=== PATIENT | female | born 2000 | race Caucasian/White ===

== ENCOUNTER 2022-07-12 15:57 | Inpatient (IN) | payer MEDICARE, MEDICAID, SELFPAY ==
--- NOTE | 2022-07-12 | ECG_ITS ---
Test Reason : medical clear Blood Pressure : / mmHG Vent. Rate : 076 BPM Atrial Rate : 076 BPM P-R Int : 158 ms QRS Dur : 100 ms QT Int : 380 ms P-R-T Axes : 020 022 021 degrees QTc Int : 427 ms Normal sinus rhythm Minimal voltage criteria for LVH, may be normal variant ( R in aVL ) RSR' or QR pattern in V1 suggests right ventricular conduction delay Abnormal ECG No previous ECGs available Referred By: Nilam Vences Electronically Signed By:SUKUMAR REGAN MD
[2022-07-12 16:06] VITALS: BP 133/79; BP 156/94; PULSE 113; PULSE 98; RESP 18; TEMP 36.9; O2SAT 97; O2SAT 98; BMI 35.5
--- NOTE | 2022-07-12 16:26 | ED.PSYCH ---
HPI - Psych General Chief Complaint: Psychiatric Symptoms Stated Complaint: crisis Time Seen by Provider: 07/12/22 16:12 Source: patient Mode of arrival: ambulatory Limitations: no limitations History of Present Illness HPI Narrative: 22 yold female with history of psych presents to the ED for suicidal and homicidal ideation. Patient states she does not get along with her brake mechanic at a custodial so she made those statements. Patient was evaluated by [facility] and and they recommend she come in for inpatient bed search. Patient states her plan will be to cut herself. Related Data Allergies Allergy/AdvReac Type Severity Reaction Status Date / Time No Known Allergies Allergy Verified 07/12/22 16:23 Review of Systems Review of Systems: suicide and homicidal. plan to cut herself Yes all other systems are reviewed and are negative [facility] Social History Social History Advance Directives: No Advance Directives Information Provided: No Physical Exam Vital Signs: Vital Signs: Last Vital Signs Temp 98.5 F 07/12/22 16:06 Pulse 98 07/12/22 16:06 Resp 18 07/12/22 16:06 BP 133/79 07/12/22 16:06 Pulse Ox 98 07/12/22 16:06 O2 Del Method 07/12/22 16:06 BMI result Body Mass Index 35.5 Const: General: cooperative, healthy appearing, comfortable, no acute distress, well developed, alert, awake and Physically active Orientation/consciousness: oriented to time and patient oriented x3 HEENT: Head: Yes normal to inspection, Yes No palpable skull fracture present, Yes normocephalic, Yes atraumatic and No abrasion Eyes: General: appearance normal, both eyes and all related structures Neck: Neck: Yes normal visual inspection, Yes full ROM, Yes no lymphadenopathy, Yes no meningeal signs, Yes trachea midline, Yes supple, No anterior neck swelling and No tender Chest: Chest palpation & inspection: normal inspection of the chest and normal palpation of entire chest wall Resp: Effort & Inspection: normal respiratory effort and able to speak in complete sentences Auscultation: clear to auscultation bilaterally Cardio: Jugular venous distension: no JVD Heart sounds: S1 normal heart sound present and S2 normal heart sound present GI: Inspection: Yes normal to inspection and No abdominal wall ecchymosis Palpation (GI): Soft to palpation, not firm, nontender, no guarding and not rigid : General: No CVA tenderness Back/Spine/Pelvis: Back: No CVA tenderness and No back tenderness Skin: General skin exam: no rashes or lesions noted and elasticity normal Neuro: General: oriented to time, patient oriented x3, gait normal, tone normal and no meningeal signs Cranial nerves: Yes CN's II-XII intact bilaterally Extrem: General: Yes normal to inspection and Yes full ROM Psych: Appearance: grossly normal, well kempt and not disheveled Course Course Course Narrative: Labs ordered. Patient will be direct admit. Reevaluation(s) Reevaluation #1: Patient labs baseline and normal. Patient has a bed search Time: 19:53 MDM - Psych MDM Narrative Medical decision making narrative: Depression Lab Data Result diagrams: 07/12/22 17:14 07/12/22 17:14 Labs: Lab Results 07/12/22 07/12/22 07/12/22 Range/Units 16:35 16:35 16:35 WBC (4.8-10.8) X10*3/uL RBC (4.20-5.50) X10*6/uL Hgb (12.0-16.0) g/dl Hct (37.0-47.0) % MCV (80.0-98.0) fL MCH (27.0-33.0) pg MCHC (31.0-35.0) g/dl RDW (11.0-16.0) % Plt Count (160-400) X10*3/uL MPV (9.4-12.3) fL Immature Gran % (Auto) (0.0-0.4) % Neut % (Auto) (45-73) % Lymph % (Auto) (20-40) % [place] % (Auto) (2-11) % Eos % (Auto) (0-4) % Baso % (Auto) (0-2) % Lymph # (Auto) (1.2-4.9) X10*3/uL [place] # (Auto) (0.1-1.2) X10*3/uL Eos # (Auto) (0.0-0.4) X10*3/uL Baso # (Auto) (0.0-0.2) X10*3/uL Abs Immat Gran (auto) (0.00-0.03) X10*3/uL Absolute Neuts (auto) (2.0-8.3) x10*3/uL Absolute Nucleated RBC (0.0-0.012) X10*3/uL Nucleated RBC % (auto) (0.0-0.2) /100WBC Sodium (135-145) mmol/L Potassium (3.3-5.1) mmol/L Chloride (96-108) mmol/L Carbon Dioxide (22-29) mmol/L Anion Gap (12-20) BUN (9-16) mg/dL Creatinine (0.5-1.4) mg/dL Estim Creat Clear Calc Estimated GFR Random Glucose (60-115) mg/dL Calcium (8.4-10.2) mg/dL Total Bilirubin (0.0-1.0) mg/dL Direct Bilirubin (0.0-0.5) mg/dL AST (5-31) U/L ALT (0-31) U/L Alkaline Phosphatase (39-117) U/L Total Protein (6.5-8.0) g/dL Albumin (3.5-5.0) g/dL Urine Color Yellow Urine Appearance Clear Urine pH 5.5 (5.0-9.0) Ur Specific [place] 1.015 (1.005-1.025) Urine Protein Negative (Neg-Trace) mg/dL Urine Glucose (UA) Negative (Negative) mg/dL Urine Ketones Negative (Negative) mg/dL Urine Blood Trace H (Negative) Urine Nitrite Negative (Negative) Ur Leukocyte Esterase Small (1+) H (Negative) Urine Test NEGATIVE (NEGATIVE) Urine Opiates Screen Not Detected (Not Detect) Urine Fentanyl Screen Not Detected (Not Detect) Ur Barbiturates Screen Not Detected (Not Detect) Ur Phencyclidine Scrn Not Detected (Not Detect) Ur Amphetamines Screen Not Detected (Not Detect) U Benzodiazepines Scrn Not Detected (Not Detect) Urine Cocaine Screen Not Detected (Not Detect) U Marijuana (THC) Screen Not Detected (Not Detect) Ethyl Alcohol mg/dL COVID-19 (CHE) (Negative) COVID-19 Clin Com 07/12/22 07/12/22 07/12/22 Range/Units 16:35 17:14 17:14 WBC 11.8 H (4.8-10.8) X10*3/uL RBC 4.50 (4.20-5.50) X10*6/uL Hgb 12.8 (12.0-16.0) g/dl Hct 37.3 (37.0-47.0) % MCV 82.9 (80.0-98.0) fL MCH 28.4 (27.0-33.0) pg MCHC 34.3 (31.0-35.0) g/dl RDW 13.3 (11.0-16.0) % Plt Count 324 (160-400) X10*3/uL MPV 9.2 L (9.4-12.3) fL Immature Gran % (Auto) 0.2 (0.0-0.4) % Neut % (Auto) 67.5 (45-73) % Lymph % (Auto) 27.4 (20-40) % [place] % (Auto) 4.5 (2-11) % Eos % (Auto) 0.1 (0-4) % Baso % (Auto) 0.3 (0-2) % Lymph # (Auto) 3.2 (1.2-4.9) X10*3/uL [place] # (Auto) 0.5 (0.1-1.2) X10*3/uL Eos # (Auto) 0.0 (0.0-0.4) X10*3/uL Baso # (Auto) 0.0 (0.0-0.2) X10*3/uL Abs Immat Gran (auto) 0.02 (0.00-0.03) X10*3/uL Absolute Neuts (auto) 8.0 (2.0-8.3) x10*3/uL Absolute Nucleated RBC 0.000 (0.0-0.012) X10*3/uL Nucleated RBC % (auto) 0.0 (0.0-0.2) /100WBC Sodium 139 (135-145) mmol/L Potassium 4.2 (3.3-5.1) mmol/L Chloride 106 (96-108) mmol/L Carbon Dioxide 19 L (22-29) mmol/L Anion Gap 18 (12-20) BUN 11 (9-16) mg/dL Creatinine 0.76 (0.5-1.4) mg/dL Estim Creat Clear Calc 127.8 Estimated GFR > 60 Random Glucose 102 (60-115) mg/dL Calcium 9.2 (8.4-10.2) mg/dL Total Bilirubin 0.2 (0.0-1.0) mg/dL Direct Bilirubin < 0.2 (0.0-0.5) mg/dL AST 10 (5-31) U/L ALT 11 (0-31) U/L Alkaline Phosphatase 85 (39-117) U/L Total Protein 7.8 (6.5-8.0) g/dL Albumin 4.6 (3.5-5.0) g/dL Urine Color Urine Appearance Urine pH (5.0-9.0) Ur Specific [place] (1.005-1.025) Urine Protein (Neg-Trace) mg/dL Urine Glucose (UA) (Negative) mg/dL Urine Ketones (Negative) mg/dL Urine Blood (Negative) Urine Nitrite (Negative) Ur Leukocyte Esterase (Negative) Urine Test (NEGATIVE) Urine Opiates Screen (Not Detect) Urine Fentanyl Screen (Not Detect) Ur Barbiturates Screen (Not Detect) Ur Phencyclidine Scrn (Not Detect) Ur Amphetamines Screen (Not Detect) U Benzodiazepines Scrn (Not Detect) Urine Cocaine Screen (Not Detect) U Marijuana (THC) Screen (Not Detect) Ethyl Alcohol < 10 mg/dL COVID-19 (CHE) Negative (Negative) COVID-19 Clin Com See Note Discharge Plan Discharge Clinical Impression: Depression Patient Disposition: Still a Patient
--- NOTE | 2022-07-12 16:41 | PC.NURSE ---
PT calm and cooperative sectioned 12 from day program. Seen in the community by N. Reports SI/HI when with acute care nursing assistant. Reports feeling safe here. Denies SI/HI at this current time. PT changed into hospital attire and belongings searched and secured in locker #6.
[2022-07-12 16:58] LABS: COVID-19 Test Negative (Negative); IDNOW Serial# 16C4AD1C
[2022-07-12 17:00] LABS: Amphetamine Screen Urine Not Detected (Not Detect); Barbiturates, Urine Not Detected (Not Detect); Benzodiazepines Screen Urine Not Detected (Not Detect); Cannabinoid Screen Urine Not Detected (Not Detect); Cocaine Screen Urine Not Detected (Not Detect); Fentanyl, urine Not Detected (Not Detect); Opiate Screen Urine Not Detected (Not Detect); Phencyclidine Screen Urine Not Detected (Not Detect)
[2022-07-12 17:16] LABS: Appearance Urine Clear; Color Urine Yellow; Glucose Urine UA Negative (Negative); Leukocyte Esterase Urine Small (1+) (Negative); Nitrite Urine Negative (Negative); PH 5.5 (5.0-9.0); Specific Gravity - Urine 1.015 (1.005-1.025); UMIC TRIGGER UACC YES; Urine Blood Trace (Negative); Urine Ketones Negative (Negative); Urine Protein Negative (Neg-Trace)
[2022-07-12 17:19] LABS: UPreg QC Valid YES; Urine Pregnancy NEGATIVE (NEGATIVE)
[2022-07-12 17:22] LABS: MANUAL DIFF FLAG NO
[2022-07-12 17:26] LABS: Basophils Percent Auto 0.3 % (0-2); Eosinophils Percent Auto 0.1 % (0-4); Hematocrit 37.3 % (37.0-47.0); Hemoglobin 12.8 g/dl (12.0-16.0); Imm Gran Abs Auto 0.02 X10*3/uL (0.00-0.03); Imm Gran Pct Auto 0.2 % (0.0-0.4); Lymphocytes Absolute Auto 3.2 X10*3/uL (1.2-4.9); Lymphocytes Percent Auto 27.4 % (20-40); Mean Corpuscular HGB Conc 34.3 g/dl (31.0-35.0); Mean Corpuscular Hemoglobin 28.4 pg (27.0-33.0); Mean Corpuscular Volume 82.9 fL (80.0-98.0); Mean Platelet Volume 9.2 fL (9.4-12.3); Monocytes Absolute Auto 0.5 X10*3/uL (0.1-1.2); Monocytes Percent Auto 4.5 % (2-11); Neutrophils Percent Auto 67.5 % (45-73); Platelet Count 324 X10*3/uL (160-400); Red Cell Distribution Width 13.3 % (11.0-16.0); White Blood Count 11.8 X10*3/uL (4.8-10.8)
[2022-07-12 18:06] LABS: Alanine Aminotransferase 11 U/L (0-31); Albumin Level 4.6 g/dL (3.5-5.0); Alkaline Phosphatase 85 U/L (39-117); Anion Gap 18 (12-20); Aspartate Amino Transferase 10 U/L (5-31); Bilirubin Direct < 0.2 mg/dL (0.0-0.5); Bilirubin Total 0.2 mg/dL (0.0-1.0); Blood Urea Nitrogen 11 mg/dL (9-16); Calcium 9.2 mg/dL (8.4-10.2); Carbon Dioxide 19 mmol/L (22-29); Chloride 106 mmol/L (96-108); Creatinine Clr Calc Pharmacy 127.8; Estimated Glomerular Filt Rate > 60; Ethanol < 10 mg/dL; Glucose Random 102 mg/dL (60-115); Potassium 4.2 mmol/L (3.3-5.1); Sodium 139 mmol/L (135-145); Total Protein 7.8 g/dL (6.5-8.0)
--- OUTSIDE RECORDS SUMMARY | 2022-07-12 18:51 | XMS_ITS | Continuity of Care Document ---
:2000 Author Organization [facility] Address [address] [place] [address]- Care Team Providers Name Role Phone Not on Staff, PCP Primary Care Physician Unavailable Encounter [facility] Date(s): 05/07/22 - 05/08/22 [facility] [address] [place] [id number] Encounter Diagnosis Suicidal ideation (Final) - 05/07/22 Chronic bipolar disorder (Final) - 05/08/22 Acute depression (Final) - 05/08/22 Discharge Disposition: A-D/C Home Attending Physician: Robert Brown MD Admitting Physician: Robert Brown MD Referring Physician: Not on Staff, Referring MD Allergies, Adverse Reactions, Alerts No Known Medication Allergies Vital Signs Most recent to oldest 1 2 3 [Reference Range]: Height 159 cm 159 cm (05/08/22 11:08 AM) (05/07/22 5:50 PM) Weight 95 kg (05/07/22 5:50 PM) Oxygen Saturation [94-100 97 % 98 % 100 % %] (05/08/22 11:08 AM) (05/08/22 4:11 AM) (05/07/22 5: 50 PM) Pulse Rate [55-90 bpm] 91 bpm 90 bpm 94 bpm *H* (05/08/22 4:11 AM) *H* (05/08/22 11:08 AM) (05/07/22 5:50 PM) Blood Pressure 120/62 mm Hg 138/78 mm Hg 141/80 mm Hg [90-138/55-84 mm Hg] (05/08/22 11:08 AM) (05/08/22 4:11 AM) *H* (05/07/22 5:50 PM ) Respiratory Rate [16-30 20 br/min 17 br/min 16 br/mi n br/min] (05/08/22 11:08 AM) (05/08/22 4:11 AM) (05/07/22 5: 50 PM) Temperature [96.8-100.4 98.8 DegF 98.3 DegF 98.9 Deg F DegF] (05/08/22 11:08 AM) (05/08/22 4:11 AM) (05/07/22 5: 50 PM) Liters per Minute 0 L/min (05/08/22 11:08 AM) Mode of Delivery (Oxygen) Room air Room air Room a ir (05/08/22 11:08 AM) (05/08/22 4:11 AM) (05/07/22 5: 50 PM) Blood pressure sites Arm, left (05/08/22 11:08 AM) Temperature Route Oral Oral Oral (05/08/22 11:08 AM) (05/08/22 4:11 AM) (05/07/22 5: 50 PM) Weight Obtained Via Patient/family stated (05/07/22 5:50 PM)
[2022-07-12 20:45] VITALS: BP 123/74; PULSE 95; RESP 16; TEMP 36.6; O2SAT 100; BMI 36.2
[2022-07-12 21:12] LABS: UACC Culture Trigger YES; WBC Urine 21-50 /HPF (0-5)
[2022-07-12 21:13] LABS: Bacteria Urine None Seen (None Seen); Hyaline Casts Urine 0-2 /LPF (0-2)
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
[2022-07-12] MEDS: Docusate Sodium 100 MG CAPSULE PO (22:00)
[2022-07-12] MEDS: cloZAPine 100 MG TABLET 250 MG PO (22:00)
[2022-07-12] MEDS: Desmopressin Acetate 0.2 MG TABLET 0.3 MG PO (22:02)
[2022-07-12] MEDS: diphenhydrAMINE HCL 25 MG CAPSULE PO (22:03)
--- NOTE | 2022-07-12 22:32 | PC.NURSE ---
Pt requested to take flu shot the next morning. Flu shot not given tonight.
[2022-07-13 08:30] VITALS: BP 135/80; PULSE 114; TEMP 36.6
[2022-07-13] MEDS: polyethylene glycoL 3350 17 GM POWD.PACK PO (09:18)
[2022-07-13] MEDS: Docusate Sodium 100 MG CAPSULE PO ×2 (09:18→20:29)
[2022-07-13] MEDS: Sertraline HCL 100 MG TABLET PO (09:18)
[2022-07-13] MEDS: Prazosin HCL 1 MG CAPSULE PO (09:19)
[2022-07-13] MEDS: cloZAPine 100 MG TABLET PO (09:19)
[2022-07-13] MEDS: OLANZapine 10 MG TABLET PO (09:19)
[2022-07-13 09:26] LABS: Estimated Average Glucose 94 mg/dL; Hemoglobin A1c % 4.9 %
[2022-07-13 09:50] LABS: Cholesterol 206 mg/dL; HDL Cholesterol 54 mg/dL; LDL Cholesterol Calculated 131 mg/dl; Magnesium 2.1 mg/dL (1.6-2.6); Triglycerides 109 mg/dL
[2022-07-13 10:12] LABS: Free T4 (Free Thyroxine) 0.97 ng/dL (0.71-1.85); Thyroid Stimulating Hormone 1.57 uIU/mL (0.32-4.0)
[2022-07-13 11:05] LABS: Folate 12.1 ng/mL (> or = 4.0); Vitamin B12 380 pg/mL (200-900)
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
[2022-07-13 18:00] VITALS: BP 124/74; PULSE 113; TEMP 36.2
[2022-07-13] MEDS: cloZAPine 100 MG TABLET 250 MG PO (20:28)
[2022-07-13] MEDS: Milk of Magnesia 30 ML ORAL.SUSP PO (20:28)
[2022-07-13] MEDS: Desmopressin Acetate 0.2 MG TABLET 0.3 MG PO (20:30)
[2022-07-13] MEDS: diphenhydrAMINE HCL 25 MG CAPSULE PO (20:31)
[2022-07-14 06:00] VITALS: BP 117/69; PULSE 114; RESP 18
[2022-07-14] MEDS: cloZAPine 100 MG TABLET PO (08:35)
[2022-07-14] MEDS: Docusate Sodium 100 MG CAPSULE PO ×2 (08:35→20:09)
[2022-07-14] MEDS: Sertraline HCL 100 MG TABLET PO (08:35)
[2022-07-14] MEDS: OLANZapine 10 MG TABLET PO (08:35)
[2022-07-14] MEDS: Prazosin HCL 1 MG CAPSULE PO (08:35)
[2022-07-14] MEDS: polyethylene glycoL 3350 17 GM POWD.PACK PO (08:36)
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
[2022-07-14] MEDS: bisacodyL 10 MG SUPP.RECT PR (11:01)
[2022-07-14 18:00] VITALS: BP 115/60; PULSE 90; RESP 18
[2022-07-14] MEDS: cloZAPine 100 MG TABLET 250 MG PO (20:07)
[2022-07-14] MEDS: Desmopressin Acetate 0.2 MG TABLET 0.3 MG PO (20:07)
[2022-07-14] MEDS: diphenhydrAMINE HCL 25 MG CAPSULE PO (20:10)
[2022-07-15 08:01] VITALS: BP 138/61; PULSE 101; RESP 16; TEMP 36.6; O2SAT 95
[2022-07-15] MEDS: OLANZapine 10 MG TABLET PO (08:46)
[2022-07-15] MEDS: Docusate Sodium 100 MG CAPSULE PO ×2 (08:46→22:01)
[2022-07-15] MEDS: cloZAPine 100 MG TABLET PO (08:46)
[2022-07-15] MEDS: Sertraline HCL 100 MG TABLET PO (08:46)
[2022-07-15] MEDS: Prazosin HCL 1 MG CAPSULE PO (08:47)
[2022-07-15] MEDS: polyethylene glycoL 3350 17 GM POWD.PACK PO (09:35)
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
[2022-07-15 17:15] VITALS: BP 113/57; PULSE 99; TEMP 36.7
[2022-07-15] MEDS: cloZAPine 100 MG TABLET 250 MG PO (21:57)
[2022-07-15] MEDS: diphenhydrAMINE HCL 25 MG CAPSULE PO (22:01)
[2022-07-15] MEDS: Desmopressin Acetate 0.2 MG TABLET 0.3 MG PO (22:01)
[2022-07-16] MEDS: Prazosin HCL 1 MG CAPSULE PO (08:31)
[2022-07-16] MEDS: OLANZapine 10 MG TABLET PO (08:31)
[2022-07-16] MEDS: Docusate Sodium 100 MG CAPSULE PO ×2 (08:33→22:08)
[2022-07-16] MEDS: Sertraline HCL 100 MG TABLET PO (08:33)
[2022-07-16] MEDS: cloZAPine 100 MG TABLET PO (08:33)
[2022-07-16] MEDS: polyethylene glycoL 3350 17 GM POWD.PACK PO (08:34)
[2022-07-16 09:20] VITALS: BP 132/64; PULSE 88; RESP 18; TEMP 36.2; O2SAT 99
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
[2022-07-16 17:35] VITALS: BP 117/70; PULSE 89; TEMP 36.4
[2022-07-16] MEDS: cloZAPine 100 MG TABLET 250 MG PO (22:06)
[2022-07-16] MEDS: Desmopressin Acetate 0.2 MG TABLET 0.3 MG PO (22:07)
[2022-07-16] MEDS: diphenhydrAMINE HCL 25 MG CAPSULE PO (22:08)
[2022-07-17] MEDS: Prazosin HCL 1 MG CAPSULE PO (10:41)
[2022-07-17] MEDS: Sertraline HCL 100 MG TABLET PO (10:41)
[2022-07-17] MEDS: cloZAPine 100 MG TABLET PO (10:42)
[2022-07-17] MEDS: Docusate Sodium 100 MG CAPSULE PO ×2 (10:42→21:27)
[2022-07-17] MEDS: polyethylene glycoL 3350 17 GM POWD.PACK PO (10:43)
[2022-07-17] MEDS: OLANZapine 10 MG TABLET PO (10:43)
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
[2022-07-17 18:00] VITALS: BP 125/70; PULSE 89; TEMP 36.6; O2SAT 99
[2022-07-17] MEDS: Desmopressin Acetate 0.2 MG TABLET 0.3 MG PO (21:27)
[2022-07-17] MEDS: diphenhydrAMINE HCL 25 MG CAPSULE PO (21:27)
[2022-07-17] MEDS: cloZAPine 100 MG TABLET 250 MG PO (21:31)
[2022-07-18 08:30] VITALS: BP 123/60; PULSE 97; TEMP 36.3
[2022-07-18] MEDS: cloZAPine 100 MG TABLET PO (08:39)
[2022-07-18] MEDS: Prazosin HCL 1 MG CAPSULE PO (08:39)
[2022-07-18] MEDS: OLANZapine 10 MG TABLET PO (08:40)
[2022-07-18] MEDS: Docusate Sodium 100 MG CAPSULE PO (08:40)
[2022-07-18] MEDS: polyethylene glycoL 3350 17 GM POWD.PACK PO (08:40)
[2022-07-18] MEDS: Sertraline HCL 100 MG TABLET PO (08:40)
--- NOTE | 2022-07-18 11:18 | P.PNPSI_ITS ---
Subjective Subjective Reason For Visit: SI,HI Diagnostics Vital Signs (24Hr): Vital Signs - 24 hr 07/17/22 18:00 Temperature 98 F Pulse Rate 89 Blood Pressure 125/70 Pulse Oximetry 99 Oxygen Delivery Method Room Air BMI result Body Mass Index 36.2 Labs Results: 07/12/22 17:14 07/12/22 17:14 Medications Medications Current Medications Acetaminophen (Acetaminophen 325 Mg Tablet) 650 mg PO Q6H PRN PRN Reason: Headache/Pain Mild Scale (1-3) Al Hydroxide/Mg Hydroxide (Magnesium Hydrox/Alum Hydrox 30 Ml Oral.Susp) 30 ml PO Q6H PRN PRN Reason: Heartburn/Nausea Clozapine (Clozapine 100 Mg Tablet) 250 mg PO BEDTIME [facility] Last Admin: 07/17/22 21:31 Dose: 250 mg Clozapine (Clozapine 100 Mg Tablet) 100 mg PO DAILY [facility] Last Admin: 07/18/22 08:39 Dose: 100 mg Desmopressin Acetate (Desmopressin Acetate 0.2 Mg Tablet) 0.3 mg PO BEDTIME [facility] Last Admin: 07/17/22 21:27 Dose: 0.3 mg Diphenhydramine HCl (Diphenhydramine Hcl 25 Mg Capsule) 25 mg PO BEDTIME [facility] Last Admin: 07/17/22 21:27 Dose: 25 mg Docusate Sodium (Docusate Sodium 100 Mg Capsule) 100 mg PO BID [facility] Last Admin: 07/18/22 08:40 Dose: 100 mg Hydroxyzine HCl (Hydroxyzine Hcl 25 Mg Tablet) 25 mg PO Q6H PRN PRN Reason: Anxiety Magnesium Hydroxide (Milk Of Magnesia 30 Ml Oral.Susp) 30 ml PO DAILY PRN PRN Reason: Constipation Last Admin: 07/13/22 20:28 Dose: 30 ml Olanzapine (Olanzapine 10 Mg Tablet) 10 mg PO DAILY [facility] Last Admin: 07/18/22 08:40 Dose: 10 mg Pharmacy Consult (Consult Rx Perform Med Rec) 1 each MISCELLANE ONCE PRN PRN Reason: Consult order Polyethylene Glycol (Polyethylene Glycol 3350 17 Gm Powd.Pack) 17 gm PO DAILY [facility] Last Admin: 07/18/22 08:40 Dose: 17 gm Prazosin HCl (Prazosin Hcl 1 Mg Capsule) 1 mg PO DAILY [facility]; Protocol Last Admin: 07/18/22 08:39 Dose: 1 mg Sertraline HCl (Sertraline Hcl 100 Mg Tablet) 100 mg PO DAILY [facility] Last Admin: 07/17/22 10:41 Dose: 100 mg Trazodone HCl (Trazodone Hcl 50 Mg Tablet) 50 mg PO BEDTIME PRN PRN Reason: Insomnia Allergies Allergies Allergy/AdvReac Type Severity Reaction Status Date / Time No Known Allergies Allergy Verified 07/12/22 16:23 Assessment & Plan Assessment & Plan (1) Autism spectrum disorder: Status: Acute Code(s): F84.0 - Autistic disorder (2) Bipolar disorder: Status: Acute Code(s): F31.9 - Bipolar disorder, unspecified (3) Excoriation (skin-picking) disorder: Status: Acute Code(s): F42.4 - Excoriation (skin-picking) disorder (4) PTSD (post-traumatic stress disorder): Status: Acute Code(s): F43.10 - Post-traumatic stress disorder, unspecified Plan 22 yo female, hx of PTSD, ASD, Bipolar Disorder, Skin Picking Disorder, who has had a recent move to a new residential program and has experienced a conflict with her new child care with resulting SIBS, SI, HI and probably triggering of traumatic memory. Team is attempting to find her a new living situation. Pt reports feeling comfortable and safe on the unit. She has engaged in milieu and with peers today and reports she wants to continue to work toward her goals of j ob, college and independent living. Guardian was notified of her admission. Plan: Continue current regime Observe for behavioral symptoms which require intervention Collateral contact with providers/team as indicated 07/14: Try suppository for constipation. 07/15: Continue current treatment plan 07/16/22: Continue current plan. Discharge planning for 07/18/22. 07/17/22: Discharge 07/18/22. I spent minutes with the patient and/or on the patient floor today, greater than?50% of which was spent counseling/coordinating care.
--- NOTE | 2022-07-19 06:47 | P.DS_ITS ---
DS: Providers Provider Date of Service: 07/18/22 Date of admission: 07/12/22 20:14 Date of discharge: 07/18/22 Primary care physician: Anai Physician Admitting clinician: Jaylin Collado Attending physician on admission: Kane Osuna Attending physician on discharge: Kane Osuna Discharging clinician: Jaylin Collado DS: Diagnosis Discharge Diagnosis (1) Autism spectrum disorder: Status: Acute (2) Bipolar disorder: Status: Acute (3) Excoriation (skin-picking) disorder: Status: Acute (4) PTSD (post-traumatic stress disorder): Status: Acute DS: Medications Discharge Medications Home Medications: Home Medications Medication Instructions Recorded Confirmed clozapine 100 mg tablet 100 mg PO QAM 07/12/22 07/12/22 desmopressin 0.2 mg tablet 0.3 mg PO BEDTIME 07/12/22 07/12/22 diphenhydramine HCl 25 mg capsule 25 mg PO BEDTIME 07/12/22 07/12/22 (Benadryl) docusate sodium 100 mg capsule 100 mg PO BID 07/12/22 07/12/22 (Colace) olanzapine 10 mg tablet 10 mg PO QAM 07/12/22 07/12/22 polyethylene glycol 3350 17 gram 17 g PO QAM 07/12/22 07/12/22 oral powder packet (Miralax) prazosin 1 mg capsule 1 mg PO QPM 07/12/22 07/12/22 sertraline 100 mg tablet 100 mg PO DAILY 07/12/22 07/12/22 Previous Rx's Medication Instructions Recorded clozapine 100 mg tablet 250 mg PO BEDTIME #0 tabs 07/17/22 Mental Status Exam Mental Status Exam Patient Appearance: Appropriate Patient Orientation: Person, Place, Time and Situation Level of Consciousness: Alert Patient Behavior: Talkative and Good Eye Contact Mood Description: Apprehensive Affect Description: Apprehensive Patient Cognition Impaired: Yes Ability to Follow Directions: Good Speech Pattern: Spontaneous Speech Memory Description: Intact Hallucinations: None Delusions: Not Present Thought Process: Goal Oriented Thought Content: positive for Goal Oriented Depressive Symptoms: Increased Anxiety Judgement: Good Data Data Completed and Pending Completed studies during hospitalization [Text1]: 07/12/22 07/12/22 07/12/22 16:35 16:35 16:35 WBC RBC Hgb Hct MCV MCH MCHC RDW Plt Count MPV Immature Gran % (Auto) Neut % (Auto) Lymph % (Auto) [place] % (Auto) Eos % (Auto) Baso % (Auto) Lymph # (Auto) [place] # (Auto) Eos # (Auto) Baso # (Auto) Abs Immat Gran (auto) Absolute Neuts (auto) Absolute Nucleated RBC Nucleated RBC % (auto) Sodium Potassium Chloride Carbon Dioxide Anion Gap BUN Creatinine Estim Creat Clear Calc Estimated GFR Random Glucose Estimat Average Glucose Hemoglobin A1c % Calcium Magnesium Total Bilirubin Direct Bilirubin AST ALT Alkaline Phosphatase Total Protein Albumin Triglycerides Cholesterol LDL Cholesterol, Calc HDL Cholesterol Vitamin B12 Folate TSH Free T4 Urine Color Yellow Urine Appearance Clear Urine pH 5.5 Ur Specific [place] 1.015 Urine Protein Negative Urine Glucose (UA) Negative Urine Ketones Negative Urine Blood Trace H Urine Nitrite Negative Ur Leukocyte Esterase Small (1+) H Urine RBC 6-10 H Urine WBC 21-50 H Ur Squamous Epith Cells 3-5 Urine Bacteria None Seen Hyaline Casts 0-2 Urine Test NEGATIVE Urine Opiates Screen Not Detected Urine Fentanyl Screen Not Detected Ur Barbiturates Screen Not Detected Ur Phencyclidine Scrn Not Detected Ur Amphetamines Screen Not Detected U Benzodiazepines Scrn Not Detected Urine Cocaine Screen Not Detected U Marijuana (THC) Screen Not Detected Ethyl Alcohol COVID-19 (CHE) COVID-19 Clin Com 07/12/22 07/12/22 07/12/22 16:35 17:14 17:14 WBC 11.8 H RBC 4.50 Hgb 12.8 Hct 37.3 MCV 82.9 MCH 28.4 MCHC 34.3 RDW 13.3 Plt Count 324 MPV 9.2 L Immature Gran % (Auto) 0.2 Neut % (Auto) 67.5 Lymph % (Auto) 27.4 [place] % (Auto) 4.5 Eos % (Auto) 0.1 Baso % (Auto) 0.3 Lymph # (Auto) 3.2 [place] # (Auto) 0.5 Eos # (Auto) 0.0 Baso # (Auto) 0.0 Abs Immat Gran (auto) 0.02 Absolute Neuts (auto) 8.0 Absolute Nucleated RBC 0.000 Nucleated RBC % (auto) 0.0 Sodium 139 Potassium 4.2 Chloride 106 Carbon Dioxide 19 L Anion Gap 18 BUN 11 Creatinine 0.76 Estim Creat Clear Calc 127.8 Estimated GFR > 60 Random Glucose 102 Estimat Average Glucose Hemoglobin A1c % Calcium 9.2 Magnesium Total Bilirubin 0.2 Direct Bilirubin < 0.2 AST 10 ALT 11 Alkaline Phosphatase 85 Total Protein 7.8 Albumin 4.6 Triglycerides Cholesterol LDL Cholesterol, Calc HDL Cholesterol Vitamin B12 Folate TSH Free T4 Urine Color Urine Appearance Urine pH Ur Specific [place] Urine Protein Urine Glucose (UA) Urine Ketones Urine Blood Urine Nitrite Ur Leukocyte Esterase Urine RBC Urine WBC Ur Squamous Epith Cells Urine Bacteria Hyaline Casts Urine Test Urine Opiates Screen Urine Fentanyl Screen Ur Barbiturates Screen Ur Phencyclidine Scrn Ur Amphetamines Screen U Benzodiazepines Scrn Urine Cocaine Screen U Marijuana (THC) Screen Ethyl Alcohol < 10 COVID-19 (CHE) Negative COVID-19 Clin Com See Note 07/13/22 07/13/22 07/13/22 08:14 08:14 08:14 WBC RBC Hgb Hct MCV MCH MCHC RDW Plt Count MPV Immature Gran % (Auto) Neut % (Auto) Lymph % (Auto) [place] % (Auto) Eos % (Auto) Baso % (Auto) Lymph # (Auto) [place] # (Auto) Eos # (Auto) Baso # (Auto) Abs Immat Gran (auto) Absolute Neuts (auto) Absolute Nucleated RBC Nucleated RBC % (auto) Sodium Potassium Chloride Carbon Dioxide Anion Gap BUN Creatinine Estim Creat Clear Calc Estimated GFR Random Glucose Estimat Average Glucose 94 Hemoglobin A1c % 4.9 Calcium Magnesium 2.1 Total Bilirubin Direct Bilirubin AST ALT Alkaline Phosphatase Total Protein Albumin Triglycerides 109 Cholesterol 206 LDL Cholesterol, Calc 131 HDL Cholesterol 54 Vitamin B12 380 Folate 12.1 TSH 1.57 Free T4 0.97 Urine Color Urine Appearance Urine pH Ur Specific [place] Urine Protein Urine Glucose (UA) Urine Ketones Urine Blood Urine Nitrite Ur Leukocyte Esterase Urine RBC Urine WBC Ur Squamous Epith Cells Urine Bacteria Hyaline Casts Urine Test Urine Opiates Screen Urine Fentanyl Screen Ur Barbiturates Screen Ur Phencyclidine Scrn Ur Amphetamines Screen U Benzodiazepines Scrn Urine Cocaine Screen U Marijuana (THC) Screen Ethyl Alcohol COVID-19 (CHE) COVID-19 Clin Com 07/12/22 16:35 Urine clean catch - Urine bruce top Urine Culture - Final Proteus mirabilis DS: Summary Hospital Course Hospital Course: Admission to adult psychiatry for exacerbation of bipolar disorder, PTSD, ASD and Excoriation Disorder. Clozaril was adjusted to 350 mg daily. Olanzapine, Prazosin and Sertraline were continued. Time spent discussing smoking cessation with patient: 3 to 10 minutes Status at Discharge Functional status at discharge: independent ambulation Overall status at discharge: patient is progressing back to baseline Time Spent with Patient Time attestation: Total time spent providing and/or coordinating discharge services: 35 Time spent: Greater than 30 minutes Discharge Plan Discharge Anticipated Discharge Date/Time: 07/18/22 16:22 Patient Disposition: Xfer to Respite Facility Discharge Diagnosis: PTSD Autism Spectrum Disorder Bipolar Disorder Skin Picking (Excoriation) Disorder Referrals: [facility] [Other] - 1 Week (Please contact to set up PCP appointment; may also walk in for urgent care.) Psych Prescriber:Jonas Frederick ([employer]) [Other] - 08/07/22 9:00 am (Appointment is in person at the office ) Physician,None [Primary Care Provider] - 1 Week Discharge Medications: New clozapine 100 mg Tablet 250 mg PO BEDTIME Qty: 0 0RF Continued olanzapine 10 mg Tablet 10 mg PO QAM prazosin 1 mg Capsule 1 mg PO QPM sertraline 100 mg Tablet 100 mg PO DAILY diphenhydramine HCl [Benadryl] 25 mg Capsule 25 mg PO BEDTIME clozapine 100 mg Tablet 100 mg PO QAM docusate sodium [Colace] 100 mg Capsule 100 mg PO BID polyethylene glycol 3350 [Miralax] 17 gram Powder In Packet 17 g PO QAM desmopressin 0.2 mg Tablet 0.3 mg PO BEDTIME Discontinued clozapine 200 mg Tablet 200 mg PO BEDTIME clozapine 50 mg Tablet 50 mg PO BEDTIME Discharge Orders: Discharge Order (Routine); Ordered 07/17/22 Ordered By: Jaylin Collado Diet: Advance to usual diet Activity on Discharge: As tolerated Stand Alone Forms: Patient Portal Discharge page, Community Support Care Plan Goals: Maintain mood and safe behaviors Take medications as directed Practice coping skills Continue with out patient providers Health Concerns: Stable mood and behaviors Plan of Treatment: Follow up with PCP, psychiatric providers and out patient providers Take medications as directed Assessment: Pt is fully oriented and without SI/HI. She has insight and demonstrates reasonable judgment in terms of wanting to continue treatment. She is not in imminent risk of harm to self or others and has a safety plan that includes talking with her residential care staff and/or presenting to the closest ER or calling 911 if feeling unsafe. She has been observed closely by the nursing team throughout her admission and has not engaged in any behaviors that suggest dangerousness to self or others and has demonstrated appropriate behaviors and impulse control. Discharge Date/Time: 07/18/22 15:45
== END 2022-07-18 15:45 | DRG 885 ==
LOC: HO.ED 19:54 → HO.PM5 20:19
PROVIDERS: Physician Assistant; Admitting Provider Registered Nurse; Emergency Provider Emergency Medicine; Visit Provider Clinical Nurse Specialist Psychiatric/Mental Health, Adult
DX: F31.9 Bipolar disorder, unspecified (principal); R45.851 Suicidal ideations; F84.0 Autistic disorder; R45.850 Homicidal ideations; Z91.52 Personal history of nonsuicidal self-harm; F42.4 Excoriation (skin-picking) disorder; Z23 Encounter for immunization; Z20.822 Contact with and (suspected) exposure to COVID-19; Z87.891 Personal history of nicotine dependence; Z79.899 Other long term (current) drug therapy
CPT/HCPCS: 36415; 80053; 80061; 80307; 81001; 81003; 81025; 82077; 82248; 82607; 82746; 83036; 83735; 84439; 84443; 85025; 87086; 87088; 87186; 87635; 90686; 90792; 93005; 99285

== ENCOUNTER 2022-08-15 14:32 | Inpatient (IN) | payer MEDICARE, MEDICAID, SELFPAY ==
[2022-08-15 14:43] VITALS: BP 117/79; BP 170/110; PULSE 100; PULSE 108; RESP 18; TEMP 36.4; O2SAT 96; O2SAT 97; BMI 34.9
--- NOTE | 2022-08-15 15:26 | ED.PSYCH ---
HPI - Psych General Chief Complaint: Psychiatric Symptoms Stated Complaint: SI W/PLAN PER EMS Source: patient and EMS Mode of arrival: EMS History of Present Illness HPI Narrative: 22-year-old female with a past medical history of autism, bipolar, skin picking, PTSD, presenting to the ED via EMS from [facility] day program for suicidal ideations with plan to jump into traffic or cut herself. Patient reports feeling mildly lightheaded since yesterday. Denies EtOH or illicit drug use, HI, CP/SOB, headache, abdominal pain, nausea/vomiting. MD complaint: suicidal ideation and feels depressed Onset (ago): day(s) Related Data Home Medications Medication Instructions Recorded Confirmed clozapine 100 mg tablet 100 mg PO QAM 07/12/22 07/12/22 desmopressin 0.2 mg tablet 0.3 mg PO BEDTIME 07/12/22 07/12/22 diphenhydramine HCl 25 mg capsule 25 mg PO BEDTIME 07/12/22 07/12/22 (Benadryl) docusate sodium 100 mg capsule 100 mg PO BID 07/12/22 07/12/22 (Colace) olanzapine 10 mg tablet 10 mg PO QAM 07/12/22 07/12/22 polyethylene glycol 3350 17 gram 17 g PO QAM 07/12/22 07/12/22 oral powder packet (Miralax) prazosin 1 mg capsule 1 mg PO QPM 07/12/22 07/12/22 sertraline 100 mg tablet 100 mg PO DAILY 07/12/22 07/12/22 Previous Rx's Medication Instructions Recorded clozapine 100 mg tablet 250 mg PO BEDTIME #0 tabs 07/17/22 Allergies Allergy/AdvReac Type Severity Reaction Status Date / Time No Known Allergies Allergy Verified 07/12/22 16:23 Review of Systems Review of Systems: Constitutional: No Fever, No Chills, No Fatigue, No Malaise ENT/Mouth: No Ear Pain, No Nasal Congestion, No sore throat, No Rhinorrhea, No Swallowing Difficulty Eyes: No Eye Pain, No Swelling, No Redness Cardiovascular: No Chest Pain, No SOB Respiratory: No Cough, No Sputum, No Dyspnea Gastrointestinal: No Nausea, No Vomiting, No Diarrhea, No Constipation, No Abdominal pain Genitourinary: No Dysuria, No Urinary Frequency, No Hematuria, No Flank Pain Musculoskeletal: No joint pain, No Myalgias, No Joint Swelling Skin: No Skin Lesions, No rash Neuro: No Weakness, No Loss of Consciousness, + lightheaded, No Headache Psych: No Anxiety/Panic, + Depression, + SI, No HI/AH/VH, No Social Issues Yes all other systems are reviewed and are negative Constitutional: Constitutional: Reports as per [facility] Past Medical History Attestation statement: The following information was validated with the patient. Medical History Autism spectrum disorder Bipolar disorder Excoriation (skin-picking) disorder PTSD (post-traumatic stress disorder) Social History Social History Household Members: None Housing: Assisted Living Facility Do you presently have visiting nurse or other home services: No Patient Tobacco Use Status: Former Tobacco user Smoked in Last 30 Days: No Use of substances other than those prescribed or required for medical reasons: No Advance Directives: No Advance Directives Information Provided: No service: No Sexual orientation: Don't Know Physical Exam Vital Signs: Vital Signs: Last Vital Signs Temp 97.5 F 08/15/22 14:43 Pulse 117 H 08/15/22 16:30 Resp 18 08/15/22 14:43 BP 129/69 08/15/22 16:30 Pulse Ox 96 08/15/22 14:43 O2 Del Method 08/15/22 14:43 BMI result Body Mass Index 34.9 Const: General: cooperative, healthy appearing, comfortable, no acute distress, well developed, alert and awake Orientation/consciousness: patient oriented x3 Limitations: no limitations HEENT: Head: Yes normal to inspection and Yes atraumatic Ears: hearing grossly normal bilaterally General nose exam: Normal external nose present Face and sinus: Yes normal facial exam Eyes: General: appearance normal, both eyes and all related structures EOM: EOMs intact bilaterally Neck: Neck: Yes normal visual inspection and Yes no meningeal signs Resp: Effort & Inspection: normal respiratory effort and no respiratory distress Auscultation: clear to auscultation bilaterally, no crackles, no rales, no rhonchi and no wheezes Cardio: Rate: regular rate Heart sounds: S1 normal heart sound present and S2 normal heart sound present GI: Inspection: Yes normal to inspection Palpation (GI): Soft to palpation, nontender, no guarding and not rigid Skin: Rashes: no rashes Neuro: General: patient oriented x3, gait normal, tone normal, moves all extremities, no meningeal signs and CN's II-XI intact bilaterally Gait exam (Neuro): Normal gait present Extrem: General: Yes normal to inspection Course Course Course Narrative: -labs unremarkable. Troponin negative. UA not infected. -orthostatic vital signs negative -patient is medically cleared for crisis evaluation. Physician observation initiated at 17:19 -1800--ED care transferred to CARRI Kimble pending crisis eval MDM - Psych MDM Narrative Medical decision making narrative: 22-year-old female with a past medical history of autism, bipolar, skin picking, PTSD, presenting to the ED via EMS from [facility] program for suicidal ideations with plan to jump into traffic or cut herself. On exam vital signs stable, ambulating around behavioral health POD, nontoxic-appearing, suicidal with plan. Exam otherwise nonfocal. Concern for depression/suicidal ideations. Rule out orthostasis and metabolic/infectious etiologies Plan: EKG, Labs, drug screen, orthostatics, crisis consult Differential Diagnosis Differential diagnosis: Likely suicidal ideation, depression and autism Medical Records Attestation: I reviewed the patient's medical records. Lab Data Attestation: I reviewed the patient's lab results. Result diagrams: 08/15/22 16:13 08/15/22 16:13 Labs: Lab Results 08/15/22 08/15/22 08/15/22 Range/Units 15:24 15:24 15:24 WBC (4.8-10.8) X10*3/uL RBC (4.20-5.50) X10*6/uL Hgb (12.0-16.0) g/dl Hct (37.0-47.0) % MCV (80.0-98.0) fL MCH (27.0-33.0) pg MCHC (31.0-35.0) g/dl RDW (11.0-16.0) % Plt Count (160-400) X10*3/uL MPV (9.4-12.3) fL Immature Gran % (Auto) (0.0-0.4) % Neut % (Auto) (45-73) % Lymph % (Auto) (20-40) % [place] % (Auto) (2-11) % Eos % (Auto) (0-4) % Baso % (Auto) (0-2) % Lymph # (Auto) (1.2-4.9) X10*3/uL [place] # (Auto) (0.1-1.2) X10*3/uL Eos # (Auto) (0.0-0.4) X10*3/uL Baso # (Auto) (0.0-0.2) X10*3/uL Abs Immat Gran (auto) (0.00-0.03) X10*3/uL Absolute Neuts (auto) (2.0-8.3) x10*3/uL Absolute Nucleated RBC (0.0-0.012) X10*3/uL Nucleated RBC % (auto) (0.0-0.2) /100WBC Sodium (135-145) mmol/L Potassium (3.3-5.1) mmol/L Chloride (96-108) mmol/L Carbon Dioxide (22-29) mmol/L Anion Gap (12-20) BUN (9-16) mg/dL Creatinine (0.5-1.4) mg/dL Estim Creat Clear Calc Estimated GFR Random Glucose (60-115) mg/dL Calcium (8.4-10.2) mg/dL Magnesium (1.6-2.6) mg/dL Total Bilirubin (0.0-1.0) mg/dL Direct Bilirubin (0.0-0.5) mg/dL AST (5-31) U/L ALT (0-31) U/L Alkaline Phosphatase (39-117) U/L Troponin I High Sens (<3.5-17.0) ng/L Total Protein (6.5-8.0) g/dL Albumin (3.5-5.0) g/dL Urine Color Yellow Urine Appearance Clear Urine pH 6.5 (5.0-9.0) Ur Specific [place] 1.010 (1.005-1.025) Urine Protein Negative (Neg-Trace) mg/dL Urine Glucose (UA) Negative (Negative) mg/dL Urine Ketones Negative (Negative) mg/dL Urine Blood Negative (Negative) Urine Nitrite Negative (Negative) Ur Leukocyte Esterase Trace H (Negative) Urine RBC 0-2 (0-2) /HPF Urine WBC 0-5 (0-5) /HPF Ur Squamous Epith Cells 3-5 (0-2) /HPF Urine Bacteria Trace (None Seen) Hyaline Casts 0-2 (0-2) /LPF Urine Opiates Screen Not Detected (Not Detect) Urine Fentanyl Screen Not Detected (Not Detect) Ur Barbiturates Screen Not Detected (Not Detect) Ur Phencyclidine Scrn Not Detected (Not Detect) Ur Amphetamines Screen Not Detected (Not Detect) U Benzodiazepines Scrn Not Detected (Not Detect) Urine Cocaine Screen Not Detected (Not Detect) U Marijuana (THC) Screen Not Detected (Not Detect) COVID-19 (CHE) Negative (Negative) COVID-19 Clin Com See Note 08/15/22 08/15/22 08/15/22 Range/Units 16:13 16:13 16:13 WBC 11.1 H (4.8-10.8) X10*3/uL RBC 4.59 (4.20-5.50) X10*6/uL Hgb 12.8 (12.0-16.0) g/dl Hct 38.9 (37.0-47.0) % MCV 84.7 (80.0-98.0) fL MCH 27.9 (27.0-33.0) pg MCHC 32.9 (31.0-35.0) g/dl RDW 13.5 (11.0-16.0) % Plt Count 421 H D (160-400) X10*3/uL MPV 9.1 L (9.4-12.3) fL Immature Gran % (Auto) 0.5 H (0.0-0.4) % Neut % (Auto) 64.1 (45-73) % Lymph % (Auto) 30.1 (20-40) % [place] % (Auto) 5.0 (2-11) % Eos % (Auto) 0.0 (0-4) % Baso % (Auto) 0.3 (0-2) % Lymph # (Auto) 3.3 (1.2-4.9) X10*3/uL [place] # (Auto) 0.6 (0.1-1.2) X10*3/uL Eos # (Auto) 0.0 (0.0-0.4) X10*3/uL Baso # (Auto) 0.0 (0.0-0.2) X10*3/uL Abs Immat Gran (auto) 0.05 H (0.00-0.03) X10*3/uL Absolute Neuts (auto) 7.1 (2.0-8.3) x10*3/uL Absolute Nucleated RBC 0.000 (0.0-0.012) X10*3/uL Nucleated RBC % (auto) 0.0 (0.0-0.2) /100WBC Sodium 137 (135-145) mmol/L Potassium 3.9 (3.3-5.1) mmol/L Chloride 101 (96-108) mmol/L Carbon Dioxide 24 (22-29) mmol/L Anion Gap 16 (12-20) BUN 12 (9-16) mg/dL Creatinine 0.74 (0.5-1.4) mg/dL Estim Creat Clear Calc 134.9 Estimated GFR > 60 Random Glucose 99 (60-115) mg/dL Calcium 9.6 (8.4-10.2) mg/dL Magnesium 2.1 (1.6-2.6) mg/dL Total Bilirubin 0.3 (0.0-1.0) mg/dL Direct Bilirubin < 0.2 (0.0-0.5) mg/dL AST 12 (5-31) U/L ALT 14 (0-31) U/L Alkaline Phosphatase 88 (39-117) U/L Troponin I High Sens < 3.5 (<3.5-17.0) ng/L Total Protein 7.7 (6.5-8.0) g/dL Albumin 4.4 (3.5-5.0) g/dL Urine Color Urine Appearance Urine pH (5.0-9.0) Ur Specific [place] (1.005-1.025) Urine Protein (Neg-Trace) mg/dL Urine Glucose (UA) (Negative) mg/dL Urine Ketones (Negative) mg/dL Urine Blood (Negative) Urine Nitrite (Negative) Ur Leukocyte Esterase (Negative) Urine RBC (0-2) /HPF Urine WBC (0-5) /HPF Ur Squamous Epith Cells (0-2) /HPF Urine Bacteria (None Seen) Hyaline Casts (0-2) /LPF Urine Opiates Screen (Not Detect) Urine Fentanyl Screen (Not Detect) Ur Barbiturates Screen (Not Detect) Ur Phencyclidine Scrn (Not Detect) Ur Amphetamines Screen (Not Detect) U Benzodiazepines Scrn (Not Detect) Urine Cocaine Screen (Not Detect) U Marijuana (THC) Screen (Not Detect) COVID-19 (CHE) (Negative) COVID-19 Clin Com Discharge Plan Discharge Clinical Impression: Suicidal ideation Patient Disposition: Still a Patient Prescriptions: No Action olanzapine 10 mg Tablet 10 mg PO QAM prazosin 1 mg Capsule 1 mg PO QPM sertraline 100 mg Tablet 100 mg PO DAILY diphenhydramine HCl [Benadryl] 25 mg Capsule 25 mg PO BEDTIME clozapine 100 mg Tablet 100 mg PO QAM docusate sodium [Colace] 100 mg Capsule 100 mg PO BID polyethylene glycol 3350 [Miralax] 17 gram Powder In Packet 17 g PO QAM desmopressin 0.2 mg Tablet 0.3 mg PO BEDTIME clozapine 100 mg Tablet 250 mg PO BEDTIME Qty: 0 0RF Interventions: [place]-Suicide Risk Severity Scale Last Done: 08/15/22 16:10
--- NOTE | 2022-08-15 15:37 | ECG_ITS ---
Test Reason : MED CLEARANCE Blood Pressure : / mmHG Vent. Rate : 090 BPM Atrial Rate : 090 BPM P-R Int : 154 ms QRS Dur : 102 ms QT Int : 380 ms P-R-T Axes : 027 018 017 degrees QTc Int : 464 ms Normal sinus rhythm Incomplete right bundle branch block Borderline ECG When compared with ECG of 12-JUL-2022 20:09, No significant changes seen Referred By: Shyanne Tolentino Electronically Signed By:Aleksandr Michael
[2022-08-15 15:38] LABS: Appearance Urine Clear; Color Urine Yellow; Glucose Urine UA Negative (Negative); Leukocyte Esterase Urine Trace (Negative); Nitrite Urine Negative (Negative); PH 6.5 (5.0-9.0); UMIC TRIGGER UACC YES; Urine Blood Negative (Negative); Urine Ketones Negative (Negative); Urine Protein Negative (Neg-Trace)
[2022-08-15 15:42] LABS: Amphetamine Screen Urine Not Detected (Not Detect); Barbiturates, Urine Not Detected (Not Detect); Benzodiazepines Screen Urine Not Detected (Not Detect); Cannabinoid Screen Urine Not Detected (Not Detect); Cocaine Screen Urine Not Detected (Not Detect); Fentanyl, urine Not Detected (Not Detect); Opiate Screen Urine Not Detected (Not Detect); Phencyclidine Screen Urine Not Detected (Not Detect)
[2022-08-15 15:45] LABS: COVID-19 Test Negative (Negative); IDNOW Serial# BCCEAD1C
[2022-08-15 15:53] LABS: Bacteria Urine Trace (None Seen); Hyaline Casts Urine 0-2 /LPF (0-2); RBC Urine 0-2 /HPF (0-2); WBC Urine 0-5 /HPF (0-5)
[2022-08-15 16:26] VITALS: BP 120/71; PULSE 101
[2022-08-15 16:28] VITALS: BP 123/65; PULSE 113
[2022-08-15 16:28] LABS: MANUAL DIFF FLAG NO
[2022-08-15 16:30] VITALS: BP 129/69; PULSE 117
[2022-08-15 16:36] LABS: Basophils Percent Auto 0.3 % (0-2); Hematocrit 38.9 % (37.0-47.0); Hemoglobin 12.8 g/dl (12.0-16.0); Imm Gran Abs Auto 0.05 X10*3/uL (0.00-0.03); Imm Gran Pct Auto 0.5 % (0.0-0.4); Lymphocytes Absolute Auto 3.3 X10*3/uL (1.2-4.9); Lymphocytes Percent Auto 30.1 % (20-40); Mean Corpuscular HGB Conc 32.9 g/dl (31.0-35.0); Mean Corpuscular Hemoglobin 27.9 pg (27.0-33.0); Mean Corpuscular Volume 84.7 fL (80.0-98.0); Mean Platelet Volume 9.1 fL (9.4-12.3); Monocytes Absolute Auto 0.6 X10*3/uL (0.1-1.2); Neutrophils Absolute Auto 7.1 x10*3/uL (2.0-8.3); Neutrophils Percent Auto 64.1 % (45-73); Platelet Count 421 X10*3/uL (160-400); Red Blood Count 4.59 X10*6/uL (4.20-5.50); Red Cell Distribution Width 13.5 % (11.0-16.0); White Blood Count 11.1 X10*3/uL (4.8-10.8)
[2022-08-15 16:50] LABS: Alanine Aminotransferase 14 U/L (0-31); Albumin Level 4.4 g/dL (3.5-5.0); Alkaline Phosphatase 88 U/L (39-117); Anion Gap 16 (12-20); Aspartate Amino Transferase 12 U/L (5-31); Bilirubin Direct < 0.2 mg/dL (0.0-0.5); Bilirubin Total 0.3 mg/dL (0.0-1.0); Blood Urea Nitrogen 12 mg/dL (9-16); Calcium 9.6 mg/dL (8.4-10.2); Carbon Dioxide 24 mmol/L (22-29); Chloride 101 mmol/L (96-108); Creatinine Clr Calc Pharmacy 134.9; Estimated Glomerular Filt Rate > 60; Glucose Random 99 mg/dL (60-115); Magnesium 2.1 mg/dL (1.6-2.6); Potassium 3.9 mmol/L (3.3-5.1); Sodium 137 mmol/L (135-145); Total Protein 7.7 g/dL (6.5-8.0)
[2022-08-15 16:53] LABS: Troponin-I High Sensitivity < 3.5 ng/L (<3.5-17.0)
--- NOTE | 2022-08-15 20:11 | PC.NURSE ---
Med rec completed by calling [facility] pharmacy at [place], spoke with Anuradha, medication verified.
[2022-08-15 23:26] VITALS: BP 124/68; PULSE 95; RESP 17; TEMP 36.4; O2SAT 97
[2022-08-15 23:50] VITALS: BP 130/72; PULSE 95; RESP 18; TEMP 35.7; O2SAT 98
[2022-08-16] MEDS: Docusate Sodium 100 MG CAPSULE PO ×3 (01:29→20:26)
[2022-08-16] MEDS: diphenhydrAMINE HCL 25 MG CAPSULE PO ×2 (01:29→20:26)
[2022-08-16] MEDS: cloZAPine 25 MG TABLET 50 MG PO (01:29)
[2022-08-16] MEDS: Prazosin HCL 1 MG CAPSULE PO ×2 (01:29→20:26)
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
[2022-08-16 07:00] VITALS: BMI 39.4
[2022-08-16 08:30] VITALS: BP 153/72; PULSE 103; RESP 18; TEMP 36.4; O2SAT 100
[2022-08-16 08:46] LABS: Estimated Average Glucose 88 mg/dL; Hemoglobin A1c % 4.7 %
[2022-08-16 09:18] LABS: Alanine Aminotransferase 14 U/L (0-31); Albumin Level 4.3 g/dL (3.5-5.0); Alkaline Phosphatase 81 U/L (39-117); Anion Gap 11 (12-20); Aspartate Amino Transferase 12 U/L (5-31); Bilirubin Total 0.3 mg/dL (0.0-1.0); Blood Urea Nitrogen 13 mg/dL (9-16); Calcium 9.8 mg/dL (8.4-10.2); Carbon Dioxide 28 mmol/L (22-29); Chloride 101 mmol/L (96-108); Cholesterol 226 mg/dL; Creatinine Clr Calc Pharmacy 138.6; Estimated Glomerular Filt Rate > 60; Glucose Fasting 107 mg/dL (60-99); HDL Cholesterol 66 mg/dL; LDL Cholesterol Calculated 132 mg/dl; Potassium 4.1 mmol/L (3.3-5.1); Sodium 136 mmol/L (135-145); Total Protein 7.4 g/dL (6.5-8.0); Triglycerides 141 mg/dL
--- NOTE | 2022-08-16 12:17 | PC.NURSE ---
Received call from Isabella Ahn [phone] director for [facility]. Reports she has been taking Clozaril 100mg in AM and 250mg at HS consistently, no interruptions in compliance. Reports she is on [address] Jonas Sanders from [facility] prescribing.
--- NOTE | 2022-08-16 12:30 | PC.NURSE ---
Information obtained re: clozaril dosage and providers sent to .
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
[2022-08-16 20:17] VITALS: BP 121/78; RESP 6; TEMP 35.8; O2SAT 96
[2022-08-16] MEDS: cloZAPine 25 MG TABLET 250 MG PO (20:25)
[2022-08-16] MEDS: Desmopressin Acetate 0.2 MG TABLET 0.3 MG PO (20:25)
[2022-08-16] MEDS: Acetaminophen 325 MG TABLET 650 MG PO (20:32)
[2022-08-17] MEDS: polyethylene glycoL 3350 17 GM POWD.PACK PO (08:24)
[2022-08-17] MEDS: cloZAPine 100 MG TABLET PO (08:25)
[2022-08-17] MEDS: Docusate Sodium 100 MG CAPSULE PO ×2 (08:25→20:58)
[2022-08-17 08:43] VITALS: BP 127/88; PULSE 92; RESP 17; TEMP 36.6; O2SAT 98
[2022-08-17] MEDS: Divalproex Sodium 500 MG TABLET.DR PO ×2 (12:18→20:58)
--- NOTE | 2022-08-17 13:59 | P.PNPSI_ITS ---
Subjective Subjective Date of Service: 08/17/22 Reason For Visit: SI Interim History: calm, cooperative. easily frustrated, however. wants her caregiver's number so she can ask her for more clothing. agrees to trial of VPA for mood stabilization, agreeing that her irritability and reactivity are her most salient mental health symptoms currently. will start VPA 500 BID now. per staf f, anxious and depressed. denies SI. visible, social. attending groups. eating and sleeping. denies HI/AVH. med-compliant. Mental Status Exam Mental Status Exam Narrative: calm, cooperative, dressed in street clothes. no PMA/PMR. speech nml in amount, incr rate. nml loudness and prosody. decr latency. thoughts linear and logical, concrete. affect variable, mod-labile. mood depressed. no SI/HI/AVH expressed. Diagnostics Vital Signs (24Hr): Vital Signs - 24 hr 08/16/22 20:17 08/17/22 08:43 Temperature 96.4 F L 97.9 F Pulse Rate 92 Respiratory Rate 6 L 17 Blood Pressure 121/78 127/88 Pulse Oximetry 96 98 Oxygen Delivery Method Room Air Room Air BMI result Body Mass Index 39.4 Labs Results: 08/15/22 16:13 08/16/22 08:13 Labs: Laboratory Results - last 48 hr 08/15/22 08/15/22 08/15/22 15:24 15:24 15:24 WBC RBC Hgb Hct MCV MCH MCHC RDW Plt Count MPV Immature Gran % (Auto) Neut % (Auto) Lymph % (Auto) [place] % (Auto) Eos % (Auto) Baso % (Auto) Lymph # (Auto) [place] # (Auto) Eos # (Auto) Baso # (Auto) Abs Immat Gran (auto) Absolute Neuts (auto) Absolute Nucleated RBC Nucleated RBC % (auto) Sodium Potassium Chloride Carbon Dioxide Anion Gap BUN Creatinine Estim Creat Clear Calc Estimated GFR Random Glucose Fasting Glucose Estimat Average Glucose Hemoglobin A1c % Calcium Magnesium Total Bilirubin Direct Bilirubin AST ALT Alkaline Phosphatase Troponin I High Sens Total Protein Albumin Triglycerides Cholesterol LDL Cholesterol, Calc HDL Cholesterol Urine Color Yellow Urine Appearance Clear Urine pH 6.5 Ur Specific [place] 1.010 Urine Protein Negative Urine Glucose (UA) Negative Urine Ketones Negative Urine Blood Negative Urine Nitrite Negative Ur Leukocyte Esterase Trace H Urine RBC 0-2 Urine WBC 0-5 Ur Squamous Epith Cells 3-5 Urine Bacteria Trace Hyaline Casts 0-2 Urine Opiates Screen Not Detected Urine Fentanyl Screen Not Detected Ur Barbiturates Screen Not Detected Ur Phencyclidine Scrn Not Detected Ur Amphetamines Screen Not Detected U Benzodiazepines Scrn Not Detected Urine Cocaine Screen Not Detected U Marijuana (THC) Screen Not Detected COVID-19 (CHE) Negative COVID-19 Clin Com See Note 08/15/22 08/15/22 08/15/22 16:13 16:13 16:13 WBC 11.1 H RBC 4.59 Hgb 12.8 Hct 38.9 MCV 84.7 MCH 27.9 MCHC 32.9 RDW 13.5 Plt Count 421 H D MPV 9.1 L Immature Gran % (Auto) 0.5 H Neut % (Auto) 64.1 Lymph % (Auto) 30.1 Kane % (Auto) 5.0 Eos % (Auto) 0.0 Baso % (Auto) 0.3 Lymph # (Auto) 3.3 [place] # (Auto) 0.6 Eos # (Auto) 0.0 Baso # (Auto) 0.0 Abs Immat Gran (auto) 0.05 H Absolute Neuts (auto) 7.1 Absolute Nucleated RBC 0.000 Nucleated RBC % (auto) 0.0 Sodium 137 Potassium 3.9 Chloride 101 Carbon Dioxide 24 Anion Gap 16 BUN 12 Creatinine 0.74 Estim Creat Clear Calc 134.9 Estimated GFR > 60 Random Glucose 99 Fasting Glucose Estimat Average Glucose Hemoglobin A1c % Calcium 9.6 Magnesium 2.1 Total Bilirubin 0.3 Direct Bilirubin < 0.2 AST 12 ALT 14 Alkaline Phosphatase 88 Troponin I High Sens < 3.5 Total Protein 7.7 Albumin 4.4 Triglycerides Cholesterol LDL Cholesterol, Calc HDL Cholesterol Urine Color Urine Appearance Urine pH Ur Specific [place] Urine Protein Urine Glucose (UA) Urine Ketones Urine Blood Urine Nitrite Ur Leukocyte Esterase Urine RBC Urine WBC Ur Squamous Epith Cells Urine Bacteria Hyaline Casts Urine Opiates Screen Urine Fentanyl Screen Ur Barbiturates Screen Ur Phencyclidine Scrn Ur Amphetamines Screen U Benzodiazepines Scrn Urine Cocaine Screen U Marijuana (THC) Screen COVID-19 (CHE) COVID-19 Clin Com 08/16/22 08/16/22 08:13 08:13 WBC RBC Hgb Hct MCV MCH MCHC RDW Plt Count MPV Immature Gran % (Auto) Neut % (Auto) Lymph % (Auto) [place] % (Auto) Eos % (Auto) Baso % (Auto) Lymph # (Auto) [place] # (Auto) Eos # (Auto) Baso # (Auto) Abs Immat Gran (auto) Absolute Neuts (auto) Absolute Nucleated RBC Nucleated RBC % (auto) Sodium 136 Potassium 4.1 Chloride 101 Carbon Dioxide 28 Anion Gap 11 L BUN 13 Creatinine 0.72 Estim Creat Clear Calc 138.6 Estimated GFR > 60 Random Glucose Fasting Glucose 107 H Estimat Average Glucose 88 Hemoglobin A1c % 4.7 Calcium 9.8 Magnesium Total Bilirubin 0.3 Direct Bilirubin AST 12 ALT 14 Alkaline Phosphatase 81 Troponin I High Sens Total Protein 7.4 Albumin 4.3 Triglycerides 141 Cholesterol 226 LDL Cholesterol, Calc 132 HDL Cholesterol 66 Urine Color Urine Appearance Urine pH Ur Specific [place] Urine Protein Urine Glucose (UA) Urine Ketones Urine Blood Urine Nitrite Ur Leukocyte Esterase Urine RBC Urine WBC Ur Squamous Epith Cells Urine Bacteria Hyaline Casts Urine Opiates Screen Urine Fentanyl Screen Ur Barbiturates Screen Ur Phencyclidine Scrn Ur Amphetamines Screen U Benzodiazepines Scrn Urine Cocaine Screen U Marijuana (THC) Screen COVID-19 (CHE) COVID-19 Clin Com Medications Medications Current Medications Acetaminophen (Acetaminophen 325 Mg Tablet) 650 mg PO Q6H PRN PRN Reason: Headache/Pain Mild Scale (1-3) Last Admin: 08/16/22 20:32 Dose: 650 mg Al Hydroxide/Mg Hydroxide (Magnesium Hydrox/Alum Hydrox 30 Ml Oral.Susp) 30 ml PO Q6H PRN PRN Reason: Heartburn/Nausea Clozapine (Clozapine 25 Mg Tablet) 250 mg PO BEDTIME [facility] Last Admin: 08/16/22 20:25 Dose: 250 mg Clozapine (Clozapine 100 Mg Tablet) 100 mg PO DAILY [facility] Last Admin: 08/17/22 08:25 Dose: 100 mg Desmopressin Acetate (Desmopressin Acetate 0.2 Mg Tablet) 0.3 mg PO BEDTIME [facility] Last Admin: 08/16/22 20:25 Dose: 0.3 mg Diphenhydramine HCl (Diphenhydramine Hcl 25 Mg Capsule) 25 mg PO BEDTIME [facility] Last Admin: 08/16/22 20:26 Dose: 25 mg Divalproex Sodium (Divalproex Sodium 500 Mg Tablet.Dr) 500 mg PO BID [facility] Last Admin: 08/17/22 12:18 Dose: 500 mg Docusate Sodium (Docusate Sodium 100 Mg Capsule) 100 mg PO BID [facility] Last Admin: 08/17/22 08:25 Dose: 100 mg Hydroxyzine HCl (Hydroxyzine Hcl 25 Mg Tablet) 25 mg PO Q6H PRN PRN Reason: Anxiety Magnesium Hydroxide (Milk Of Magnesia 30 Ml Oral.Susp) 30 ml PO DAILY PRN PRN Reason: Constipation Pharmacy Consult (Consult Rx Perform Med Rec) 1 each MISCELLANE ONCE PRN PRN Reason: Consult order Polyethylene Glycol (Polyethylene Glycol 3350 17 Gm Powd.Pack) 17 gm PO DAILY [facility] Last Admin: 08/17/22 08:24 Dose: 17 gm Prazosin HCl (Prazosin Hcl 1 Mg Capsule) 1 mg PO BEDTIME [facility]ARY; Protocol Last Admin: 08/16/22 20:26 Dose: 1 mg Trazodone HCl (Trazodone Hcl 50 Mg Tablet) 50 mg PO BEDTIME PRN PRN Reason: Insomnia Allergies Allergies Allergy/AdvReac Type Severity Reaction Status Date / Time No Known Allergies Allergy Verified 07/12/22 16:23 Assessment & Plan Assessment & Plan (1) Autism spectrum disorder: Status: Acute Code(s): F84.0 - Autistic disorder (2) PTSD (post-traumatic stress disorder): Status: Acute Code(s): F43.10 - Post-traumatic stress disorder, unspecified (3) Depression: Status: Acute Code(s): F32.A - Depression, unspecified (4) Suicidal ideation: Status: Acute Code(s): R45.851 - Suicidal ideations Plan 08/17: pt c/o inadequate anti-depressant efficacy as well as mood instability. message left with outpt provider parminder for guidance in decision-making. 08/18: mood reactivity/volatility most salient, VPA 500 BID started. no call-back from parminder. I spent ___25___ minutes with the patient and/or on the patient floor today, greater than?50% of which was spent counseling/coordinating care. Reason for contiued inpatient stay Substantial Risk for: harm to self, harm to others, inability to function and rapid decompensation
[2022-08-17] MEDS: hydrOXYzine HCL 25 MG TABLET PO (15:56)
[2022-08-17] MEDS: Desmopressin Acetate 0.2 MG TABLET 0.3 MG PO (20:54)
[2022-08-17 20:55] VITALS: BP 123/79; PULSE 94; RESP 16; TEMP 36.6; O2SAT 94
[2022-08-17] MEDS: cloZAPine 25 MG TABLET 250 MG PO (20:55)
[2022-08-17] MEDS: diphenhydrAMINE HCL 25 MG CAPSULE PO (20:57)
[2022-08-17] MEDS: Prazosin HCL 1 MG CAPSULE PO (20:57)
--- NOTE | 2022-08-18 01:53 | HO.PSYCHPN ---
Subjective Subjective Date of Service: 08/18/22 Reason For Visit: SI Interim History: Spoke with team and pt. She dino LEUNG she is menstruating, day 1, concerned that she her bleeding is more than normal, nauseous- will order zofran. When speaking to pt, she acknowledges she has a hx of heavy bleeding in menstruation, not concerned. Complains of irritability. Denies side effects on depakote. Says I slept good. Mental Status Exam Mental Status Exam Narrative: calm, cooperative, dressed in street clothes.? no PMA/PMR.? speech nml in amount, incr rate.? nml loudness and prosody.? decr latency.? thoughts linear and logical, concrete.? affect variable, mod-labile.? mood depressed. ? no SI/HI/AVH expressed. Diagnostics Vital Signs (24Hr): Vital Signs - 24 hr 08/17/22 08:43 08/17/22 20:55 Temperature 97.9 F 98 F Pulse Rate 92 94 Respiratory Rate 17 16 Blood Pressure 127/88 123/79 Pulse Oximetry 98 94 Oxygen Delivery Method Room Air Room Air BMI result Body Mass Index 39.4 Labs Results: 08/15/22 16:13 08/16/22 08:13 Labs: Laboratory Results - last 48 hr 08/16/22 08/16/22 08:13 08:13 Sodium 136 Potassium 4.1 Chloride 101 Carbon Dioxide 28 Anion Gap 11 L BUN 13 Creatinine 0.72 Estim Creat Clear Calc 138.6 Estimated GFR > 60 Fasting Glucose 107 H Estimat Average Glucose 88 Hemoglobin A1c % 4.7 Calcium 9.8 Total Bilirubin 0.3 AST 12 ALT 14 Alkaline Phosphatase 81 Total Protein 7.4 Albumin 4.3 Triglycerides 141 Cholesterol 226 LDL Cholesterol, Calc 132 HDL Cholesterol 66 Medications Medications Current Medications Acetaminophen (Acetaminophen 325 Mg Tablet) 650 mg PO Q6H PRN PRN Reason: Headache/Pain Mild Scale (1-3) Last Admin: 08/16/22 20:32 Dose: 650 mg Al Hydroxide/Mg Hydroxide (Magnesium Hydrox/Alum Hydrox 30 Ml Oral.Susp) 30 ml PO Q6H PRN PRN Reason: Heartburn/Nausea Clozapine (Clozapine 25 Mg Tablet) 250 mg PO BEDTIME [facility] Last Admin: 08/17/22 20:55 Dose: 250 mg Clozapine (Clozapine 100 Mg Tablet) 100 mg PO DAILY [facility] Last Admin: 08/17/22 08:25 Dose: 100 mg Desmopressin Acetate (Desmopressin Acetate 0.2 Mg Tablet) 0.3 mg PO BEDTIME [facility] Last Admin: 08/17/22 20:54 Dose: 0.3 mg Diphenhydramine HCl (Diphenhydramine Hcl 25 Mg Capsule) 25 mg PO BEDTIME [facility] Last Admin: 08/17/22 20:57 Dose: 25 mg Divalproex Sodium (Divalproex Sodium 500 Mg Tablet.Dr) 500 mg PO BID [facility] Last Admin: 08/17/22 20:58 Dose: 500 mg Docusate Sodium (Docusate Sodium 100 Mg Capsule) 100 mg PO BID [facility] Last Admin: 08/17/22 20:58 Dose: 100 mg Hydroxyzine HCl (Hydroxyzine Hcl 25 Mg Tablet) 25 mg PO Q6H PRN PRN Reason: Anxiety Last Admin: 08/17/22 15:56 Dose: 25 mg Magnesium Hydroxide (Milk Of Magnesia 30 Ml Oral.Susp) 30 ml PO DAILY PRN PRN Reason: Constipation Pharmacy Consult (Consult Rx Perform Med Rec) 1 each MISCELLANE ONCE PRN PRN Reason: Consult order Polyethylene Glycol (Polyethylene Glycol 3350 17 Gm Powd.Pack) 17 gm PO DAILY [facility] Last Admin: 08/17/22 08:24 Dose: 17 gm Prazosin HCl (Prazosin Hcl 1 Mg Capsule) 1 mg PO BEDTIME [facility]; Protocol Last Admin: 08/17/22 20:57 Dose: 1 mg Trazodone HCl (Trazodone Hcl 50 Mg Tablet) 50 mg PO BEDTIME PRN PRN Reason: Insomnia Allergies Allergies Allergy/AdvReac Type Severity Reaction Status Date / Time No Known Allergies Allergy Verified 07/12/22 16:23 Assessment & Plan Assessment & Plan (1) Autism spectrum disorder: Status: Acute Code(s): F84.0 - Autistic disorder (2) PTSD (post-traumatic stress disorder): Status: Acute Code(s): F43.10 - Post-traumatic stress disorder, unspecified (3) Depression: Status: Acute Code(s): F32.A - Depression, unspecified (4) Suicidal ideation: Status: Acute Code(s): R45.851 - Suicidal ideations Plan 08/16: pt c/o inadequate anti-depressant efficacy as well as mood instability. message left with outpt provider parminder for guidance in decision-making. 08/17: mood reactivity/volatility most salient, VPA 500 BID started. no call-back from parminder. 08/18: No changes, continue VPA trial I spent minutes with the patient and/or on the patient floor today, greater than?50% of which was spent counseling/coordinating care. Patient educated on: medication risk/benefits and therapeutic strategies Reason for contiued inpatient stay Substantial Risk for: rapid decompensation and med/psych decompensation
[2022-08-18 06:00] VITALS: BP 130/72; PULSE 93; RESP 16; TEMP 36.6; O2SAT 95
[2022-08-18] MEDS: Docusate Sodium 100 MG CAPSULE PO (08:31)
[2022-08-18] MEDS: cloZAPine 100 MG TABLET PO (08:31)
[2022-08-18] MEDS: Divalproex Sodium 500 MG TABLET.DR PO ×2 (08:31→20:03)
[2022-08-18] MEDS: polyethylene glycoL 3350 17 GM POWD.PACK PO (08:31)
--- NOTE | 2022-08-18 10:50 | PC.NURSE ---
patient stated she was feeling dozzy. BP 126/77. HR 98. Patient given water and MD notified.
[2022-08-18] MEDS: Loperamide HCl 2 MG CAPSULE PO (11:24)
[2022-08-18] MEDS: Ondansetron ODT 4 MG TAB.RAPDIS TRANSLINGU (11:24)
[2022-08-18] MEDS: hydrOXYzine HCL 25 MG TABLET PO (16:39)
[2022-08-18 18:00] VITALS: BP 116/69; PULSE 100; RESP 16; TEMP 36.4; O2SAT 98
[2022-08-18] MEDS: Desmopressin Acetate 0.2 MG TABLET 0.3 MG PO (20:00)
[2022-08-18] MEDS: cloZAPine 100 MG TABLET 200 MG PO (20:02)
[2022-08-18] MEDS: cloZAPine 25 MG TABLET 50 MG PO (20:02)
[2022-08-18] MEDS: diphenhydrAMINE HCL 25 MG CAPSULE PO (20:03)
[2022-08-18] MEDS: Prazosin HCL 1 MG CAPSULE PO (20:03)
[2022-08-19 06:00] VITALS: BP 118/72; PULSE 90; RESP 16; TEMP 36.7; O2SAT 98
[2022-08-19] MEDS: Divalproex Sodium 500 MG TABLET.DR PO ×2 (08:44→22:31)
[2022-08-19] MEDS: cloZAPine 100 MG TABLET PO (08:45)
[2022-08-19] MEDS: Acetaminophen 325 MG TABLET 650 MG PO (08:45)
[2022-08-19] MEDS: Ondansetron ODT 4 MG TAB.RAPDIS TRANSLINGU (08:45)
--- NOTE | 2022-08-19 14:54 | P.PNPSI_ITS ---
Subjective Subjective Date of Service: 08/19/22 Reason For Visit: SI Interim History: Spoke with team and pt. Pt says her nausea is better. She feels like depakote is starting to help. Complains of having recurring nightmares, sometimes remembers it and sometimes doesnt, not sure how long its been going on for, I dont remember them mostly. Pt has difficulty tolerating interview, says it is irritating when people dont undertand what i mean, intermittently yelling at T/W and then apologizing for it. Says other than nightmares her sleep is okay. Energy is okay. Pt says malick been very lujan lately. Feels safe on the unit. Of note, staff report no yelling- this seems to only happen during interview with T/W. Mental Status Exam Mental Status Exam Narrative: calm, cooperative, dressed in street clothes.? no PMA/PMR.? speech nml in amount, incr rate.? nml loudness and prosody.? decr latency.? thoughts linear and logical, concrete.? affect variable, mod-labile.? mood depressed. ? no SI/HI/AVH expressed. Diagnostics Vital Signs (24Hr): Vital Signs - 24 hr 08/18/22 18:00 08/19/22 06:00 Temperature 97.5 F 98.1 F Pulse Rate 100 90 Respiratory Rate 16 16 Blood Pressure 116/69 118/72 Pulse Oximetry 98 98 Oxygen Delivery Method Room Air Room Air BMI result Body Mass Index 39.4 Labs Results: 08/15/22 16:13 08/16/22 08:13 Medications Medications Current Medications Acetaminophen (Acetaminophen 325 Mg Tablet) 650 mg PO Q6H PRN PRN Reason: Headache/Pain Mild Scale (1-3) Last Admin: 08/19/22 08:45 Dose: 650 mg Al Hydroxide/Mg Hydroxide (Magnesium Hydrox/Alum Hydrox 30 Ml Oral.Susp) 30 ml PO Q6H PRN PRN Reason: Heartburn/Nausea Clozapine (Clozapine 100 Mg Tablet) 100 mg PO DAILY MARY Last Admin: 08/19/22 08:45 Dose: 100 mg Clozapine (Clozapine 25 Mg Tablet) 50 mg PO BEDTIME MARY Last Admin: 08/18/22 20:02 Dose: 50 mg Clozapine (Clozapine 100 Mg Tablet) 200 mg PO BEDTIME MARY Last Admin: 08/18/22 20:02 Dose: 200 mg Desmopressin Acetate (Desmopressin Acetate 0.2 Mg Tablet) 0.3 mg PO BEDTIME MARY Last Admin: 08/18/22 20:00 Dose: 0.3 mg Diphenhydramine HCl (Diphenhydramine Hcl 25 Mg Capsule) 25 mg PO BEDTIME MARY Last Admin: 08/18/22 20:03 Dose: 25 mg Divalproex Sodium (Divalproex Sodium 500 Mg Tablet.Dr) 500 mg PO BID [facility] Last Admin: 08/19/22 08:44 Dose: 500 mg Docusate Sodium (Docusate Sodium 100 Mg Capsule) 100 mg PO BID [facility] Last Admin: 08/19/22 08:44 Dose: Not Given Hydroxyzine HCl (Hydroxyzine Hcl 25 Mg Tablet) 25 mg PO Q6H PRN PRN Reason: Anxiety Last Admin: 08/18/22 16:39 Dose: 25 mg Loperamide HCl (Loperamide Hcl 2 Mg Capsule) 2 mg PO Q4H PRN PRN Reason: diarrhea Last Admin: 08/18/22 11:24 Dose: 2 mg Magnesium Hydroxide (Milk Of Magnesia 30 Ml Oral.Susp) 30 ml PO DAILY PRN PRN Reason: Constipation Ondansetron HCl (Ondansetron Odt 4 Mg Tab.Rapdis) 4 mg TRANSLINGU Q6H PRN PRN Reason: nausea Last Admin: 08/19/22 08:45 Dose: 4 mg Pharmacy Consult (Consult Rx Perform Med Rec) 1 each MISCELLANE ONCE PRN PRN Reason: Consult order Polyethylene Glycol (Polyethylene Glycol 3350 17 Gm Powd.Pack) 17 gm PO DAILY [facility] Last Admin: 08/19/22 09:00 Dose: Not Given Prazosin HCl (Prazosin Hcl 1 Mg Capsule) 1 mg PO BEDTIME [facility]; Protocol Last Admin: 08/18/22 20:03 Dose: 1 mg Trazodone HCl (Trazodone Hcl 50 Mg Tablet) 50 mg PO BEDTIME PRN PRN Reason: Insomnia Allergies Allergies Allergy/AdvReac Type Severity Reaction Status Date / Time No Known Allergies Allergy Verified 07/12/22 16:23 Assessment & Plan Assessment & Plan (1) Autism spectrum disorder: Status: Acute Code(s): F84.0 - Autistic disorder (2) PTSD (post-traumatic stress disorder): Status: Acute Code(s): F43.10 - Post-traumatic stress disorder, unspecified (3) Depression: Status: Acute Code(s): F32.A - Depression, unspecified (4) Suicidal ideation: Status: Acute Code(s): R45.851 - Suicidal ideations Plan 08/16: pt c/o inadequate anti-depressant efficacy as well as mood instability. message left with outpt provider parminder for guidance in decision-making. 08/17: mood reactivity/volatility most salient, VPA 500 BID started. no call-back from parminder. 08/18: No changes, continue VPA trial 08/19: No changes to tx plan I spent minutes with the patient and/or on the patient floor today, greater than?50% of which was spent counseling/coordinating care. Reason for contiued inpatient stay Substantial Risk for: rapid decompensation and med/psych decompensation
[2022-08-19] MEDS: hydrOXYzine HCL 25 MG TABLET PO (15:14)
[2022-08-19 22:20] VITALS: BP 126/77; PULSE 105; RESP 18; TEMP 36.2; O2SAT 97
[2022-08-19] MEDS: Desmopressin Acetate 0.2 MG TABLET 0.3 MG PO (22:30)
[2022-08-19] MEDS: diphenhydrAMINE HCL 25 MG CAPSULE PO (22:31)
[2022-08-19] MEDS: cloZAPine 25 MG TABLET 50 MG PO (22:31)
[2022-08-19] MEDS: Prazosin HCL 1 MG CAPSULE PO (22:31)
[2022-08-19] MEDS: cloZAPine 100 MG TABLET 200 MG PO (22:31)
[2022-08-20 09:06] VITALS: BP 138/90; PULSE 97; RESP 18; TEMP 36.6; O2SAT 98
[2022-08-20] MEDS: Divalproex Sodium 500 MG TABLET.DR PO ×3 (09:09→20:10)
[2022-08-20] MEDS: polyethylene glycoL 3350 17 GM POWD.PACK PO (09:09)
[2022-08-20] MEDS: Docusate Sodium 100 MG CAPSULE PO ×2 (09:09→20:10)
[2022-08-20] MEDS: cloZAPine 100 MG TABLET PO (09:09)
--- NOTE | 2022-08-20 13:48 | P.PNPSI_ITS ---
Subjective Subjective Date of Service: 08/20/22 Reason For Visit: SI Interim History: labile, irritable, denigrating when upset. met with pt x 2, as first interview was terminated prematurely due to pt's agitation. pt was remorseful, apologized, asked to meet with MD a second time. maintained adequate behavioral control second time around. agreed to increase VPA from 500 BID to 500 TID as of today. pt asking when she will be discharged and saying she hopes not soon bcse she is not ready. per staff, anxious and depressed. reports she is getting better. eating and sleeping. not attending groups. feels safe on the unit. med-compliant. feeling not ready to discharge yet. Mental Status Exam Mental Status Exam Narrative: variably calm and agitated, variably cooperative or not, dressed in street clothes. PMA when agitated of standing shouting exiting the interview room. speech nml in amount, incr rate. incr loudness, nml prosody. decr latency. thoughts linear and logical, concrete. affect variable, labile. mood depressed. no SI/HI/AVH expressed. Diagnostics Vital Signs (24Hr): Vital Signs - 24 hr 08/19/22 22:20 08/20/22 09:06 Temperature 97.2 F 97.8 F Pulse Rate 105 H 97 Respiratory Rate 18 18 Blood Pressure 126/77 138/90 H Pulse Oximetry 97 98 Oxygen Delivery Method Room Air Room Air BMI result Body Mass Index 39.4 Labs Results: 08/15/22 16:13 08/16/22 08:13 Medications Medications Current Medications Acetaminophen (Acetaminophen 325 Mg Tablet) 650 mg PO Q6H PRN PRN Reason: Headache/Pain Mild Scale (1-3) Last Admin: 08/19/22 08:45 Dose: 650 mg Al Hydroxide/Mg Hydroxide (Magnesium Hydrox/Alum Hydrox 30 Ml Oral.Susp) 30 ml PO Q6H PRN PRN Reason: Heartburn/Nausea Clozapine (Clozapine 100 Mg Tablet) 100 mg PO DAILY MARY Last Admin: 08/20/22 09:09 Dose: 100 mg Clozapine (Clozapine 25 Mg Tablet) 50 mg PO BEDTIME MARY Last Admin: 08/19/22 22:31 Dose: 50 mg Clozapine (Clozapine 100 Mg Tablet) 200 mg PO BEDTIME MARY Last Admin: 08/19/22 22:31 Dose: 200 mg Desmopressin Acetate (Desmopressin Acetate 0.2 Mg Tablet) 0.3 mg PO BEDTIME MARY Last Admin: 08/19/22 22:30 Dose: 0.3 mg Diphenhydramine HCl (Diphenhydramine Hcl 25 Mg Capsule) 25 mg PO BEDTIME MARY Last Admin: 08/19/22 22:31 Dose: 25 mg Divalproex Sodium (Divalproex Sodium 500 Mg Tablet.Dr) 500 mg PO TID MARY Docusate Sodium (Docusate Sodium 100 Mg Capsule) 100 mg PO BID MARY Last Admin: 08/20/22 09:09 Dose: 100 mg Hydroxyzine HCl (Hydroxyzine Hcl 25 Mg Tablet) 25 mg PO Q6H PRN PRN Reason: Anxiety Last Admin: 08/19/22 15:14 Dose: 25 mg Loperamide HCl (Loperamide Hcl 2 Mg Capsule) 2 mg PO Q4H PRN PRN Reason: diarrhea Last Admin: 08/18/22 11:24 Dose: 2 mg Magnesium Hydroxide (Milk Of Magnesia 30 Ml Oral.Susp) 30 ml PO DAILY PRN PRN Reason: Constipation Ondansetron HCl (Ondansetron Odt 4 Mg Tab.Rapdis) 4 mg TRANSLINGU Q6H PRN PRN Reason: nausea Last Admin: 08/19/22 08:45 Dose: 4 mg Pharmacy Consult (Consult Rx Perform Med Rec) 1 each MISCELLANE ONCE PRN PRN Reason: Consult order Polyethylene Glycol (Polyethylene Glycol 3350 17 Gm Powd.Pack) 17 gm PO DAILY MARY Last Admin: 08/20/22 09:09 Dose: 17 gm Prazosin HCl (Prazosin Hcl 1 Mg Capsule) 1 mg PO BEDTIME MARY; Protocol Last Admin: 08/19/22 22:31 Dose: 1 mg Trazodone HCl (Trazodone Hcl 50 Mg Tablet) 50 mg PO BEDTIME PRN PRN Reason: Insomnia Allergies Allergies Allergy/AdvReac Type Severity Reaction Status Date / Time No Known Allergies Allergy Verified 07/12/22 16:23 Assessment & Plan Assessment & Plan (1) Autism spectrum disorder: Status: Acute Code(s): F84.0 - Autistic disorder (2) PTSD (post-traumatic stress disorder): Status: Acute Code(s): F43.10 - Post-traumatic stress disorder, unspecified (3) Depression: Status: Acute Code(s): F32.A - Depression, unspecified (4) Suicidal ideation: Status: Acute Code(s): R45.851 - Suicidal ideations Plan 08/16: pt c/o inadequate anti-depressant efficacy as well as mood instability. message left with outpt provider parminder for guidance in decision-making. 08/17: mood reactivity/volatility most salient, VPA 500 BID started. no call- back from parminder. 08/18: No changes, continue VPA trial 08/19: No changes to tx plan 08/20: continues labile, irritable. increase VPA to 500 TID. I spent ___25___ minutes with the patient and/or on the patient floor today, greater than?50% of which was spent counseling/coordinating care. Reason for contiued inpatient stay Substantial Risk for: harm to others and rapid decompensation
[2022-08-20 19:30] VITALS: BP 117/71; PULSE 111; RESP 16; TEMP 36.7; O2SAT 98
[2022-08-20] MEDS: diphenhydrAMINE HCL 25 MG CAPSULE PO (20:10)
[2022-08-20] MEDS: cloZAPine 25 MG TABLET 50 MG PO (20:10)
[2022-08-20] MEDS: cloZAPine 100 MG TABLET 200 MG PO (20:10)
[2022-08-20] MEDS: Prazosin HCL 1 MG CAPSULE PO (20:10)
[2022-08-20] MEDS: Desmopressin Acetate 0.2 MG TABLET 0.3 MG PO (20:14)
[2022-08-21 08:41] VITALS: BP 122/78; PULSE 92; RESP 17; TEMP 36.6; O2SAT 98
[2022-08-21] MEDS: polyethylene glycoL 3350 17 GM POWD.PACK PO (08:42)
[2022-08-21] MEDS: Docusate Sodium 100 MG CAPSULE PO ×2 (08:42→20:25)
[2022-08-21] MEDS: Divalproex Sodium 500 MG TABLET.DR PO ×3 (08:43→20:23)
[2022-08-21] MEDS: cloZAPine 100 MG TABLET PO (08:43)
--- NOTE | 2022-08-21 15:33 | P.PNPSI_ITS ---
Subjective Subjective Date of Service: 08/21/22 Reason For Visit: SI Interim History: anxiety is down, depression still there. discuss possibility of starting wellbutrin, but after hearing of black box warning for Sz, pt opts to wait and discuss with outpt prescriber at next appointment. will give the VPA 500 TID a try for the next month first. planning for discharge tomorrow. per staff, irritable, labile. not feeling ready for DC. cheerful, social after. ruminating on rlshp with parents. denies SI/HI/AVH. slept through the night. Mental Status Exam Mental Status Exam Narrative: calm and cooperative, dressed in street clothes. no PMA/PMR. speech nml in amount, incr rate. nml loudness, nml prosody. decr latency. thoughts linear and logical, concrete. affect full-range, normo-intense, non-labile. no SI/HI/AVH expressed. Diagnostics Vital Signs (24Hr): Vital Signs - 24 hr 08/20/22 19:30 08/21/22 08:41 Temperature 98.1 F 97.8 F Pulse Rate 111 H 92 Respiratory Rate 16 17 Blood Pressure 117/71 122/78 Pulse Oximetry 98 98 Oxygen Delivery Method Room Air Room Air BMI result Body Mass Index 39.4 Labs Results: 08/15/22 16:13 08/16/22 08:13 Medications Medications Current Medications Acetaminophen (Acetaminophen 325 Mg Tablet) 650 mg PO Q6H PRN PRN Reason: Headache/Pain Mild Scale (1-3) Last Admin: 08/19/22 08:45 Dose: 650 mg Al Hydroxide/Mg Hydroxide (Magnesium Hydrox/Alum Hydrox 30 Ml Oral.Susp) 30 ml PO Q6H PRN PRN Reason: Heartburn/Nausea Clozapine (Clozapine 100 Mg Tablet) 100 mg PO DAILY MARY Last Admin: 08/21/22 08:43 Dose: 100 mg Clozapine (Clozapine 25 Mg Tablet) 50 mg PO BEDTIME MARY Last Admin: 08/20/22 20:10 Dose: 50 mg Clozapine (Clozapine 100 Mg Tablet) 200 mg PO BEDTIME MARY Last Admin: 08/20/22 20:10 Dose: 200 mg Desmopressin Acetate (Desmopressin Acetate 0.2 Mg Tablet) 0.3 mg PO BEDTIME MARY Last Admin: 08/20/22 20:14 Dose: 0.3 mg Diphenhydramine HCl (Diphenhydramine Hcl 25 Mg Capsule) 25 mg PO BEDTIME MARY Last Admin: 08/20/22 20:10 Dose: 25 mg Divalproex Sodium (Divalproex Sodium 500 Mg Tablet.Dr) 500 mg PO TID MARY Last Admin: 08/21/22 14:56 Dose: 500 mg Docusate Sodium (Docusate Sodium 100 Mg Capsule) 100 mg PO BID MARY Last Admin: 08/21/22 08:42 Dose: 100 mg Hydroxyzine HCl (Hydroxyzine Hcl 25 Mg Tablet) 25 mg PO Q6H PRN PRN Reason: Anxiety Last Admin: 08/19/22 15:14 Dose: 25 mg Loperamide HCl (Loperamide Hcl 2 Mg Capsule) 2 mg PO Q4H PRN PRN Reason: diarrhea Last Admin: 08/18/22 11:24 Dose: 2 mg Magnesium Hydroxide (Milk Of Magnesia 30 Ml Oral.Susp) 30 ml PO DAILY PRN PRN Reason: Constipation Ondansetron HCl (Ondansetron Odt 4 Mg Tab.Rapdis) 4 mg TRANSLINGU Q6H PRN PRN Reason: nausea Last Admin: 08/19/22 08:45 Dose: 4 mg Polyethylene Glycol (Polyethylene Glycol 3350 17 Gm Powd.Pack) 17 gm PO DAILY MARY Last Admin: 08/21/22 08:42 Dose: 17 gm Prazosin HCl (Prazosin Hcl 1 Mg Capsule) 1 mg PO BEDTIME MARY; Protocol Last Admin: 08/20/22 20:10 Dose: 1 mg Trazodone HCl (Trazodone Hcl 50 Mg Tablet) 50 mg PO BEDTIME PRN PRN Reason: Insomnia Allergies Allergies Allergy/AdvReac Type Severity Reaction Status Date / Time No Known Allergies Allergy Verified 07/12/22 16:23 Assessment & Plan Assessment & Plan (1) Autism spectrum disorder: Status: Acute Code(s): F84.0 - Autistic disorder (2) PTSD (post-traumatic stress disorder): Status: Acute Code(s): F43.10 - Post-traumatic stress disorder, unspecified (3) Depression: Status: Acute Code(s): F32.A - Depression, unspecified (4) Suicidal ideation: Status: Acute Code(s): R45.851 - Suicidal ideations Plan 08/16: pt c/o inadequate anti-depressant efficacy as well as mood instability. message left with outpt provider parminder for guidance in decision-making. 08/17: mood reactivity/volatility most salient, VPA 500 BID started. no call- back from parminder. 08/18: No changes, continue VPA trial 08/19: No changes to tx plan 08/20: continues labile, irritable. increase VPA to 500 TID. 08/21: calm today, not labile, less irritable. balking at starting wellbutrin due to Sz risk, will D/W parminder when she sees him next. planning for discharge tomorrow. I spent ___25___ minutes with the patient and/or on the patient floor today, greater than?50% of which was spent counseling/coordinating care. Reason for contiued inpatient stay Substantial Risk for: inability to function and rapid decompensation
[2022-08-21 20:15] VITALS: BP 118/65; PULSE 101; RESP 18; TEMP 36.2; O2SAT 97
[2022-08-21] MEDS: Desmopressin Acetate 0.2 MG TABLET 0.3 MG PO (20:23)
[2022-08-21] MEDS: diphenhydrAMINE HCL 25 MG CAPSULE PO (20:23)
[2022-08-21] MEDS: cloZAPine 25 MG TABLET 50 MG PO (20:24)
[2022-08-21] MEDS: Prazosin HCL 1 MG CAPSULE PO (20:24)
[2022-08-21] MEDS: cloZAPine 100 MG TABLET 200 MG PO (20:24)
[2022-08-22 06:00] VITALS: BP 132/82; PULSE 108; RESP 18; TEMP 36.2; O2SAT 98
[2022-08-22 09:02] LABS: Neut%MD 73.5 %; Neutrophils Absolute Auto 7.3 x10*3/uL (2.0-8.3)
[2022-08-22] MEDS: hydrOXYzine HCL 25 MG TABLET PO (09:13)
[2022-08-22] MEDS: Divalproex Sodium 500 MG TABLET.DR PO ×2 (09:13→16:06)
[2022-08-22] MEDS: Docusate Sodium 100 MG CAPSULE PO (09:13)
[2022-08-22] MEDS: cloZAPine 100 MG TABLET PO (09:14)
[2022-08-22] MEDS: LORazepam 1 MG TABLET PO (10:55)
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
== END 2022-08-22 16:20 | disposition home or self-care (01) | DRG 882 ==
LOC: HO.ED 23:40 → HO.PADLT16 23:44
PROVIDERS: Physician Assistant; Admitting Provider Social Worker; Emergency Provider Internal Medicine; Visit Provider Psychiatry & Neurology Psychiatry
DX: F43.12 Post-traumatic stress disorder, chronic (principal); R45.851 Suicidal ideations; F32.A Depression, unspecified; F84.0 Autistic disorder; F42.4 Excoriation (skin-picking) disorder; Z62.812 Personal history of neglect in childhood; Z20.822 Contact with and (suspected) exposure to COVID-19; Z79.899 Other long term (current) drug therapy
CPT/HCPCS: 36415; 80048; 80053; 80061; 80076; 80307; 81001; 83036; 83735; 84484; 85025; 85048; 87635; 93005; 99285

== ENCOUNTER 2023-06-13 18:22 | Emergency (ER) | payer MEDICARE, MEDICAID, SELFPAY ==
[2023-06-13 18:41] VITALS: BP 128/78; PULSE 99; RESP 16; TEMP 36.6; O2SAT 96; BMI 41.6
[2023-06-13 19:16] LABS: Appearance Urine Clear; Color Urine Yellow; Glucose Urine UA Negative (Negative); Leukocyte Esterase Urine Small (1+) (Negative); Nitrite Urine Negative (Negative); UMIC TRIGGER UA YES; Urine Blood Negative (Negative); Urine Ketones Negative (Negative); Urine Protein Negative (Neg-Trace)
[2023-06-13 19:17] LABS: UPreg QC Valid YES; Urine Pregnancy NEGATIVE (NEGATIVE)
[2023-06-13 19:22] LABS: Amphetamine Screen Urine Not Detected (Not Detect); Barbiturates, Urine Not Detected (Not Detect); Benzodiazepines Screen Urine Not Detected (Not Detect); Cannabinoid Screen Urine Not Detected (Not Detect); Cocaine Screen Urine Not Detected (Not Detect); Fentanyl, urine Not Detected (Not Detect); Opiate Screen Urine Not Detected (Not Detect); Phencyclidine Screen Urine Not Detected (Not Detect)
[2023-06-13 19:25] LABS: Bacteria Urine 1+ (None Seen); Hyaline Casts Urine 0-2 /LPF (0-2); RBC Urine 0-2 /HPF (0-2)
[2023-06-13] MEDS: guaiFENesin 200 MG/10 ML 10 ML LIQUID PO (19:52)
[2023-06-13] MEDS: Benzonatate 100 MG CAPSULE 200 MG PO (19:52)
[2023-06-13 19:55] LABS: MANUAL DIFF FLAG NO
[2023-06-13 19:59] LABS: COVID-19 Test Negative (Negative); IDNOW Serial# 08D9AD1C
[2023-06-13 20:02] LABS: Basophils Percent Auto 0.3 % (0-2); Eosinophils Percent Auto 0.3 % (0-4); Hematocrit 39.1 % (37.0-47.0); Hemoglobin 12.9 g/dl (12.0-16.0); Imm Gran Abs Auto 0.04 X10*3/uL (0.00-0.03); Imm Gran Pct Auto 0.5 % (0.0-0.4); Lymphocytes Absolute Auto 3.2 X10*3/uL (1.2-4.9); Lymphocytes Percent Auto 40.7 % (20-40); Mean Corpuscular Hemoglobin 28.4 pg (27.0-33.0); Mean Corpuscular Volume 86.1 fL (80.0-98.0); Mean Platelet Volume 9.3 fL (9.4-12.3); Monocytes Absolute Auto 0.6 X10*3/uL (0.1-1.2); Monocytes Percent Auto 7.4 % (2-11); Neutrophils Percent Auto 50.8 % (45-73); Platelet Count 285 X10*3/uL (160-400); Red Blood Count 4.54 X10*6/uL (4.20-5.50); Red Cell Distribution Width 13.6 % (11.0-16.0); White Blood Count 7.9 X10*3/uL (4.8-10.8)
[2023-06-13 20:11] LABS: Valproate 43.1 mcg/mL (50.0-100.0)
[2023-06-13 20:14] LABS: Alanine Aminotransferase 105 U/L (0-31); Alkaline Phosphatase 82 U/L (39-117); Anion Gap 18 (12-20); Aspartate Amino Transferase 67 U/L (5-31); Bilirubin Total 0.2 mg/dL (0.0-1.0); Blood Urea Nitrogen 11 mg/dL (9-16); Calcium 9.2 mg/dL (8.4-10.2); Carbon Dioxide 23 mmol/L (22-29); Chloride 101 mmol/L (96-108); Creatinine Clr Calc Pharmacy 136.2; Estimated Glomerular Filt Rate > 60; Ethanol < 10 mg/dL; Glucose Random 107 mg/dL (60-115); Potassium 3.6 mmol/L (3.3-5.1); Sodium 138 mmol/L (135-145); Total Protein 7.8 g/dL (6.5-8.0)
--- NOTE | 2023-06-13 20:22 | ED_ITS ---
HPI - General Adult General Chief complaint: Psychiatric Symptoms Stated complaint: would like to see psych Time Seen by Provider: 06/13/23 18:43 Source: patient, RN notes reviewed and old records reviewed Mode of arrival: ambulatory Limitations: no limitations History of Present Illness HPI narrative: 23-year-old female presents for evaluation of depression. Patient has a history of PTSD, autism spectrum disorder, bipolar disorder. She reports that she has had increasing depression since yesterday. She cannot think of any aggravating factors or triggers She reports that she has been compliant with all of her medications She reports a cough that started yesterday but denies shortness of breath Denies any other somatic complaints Related Data Home Medications Medication Instructions Recorded Confirmed clozapine 100 mg tablet 100 mg PO QAM 07/12/22 06/13/23 desmopressin 0.1 mg tablet 0.1 mg PO BEDTIME 06/13/23 06/13/23 desmopressin 0.2 mg tablet 0.2 mg PO BEDTIME 06/13/23 06/13/23 divalproex 500 mg tablet,delayed 500 mg PO TID 06/13/23 06/13/23 release ergocalciferol (vitamin D2) 1,250 1,250 mcg PO QWEEK 06/13/23 06/13/23 mcg (50,000 unit) capsule olanzapine 2.5 mg tablet 2.5 mg PO DAILY PRN Agitation 06/13/23 06/13/23 prazosin 1 mg capsule 1 mg PO BEDTIME 06/13/23 06/13/23 sertraline 100 mg tablet 200 mg PO QAM 06/13/23 06/13/23 Previous Rx's Medication Instructions Recorded clozapine 100 mg tablet 250 mg (2.5 x 100 mg) PO BEDTIME 07/17/22 #0 tabs Allergies Allergy/AdvReac Type Severity Reaction Status Date / Time No Known Allergies Allergy Verified 07/12/22 16:23 Review of Systems 2 Constitutional: Constitutional: Denies chills, Denies fever(s) and Denies headache(s) ENT: Denies headache(s) Cardiovascular: Cardiovascular: Denies chest pain and Denies dyspnea Respiratory: Respiratory: Denies cough and Denies dyspnea Gastrointestinal: Gastrointestinal: Denies abdominal pain, Denies nausea and Denies vomiting Musculoskeletal: Musculoskeletal: Denies back pain Integumentary/Breasts: Skin/Breast: Denies rash Neurologic: Denies headache(s) Psychiatric: Psychiatric: Reports depression and Reports suicidal ideation REPLACED BY [facility] Past Medical History Medical History Autism spectrum disorder Bipolar disorder Excoriation (skin-picking) disorder PTSD (post-traumatic stress disorder) Social History Social History Household Members: Other Housing: Other Housing Other:: [facility] Do you presently have visiting nurse or other home services: Yes Patient Tobacco Use Status: Former Tobacco user Advance Directives: No Advance Directives Information Provided: No Healthcare Proxy: No Guardian: Yes (Nia Yu) service: No Sexual orientation: Don't Know Physical Exam ED Vital Signs: Vital Signs - 24 hr 06/13/23 18:41 06/13/23 22:46 06/14/23 09:40 Temperature 97.8 F 97.3 F Pulse Rate 99 73 94 Respiratory Rate 16 20 18 Blood Pressure 128/78 122/61 127/77 Pulse Oximetry 96 95 100 Oxygen Delivery Method Room Air Room Air Room Air BMI result Body Mass Index 41.6 Const General: healthy appearing, comfortable, no acute distress, alert and awake Nutritional Appearance: well nourished Orientation/consciousness: patient oriented x3 HENMT Head: Yes normocephalic and Yes atraumatic Throat: Yes posterior oropharynx normal Eyes Eyelids: Yes eyelids normal Conjunctivae: conjunctivae normal Sclerae: sclerae normal Corneas: corneas normal Pupils: Equal, round and reactive pupils present EOM: EOMs intact bilaterally Neck Neck: Yes full ROM Resp Effort & Inspection: normal respiratory effort, able to speak in complete sentences and not labored Skin General skin exam: no rashes or lesions noted and elasticity normal Neuro General: patient oriented x3 Cranial nerves: Yes Equal, round and reactive pupils present and Yes Bilaterally intact EOM present Cognition (Neuro): normal cognition Extrem Other: Moving all extremities well without any obvious deformities Course Course Course Narrative: 06/14/2023 10:02 - Patient cleared for discharge. Patient no longer suicidal. Reevaluation(s) Reevaluation #1: Patient is seen by the care team and will be a re-evaluation the morning. She continues to endorse suicidal ideation with plan to cut her wrist. Physician observation starts Time: 22:22 Medications Administered Generic Name Dose Route Start Last Admin Trade Name Autumn PRN Reason Stop Dose Admin Clozapine 100 mg 06/14/23 09:00 06/14/23 09:31 Clozapine 100 Mg Tablet PO 100 mg DAILY MARY Administration Clozapine 250 mg 06/14/23 21:00 06/13/23 22:41 Clozapine 100 Mg Tablet PO 250 mg BEDTIME MARY Administration Desmopressin Acetate 0.1 mg 06/14/23 21:00 06/13/23 22:41 Desmopressin Acetate 0.2 Mg Tablet PO 0.1 mg BEDTIME MARY Administration Desmopressin Acetate 0.2 mg 06/14/23 21:00 06/13/23 22:41 Desmopressin Acetate 0.2 Mg Tablet PO 0.2 mg BEDTIME MARY Administration Divalproex Sodium 500 mg 06/14/23 09:00 06/14/23 08:46 Divalproex Sodium 500 Mg Tablet. PO 500 mg TID MARY Administration Prazosin HCl 1 mg 06/14/23 21:00 06/13/23 22:41 Prazosin Hcl 1 Mg Capsule PO 1 mg BEDTIME MARY Administration Protocol Sertraline HCl 200 mg 06/13/23 22:15 06/14/23 08:46 Sertraline Hcl 100 Mg Tablet PO 200 mg DAILY MARY Administration Discontinued Medications Generic Name Dose Route Start Last Admin Trade Name Autumn PRN Reason Stop Dose Admin Benzonatate 200 mg 06/13/23 19:43 06/13/23 19:52 Benzonatate 100 Mg Capsule PO 06/13/23 19:44 200 mg ONCE ONE Administration Guaifenesin 10 ml 06/13/23 19:33 06/13/23 19:52 Guaifenesin 200 Mg/10 Ml 10 Ml Liquid PO 06/13/23 19:34 10 ml ONCE ONE Administration Medical Decision Making Medical Decision Making MDM Narrative: 23-year-old female presents for evaluation of increasing depression with anxiety and suicidal ideation. She will require medical clearance. The patient was coughing on arrival. Her symptoms stopped immediately after she was given Tessalon Perles and Robitussin. I feel that there is a psychosomatic component to this. Lungs are clear to auscultation she is not hypoxic. No imaging at this time. Plan for care team evaluation Differential Diagnosis Differential Diagnoses: The differential diagnosis associated with the presentation includes Depression Anxiety Viral syndrome Pneumonia Acute cough Lab Data 06/13/23 19:51 06/13/23 19:51 Labs: Lab Results 06/13/23 06/13/23 06/13/23 Range/Units 19:03 19:32 19:50 WBC (4.8-10.8) X10*3/uL RBC (4.20-5.50) X10*6/uL Hgb (12.0-16.0) g/dl Hct (37.0-47.0) % MCV (80.0-98.0) fL MCH (27.0-33.0) pg MCHC (31.0-35.0) g/dl RDW (11.0-16.0) % Plt Count (160-400) X10*3/uL MPV (9.4-12.3) fL Immature Gran % (Auto) (0.0-0.4) % Neut % (Auto) (45-73) % Lymph % (Auto) (20-40) % Beckham % (Auto) (2-11) % Eos % (Auto) (0-4) % Baso % (Auto) (0-2) % Lymph # (Auto) (1.2-4.9) X10*3/uL Beckham # (Auto) (0.1-1.2) X10*3/uL Eos # (Auto) (0.0-0.4) X10*3/uL Baso # (Auto) (0.0-0.2) X10*3/uL Abs Immat Gran (auto) (0.00-0.03) X10*3/uL Absolute Neuts (auto) (2.0-8.3) x10*3/uL Absolute Nucleated RBC (0.0-0.012) X10*3/uL Nucleated RBC % (auto) (0.0-0.2) /100WBC Sodium (135-145) mmol/L Potassium (3.3-5.1) mmol/L Chloride (96-108) mmol/L Carbon Dioxide (22-29) mmol/L Anion Gap (12-20) BUN (9-16) mg/dL Creatinine (0.5-1.4) mg/dL Estim Creat Clear Calc Estimated GFR Random Glucose (60-115) mg/dL Calcium (8.4-10.2) mg/dL Total Bilirubin (0.0-1.0) mg/dL AST (5-31) U/L ALT (0-31) U/L Alkaline Phosphatase (39-117) U/L Total Protein (6.5-8.0) g/dL Albumin (3.5-5.0) g/dL Urine Color Yellow Urine Appearance Clear Urine pH 6.0 (5.0-9.0) Ur Specific [place] 1.020 (1.005-1.025) Urine Protein Negative (Neg-Trace) mg/dL Urine Glucose (UA) Negative (Negative) mg/dL Urine Ketones Negative (Negative) mg/dL Urine Blood Negative (Negative) Urine Nitrite Negative (Negative) Ur Leukocyte Esterase Small (1+) H (Negative) Urine RBC 0-2 (0-2) /HPF Urine WBC 11-20 H (0-5) /HPF Ur Squamous Epith Cells 6-10 (0-2) /HPF Urine Bacteria 1+ (None Seen) Hyaline Casts 0-2 (0-2) /LPF Urine Test NEGATIVE (NEGATIVE) Urine Opiates Screen Not Detected (Not Detect) Urine Fentanyl Screen Not Detected (Not Detect) Ur Barbiturates Screen Not Detected (Not Detect) Valproic Acid 43.1 L (50.0-100.0) mcg/mL Ur Phencyclidine Scrn Not Detected (Not Detect) Ur Amphetamines Screen Not Detected (Not Detect) U Benzodiazepines Scrn Not Detected (Not Detect) Urine Cocaine Screen Not Detected (Not Detect) U Marijuana (THC) Screen Not Detected (Not Detect) Ethyl Alcohol mg/dL COVID-19 (CHE) Negative (Negative) COVID-19 Clin Com See Note 06/13/23 Range/Units 19:51 WBC 7.9 (4.8-10.8) X10*3/uL RBC 4.54 (4.20-5.50) X10*6/uL Hgb 12.9 (12.0-16.0) g/dl Hct 39.1 (37.0-47.0) % MCV 86.1 (80.0-98.0) fL MCH 28.4 (27.0-33.0) pg MCHC 33.0 (31.0-35.0) g/dl RDW 13.6 (11.0-16.0) % Plt Count 285 D (160-400) X10*3/uL MPV 9.3 L (9.4-12.3) fL Immature Gran % (Auto) 0.5 H (0.0-0.4) % Neut % (Auto) 50.8 (45-73) % Lymph % (Auto) 40.7 H (20-40) % Beckham % (Auto) 7.4 (2-11) % Eos % (Auto) 0.3 (0-4) % Baso % (Auto) 0.3 (0-2) % Lymph # (Auto) 3.2 (1.2-4.9) X10*3/uL Beckham # (Auto) 0.6 (0.1-1.2) X10*3/uL Eos # (Auto) 0.0 (0.0-0.4) X10*3/uL Baso # (Auto) 0.0 (0.0-0.2) X10*3/uL Abs Immat Gran (auto) 0.04 H (0.00-0.03) X10*3/uL Absolute Neuts (auto) 4.0 (2.0-8.3) x10*3/uL Absolute Nucleated RBC 0.000 (0.0-0.012) X10*3/uL Nucleated RBC % (auto) 0.0 (0.0-0.2) /100WBC Sodium 138 (135-145) mmol/L Potassium 3.6 (3.3-5.1) mmol/L Chloride 101 (96-108) mmol/L Carbon Dioxide 23 (22-29) mmol/L Anion Gap 18 (12-20) BUN 11 (9-16) mg/dL Creatinine 0.80 (0.5-1.4) mg/dL Estim Creat Clear Calc 136.2 Estimated GFR > 60 Random Glucose 107 (60-115) mg/dL Calcium 9.2 D (8.4-10.2) mg/dL Total Bilirubin 0.2 (0.0-1.0) mg/dL AST 67 H (5-31) U/L ALT 105 H (0-31) U/L Alkaline Phosphatase 82 (39-117) U/L Total Protein 7.8 (6.5-8.0) g/dL Albumin 4.0 (3.5-5.0) g/dL Urine Color Urine Appearance Urine pH (5.0-9.0) Ur Specific [place] (1.005-1.025) Urine Protein (Neg-Trace) mg/dL Urine Glucose (UA) (Negative) mg/dL Urine Ketones (Negative) mg/dL Urine Blood (Negative) Urine Nitrite (Negative) Ur Leukocyte Esterase (Negative) Urine RBC (0-2) /HPF Urine WBC (0-5) /HPF Ur Squamous Epith Cells (0-2) /HPF Urine Bacteria (None Seen) Hyaline Casts (0-2) /LPF Urine Test (NEGATIVE) Urine Opiates Screen (Not Detect) Urine Fentanyl Screen (Not Detect) Ur Barbiturates Screen (Not Detect) Valproic Acid (50.0-100.0) mcg/mL Ur Phencyclidine Scrn (Not Detect) Ur Amphetamines Screen (Not Detect) U Benzodiazepines Scrn (Not Detect) Urine Cocaine Screen (Not Detect) U Marijuana (THC) Screen (Not Detect) Ethyl Alcohol < 10 mg/dL COVID-19 (CHE) (Negative) COVID-19 Clin Com Discharge Plan Discharge Clinical Impression: Depression Patient Disposition: Home, Self-Care Instructions: Depression (DC) Additional Instructions: Follow up with your primary care provider. Return to the emergency department immediately if your symptoms worsen or if you develop any dizziness, shortness of breath, difficulty breathing, chest pain, blurry vision, loss of vision, nausea, vomiting, abdominal pain, fever, chills, back pain, or any other complaints. Prescriptions: No Action clozapine 100 mg Tablet 100 mg PO QAM clozapine 100 mg Tablet 250 mg PO BEDTIME Qty: 0 0RF desmopressin 0.2 mg tablet 0.2 mg PO BEDTIME sertraline 100 mg tablet 200 mg PO QAM divalproex 500 mg tablet,delayed release (DR/EC) 500 mg PO TID desmopressin 0.1 mg tablet 0.1 mg PO BEDTIME prazosin 1 mg capsule 1 mg PO BEDTIME olanzapine 2.5 mg tablet 2.5 mg PO DAILY PRN (Reason: Agitation) ergocalciferol (vitamin D2) 1,250 mcg (50,000 unit) capsule 1,250 mcg PO QWEEK Rx Instructions: on saturday Interventions: Holt-Suicide Risk Severity Scale Last Done: 06/14/23 08:56
--- NOTE | 2023-06-13 22:20 | PHA.MEDREC ---
Pharmacy Consult ? Medication Reconciliation Pharmacy has reviewed the medication reconciliation.
[2023-06-13] MEDS: Desmopressin Acetate 0.2 MG TABLET 0.1 MG PO (22:41)
[2023-06-13] MEDS: Desmopressin Acetate 0.2 MG TABLET PO (22:41)
[2023-06-13] MEDS: Prazosin HCL 1 MG CAPSULE PO (22:41)
[2023-06-13] MEDS: Divalproex Sodium 500 MG TABLET.DR PO (22:41)
[2023-06-13] MEDS: cloZAPine 100 MG TABLET 250 MG PO (22:41)
[2023-06-13 22:46] VITALS: BP 122/61; PULSE 73; RESP 20; TEMP 36.3; O2SAT 95
[2023-06-14] MEDS: Divalproex Sodium 500 MG TABLET.DR PO (08:46)
[2023-06-14] MEDS: Sertraline HCL 100 MG TABLET 200 MG PO (08:46)
--- NOTE | 2023-06-14 08:57 | PC.NURSE ---
DENIES SI THIS AM. UP TO BR, EATING BKFST.
--- NOTE | 2023-06-14 09:21 | PC.NURSE ---
pt in room eating breakfast well. denies SI. calm, cooperative. no distress noted. breathing well.
[2023-06-14] MEDS: cloZAPine 100 MG TABLET PO (09:31)
--- NOTE | 2023-06-14 09:39 | PC.NURSE ---
pharmacy Amanda called to notify in need of clozaril po medication- amanda states tech will come down when available.
[2023-06-14 09:40] VITALS: BP 127/77; PULSE 94; RESP 18; O2SAT 100
--- NOTE | 2023-06-14 10:25 | PC.NURSE ---
pt changed- given belongings and escorted off unit by tech safely to ride. no distress noted. denies SI/HI.
--- NOTE | 2023-06-14 10:27 | PC.NURSE ---
pt changing. showered. calm, coop. no distress.
--- NOTE | 2023-06-14 10:28 | MHC.CARE ---
patient denying SI, to return to half-way before 11 am, half-way staff to transport
== END 2023-06-14 10:30 | disposition home or self-care (01) ==
PROVIDERS: Physician Assistant; Emergency Provider Emergency Medicine; PCP Radiology Vascular & Interventional Radiology
DX: F31.9 Bipolar disorder, unspecified (principal); Z20.822 Contact with and (suspected) exposure to COVID-19; F41.9 Anxiety disorder, unspecified; F43.10 Post-traumatic stress disorder, unspecified; F84.0 Autistic disorder; F42.4 Excoriation (skin-picking) disorder; Z87.891 Personal history of nicotine dependence; Z79.899 Other long term (current) drug therapy
CPT/HCPCS: 36415; 80053; 80164; 80307; 81001; 81025; 85025; 87635; 99284; 99285; S9485

== ENCOUNTER 2025-01-26 15:44 | Emergency (ER) | payer MEDICARE, MEDICAID, SELFPAY ==
[2025-01-26 15:59] VITALS: BP 114/76; PULSE 80; O2SAT 96
[2025-01-26 16:11] VITALS: BP 137/70; PULSE 119; RESP 19; TEMP 36.6; O2SAT 97; BMI 43.3
[2025-01-26 16:32] VITALS: BP 130/70; PULSE 97; RESP 15; TEMP 36.6; O2SAT 97
--- OUTSIDE RECORDS SUMMARY | 2025-01-26 16:39 | XMS_ITS | Encounter Summary ---
Author Organization [facility] Address [address] [place] [address] Care Team Providers Care Sheep Sticker Name Role Phone Stella Gómez MD Primary Care Provider [phone] Encounter Details Date Type Department Care Team (Late st Contact Info) Description 09/22/2024 Community Care Management [facility] [address] [place] [address] Chi Clement Social History Tobacco Use Types Packs/Day Years Used Date Smoking Tobacco: Never Smokeless Tobacco: Never Alcohol Use Standard Drinks/Week Comments Never 0 (1 standard drink = 0.6 oz pur e alcohol) Comments No Sex and Gender Information Value Date Recorded Sex Assigned at Not on file Legal Sex Female 8:18 PM EST Gender Identity Not on file Sexual Orientation Not on file documented as of this encounter Functional Status * Are you deaf or do you have serious difficulty hearing? Answer Date of Assessment Author No 09/19/2024 3:55 AM EST Doles, As zyanab Witt RN * Are you blind or do you have serious difficulty seeing, even when wearing glasses? Answer Date of Assessment Author No 09/19/2024 3:55 AM EST Doles, As zaynab Witt RN * Do you have serious difficulty walking or climbing stairs? Answer Date of Assessment Author No 09/19/2024 3:55 AM EST Doles, As zaynab Witt RN * Do you have serious difficulty dressing or bathing? Answer Date of Assessment Author No 09/19/2024 3:55 AM EST Doles, As zaynab Witt RN * Because of a physical, mental, or emotional condition, do you have serious difficulty doing errandsalone such as visiting the doctor? Answer Date of Assessment Author No 09/19/2024 3:55 AM Roger Conley RN documented as of this encounter Mental Status * Because of a physical, mental, or emotional condition, do you have serious difficulty concentrating, remembering, or making decisions? (5 years old or older) Answer Entry Date Author No 09/19/2024 3:55 AM Roger Conley RN documented in this encounter Plan of Treatment Upcoming Encounters Date Type Department Care Team (Late st Contact Info) Description 05/03/2025 2:00 PM EDT Office Visit Gastroenterology - [address] [address] Jeanne Frost NP [address] [address] documented as of this encounter Visit Diagnoses Not on filedocumented in this encounter Care Teams Sheep Sticker Relationship Specialty Start Date End Date Stella Gómez MD [address] [address] PCP - General 07/09/22 documented as of this encounter
--- OUTSIDE RECORDS SUMMARY | 2025-01-26 16:40 | XMS_ITS | Clinical Summary ---
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 Active cloZAPine (CLOZARIL) 50 mg tablet Take 0.5 tablets (25 mg total) by mouth at bedtime. With 100mg bedtime dose Active divalproex (DEPAKOTE) [address] tablet Take 1 tablet (500 mg total) by mouth 3 (three) times a day. 02/14/20 Active docusate sodium (COLACE) 100 mg capsule Take 1 capsule (100 mg total) by mouth 2 (two) times a day if needed for constipation. Active OLANZapine (ZyPREXA) 2.5 mg tablet Take 2 tablets (5 mg total) by mouth 2 (two) times a day if needed (aggitation/anx iety). Active prazosin (MINIPRESS) 1 mg capsule Take 1 capsule (1 mg total) by mouth at bedtime. 02/14/20 23 Active sertraline (ZOLOFT) 100 mg tablet Take 2 tablets (200 mg total) by mouth 1 (one) time each day. Active linaCLOtide (Linzess) 145 mcg capsule Take 1 capsule (145 mcg total) by mouth 1 (one) time each day. Active fluticasone propionate (FLONASE) 50 mcg/actuation nasal spray Administer 1 spray into each nostril 2 (two) times a day. Shake gently. Before first use, prime pump. After use, clean tip and replace cap. Active polyethylene glycol (MIRALAX) 17 gram packet Take 17 g by mouth 1 (one) time each day if needed for constipation (as needed for constipation). 10 packet 2 10/01/19 25 Active acetaminophen (TYLENOL) 500 mg tablet Take 1 tablet (500 mg total) by mouth every 6 (six) hours if needed for mild pain or moderate pain (as needed for mild to moderate pain). 30 tablet 2 10/25/19 25 Active loratadine (CLARITIN) 10 mg tablet Take 1 tablet (10 mg total) by mouth at bedtime. 30 tablet 5 10/29/19 25 Active psyllium (Fiber, psyllium husk,) 0.4 gram capsule Take 1 capsule (400 mg total) by mouth 1 (one) time each day. 30 capsule 5 10/29/19 25 Active desmopressin (DDAVP) 0.1 mg tablet Take 3 tablets (0.3 mg total) by mouth at bedtime. 90 tablet 11 11/21/19 25 026 Active desmopressin (DDAVP) 0.2 mg tablet Take 1 tablet (0.2 mg total) by mouth at bedtime. 90 each 1 11/24/19 25 025 Active dicyclomine (BENTYL) 10 mg capsule Take 1 capsule (10 mg total) by mouth 4 (four) times a day if needed (Abdominal pain). 90 capsule 1 12/29/19 25 Active diphenhydrAMIN E-acetaminophe n (TYLENOL PM) 25-500 mg per tablet Take 1 tablet by mouth at bedtime as needed for sleep. 025 Discontinued benzoyl peroxide (BENZAC AC) 10 % external wash Apply topically 2 (two) times a day. 226 g 12 10/07/19 25 025 Discontinued dicyclomine (BENTYL) 10 mg capsule Take 1 capsule (10 mg total) by mouth 3 (three) times a day if needed (pain abd). 90 capsule 1 11/12/19 25 025 Discontinued ergocalciferol (VITAMIN D-2) 1,250 mcg (50,000 unit) capsule Take 1 capsule (50,000 Units total) by mouth 1 (one) time per week. 6 capsule 11/21/19 025 Active Problems Problem Noted Date Diagnosed Date Morbid obesity with body mas s index (BMI) of 40.0 to 49.9 ([facility] V24, [facility] V28) 12/28/2022 Urinary incontinence 10/12/2022 Skin lesion 09/27/2022 Autistic disorder, active 09/27/2022 Bipolar affective disorder, current episode mixed ([facility] V24, [facility] V28) 09/27/2022 Attention deficit hyperactivity disorder (ADHD) 09/27/2022 Encounters Date Type Department Care Team Description 01/19/2025 11:25 AM EDT - 01/19/2025 5:35 PM EDT [facility] Emergency [address] [place] [address] Tre Garay MD Right upper quadrant abdominal pain (Primary Dx); Homicidal ideation Discharge Disposition: Home or Self Care 01/08/2025 11:57 AM EDT - 01/08/2025 4:23 PM EDT [facility] Emergency [address] [place] [phone] Dottie Gusman DO Suicidal ideation (Primary Dx) Discharge Disposition: Home or Self Care 12/10/2024 Telephone Internal Medicine [address] [phone] Stella Gómez MD 12/09/2024 6:17 PM EDT - 12/10/2024 5:28 PM EDT [facility] Emergency [address] [place] [phone] Tre Garay MD Suicidal ideation (Primary Dx); Emotional distress Discharge Disposition: Another Health Care Institution Not Defined 11/30/2024 Telephone Internal Medicine [address] [phone] Stella Gómez MD Form: [facility] 11/20/2024 Telephone Internal Medicine [facility] [address] [phone] Stella Gómez MD Appointment 11/18/2024 Telephone Gastroenterology [address] [phone] Jeanne Frost, CARRI Medication Problem 11/10/2024 Telephone Internal Medicine [address] [phone] Stella Gómez MD Khan: Medication 10/30/2024 Telephone Internal Medicine [address] [phone] Stella Gómez MD test (Tb test ordered) 10/29/2024 10:00 AM EST Clinical Support Internal Medicine [address] [phone] Need for tetanus, diphtheria, and acellular pertussis (Tdap) vaccine (Primary Dx) from Last 3 Months Immunizations Name Administration Dates Next Due Influenza Quadravalent, MDCK , 0.5ml, preservative free (Flucelvax) 6mo and older 08/28/2023 Tdap Tetanus diptheria acell ular pertussis (Boostrix; Adacel) 7yo and older 10/29/2024,02/07/2023 Surgical History Surgery Date Site/Laterality Comments WISDOM TOOTH EXTRACTION PROCEDURE: HISTORICAL WISDOM TEETH EXTRACTION Medical History Medical History Date Comments Bipolar disorder ([facility] V24, [facility] V28) DX:Bipolar disorder ([facility]) Adhd DX:ADHD Autistic disorder DX:Autistic di sorder Obesity DX:Obesity Schizophrenia ([facility] V24, [facility] V28) Depression Anxiety Bipolar 1 disorder ([facility] V24, [facility] V28) PTSD (post-traumatic stress disorder) Social History Tobacco Use Types Packs/Day Years Used Date Smoking Tobacco: Never Smokeless Tobacco: Never Alcohol Use Standard Drinks/Week Comments Never 0 (1 standard drink = 0.6 oz pur e alcohol) Comments No Sex and Gender Information Value Date Recorded Sex Assigned at Not on file Legal Sex Female 8:18 PM EST Gender Identity Not on file Sexual Orientation Not on file Obstetrics History Para Term AB IAB SAB Ectopic Multiple Livin g Live Births 0 0 0 0 0 0 0 0 0 0 0 Last Filed Vital Signs Vital Sign Reading Time Taken Comments Blood Pressure 133/92 01/19/2025 11:40 AM EDT Pulse 99 01/19/2025 11:40 AM EDT Temperature 37 ??C (98.6 ??F) 01/19/2025 11:40 AM EDT Respiratory Rate 18 01/19/2025 11:40 AM EDT Oxygen Saturation 98% 01/19/2025 11:40 AM EDT Inhaled Oxygen Concentration - - Weight 122 kg (270 lb) 01/19/2025 11:40 AM EDT Height 162.6 cm (5' 4 ) 01/19/2025 11:40 AM EDT Body Mass Index 46.35 01/19/2025 11:40 AM EDT Plan of Treatment Upcoming Encounters Date Type Department Care Team (Late st Contact Info) Description 05/03/2025 2:00 PM EDT Office Visit Gastroenterology - [place] [address] [place] [phone] Jeanne Frost, CARRI 175 [facility] [address] [place] [address] Health Maintenance Due Date Last Done Comments HPV Vaccines (1 - 3-dose series) 2014 Hepatitis B Vaccines (1 of 3 - 19+ 3-dose series) 2018 Depression Screening 10/10/2023 HIV Screening 10/10/2023 Medicare Annual Wellness Visit 10/10/2023 Social Influencers of Health Screening 10/10/2023 COVID-19 Vaccine (1 - 2023-2 5 season) 2024 Influenza Vaccine (Season Ended) 2025 08/28/2023 Cervical Cancer Screening: Pap Smear 12/14/2025 12/14/2022, 12/14/2022 Cholesterol Screening (Lipid Panel) 10/19/2027 10/19/2022 DTaP,Tdap,and Td Vaccines (3 - Td or Tdap) 10/29/2034 10/29/2024, 02/07/2023 Hepatitis C Screening Completed 10/19/2022 Gonorrhea/Chlamydia Screening Discontinued 12/14/2022 HIB Vaccines Aged Out No longer eligi ble based on patient's age to complete this topic Hepatitis A Vaccines Aged Out No long er eligible based on patient's age to complete this topic IPV Vaccines Aged Out No longer eligi ble based on patient's age to complete this topic MMR Vaccines Aged Out No longer eligi ble based on patient's age to complete this topic Meningococcal ACWY Vaccine Aged Out N o longer eligible based on patient's age to complete this topic Meningococcal B Vaccine Aged Out No l onger eligible based on patient's age to complete this topic Pneumococcal Vaccine: Pediatrics (0 to 5 Years) and At-Risk Patients (6 to 64 Years) Aged Out No longer eligible based on patient's age to complete this topic RSV Immunization Patients Under 20 months Aged Out No longer eligible based on patient's age to complete this topic Varicella Vaccines Aged Out No longer eligible based on patient's age to complete this topic Procedures Procedure Name Priority Date/Time Associated Diagnosis Comments US ABDOMEN LIMITED STAT 01/19/2025 2: 52 PM EDT CBC WITH AUTO DIFFERENTIAL STAT 01/19/2025 12:44 PM EDT SALICYLATE LEVEL STAT 01/19/2025 12:4 4 PM EDT ACETAMINOPHEN LEVEL STAT 01/19/2025 1 2:44 PM EDT ETHANOL STAT 01/19/2025 12:44 PM EDT COMPREHENSIVE METABOLIC PANEL STAT 01/19/2025 12:44 PM EDT CBC AND DIFFERENTIAL STAT 01/19/2025 12:44 PM EDT POC , URINE DIAGNOSTIC STAT 01/19/2025 12:35 PM EDT METHADONE SCREEN, URINE STAT 01/19/2025 12:29 PM EDT PHENCYCLIDINE, URINE STAT 01/19/2025 12:29 PM EDT BUPRENORPHINE SCREEN, URINE STAT 01/19/2025 12:29 PM EDT DRUG ABUSE SCREEN 8A PANEL, URINE STAT 01/19/2025 12:29 PM EDT METHADONE SCREEN, URINE STAT 01/08/2025 1:30 PM EDT PHENCYCLIDINE, URINE STAT 01/08/2025 1:30 PM EDT BUPRENORPHINE SCREEN, URINE STAT 01/08/2025 1:30 PM EDT DRUG ABUSE SCREEN 8A PANEL, URINE STAT 01/08/2025 1:30 PM EDT LIPASE STAT 01/08/2025 12:30 PM EDT CBC WITH AUTO DIFFERENTIAL STAT 01/08/2025 12:30 PM EDT SALICYLATE LEVEL STAT 01/08/2025 12:3 0 PM EDT ACETAMINOPHEN LEVEL STAT 01/08/2025 1 2:30 PM EDT ETHANOL STAT 01/08/2025 12:30 PM EDT COMPREHENSIVE METABOLIC PANEL STAT 01/08/2025 12:30 PM EDT CBC AND DIFFERENTIAL STAT 01/08/2025 12:30 PM EDT METHADONE SCREEN, URINE STAT 12/09/2024 7:56 PM EDT PHENCYCLIDINE, URINE STAT 12/09/2024 7:56 PM EDT BUPRENORPHINE SCREEN, URINE STAT 12/09/2024 7:56 PM EDT DRUG ABUSE SCREEN 8A PANEL, URINE STAT 12/09/2024 7:56 PM EDT VALPROIC ACID LEVEL, TOTAL Add-On 12/09/2024 7:15 PM EDT CBC WITH AUTO DIFFERENTIAL STAT 12/09/2024 7:15 PM EDT SALICYLATE LEVEL STAT 12/09/2024 7:15 PM EDT ACETAMINOPHEN LEVEL STAT 12/09/2024 7 :15 PM EDT ETHANOL STAT 12/09/2024 7:15 PM EDT COMPREHENSIVE METABOLIC PANEL STAT 12/09/2024 7:15 PM EDT CBC AND DIFFERENTIAL STAT 12/09/2024 7:15 PM EDT INTERFERON GAMMA INTERPRETATION Routine 11/02/2024 1:27 PM EST Adult general medical examination INTERFERON GAMMA ANTIGEN 2 Routine 11/02/2024 1:27 PM EST Adult general medical examination INTERFERON GAMMA ANTIGEN 1 Routine 11/02/2024 1:27 PM EST Adult general medical examination INTERFERON GAMMA MITOGEN Routine 11/02/2024 1:27 PM EST Adult general medical examination INTERFERON GAMMA NIL Routine 11/02/2024 1:27 PM EST Adult general medical examination INTERFERON GAMMA FOR TB, QUALITATIVE Routine 11/02/2024 1:27 PM EST Adult general medical examination PAP SMEAR Routine 12/14/2022 HM GONORRHEA/CHLAMYDIA SCRREENING Routine 12/14/2022 HM HEPATITIS C SCREENING Routine 10/19/2022 LIPID PANEL Routine 10/19/2022 from Last 3 Months or Most Recently Relevant to Health Maintenance Results * US Abdomen Limited (01/19/2025 2:52 PM EDT) Anatomical Region Laterality Modality Body Ultrasound 01/19/2025 3:31 PM EDT Impressions 01/19/2025 3:32 PM EDT 1. ??LIMITED EXAMINATION DEMONSTRATING NO ACUTE FINDINGS. -------- FINAL REPORT -------- Dictated By: Shantel Yap Dictated Date: 01/19/2025 15:31 ET Assigned Physician: Shantel Yap Reviewed and Electronically Signed By: Shantel Yap Signed Date: 01/19/2025 15:32 ET Workstation ID: [id number] Transcribed By: Self Edit Transcribed Date: 01/19/2025 15:31 ET Narrative 01/19/2025 3:32 PM EDT Exam: US ABDOMEN LIMITED Date of Study: 01/19/2025 2:52 PM CLINICAL INFORMATION: RUQ pain TECHNIQUE: Real-time ultrasound scanning of the region of interest performed by the conditioning machine operator. Flux Plant Operator static images and video clips are submitted for review. FINDINGS: IVC was not visualized. ??Visualized pancreas is unremarkable. ??The liver is enlarged measuring 24 cm with increased echogenicity compatible with hepatic steatosis. ??Normal direction of flow within the portal vein. ??Gallbladder is contracted. ??No gallstones are evident. ??No gallbladder distention. ??Absent sonographic Lagunas's sign. ??Common bile duct was not well-visualized. ??The kidney measures 9 cm without evidence for mass or hydronephrosis. Procedure Note Shantel Yap MD - 01/19/2025 Exam: US ABDOMEN LIMITED Date of Study: 01/19/2025 2:52 PM CLINICAL INFORMATION: RUQ pain TECHNIQUE: Real-time ultrasound scanning of the region of interestperformed by the conditioning machine operator. Flux Plant Operator static images and video clipsare submitted for review. FINDINGS: IVC was not visualized. Visualized pancreas is unremarkable. The liveris enlarged measuring 24 cm with increased echogenicity compatible withhepatic steatosis. Normal direction of flow within the portal vein.Gallbladder is contracted. No gallstones are evident. No gallbladderdistention. Absent sonographic Lagunas's sign. Common bile duct was notwell-visualized. The kidney measures 9 cm without evidence for mass orhydronephrosis. IMPRESSION: 1. LIMITED EXAMINATION DEMONSTRATING NO ACUTE FINDINGS. -------- FINAL REPORT -------- Dictated By: Shantel Yap Dictated Date: 01/19/2025 15:31 ET Assigned Physician: Shantel Yap Reviewed and Electronically Signed By: Shantel Yap Signed Date: 01/19/2025 15:32 ET Workstation ID: [id number] Transcribed By: Self Edit Transcribed Date: 01/19/2025 15:31 ET us Tre Garay MD [facility] US PROCEDURES Final Result * (ABNORMAL) CBC auto differential (01/19/2025 12:44 PM EDT) Only the most recent of3 resultswithin the time period is included. WBC 8.5 4.8 - 10.8 K/mcL LAB [facility] RBC 4.50 3.80 - 4.80 M/mcL LAB HEMETOLOGY METHOD 01/19[facility]2025 [facility] Hemoglobin 12.5 11.5 - 16.0 g/dL LAB HEMETOLOGY METHOD 01/19[facility]2025 [facility] Hematocrit 38.7 35.0 - 47.0 % LAB HEMETOLOGY METHOD 01/19[facility]2025 [facility] MCV 86.8 79.0 - 98.0 FL LAB HEMETOLOGY METHOD [facility]/19[facility]2025 [facility] MCH 28.0 27.0 - 32.0 pcg LAB HEMETOLOGY METHOD 01/19[facility]2025 [facility] MCHC 32.3 32.0 - 37.0 g/dL LAB HEMETOLOGY METHOD 01/19/2025 1:09 PM [facility] RDW 14.4 11.0 - 15.0 % LAB HEMETOLOGY METHOD [facility]/19[facility]2025 [facility] Platelets 265 130 - 400 K/mcL LAB HEMETOLOGY METHOD 01/19/2025 1:09 PM [facility] MPV 9.5 7.0 - 11.0 FL LAB HEMETOLOGY METHOD 01/19/2025 1:09 PM [facility] NRBC 0.0 <1.0 % LAB HEMETOLOGY METHOD 01/19/2025 1:09 PM [facility] NRBC Absolute 0.00 <0.10 K/mcL LAB HEMETOLOGY METHOD 01/19/2025 1:09 PM [facility] Neutrophils Relative 68.6 % LAB HEMETOLOGY METHOD 01/19/2025 1:09 PM [facility] Lymphocytes Relative 23.7 % LAB HEMETOLOGY METHOD 01/19/2025 1:09 PM [facility] Monocytes Relative 7.0 % LAB HEMETOLOGY METHOD 01/19/2025 1:09 PM [facility] Eosinophils Relative 0.0 % LAB HEMETOLOGY METHOD 01/19/2025 1:09 PM [facility] Basophils Relative 0.2 % LAB HEMETOLOGY METHOD 01/19/2025 1:09 PM [facility] Immature Granulocytes Relative 0.5 % LAB HEMETOLOGY METHOD 01/19/2025 1:09 PM [facility] Neutrophils Absolute 5.81 1.50 - 7.00 K/mcL LAB HEMETOLOGY METHOD 01/19/2025 1:09 PM [facility] Lymphocytes Absolute 2.01 1.00 - 5.00 K/mcL LAB HEMETOLOGY METHOD 01/19/2025 1:09 PM [facility] Monocytes Absolute 0.59 0.20 - 1.00 K/mcL LAB HEMETOLOGY METHOD 01/19/2025 1:09 PM EDT [facility] Eosinophils Absolute 0.00 0.00 - 0.50 K/[facility] LAB HEMETOLOGY METHOD 01/19/2025 1:09 PM EDT [facility] Basophils Absolute 0.02 0.00 - 0.20 K/[facility] LAB HEMETOLOGY METHOD 01/19/2025 1:09 PM EDT [facility] Immature Granulocytes Absolute 0.04(H) 0.00 - 0.03 K/[facility] LAB HEMETOLOGY METHOD 01/19/2025 1:09 PM EDT [facility] Blood Venous blood specimen / Unknown Venipuncture / Unknown 01/19/2025 12:44 PM EDT 01/19/2025 12:48 PM EDT Sadi Keon Sunshine LAB BLOOD ORDERABLES Final Result Performing Organization Address City/[facility]/ZIP Co de Phone Number [facility] [address] [place] [address], [place] [phone] * Ethanol (01/19/2025 12:44 PM EDT) Only the most recent of3 resultswithin the time period is included. Ethanol Level <3 0 - 10 mg/dL LAB CHEMISTRY METHOD 01/19/2025 1:24 PM EDT [facility] Blood Venous blood specimen / Unknown Venipuncture / Unknown 01/19/2025 12:44 PM EDT 01/19/2025 12:48 PM EDT Sadi Keon Sunshine LAB BLOOD ORDERABLES Final Result [facility] [address] [place] [address], [place] [phone] * (ABNORMAL) Acetaminophen level (01/19/2025 12:44 PM EDT) Only the most recent of3 resultswithin the time period is included. Acetaminophen Level <2.0(L) 10.0 - 30.0 mcg/mL LAB CHEMISTRY METHOD 01/19/2025 1:25 PM EDT [facility] Blood Venous blood specimen / Unknown Venipuncture / Unknown 01/19/2025 12:44 PM EDT 01/19/2025 12:48 PM EDT us Sadi Sunshine LAB BLOOD ORDERABLES Final Result Performing Organization Address City/[facility]/ZIP Co de Phone Number [facility] [address] [place] [address], [place] [phone] * (ABNORMAL) Salicylate level (01/19/2025 12:44 PM EDT) Only the most recent of3 resultswithin the time period is included. Salicylate Level <1.7(L) 2.0 - 29.0 mg/dL LAB CHEMISTRY METHOD 01/19/2025 1:24 PM EDT [facility] Blood Venous blood specimen / Unknown Venipuncture / Unknown 01/19/2025 12:44 PM EDT 01/19/2025 12:48 PM EDT us Sadi Sunshine DO LAB BLOOD ORDERABLES Final Result Performing Organization Address City/[facility]/ZIP Co de Phone Number [facility] [address] [place] [address], [place] [phone] * Comprehensive metabolic panel (01/19/2025 12:44 PM EDT) Only the most recent of3 resultswithin the time period is included. Sodium 137 133 - 145 mmol/L LAB CHEMISTRY METHOD 01/19/2025 1:24 PM EDT [facility] Potassium 4.1 3.5 - 5.5 mmol/L LAB CHEMISTRY METHOD 01/19/2025 1:24 PM EDT [facility] Chloride 103 96 - 110 mmol/L LAB CHEMISTRY METHOD 01/19/2025 1:24 PM [facility] CO2 29 21 - 32 mmol/L LAB CHEMISTRY METHOD 01/19/2025 1:24 PM [facility] Anion Gap 5 3 - 11 LAB CHEMISTRY METHOD 01/19/2025 1:24 PM [facility] Glucose 99 70 - 100 mg/dL LAB CHEMISTRY METHOD 01/19/2025 1:24 PM [facility] BUN 9 5 - 25 mg/dL LAB CHEMISTRY METHOD 01/19/2025 1:24 PM [facility] Creatinine 0.67 0.50 - 1.10 mg/dL LAB CHEMISTRY METHOD 01/19/2025 1:24 PM [facility] eGFR 124 >=60 mL/min/1. 73m2 LAB CHEMISTRY METHOD 01/19/2025 1:24 PM [facility] Comment:Calculation based on the??Chronic Kidney Disease Epidemiology Collaboration (CKD-EPI) equation refit??without adjustment for race. BUN/Creatinine Ratio 13.4 LAB CHEMISTRY METHOD 01/19/2025 1:24 PM [facility] Calcium 9.1 8.5 - 10.5 mg/dL LAB CHEMISTRY METHOD 01/19/2025 1:24 PM [facility] AST (SGOT) 24 10 - 42 unit/L LAB CHEMISTRY METHOD 01/19/2025 1:24 PM [facility] ALT (SGPT) 33 10 - 60 unit/L LAB CHEMISTRY METHOD 01/19/2025 1:24 PM [facility] Alkaline Phosphatase 83 42 - 121 unit/L LAB CHEMISTRY METHOD 01/19/2025 1:24 PM [facility] Total Protein 7.4 6.0 - 8.0 g/dL LAB CHEMISTRY METHOD 01/19/2025 1:24 PM [facility] Albumin 3.3 3.2 - 5.0 g/dL LAB CHEMISTRY METHOD 01/19/2025 1:24 PM EDT [facility] Total Bilirubin 0.2 0.0 - 1.4 mg/dL LAB CHEMISTRY METHOD 01/19/2025 1:24 PM EDT [facility] Blood Venous blood specimen / Unknown Venipuncture / Unknown 01/19/2025 12:44 PM EDT 01/19/2025 12:48 PM EDT Sadi Sunshine DO LAB BLOOD ORDERABLES Final Result [facility] [address] [place] [address], [place] [phone] * POC , urine manually resulted (01/19/2025 12:35 PM EDT) HCG, Ur POC Negative Negative POC hCG Int QC Pass? Yes Yes Urine Urine specimen obtained by clean catch procedure / Unknown 01/19/2025 12:35 PM EDT us Sadi Sunshine DO POINT OF CARE TEST ENTER/ED IT ORDERABLES Final Result * Drug abuse screen 8a panel, urine (01/19/2025 12:29 PM EDT) Only the most recent of3 resultswithin the time period is included. Amphetamine Screen, Ur Negative Negative LAB CHEMISTRY METHOD 01/19/2025 1:29 PM EDT [facility] Comment:Certain OTC medicati ons containing ephedrine, phenylephrine, pseudoephedrine and phenylpropanolamine can cause false positive results. Barbiturate Screen, Ur Negative Negative LAB CHEMISTRY METHOD 01/19/2025 1:29 PM EDT [facility] Benzodiazepine Screen, Ur Negative Negative LAB CHEMISTRY METHOD 01/19/2025 1:29 PM EDT [facility] Cocaine Screen, Ur Negative Negative LAB CHEMISTRY METHOD 01/19/2025 1:29 PM EDT [facility] Opiate Screen, Ur Negative Negative LAB CHEMISTRY METHOD 01/19/2025 1:29 PM EDT [facility] Cannabinoid (THC) Screen, Ur Negative Negative LAB CHEMISTRY METHOD 01/19/2025 1:29 PM EDT [facility] Comment:Specimens from patie nts taking pantoprazole sodium (Protonix) have been shown to produce false positive results. Oxycodone Screen, Ur Negative Negative LAB CHEMISTRY METHOD 01/19/2025 1:29 PM EDT [facility] Fentanyl, Ur Negative Negative LAB CHEMISTRY METHOD 01/19/2025 1:29 PM EDT [facility] Urine Urine specimen obtained by clean catch procedure / Unknown Non-blood Collection / Unknown 01/19/2025 12:29 PM EDT 01/19/2025 12:49 PM EDT Narrative [facility] - 01/19/2025 1:29 PM EDT Assay cutoffs: Amphetamines ? 1000 ng/mL Barbiturates ?200 ng/mL Benzodiazepines ?? 200 ng/mL Cocaine ? 300 ng/mL Fentanyl ?1 ng/mL Opiates ? 300 ng/mL Oxycodone ? 100 ng/mL THC ?50 ng/mL Semi-quantitative assay for screening purposes only. Unconfirmed screening result should not be used for non-medical purposes. *ALTERNATE METHOD CONFIRMATION DONE UPON REQUEST ONLY* us Sadi Sunshine DO LAB URINE ORDERABLES Final Result [facility] [address] [place] [address], * Buprenorphine screen, urine (01/19/2025 12:29 PM EDT) Only the most recent of3 resultswithin the time period is included. Buprenorphine Screen Urine Negative Negative LAB CHEMISTRY METHOD 01/19/2025 1:29 PM EDT [facility] Urine Urine specimen obtained by clean catch procedure / Unknown Non-blood Collection / Unknown 01/19/2025 12:29 PM EDT 01/19/2025 12:49 PM EDT Narrative [facility] - 01/19/2025 1:29 PM EDT Assay cutoff 5 ng/mL Semi-quantitative assay for screening purposes only. Unconfirmed screening result should not be used for non-medical purposes. *ALTERNATE METHOD CONFIRMATION DONE UPON REQUEST ONLY* us Sadi Sunshine DO [facility] URINE ORDERABLES Final Result Performing Organization Address [facility] de Phone Number [facility] [address] [place] [address], [place] [phone] * Methadone, urine (01/19/2025 12:29 PM EDT) Only the most recent of3 resultswithin the time period is included. Methadone Screen, Urine Negative Negative LAB CHEMISTRY METHOD 01/19/2025 1:29 PM EDT [facility] Comment: Assay cutoff 300 ng/mL Semi-quantitative assay for screening purposes only. Unconfirmed screening result should not be used for non-medical purposes. *ALTERNATE METHOD CONFIRMATION DONE UPON REQUEST ONLY* Urine Urine specimen obtained by clean catch procedure / Unknown Non-blood Collection / Unknown 01/19/2025 12:29 PM EDT 01/19/2025 12:49 PM EDT us Sadi Sunshine DO LAB URINE ORDERABLES Final Result Performing Organization Address [facility]/ZIP Co de Phone Number [facility] [address] [place] [address], [place] [phone] * Phencyclidine, urine (01/19/2025 12:29 PM EDT) Only the most recent of3 resultswithin the time period is included. Pathologist [facility] PCP Scrn, Ur Negative Negative LAB CHEMISTRY METHOD 01/19/2025 1:29 PM EDT [facility] Comment: Assay cutoff 25 ng/mL Semi-quantitative assay for screening purposes only. Unconfirmed screening result should not be used for non-medical purposes. *ALTERNATE METHOD CONFIRMATION DONE UPON REQUEST ONLY* Urine Urine specimen obtained by clean catch procedure / Unknown Non-blood Collection / Unknown 01/19/2025 12:29 PM EDT 01/19/2025 12:49 PM EDT Sadi Sunshine DO LAB URINE ORDERABLES Final Result [facility] [address] [place] [address], [place] [phone] * Lipase (01/08/2025 12:30 PM EDT) [facility] Lipase 34 13 - 75 unit/L LAB CHEMISTRY METHOD 01/08/2025 1:30 PM EDT [facility] Blood Venous blood specimen / Unknown Venipuncture / Unknown 01/08/2025 12:30 PM EDT 01/08/2025 12:43 PM EDT Dottie Reinier Vidal Naseem DO LAB BLOOD ORDERABLES Sherie l Result [facility] [address] [place] [address], [place] [phone] * Valproic acid level, total (12/09/2024 7:15 PM EDT) [facility] Valproic Acid, Total 94 50 - 100 mcg/mL LAB CHEMISTRY METHOD 12/09/2024 8:17 PM EDT [facility] Blood Venous blood specimen / Unknown Venipuncture / Unknown 12/09/2024 7:15 PM EDT 12/09/2024 7:50 PM EDT Daniel Chamberlain MD LAB BLOOD ORDERABLES Final Resu lt Performing Organization Address [facility]/ZIP Co de Phone Number [facility] [address] [place] [address], [place] [phone] * Interferon gamma interpretation (11/02/2024 1:27 PM EST) Quantiferon Plus Interpretation Negative Negative LAB CHEMISTRY METHOD 11/04/2024 1:12 PM EST [facility] Blood Venous blood specimen / Unknown Venipuncture / Unknown 11/02/2024 1:27 PM EST 11/02/2024 1:27 PM EST Stella Gómez MD LAB BLOOD ORDERABLES Final Resul t Performing Organization Address [facility] de Phone Number [facility] [address] [place] [address], [place] [phone] * Interferon gamma antigen 2 (11/02/2024 1:27 PM EST) Blood Venous blood specimen / Unknown Venipuncture / Unknown 11/02/2024 1:27 PM EST 11/02/2024 1:27 PM EST Stella Gómez MD LAB BLOOD ORDERABLES Final Resul t Performing Organization Address City/[facility] Co de Phone Number [facility] [address] [place] [address], [place] [phone] * Inteferon gamma antigen 1 (11/02/2024 1:27 PM EST) Blood Venous blood specimen / Unknown Venipuncture / Unknown 11/02/2024 1:27 PM EST 11/02/2024 1:27 PM EST Stella Gómez MD LAB BLOOD ORDERABLES Final Resul t Performing Organization Address City/[facility] Co de Phone Number [facility] [address] [place] [address], * Interferon gamma mitogen (11/02/2024 1:27 PM EST) Blood Venous blood specimen / Unknown Venipuncture / Unknown 11/02/2024 1:27 PM EST 11/02/2024 1:27 PM EST Stella Gómez MD LAB BLOOD ORDERABLES Final Resul t Performing Organization Address [facility] Co de Phone Number [facility] [address] [place] [address], * Interferon gamma NIL (11/02/2024 1:27 PM EST) Blood Venous blood specimen / Unknown Venipuncture / Unknown 11/02/2024 1:27 PM EST 11/02/2024 1:27 PM EST Stella Gómez MD LAB BLOOD ORDERABLES Final Resul t Performing Organization Address [facility] Co de Phone Number [facility] [address] [place] [address], * Gonorrhea/Chlamydia Screening (12/14/2022) Gonorrhea/Chla mydia Screening abstracted Bee Provider HEALTH MAINTENANCE Final Result * Pap smear (12/14/2022) 12/14/2022 Narrative HISTORICAL TESTING LAB RESULTING AGENCY - 12/24/2022 4:05 PM EDT [id number] THINPREP PAP, IMAGED: NEGATIVE FOR SQUAMOUS INTRAEPITHELIAL LESION AND MALIGNANCY . MELLO SARMIENTO(ASCP) (CASE ELECTRONICALLY SIGNED 12 24 2022) ADEQUACY: SATISFACTORY ENDOCERVICAL/TRANSFORMATION ZONE COMPONENT PRESENT. SOURCE: THINPREP PAP HPV IF ASCUS, CERVICAL, IMAGED CLINICAL INFORMATION: HPV IF DIAGNOSIS OF ASCUS. HORMONES, LMP 11/25/22, [Z12.4] Aaliyah Nice DO LAB CYTOLOGY ORDERABLES Final Result HISTORICAL TESTING LAB RESULTING AGENCY * Hepatitis C Screening (10/19/2022) Hepatitis C Screening abstracted Historical Provider HEALTH MAINTENANCE Final Result * (ABNORMAL) Lipid panel (10/19/2022) LDL/HDL Ratio 4 0 - 4 Triglycerides 181(A) 0 - 150 mg/dL Cholesterol 208(A) 0 - 200 mg/dL HDL 55 >=40 mg/dL LDL Cholesterol 117(A) 0 - 100 mg/dL Blood Venous blood specimen / Unknown Historical Provider LAB BLOOD ORDERABLES Sherie l Result from Last 3 Months or Most Recently Relevant to Health Maintenance Insurance MEDICARE [place]ICA[place] - [place] - [place] 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
--- NOTE | 2025-01-26 17:28 | ED.PSYCH ---
HPI - Psych General Chief Complaint: Psychiatric Symptoms Stated Complaint: crisis from grp home Time Seen by Provider: 01/26/25 16:17 Source: patient and EMS Mode of arrival: EMS Limitations: no limitations History of Present Illness ED Provider: Dr. Nilam Vences HPI Narrative: patient comes to the emergency room via ambulance from a assisted. According to the patient, earlier today she had a verbal altercation with the staff. Patient states that she ran into her bedroom and locked herself, kicked a door. Patient admits that she made statements that she would hurt the staff. Patient states that she really means it. Patient states that she has several sharp instruments in her room and she will not hesitate to use them against the staff. Patient denies SI. Related Data Home Medications ?Medication ?Instructions ?Recorded ?Confirmed desmopressin 0.1 mg tablet 0.1 mg PO BEDTIME 06/13/23 01/26/25 desmopressin 0.2 mg tablet 0.2 mg PO BEDTIME 06/13/23 01/26/25 divalproex 500 mg tablet,delayed 500 mg PO TID 06/13/23 01/26/25 release ergocalciferol (vitamin D2) 1,250 1,250 mcg PO WE 06/13/23 01/27/25 mcg (50,000 unit) capsule prazosin 1 mg capsule 1 mg PO BEDTIME 06/13/23 01/26/25 fluticasone propionate 50 2 spray intranasal BID 01/26/25 01/27/25 mcg/actuation nasal spray,suspension linaclotide 145 mcg capsule 145 mcg PO DAILY 01/26/25 01/27/25 (Linzess) acetaminophen 500 mg tablet 500 mg PO Q6H PRN Fever/Pain 01/27/25 01/27/25 benzoyl peroxide 10 % topical 1 appl topical BID 01/27/25 01/27/25 cleanser clonazepam 0.5 mg tablet 0.5 mg PO TID 01/27/25 01/27/25 clozapine 100 mg tablet 100 mg PO BID 01/27/25 01/27/25 clozapine 50 mg tablet 50 mg PO BEDTIME 01/27/25 01/27/25 dicyclomine 10 mg capsule 10 mg PO TID 01/27/25 01/27/25 diphenhydramine 25 1 tab PO BEDTIME PRN Sleep 01/27/25 01/27/25 mg-acetaminophen 500 mg tablet (Tylenol PM Extra Strength) docusate sodium 100 mg tablet 100 mg PO BID 01/27/25 01/27/25 loratadine 10 mg tablet 10 mg PO DAILY 01/27/25 01/27/25 olanzapine 5 mg tablet 5 mg PO DAILY 01/27/25 01/27/25 olanzapine 5 mg tablet 5 mg PO Q6H PRN Agitation/Anxiety 01/27/25 01/27/25 polyethylene glycol 3350 17 17 g PO DAILY PRN Constipation 01/27/25 01/27/25 gram/dose oral powder psyllium husk 0.4 gram capsule 0.4 g PO DAILY 01/27/25 01/27/25 trazodone 50 mg tablet 50 mg PO BEDTIME PRN Sleep 01/27/25 01/27/25 Allergies Allergy/AdvReac Type Severity Reaction Status Date / Time No Known Allergies Allergy Verified 01/26/25 16:17 Review of Systems Review of Systems: Constitutional : No Weight loss, No Fever, No Chills, No Night Sweats, No Fatigue, No Malaise ENT/Mouth : No Hearing loss, No Ear Pain, No Nasal Congestion, No Sinus Pain, No Hoarseness, No sore throat, No Rhinorrhea, No Swallowing Difficulty Eyes: No Eye Pain, No Swelling, No Redness, No Foreign Body, No Discharge, No Vision Changes Cardiovascular : No Chest Pain, No SOB, No Dyspnea on Exertion, No Orthopnea, No Edema, No Palpitations Respiratory : No Cough, No Sputum, No Wheezing, No Smoke Exposure, No Dyspnea Gastrointestinal : No Nausea, No Vomiting, No Diarrhea, No Constipation, No abdominal Pain, No Hematochezia, No Melena Genitourinary : no irregular bleeding, No Dysuria, No Urinary Frequency, No Hematuria, No Urinary Incontinence, No Urgency, No Flank Pain, No Urinary Flow Changes, No Hesitancy Musculoskeletal : No joint pain, No Myalgias, No Joint Swelling Skin : No Skin Lesions, No rash Neuro : No Weakness, No Numbness, No Paresthesias, No Loss of Consciousness, No Dizziness, No Headache Psych : Denies feeling anxious or depressed, denies SI, denies HI but admits that she will hurt the staff of her assisted Heme/Lymph: No Bruising, No Bleeding,No Lymphadenopathy Endocrine : No Polyuria, No Polydipsia, No Temperature Intolerance [facility] Past Medical History Medical History PTSD (post-traumatic stress disorder) Excoriation (skin-picking) disorder Bipolar disorder Autism spectrum disorder Social History Social History Household Members: Other Housing: Other Housing Other:: [facility] assisted Do you presently have visiting nurse or other home services: Yes Patient Tobacco Use Status: Former Tobacco user Advance Directives: No Advance Directives Information Provided: No Do you have a plan to hurt others: No Plan service: No Sexual orientation: Don't Know Physical Exam Vital Signs: Vital Signs: Last Vital Signs Temp 98.4 F 01/26/25 17:31 Pulse 90 01/26/25 17:31 Resp 15 01/26/25 17:31 BP 130/70 01/27/25 01:22 Pulse Ox 99 01/26/25 17:31 O2 Del Method Room Air 01/26/25 17:31 BMI result Body Mass Index 43.3 Const: Other: Appearance: Alert. Oriented X3. No acute distress. Eyes: Pupils equal, round and reactive to light. ENT: Pharynx normal. Neck: Normal inspection. Neck supple. No lymph nodes noted. No crepitus CVS: Normal heart rate and rhythm. Pulses normal. Normal S1 and S2 Respiratory: No respiratory distress. Breath sounds normal. No Wheezing. No rales Abdomen: Soft and nontender. No rigidity. No distention. Skin: Skin warm and dry. Normal skin color. Normal skin turgor. Extremities: No lower extremity edema. No Lacerations. No Rash Neuro: Oriented X 3. No motor deficit. No sensory deficit. Moving all extremities. No slurred speech. CN 2 through 12 grossly intact Psych: calm, cooperative, normal affect Course Course Course Narrative: all of patient's labs pending patient is on a Section 12 care team consult pending physician observation started at 17:32 Reevaluation(s) Reevaluation #1: Time: 08:10 Date: 01/27/25 Provider: Bhanu Mahmood MD Patient in physician observation for psychiatric evaluation.? No acute events reported overnight. No current complaints. VS stable.? Patient is in bed search status/pending CARE team evaluation. Will continue to monitor. 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 Time: 13:43 Medications Administered Generic Name Dose Route Start Last Admin Trade Name Autumn PRN Reason Stop Dose Admin Clonazepam 0.5 mg 01/26/25 23:15 01/27/25 09:32 Clonazepam 0.5 Mg Tablet PO 0.5 mg TID MARY Administration Clozapine 100 mg 01/27/25 09:00 01/27/25 09:32 Clozapine 100 Mg Tablet PO 100 mg DAILY MARY Administration Desmopressin Acetate 0.1 mg 01/26/25 23:15 01/27/25 01:23 Desmopressin Acetate 0.2 Mg Tablet PO 0.1 mg BEDTIME MARY Administration Desmopressin Acetate 0.2 mg 01/26/25 23:15 01/27/25 01:24 Desmopressin Acetate 0.2 Mg Tablet PO 0.2 mg BEDTIME MARY Administration Divalproex Sodium 500 mg 01/26/25 23:15 01/27/25 09:32 Divalproex Sodium 500 Mg Tablet.Dr PO 500 mg TID MARY Administration Docusate Sodium 100 mg 01/26/25 23:15 01/27/25 09:32 Docusate Sodium 100 Mg Capsule PO 100 mg BID MARY Administration Ergocalciferol 1,250 mcg 01/27/25 09:00 01/27/25 09:31 Ergocalciferol (Vitamin D2) 1,250 Mcg Capsule PO 1,250 mcg We@0900 MARY Administration Fluticasone Propionate 1 spray 01/27/25 09:00 01/27/25 09:30 Fluticasone Propionate Nasal 16 Gm [place] NOSTRIL-B 1 spray BID MARY Administration Loratadine 10 mg 01/26/25 23:15 01/27/25 01:23 Loratadine 10 Mg Tablet PO 10 mg BEDTIME MARY Administration Pt Own (Linaclotide 145 mcg 01/27/25 11:00 01/27/25 11:16 [Linzess] 145 Mcg PO 145 mcg Capsule) DAILY@0730 MARY Administration Olanzapine 5 mg 01/27/25 09:00 01/27/25 09:32 Olanzapine 5 Mg Tablet PO 5 mg DAILY MARY Administration Polyethylene Glycol 17 gm 01/27/25 09:00 01/27/25 09:37 Polyethylene Glycol 3350 17 Gm Powd.Pack PO 17 gm DAILY MARY Administration Prazosin HCl 1 mg 01/26/25 23:15 01/27/25 01:22 Prazosin Hcl 1 Mg Capsule PO 1 mg BEDTIME MARY Administration Protocol Psyllium Hydrophilic Mucilloid 3.7 gm 01/27/25 09:00 01/27/25 09:31 Psyllium Seed 3.7 Gm Packet PO 3.7 gm DAILY MARY Administration Discontinued Medications Generic Name Dose Route Start Last Admin Trade Name Autumn PRN Reason Stop Dose Admin Clozapine 150 mg 01/26/25 23:15 01/27/25 01:23 Clozapine 25 Mg Tablet PO 01/26/25 23:16 150 mg BEDTIME MARY Administration Medical Decision Making Medical Decision Making [facility] Narrative: My interpretation of labs: No significant abnormality in patient's hematology and chemistry, test negative, urine toxicology negative, ETOH negative The care team evaluated the patient. They spoke to the custodial. According to the assisted, they mentioned that the patient constantly displaced this kind of behavior. Patient frequently threatening them but has never harmed anyone. According to the assisted, patient was angry today because they have a rule in the assisted which states that they can not order out food and go to the movie theaters in the same week. Patient had already ordered [employer] this week and was not allowed to go to the movie theaters and therefore she became upset. Care team recommendations: Follow-up in the morning and likely discharge back to assisted in the morning. Differential Diagnosis Differential Diagnoses: The differential diagnosis associated with the presentation includes ( anxiety, bipolar disorder, PTSD) Admission/Observation Consideration of admission/observation: Escalation of care including admission/observation considered ( patient is on a Section 12 waiting to be seen by the care team to determine patient's disposition) Lab Data [facility] Lab Attestation statement: I reviewed the patient's lab results. 01/26/25 19:33 01/26/25 19:33 Labs: Lab Results 01/26/25 01/26/25 Range/Units 18:01 19:33 WBC 9.9 (4.8-10.8) X10*3/uL RBC 4.66 (4.20-5.50) X10*6/uL Hgb 13.0 (12.0-16.0) g/dl Hct 39.6 (37.0-47.0) % MCV 85.0 (80.0-98.0) fL MCH 27.9 (27.0-33.0) pg MCHC 32.8 (31.0-35.0) g/dl RDW 14.4 (11.0-16.0) % Plt Count 269 (160-400) X10*3/uL MPV 9.5 (9.4-12.3) fL Immature Gran % (Auto) 0.5 H (0.0-0.4) % Neut % (Auto) 61.9 (45-73) % Lymph % (Auto) 30.5 (20-40) % Dubois % (Auto) 6.8 (2-11) % Eos % (Auto) 0.0 (0-4) % Baso % (Auto) 0.3 (0-2) % Lymph # (Auto) 3.0 (1.2-4.9) X10*3/uL Dubois # (Auto) 0.7 (0.1-1.2) X10*3/uL Eos # (Auto) 0.0 (0.0-0.4) X10*3/uL Baso # (Auto) 0.0 (0.0-0.2) X10*3/uL Abs Immat Gran (auto) 0.05 H (0.00-0.03) X10*3/uL Absolute Neuts (auto) 6.1 (2.0-8.3) x10*3/uL Absolute Nucleated RBC 0.000 (0.0-0.012) X10*3/uL Nucleated RBC % (auto) 0.0 (0.0-0.2) /100WBC Sodium 141 (135-145) mmol/L Potassium 4.1 (3.3-5.1) mmol/L Chloride 100 (96-108) mmol/L Carbon Dioxide 29 (22-29) mmol/L Anion Gap 16 (12-20) BUN 8 L (9-16) mg/dL Creatinine 0.67 (0.5-1.4) mg/dL Estim Creat Clear Calc 163.5 Estimated GFR > 60 Random Glucose 109 (60-115) mg/dL Calcium 9.4 (8.4-10.2) mg/dL Total Bilirubin 0.2 (0.0-1.0) mg/dL Direct Bilirubin < 0.2 (0.0-0.5) mg/dL AST 23 (5-31) U/L ALT 27 (0-31) U/L Alkaline Phosphatase 87 (39-117) U/L Total Protein 8.0 (6.5-8.0) g/dL Albumin 4.1 (3.5-5.0) g/dL Beta HCG, Quant < 2 mIU/mL Urine Color Yellow Urine Appearance Clear Urine pH 6.0 (5.0-9.0) Ur Specific [place] 1.020 (1.005-1.025) Urine Protein Negative (Neg-Trace) mg/dL Urine Glucose (UA) Negative (Negative) mg/dL Urine Ketones Trace (Negative) mg/dL Urine Blood Negative (Negative) Urine Nitrite Negative (Negative) Ur Leukocyte Esterase Negative (Negative) Urine Opiates Screen Not Detected (Not Detect) Ur Buprenorphine Scrn Not Detected (Not Detect) ng/mL Ur Oxycodone Screen Not Detected (Not Detect) ng/mL Urine Methadone Screen Not Detected (Not Detect) ng/mL Urine Fentanyl Screen Not Detected (Not Detect) Ur Barbiturates Screen Not Detected (Not Detect) Ur Phencyclidine Scrn Not Detected (Not Detect) Ur Amphetamines Screen Not Detected (Not Detect) U Benzodiazepines Scrn Not Detected (Not Detect) Urine Cocaine Screen Not Detected (Not Detect) U Marijuana (THC) Screen Not Detected (Not Detect) Ethyl Alcohol < 10 mg/dL Critical Care Time Critical Care Time Critical Care Time: Yes Total Critical Care Time: 35 Attestation: I have personally provided critical care time. Time includes review of lab data, radiology results, discussion with consultants, and monitoring for potential decompensation. Intervention performed as documented. Discharge Plan Discharge Clinical Impression: At high risk of harming others, Autism Patient Disposition: Home, Self-Care Instructions: Autism Spectrum Disorder (DC) Prescriptions: No Action desmopressin 0.2 mg tablet 0.2 mg PO BEDTIME divalproex 500 mg tablet,delayed release (DR/EC) 500 mg PO TID desmopressin 0.1 mg tablet 0.1 mg PO BEDTIME prazosin 1 mg capsule 1 mg PO BEDTIME ergocalciferol (vitamin D2) 1,250 mcg (50,000 unit) capsule 1,250 mcg PO WE Rx Instructions: on saturday Linzess 145 mcg capsule 145 mcg PO DAILY fluticasone propionate 50 mcg/actuation [place],Suspension 2 spray INTRANASAL BID trazodone 50 mg Tablet 50 mg PO BEDTIME PRN (Reason: Sleep) clonazepam 0.5 mg Tablet 0.5 mg PO TID benzoyl peroxide 10 % Cleanser 1 appl TOPICAL BID olanzapine 5 mg Tablet 5 mg PO Q6H PRN (Reason: Agitation/Anxiety) olanzapine 5 mg Tablet 5 mg PO DAILY acetaminophen 500 mg Tablet 500 mg PO Q6H PRN (Reason: Fever/Pain) polyethylene glycol 3350 17 gram/dose Powder 17 g PO DAILY PRN (Reason: Constipation) diphenhydramine-acetaminophen [Tylenol PM Extra Strength] 25-500 mg Tablet 1 tab PO BEDTIME PRN (Reason: Sleep) dicyclomine [Bentyl] 10 mg Capsule 10 mg PO TID docusate sodium 100 mg Tablet 100 mg PO BID loratadine 10 mg Tablet 10 mg PO DAILY psyllium husk 0.4 gram Capsule 0.4 g PO DAILY clozapine 100 mg Tablet 100 mg PO BID clozapine 50 mg Tablet 50 mg PO BEDTIME Interventions: [place]-Suicide Risk Severity Scale Last Done: 01/26/25 18:16 Print Language: Bermudian
[2025-01-26 17:31] VITALS: BP 130/70; PULSE 90; RESP 15; TEMP 36.9; O2SAT 99
[2025-01-26 18:15] LABS: Appearance Urine Clear; Color Urine Yellow; Glucose Urine UA Negative (Negative); Leukocyte Esterase Urine Negative (Negative); Nitrite Urine Negative (Negative); Urine Blood Negative (Negative); Urine Ketones Trace mg/dL (Negative); Urine Protein Negative (Neg-Trace)
[2025-01-26 18:22] LABS: Amphetamine Screen Urine Not Detected (Not Detect); Barbiturates, Urine Not Detected (Not Detect); Benzodiazepines Screen Urine Not Detected (Not Detect); Buprenorphine Scr Not Detected (Not Detect); Cannabinoid Screen Urine Not Detected (Not Detect); Cocaine Screen Urine Not Detected (Not Detect); Fentanyl, urine Not Detected (Not Detect); Methadone Screen, Urine Not Detected (Not Detect); Opiate Screen Urine Not Detected (Not Detect); Oxycodone Screen Urine Not Detected (Not Detect); Phencyclidine Screen Urine Not Detected (Not Detect)
[2025-01-26 19:39] LABS: MANUAL DIFF FLAG NO
[2025-01-26 19:56] LABS: Basophils Percent Auto 0.3 % (0-2); Hematocrit 39.6 % (37.0-47.0); Imm Gran Abs Auto 0.05 X10*3/uL (0.00-0.03); Imm Gran Pct Auto 0.5 % (0.0-0.4); Lymphocytes Percent Auto 30.5 % (20-40); Mean Corpuscular HGB Conc 32.8 g/dl (31.0-35.0); Mean Corpuscular Hemoglobin 27.9 pg (27.0-33.0); Mean Platelet Volume 9.5 fL (9.4-12.3); Monocytes Absolute Auto 0.7 X10*3/uL (0.1-1.2); Monocytes Percent Auto 6.8 % (2-11); Neutrophils Absolute Auto 6.1 x10*3/uL (2.0-8.3); Neutrophils Percent Auto 61.9 % (45-73); Platelet Count 269 X10*3/uL (160-400); Red Blood Count 4.66 X10*6/uL (4.20-5.50); Red Cell Distribution Width 14.4 % (11.0-16.0); White Blood Count 9.9 X10*3/uL (4.8-10.8)
[2025-01-26 20:03] LABS: Alanine Aminotransferase 27 U/L (0-31); Albumin Level 4.1 g/dL (3.5-5.0); Alkaline Phosphatase 87 U/L (39-117); Anion Gap 16 (12-20); Aspartate Amino Transferase 23 U/L (5-31); Bilirubin Direct < 0.2 mg/dL (0.0-0.5); Bilirubin Total 0.2 mg/dL (0.0-1.0); Blood Urea Nitrogen 8 mg/dL (9-16); Calcium 9.4 mg/dL (8.4-10.2); Carbon Dioxide 29 mmol/L (22-29); Chloride 100 mmol/L (96-108); Creatinine Clr Calc Pharmacy 163.5; Estimated Glomerular Filt Rate > 60; Ethanol < 10 mg/dL; Glucose Random 109 mg/dL (60-115); HCG Quantitative < 2 mIU/mL; Potassium 4.1 mmol/L (3.3-5.1); Sodium 141 mmol/L (135-145)
--- NOTE | 2025-01-27 00:04 | PC.NURSE ---
awaiting ,ed list to be verfied by pharmacy
[2025-01-27 01:22] VITALS: BP 130/70
[2025-01-27] MEDS: Prazosin HCL 1 MG CAPSULE PO (01:22)
[2025-01-27] MEDS: Docusate Sodium 100 MG CAPSULE PO ×2 (01:22→09:32)
[2025-01-27] MEDS: Loratadine 10 MG TABLET PO (01:23)
[2025-01-27] MEDS: Desmopressin Acetate 0.2 MG TABLET 0.1 MG PO (01:23)
[2025-01-27] MEDS: cloZAPine 25 MG TABLET 150 MG PO (01:23)
[2025-01-27] MEDS: Desmopressin Acetate 0.2 MG TABLET PO (01:24)
[2025-01-27] MEDS: clonazePAM 0.5 MG TABLET PO ×3 (01:24→14:40)
[2025-01-27] MEDS: Divalproex Sodium 500 MG TABLET.DR PO ×3 (01:24→14:40)
--- NOTE | 2025-01-27 09:04 | MHC.CARE ---
Pt will be an [facility] Bedsearch
[2025-01-27] MEDS: Fluticasone Propionate Nasal 16 GM SPRAY 1 SPRAY NOSTRIL-B (09:30)
[2025-01-27] MEDS: Ergocalciferol (Vitamin D2) 1,250 MCG CAPSULE 1250 MCG PO (09:31)
[2025-01-27] MEDS: Psyllium seed 3.7 GM PACKET PO (09:31)
[2025-01-27] MEDS: cloZAPine 100 MG TABLET PO (09:32)
[2025-01-27] MEDS: OLANZapine 5 MG TABLET PO (09:32)
[2025-01-27] MEDS: polyethylene glycoL 3350 17 GM POWD.PACK PO (09:37)
--- NOTE | 2025-01-27 09:51 | MHC.CARE ---
CARE Team faxes [facility]S referral to [facility]. The fax was successful, True at [facility] confirms receipt of the referral.
--- NOTE | 2025-01-27 10:24 | PC.NURSE ---
currently sleeping, medicated as ordered, ate breakfast, calm and cooperative, residential staff state they can bring in her non formulary med
[2025-01-27] MEDS: PT OWN (Linaclotide [Linzess] 145 mcg capsule) 145 EACH PO (11:16)
--- NOTE | 2025-01-27 12:36 | PHA.MEDREC ---
Addendum entered by Quintin Diaz 01/27/25 12:46: Reviewed, re-added clozapine from list Original Note: Pharmacy Consult ? Medication Reconciliation Pharmacy reviewed med rec done by nursing. Confirming nurse had added a bunch of non formulary drugs I re-added them as formulary.
--- NOTE | 2025-01-27 13:07 | MHC.CARE ---
Pt has been accepted to the [facility], [facility]S for 1930 arrival on 01/27/25 at the [facility] At [address], [facility] staff will arrive to pick pt up and will bring her medications with them to drop off with her at [facility].
--- NOTE | 2025-01-27 14:37 | PC.NURSE ---
Assumed care of patient at 1430, patient calm and cooperative, offering no complaints to this RN. Resting in bed at this time. Continue plan of care for transfer to [facility] via half-way staff nii
[2025-01-27 14:43] VITALS: BP 133/82; PULSE 110; RESP 13; TEMP 36.6; O2SAT 96
[2025-01-27 17:57] VITALS: BP 133/82; PULSE 110; RESP 13; TEMP 36.6; O2SAT 96
== END 2025-01-27 18:11 | disposition home or self-care (01) ==
PROVIDERS: Emergency Provider Emergency Medicine
DX: F84.0 Autistic disorder (principal); R45.850 Homicidal ideations; F43.10 Post-traumatic stress disorder, unspecified; F31.9 Bipolar disorder, unspecified; F42.4 Excoriation (skin-picking) disorder; Z79.899 Other long term (current) drug therapy; Z87.891 Personal history of nicotine dependence
CPT/HCPCS: 36415; 80048; 80076; 80307; 81003; 84702; 85025; 99284; S9485

== ENCOUNTER 2025-02-23 17:46 | Inpatient (IN) | payer MEDICARE, MEDICAID, SELFPAY ==
[2025-02-23 18:08] VITALS: BP 138/87; PULSE 120; O2SAT 95
[2025-02-23 18:09] VITALS: BP 128/72; PULSE 118; RESP 18; TEMP 36.1; O2SAT 95; BMI 50.9
[2025-02-23 18:28] VITALS: BP 128/72; PULSE 118; RESP 18; TEMP 36.1; O2SAT 95
--- NOTE | 2025-02-23 18:50 | ED_ITS ---
HPI - General Adult General Chief complaint: Psychiatric Symptoms Stated complaint: SI,HI Time Seen by Provider: 02/23/25 18:16 Source: patient Limitations: no limitations History of Present Illness ED Provider: Leanne Ascencio PA-C HPI narrative: 25-year-old female with a history of autism spectrum disorder, PTSD, bipolar disorder depression, excoriation disorder, who presents with both SI and HI. Patient states over the past week, she has become irritated with her housemate members and staff. She states ?they are bossy?. Patient states she has a plan to attacking kill people at the residential. She also has a plan for self-harm, she states she will ?caught herself?. Patient denies use of drugs or alcohol. Patient does see a counselor and a therapist, she states she has been adherent with her medications. Patient states ?I hope I am admitted, something is not right?. Related Data Home Medications ?Medication ?Instructions ?Recorded ?Confirmed desmopressin 0.1 mg tablet 0.3 mg PO BEDTIME 06/13/23 02/24/25 divalproex 500 mg tablet,delayed 500 mg PO TID 06/13/23 02/24/25 release ergocalciferol (vitamin D2) 1,250 1,250 mcg PO WE 06/13/23 02/24/25 mcg (50,000 unit) capsule prazosin 1 mg capsule 1 mg PO BEDTIME 06/13/23 02/23/25 fluticasone propionate 50 2 spray intranasal BID 01/26/25 02/24/25 mcg/actuation nasal spray,suspension linaclotide 145 mcg capsule 145 mcg PO DAILY 01/26/25 02/24/25 (Linzess) acetaminophen 500 mg tablet 500 mg PO Q6H PRN Fever/Pain 01/27/25 02/24/25 benzoyl peroxide 10 % topical 1 appl topical BID 01/27/25 02/24/25 cleanser clonazepam 0.5 mg tablet 0.5 mg PO TID 01/27/25 02/24/25 clozapine 100 mg tablet 100 mg PO BID 01/27/25 02/24/25 clozapine 50 mg tablet 50 mg PO BEDTIME 01/27/25 02/24/25 dicyclomine 10 mg capsule 10 mg PO TID PRN Abdominal 01/27/25 02/24/25 Discomfort diphenhydramine 25 1 tab PO BEDTIME PRN Sleep 01/27/25 02/24/25 mg-acetaminophen 500 mg tablet (Tylenol PM Extra Strength) docusate sodium 100 mg tablet 100 mg PO BID 01/27/25 02/24/25 loratadine 10 mg tablet 10 mg PO BEDTIME 01/27/25 02/24/25 olanzapine 5 mg tablet 5 mg PO DAILY 01/27/25 02/24/25 olanzapine 5 mg tablet 5 mg PO Q6H PRN Agitation/Anxiety 01/27/25 02/23/25 polyethylene glycol 3350 17 17 g PO DAILY PRN Constipation 01/27/25 02/24/25 gram/dose oral powder psyllium husk 0.4 gram capsule 0.4 g PO DAILY 01/27/25 02/24/25 trazodone 50 mg tablet 50 mg PO BEDTIME PRN Sleep 01/27/25 02/23/25 Allergies Allergy/AdvReac Type Severity Reaction Status Date / Time No Known Allergies Allergy Verified 02/23/25 18:20 Review of Systems 2 Review of Systems: Yes all other systems are reviewed and are negative Constitutional: Constitutional: Denies fatigue and Denies fever(s) Cardiovascular: Cardiovascular: Denies chest pain and Denies dyspnea Respiratory: Respiratory: Denies cough and Denies dyspnea Gastrointestinal: Gastrointestinal: Denies abdominal pain, Denies nausea and Denies vomiting Endocrine: Endocrine: Denies fatigue PMFSH Past Medical History Attestation statement: The following information was validated with the patient. Medical History (Updated 02/25/25 @ 17:06 by Fredy Shore MD) Developmental delay, moderate PTSD (post-traumatic stress disorder) Excoriation (skin-picking) disorder Bipolar disorder Autism spectrum disorder Social History Social History Household Members: Other Housing: Other Housing Other:: [facility] residential Do you presently have visiting nurse or other home services: No Unable to assess alcohol history related to: Unknown Patient Tobacco Use Status: Former Tobacco user Smoked in Last 30 Days: No Patient Interested in Nicotine Replacement: No Patient Given Instructions on How to Stop Smoking: No Use of substances other than those prescribed or required for medical reasons: No Currently Displaying Signs/Symptoms of Drug Intoxication Withdrawal: No Have you been hit, kicked, punched, or otherwise hurt by someone within the past year? If so, by whom?: No Do you feel safe in your current relationship?: Yes Is there a partner from a previous relationship who is making you feel unsafe now?: No Spiritual Healthcare Practices: none Advance Directives: No Advance Directives Information Provided: No Do you have thoughts of harming others: None Do you have a plan to hurt others: No Plan Nutrition Risks: No Nutritional Risk Patient : No : No Poor oral hygiene: No service: No Sexual orientation: Straight/Heterosexual Physical Exam ED Vital Signs: Vital Signs - 24 hr 02/23/25 18:09 02/23/25 18:28 Temperature 97.0 F 97.0 F Pulse Rate 118 H 118 H Respiratory Rate 18 18 Blood Pressure 128/72 128/72 Pulse Oximetry 95 95 Oxygen Delivery Method Room Air Room Air BMI result Body Mass Index 50.9 Const Other: Alert overall well-appearing Orientation/consciousness: patient oriented x3 Resp Effort & Inspection: normal respiratory effort Cardio Other: Normal peripheral perfusion Skin Other: Warm dry no rash Neuro General: patient oriented x3, gait normal, no focal motor deficits and CN's II- XI intact bilaterally Psych Other: Cooperative in the ER Course Reevaluation(s) Reevaluation #1: Time: 21:47 Date: 02/23/25 Provider: SANDY Mares Patient in physician observation for psychiatric evaluation.? No acute events reported overnight. No current complaints. VS stable.? Patient is in bed search status/pending CARE team evaluation. Will continue to monitor. Just spoke with Michelle from the care team, the patient we will be an inpatient bed search, she spoke with the residential, the patient was threatening to kill staff members today, her behavior is out of control, I am in agreement with the plan. Time: 21:46 Medications Administered Generic Name Dose Route Start Last Admin Trade Name Freq PRN Reason Stop Dose Admin Acetaminophen 650 mg 02/24/25 13:55 02/27/25 20:59 Acetaminophen 325 Mg Tablet PO 650 mg Q6H PRN Administration Headache/Pain, Scale 1-10 Clonazepam 0.5 mg 02/24/25 21:00 02/28/25 20:41 Clonazepam 0.5 Mg Tablet PO 0.5 mg TID MARY Administration Clonidine HCl 0.1 mg 02/27/25 13:00 02/28/25 14:00 Clonidine Hcl 0.1 Mg Tablet PO 0.1 mg BID@0900,1300 MARY Administration Protocol Clozapine 100 mg 02/24/25 21:00 02/28/25 20:42 Clozapine 100 Mg Tablet PO 100 mg BID MARY Administration Clozapine 50 mg 02/24/25 21:00 02/28/25 20:42 Clozapine 25 Mg Tablet PO 50 mg BEDTIME MARY Administration Desmopressin Acetate 0.3 mg 02/24/25 21:00 02/28/25 20:41 Desmopressin Acetate 0.2 Mg Tablet PO 0.3 mg BEDTIME MARY Administration Divalproex Sodium 500 mg 02/27/25 13:00 02/28/25 14:00 Divalproex Sodium 500 Mg Tablet.Dr PO 500 mg BID@0900,1300 MARY Administration Divalproex Sodium 1,000 mg 02/27/25 21:00 02/28/25 20:42 Divalproex Sodium Er 500 Mg Tab.Er.24h PO 1,000 mg BEDTIME MARY Administration Docusate Sodium 100 mg 02/24/25 21:00 02/28/25 20:42 Docusate Sodium 100 Mg Capsule PO 100 mg BID MARY Administration Ergocalciferol 1,250 mcg 02/24/25 19:30 02/24/25 20:34 Ergocalciferol (Vitamin D2) 1,250 Mcg Capsule PO 1,250 mcg WE MARY Administration Fluticasone Propionate 2 spray 02/24/25 21:00 02/28/25 20:41 Fluticasone Propionate Nasal 16 Gm [place] NOSTRIL-B 2 spray BID MARY Administration Hydroxyzine HCl 25 mg 02/24/25 13:55 02/27/25 20:58 Hydroxyzine Hcl 25 Mg Tablet PO 25 mg Q6H PRN Administration mild anxiety Loratadine 10 mg 02/24/25 21:00 02/28/25 20:42 Loratadine 10 Mg Tablet PO 10 mg BEDTIME MARY Administration Magnesium Hydroxide 30 ml 02/24/25 13:55 02/24/25 20:39 Milk Of Magnesia 30 Ml Oral.Susp PO 30 ml DAILY PRN Administration Constipation Olanzapine 5 mg 02/24/25 13:55 02/27/25 21:00 Olanzapine 5 Mg Tablet PO 5 mg TID PRN Administration agitation Olanzapine 5 mg 02/25/25 09:00 02/28/25 08:22 Olanzapine 5 Mg Tablet PO 5 mg DAILY MARY Administration Prazosin HCl 1 mg 02/24/25 00:45 02/28/25 20:42 Prazosin Hcl 1 Mg Capsule PO 1 mg BEDTIME MARY Administration Protocol Psyllium Hydrophilic Mucilloid 3.7 gm 02/25/25 09:00 02/28/25 08:23 Psyllium Seed 3.7 Gm Packet PO Not Given DAILY MARY Trazodone HCl 50 mg 02/24/25 13:55 02/27/25 20:59 Trazodone Hcl 50 Mg Tablet PO 50 mg BEDTIME MRX1 PRN Administration Insomnia Discontinued Medications Generic Name Dose Route Start Last Admin Trade Name Freq PRN Reason Stop Dose Admin Clonidine HCl 0.1 mg 02/27/25 11:46 02/27/25 11:55 Clonidine Hcl 0.1 Mg Tablet PO 02/27/25 11:47 0.1 mg ONCE ONE Administration Protocol Divalproex Sodium 500 mg 02/24/25 21:00 02/27/25 08:41 Divalproex Sodium 500 Mg Tablet. PO 500 mg TID MARY Administration Non-Formulary Medication 145 mcg 02/25/25 09:00 02/27/25 07:56 Linaclotide [Linzess] PO Not Given DAILY MARY Olanzapine 5 mg 02/24/25 00:40 02/25/25 21:50 Olanzapine 5 Mg Tablet PO 5 mg Q6H PRN Administration Agitation/Anxiety Trazodone HCl 50 mg 02/24/25 00:40 02/26/25 21:04 Trazodone Hcl 50 Mg Tablet PO 50 mg BEDTIME PRN Administration Sleep Medical Decision Making Medical Decision Making MDM Narrative: 25-year-old female with a history of autism spectrum disorder, PTSD, bipolar disorder depression, excoriation disorder, who presents with both SI and HI. Patient states over the past week, she has become irritated with her housemate members and staff. She states ?they are bossy?. Patient states she has a plan to attacking kill people at the residential. She also has a plan for self-harm, she states she will ?caught herself?. Patient denies use of drugs or alcohol. Patient does see a counselor and a therapist, she states she has been adherent with her medications. Patient states ?I hope I am admitted, something is not right?. Problem: Psychiatric illness History: Per patient I have considered the following differential diagnoses: SI, HI, decompensated psychiatric illness, drug/alcohol intoxication Plan: Screening labs including drug screen and ethanol we will be obtained, the patient arrives as a section 12, I foresee her potentially being a bed search. I have independently reviewed the following tests: Labs: Lab Data 02/23/25 18:55 02/25/25 08:00 Labs: Lab Results 02/23/25 02/24/25 Range/Units 18:55 11:17 WBC 10.4 (4.8-10.8) X10*3/uL RBC 4.62 (4.20-5.50) X10*6/uL Hgb 12.8 (12.0-16.0) g/dl Hct 38.4 (37.0-47.0) % MCV 83.1 (80.0-98.0) fL MCH 27.7 (27.0-33.0) pg MCHC 33.3 (31.0-35.0) g/dl RDW 14.3 (11.0-16.0) % Plt Count 283 (160-400) X10*3/uL MPV 9.1 L (9.4-12.3) fL Immature Gran % (Auto) 0.5 H (0.0-0.4) % Neut % (Auto) 65.8 (45-73) % Lymph % (Auto) 27.8 (20-40) % [place] % (Auto) 5.7 (2-11) % Eos % (Auto) 0.0 (0-4) % Baso % (Auto) 0.2 (0-2) % Lymph # (Auto) 2.9 (1.2-4.9) X10*3/uL [place] # (Auto) 0.6 (0.1-1.2) X10*3/uL Eos # (Auto) 0.0 (0.0-0.4) X10*3/uL Baso # (Auto) 0.0 (0.0-0.2) X10*3/uL Abs Immat Gran (auto) 0.05 H (0.00-0.03) X10*3/uL Absolute Neuts (auto) 6.9 (2.0-8.3) x10*3/uL Absolute Nucleated RBC 0.000 (0.0-0.012) X10*3/uL Nucleated RBC % (auto) 0.0 (0.0-0.2) /100WBC Sodium 141 (135-145) mmol/L Potassium 4.1 (3.3-5.1) mmol/L Chloride 104 (96-108) mmol/L Carbon Dioxide 30 H (22-29) mmol/L Anion Gap 11 L (12-20) BUN 13 (9-16) mg/dL Creatinine 0.82 (0.5-1.4) mg/dL Estim Creat Clear Calc 147.2 Estimated GFR > 60 Random Glucose 110 (60-115) mg/dL Calcium 9.1 (8.4-10.2) mg/dL Magnesium 1.9 (1.6-2.6) mg/dL Total Bilirubin 0.1 (0.0-1.0) mg/dL AST 26 (5-31) U/L ALT 31 (0-31) U/L Alkaline Phosphatase 75 (39-117) U/L Total Protein 7.6 (6.5-8.0) g/dL Albumin 4.2 (3.5-5.0) g/dL Beta HCG, Quant < 2 mIU/mL Urine Color Yellow Urine Appearance Clear Urine pH >= 9.0 (5.0-9.0) Ur Specific [place] 1.020 (1.005-1.025) Urine Protein Negative (Neg-Trace) mg/dL Urine Glucose (UA) Negative (Negative) mg/dL Urine Ketones Negative (Negative) mg/dL Urine Blood Negative (Negative) Urine Nitrite Negative (Negative) Ur Leukocyte Esterase Negative (Negative) Urine RBC 0-2 (0-2) /HPF Urine WBC 0-5 (0-5) /HPF Ur Squamous Epith Cells 3-5 (0-2) /HPF Urine Bacteria Trace (None Seen) Hyaline Casts 0-2 (0-2) /LPF Salicylates < 5.0 L (15-30) mg/dL Urine Opiates Screen Not Detected (Not Detect) Ur Buprenorphine Scrn Not Detected (Not Detect) ng/mL Ur Oxycodone Screen Not Detected (Not Detect) ng/mL Urine Methadone Screen Not Detected (Not Detect) ng/mL Urine Fentanyl Screen Not Detected (Not Detect) Acetaminophen < 3 (<30) mcg/mL Ur Barbiturates Screen Not Detected (Not Detect) Ur Phencyclidine Scrn Not Detected (Not Detect) Ur Amphetamines Screen Not Detected (Not Detect) U Benzodiazepines Scrn Not Detected (Not Detect) Urine Cocaine Screen Not Detected (Not Detect) U Marijuana (THC) Screen Not Detected (Not Detect) Ethyl Alcohol 10 mg/dL Discharge Plan Discharge Clinical Impression: Suicidal ideation, Homicidal ideation Patient Disposition: Admitted As Inpatient Discharge Date/Time: 02/24/25 15:20
[2025-02-23 19:00] LABS: MANUAL DIFF FLAG NO
[2025-02-23 19:02] LABS: Basophils Percent Auto 0.2 % (0-2); Hematocrit 38.4 % (37.0-47.0); Hemoglobin 12.8 g/dl (12.0-16.0); Imm Gran Abs Auto 0.05 X10*3/uL (0.00-0.03); Imm Gran Pct Auto 0.5 % (0.0-0.4); Lymphocytes Absolute Auto 2.9 X10*3/uL (1.2-4.9); Lymphocytes Percent Auto 27.8 % (20-40); Mean Corpuscular HGB Conc 33.3 g/dl (31.0-35.0); Mean Corpuscular Hemoglobin 27.7 pg (27.0-33.0); Mean Corpuscular Volume 83.1 fL (80.0-98.0); Mean Platelet Volume 9.1 fL (9.4-12.3); Monocytes Absolute Auto 0.6 X10*3/uL (0.1-1.2); Monocytes Percent Auto 5.7 % (2-11); Neutrophils Absolute Auto 6.9 x10*3/uL (2.0-8.3); Neutrophils Percent Auto 65.8 % (45-73); Platelet Count 283 X10*3/uL (160-400); Red Blood Count 4.62 X10*6/uL (4.20-5.50); Red Cell Distribution Width 14.3 % (11.0-16.0); White Blood Count 10.4 X10*3/uL (4.8-10.8)
[2025-02-23 19:11] LABS: Amphetamine Screen Urine Not Detected (Not Detect); Barbiturates, Urine Not Detected (Not Detect); Benzodiazepines Screen Urine Not Detected (Not Detect); Buprenorphine Scr Not Detected (Not Detect); Cannabinoid Screen Urine Not Detected (Not Detect); Cocaine Screen Urine Not Detected (Not Detect); Fentanyl, urine Not Detected (Not Detect); Methadone Screen, Urine Not Detected (Not Detect); Opiate Screen Urine Not Detected (Not Detect); Oxycodone Screen Urine Not Detected (Not Detect); Phencyclidine Screen Urine Not Detected (Not Detect)
[2025-02-23 19:20] LABS: Acetaminophen LAB < 3 mcg/mL (<30); Salicylate < 5.0 mg/dL (15-30)
[2025-02-23 19:23] LABS: Alanine Aminotransferase 31 U/L (0-31); Albumin Level 4.2 g/dL (3.5-5.0); Alkaline Phosphatase 75 U/L (39-117); Anion Gap 11 (12-20); Aspartate Amino Transferase 26 U/L (5-31); Bilirubin Total 0.1 mg/dL (0.0-1.0); Blood Urea Nitrogen 13 mg/dL (9-16); Calcium 9.1 mg/dL (8.4-10.2); Carbon Dioxide 30 mmol/L (22-29); Chloride 104 mmol/L (96-108); Creatinine Clr Calc Pharmacy 147.2; Estimated Glomerular Filt Rate > 60; Ethanol 10 mg/dL; Glucose Random 110 mg/dL (60-115); Magnesium 1.9 mg/dL (1.6-2.6); Potassium 4.1 mmol/L (3.3-5.1); Sodium 141 mmol/L (135-145); Total Protein 7.6 g/dL (6.5-8.0)
[2025-02-23 19:26] LABS: HCG Quantitative < 2 mIU/mL
[2025-02-23 22:13] VITALS: BP 115/73; PULSE 96; TEMP 36.8; O2SAT 94
--- NOTE | 2025-02-24 | ECG_ITS ---
Test Reason : R/O PROLONGED QT Blood Pressure : */* mmHG Vent. Rate : 89 BPM Atrial Rate : 89 BPM P-R Int : 144 ms QRS Dur : 100 ms QT Int : 358 ms P-R-T Axes : 24 4 8 degrees QTcB Int : 435 ms Normal sinus rhythm Minimal voltage criteria for LVH, may be normal variant ( R in aVL ) Borderline ECG When compared with ECG of 15-Aug-2022 20:45, Incomplete right bundle branch block is no longer Present Referred By: Keyshawn Young Electronically Signed By: NANNETTE SALVADOR MD
[2025-02-24 06:02] VITALS: BP 102/67; PULSE 82; TEMP 37.2; O2SAT 98
--- NOTE | 2025-02-24 07:40 | PC.NURSE ---
patient awake, ambulated to the bathroom w/ steady gait. inpatient bedsearch, patient aware of plan. patient observer at bedside, currently eating breakfast at this time.
[2025-02-24 11:36] LABS: Appearance Urine Clear; Color Urine Yellow; Glucose Urine UA Negative (Negative); Leukocyte Esterase Urine Negative (Negative); Nitrite Urine Negative (Negative); PH >= 9.0 (5.0-9.0); Urine Blood Negative (Negative); Urine Ketones Negative (Negative); Urine Protein Negative (Neg-Trace)
[2025-02-24 11:38] LABS: Bacteria Urine Trace (None Seen); Hyaline Casts Urine 0-2 /LPF (0-2); RBC Urine 0-2 /HPF (0-2); WBC Urine 0-5 /HPF (0-5)
[2025-02-24] MEDS: OLANZapine 5 MG TABLET PO (12:13)
--- NOTE | 2025-02-24 15:13 | PC.NURSE ---
Report given to inpt RN, questions answered, pt transported to room
[2025-02-24 16:00] VITALS: BP 124/74; PULSE 100; RESP 16; TEMP 36.6; O2SAT 96; BMI 51.0
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
[2025-02-24 20:00] VITALS: BP 139/79; PULSE 102; TEMP 36.6; O2SAT 96
[2025-02-24 20:16] VITALS: BP 139/79
[2025-02-24] MEDS: Docusate Sodium 100 MG CAPSULE PO (20:16)
[2025-02-24] MEDS: Loratadine 10 MG TABLET PO (20:16)
[2025-02-24] MEDS: Divalproex Sodium 500 MG TABLET.DR PO (20:16)
[2025-02-24] MEDS: clonazePAM 0.5 MG TABLET PO (20:16)
[2025-02-24] MEDS: Prazosin HCL 1 MG CAPSULE PO (20:16)
[2025-02-24] MEDS: cloZAPine 100 MG TABLET PO (20:34)
[2025-02-24] MEDS: Ergocalciferol (Vitamin D2) 1,250 MCG CAPSULE 1250 MCG PO (20:34)
[2025-02-24] MEDS: cloZAPine 25 MG TABLET 50 MG PO (20:35)
[2025-02-24] MEDS: Milk of Magnesia 30 ML ORAL.SUSP PO (20:39)
[2025-02-25 07:00] VITALS: BMI 51.2
[2025-02-25 08:00] VITALS: BP 113/61; PULSE 89; TEMP 36.5; O2SAT 96
[2025-02-25 08:42] LABS: Estimated Average Glucose 105 mg/dL; Hemoglobin A1c % 5.3 % (<6.0)
[2025-02-25 08:53] LABS: Alanine Aminotransferase 32 U/L (0-31); Albumin Level 4.3 g/dL (3.5-5.0); Alkaline Phosphatase 77 U/L (39-117); Anion Gap 13 (12-20); Aspartate Amino Transferase 27 U/L (5-31); Bilirubin Total 0.2 mg/dL (0.0-1.0); Blood Urea Nitrogen 15 mg/dL (9-16); Calcium 9.4 mg/dL (8.4-10.2); Carbon Dioxide 29 mmol/L (22-29); Chloride 101 mmol/L (96-108); Cholesterol 216 mg/dL (<200); Creatinine Clr Calc Pharmacy 172.6; Estimated Glomerular Filt Rate > 60; Glucose Random 95 mg/dL (60-115); HDL Cholesterol 46 mg/dL (>40); LDL Cholesterol Calculated 123 mg/dL (<100); Potassium 4.4 mmol/L (3.3-5.1); Sodium 139 mmol/L (135-145); Triglycerides 238 mg/dL (<150)
[2025-02-25] MEDS: clonazePAM 0.5 MG TABLET PO ×3 (09:01→21:50)
[2025-02-25] MEDS: Docusate Sodium 100 MG CAPSULE PO ×2 (09:01→21:50)
[2025-02-25] MEDS: cloZAPine 100 MG TABLET PO ×2 (09:01→21:50)
[2025-02-25] MEDS: Fluticasone Propionate Nasal 16 GM SPRAY 2 SPRAY NOSTRIL-B ×2 (09:01→21:49)
[2025-02-25] MEDS: Psyllium seed 3.7 GM PACKET PO (09:01)
[2025-02-25] MEDS: Divalproex Sodium 500 MG TABLET.DR PO ×3 (09:01→21:49)
[2025-02-25] MEDS: OLANZapine 5 MG TABLET PO ×2 (09:01→21:50)
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
[2025-02-25 20:00] VITALS: BP 143/92; PULSE 99; RESP 16; TEMP 36.9; O2SAT 98
[2025-02-25] MEDS: Desmopressin Acetate 0.2 MG TABLET 0.3 MG PO (21:48)
[2025-02-25 21:49] VITALS: BP 120/68
[2025-02-25] MEDS: cloZAPine 25 MG TABLET 50 MG PO (21:49)
[2025-02-25] MEDS: Prazosin HCL 1 MG CAPSULE PO (21:49)
[2025-02-25] MEDS: Loratadine 10 MG TABLET PO (21:49)
[2025-02-26 08:00] VITALS: BP 107/67; PULSE 89; RESP 16; TEMP 36.5; O2SAT 96
[2025-02-26] MEDS: cloZAPine 100 MG TABLET PO ×2 (08:21→21:01)
[2025-02-26] MEDS: Divalproex Sodium 500 MG TABLET.DR PO ×3 (08:21→21:02)
[2025-02-26] MEDS: clonazePAM 0.5 MG TABLET PO ×3 (08:21→21:01)
[2025-02-26] MEDS: OLANZapine 5 MG TABLET PO (08:22)
[2025-02-26] MEDS: Docusate Sodium 100 MG CAPSULE PO ×2 (08:22→21:03)
[2025-02-26] MEDS: Fluticasone Propionate Nasal 16 GM SPRAY 2 SPRAY NOSTRIL-B (08:22)
[2025-02-26 08:38] LABS: Valproate 60.4 mcg/mL (50.0-100.0)
--- NOTE | 2025-02-26 09:48 | P.PNPSI_ITS ---
Subjective Subjective Date of Service: 02/26/25 Reason For Visit: Decompensated, HI Interim History: met with pt; discussed with team Patient reports feeling a little depressed but feeling a little better than the other day. Says SI lingers but going away; HI also waning. Patient again asked about changing group homes and was calm and appreciative of teams help with this process. Patient in good behavioral and impulse control. Mental Status Exam Mental Status Exam Narrative: Pt is alert and oriented; behavior calm and cooperative; prone to emotionally reactive but currently in good behavioral and impulse control; patient is not in distress; dressed in casual attire unkempt, obese; mood is described a little down and affect congruent; eye contact appropriate; Speech is normal rate, volume and prosody and not pressured; some psychomotor retardation present; thought process is goal directed and organized; Thought content is on living situation, feeling wronged by staff at intermediate; no delusional content expressed; intermittent passive SI but less; intermittent passive HI but less. Denies AVH; Patients insight and judgment impaired but improving Diagnostics Vital Signs (24Hr): Vital Signs - 24 hr 02/25/25 20:00 02/25/25 21:49 02/26/25 08:00 Temperature 98.4 F 97.7 F Pulse Rate 99 89 Respiratory Rate 16 16 Blood Pressure 143/92 H 120/68 107/67 Pulse Oximetry 98 96 Oxygen Delivery Method Room Air BMI result Body Mass Index 51.2 Labs 02/23/25 18:55 02/25/25 08:00 Labs: Laboratory Results - last 48 hr 02/24/25 02/25/25 02/26/25 11:17 08:00 08:07 Sodium 139 Potassium 4.4 Chloride 101 Carbon Dioxide 29 Anion Gap 13 BUN 15 Creatinine 0.70 Estim Creat Clear Calc 172.6 Estimated GFR > 60 Random Glucose 95 Estimat Average Glucose 105 Hemoglobin A1c % 5.3 Calcium 9.4 Total Bilirubin 0.2 AST 27 ALT 32 H Alkaline Phosphatase 77 Total Protein 8.0 Albumin 4.3 Triglycerides 238 H Cholesterol 216 H LDL Cholesterol, Calc 123 H HDL Cholesterol 46 Urine Color Yellow Urine Appearance Clear Urine pH >= 9.0 Ur Specific [place] 1.020 Urine Protein Negative Urine Glucose (UA) Negative Urine Ketones Negative Urine Blood Negative Urine Nitrite Negative Ur Leukocyte Esterase Negative Urine RBC 0-2 Urine WBC 0-5 Ur Squamous Epith Cells 3-5 Urine Bacteria Trace Hyaline Casts 0-2 Valproic Acid 60.4 Medications Medications Current Medications Acetaminophen (Acetaminophen 325 Mg Tablet) 650 mg PO Q6H PRN PRN Reason: Headache/Pain, Scale 1-10 Al Hydroxide/Mg Hydroxide (Magnesium Hydrox/Alum Hydrox 30 Ml Oral.Susp) 30 ml PO Q6H PRN PRN Reason: Heartburn/Nausea Clonazepam (Clonazepam 0.5 Mg Tablet) 0.5 mg PO TID [facility] Last Admin: 02/26/25 08:21 Dose: 0.5 mg Clozapine (Clozapine 100 Mg Tablet) 100 mg PO BID [facility] Last Admin: 02/26/25 08:21 Dose: 100 mg Clozapine (Clozapine 25 Mg Tablet) 50 mg PO BEDTIME [facility] Last Admin: 02/25/25 21:49 Dose: 50 mg Desmopressin Acetate (Desmopressin Acetate 0.2 Mg Tablet) 0.3 mg PO BEDTIME [facility] Last Admin: 02/25/25 21:48 Dose: 0.3 mg Dicyclomine HCl (Dicyclomine Hcl 10 Mg Capsule) 10 mg PO TID PRN PRN Reason: Abdominal Discomfort Divalproex Sodium (Divalproex Sodium 500 Mg Tablet.Dr) 500 mg PO TID [facility] Last Admin: 02/26/25 08:21 Dose: 500 mg Docusate Sodium (Docusate Sodium 100 Mg Capsule) 100 mg PO BID [facility] Last Admin: 02/26/25 08:22 Dose: 100 mg Ergocalciferol (Ergocalciferol (Vitamin D2) 1,250 Mcg Capsule) 1,250 mcg PO WE [facility] Last Admin: 02/24/25 20:34 Dose: 1,250 mcg Fluticasone Propionate (Fluticasone Propionate Nasal 16 Gm [place]) 2 spray NOSTRIL-B BID [facility] Last Admin: 02/26/25 08:22 Dose: 2 spray Hydroxyzine HCl (Hydroxyzine Hcl 25 Mg Tablet) 25 mg PO Q6H PRN PRN Reason: mild anxiety Loratadine (Loratadine 10 Mg Tablet) 10 mg PO BEDTIME [facility] Last Admin: 02/25/25 21:49 Dose: 10 mg Magnesium Hydroxide (Milk Of Magnesia 30 Ml Oral.Susp) 30 ml PO DAILY PRN PRN Reason: Constipation Last Admin: 02/24/25 20:39 Dose: 30 ml Nicotine (Nicotine 21 Mg Patch.Td24) 21 mg TRANSDERMA DAILY PRN PRN Reason: smoking cessation Nicotine Polacrilex (Nicotine Polacrilex 2 Mg Gum) 4 mg BUCCAL Q2H PRN PRN Reason: Nicotine Cravings Non-Formulary Medication (Linaclotide [Linzess]) 145 mcg PO DAILY [facility] Olanzapine (Olanzapine 5 Mg Tablet) 5 mg PO Q6H PRN PRN Reason: Agitation/Anxiety Last Admin: 02/25/25 21:50 Dose: 5 mg Olanzapine (Olanzapine 5 Mg Tablet) 5 mg PO TID PRN PRN Reason: agitation Olanzapine (Olanzapine 5 Mg Tablet) 5 mg PO DAILY [facility] Last Admin: 02/26/25 08:22 Dose: 5 mg Polyethylene Glycol (Polyethylene Glycol 3350 17 Gm Powd.Pack) 17 gm PO DAILY PRN PRN Reason: Constipation Prazosin HCl (Prazosin Hcl 1 Mg Capsule) 1 mg PO BEDTIME MARY; Protocol Last Admin: 02/25/25 21:49 Dose: 1 mg Psyllium Hydrophilic Mucilloid (Psyllium Seed 3.7 Gm Packet) 3.7 gm PO DAILY [facility] Last Admin: 02/26/25 08:24 Dose: Not Given Trazodone HCl (Trazodone Hcl 50 Mg Tablet) 50 mg PO BEDTIME PRN PRN Reason: Sleep Trazodone HCl (Trazodone Hcl 50 Mg Tablet) 50 mg PO BEDTIME MRX1 PRN PRN Reason: Insomnia Allergies Allergies Allergy/AdvReac Type Severity Reaction Status Date / Time No Known Allergies Allergy Verified 02/23/25 18:20 Assessment & Plan Assessment & Plan (1) Bipolar disorder: Status: Acute Code(s): F31.9 - Bipolar disorder, unspecified (2) Developmental delay, moderate: Status: Acute Code(s): R62.50 - Unspecified lack of expected normal physiological development in childhood (3) PTSD (post-traumatic stress disorder): Status: Acute Code(s): F43.10 - Post-traumatic stress disorder, unspecified (4) Autism spectrum disorder: Status: Acute Code(s): F84.0 - Autistic disorder (5) Excoriation (skin-picking) disorder: Status: Acute Code(s): F42.4 - Excoriation (skin-picking) disorder Plan Patient is a 25-year-old female with ASD, developmental delay, PTSD, carrying a diagnosis of bipolar depression, living in a intermediate who presents for mood dysregulation with SI and HI in the face of intermediate frustration. Patient emotionally reactive and easily agitated during discussion, though trying to keep herself in control and apologetic. Patient says that things were good... Peaceful at the intermediate until her housemate and friend Chelsea moved out a couple of months ago. She says Chelsea really helped me out...I miss her. Patient quickly got upset, saying she wants to get out of the intermediate and go back to shared living... And grew quite frustrated that check writer salesperson could not immediately answer whether or not this was possible. She was able to calmed down some and say that she is very unhappy at the intermediate, she feels that the staff were rude, not helpful, are punitive and says that they take her phone away as punishment; she also feels that other clients are rude and problematic though she would not give any examples. Throughout the interview patient would go back to again asking if she can move back to shared living struggling to accept that it will take time figure this out. Patient said she does not know the names of her medications and can not tell if they are working. Patient said that she did get suicidal and wanted to and did make a small laceration on her left forearm; now however she just wants to move out of the intermediate into a different living situation. Patient had made some verbally aggressive comments towards peers which she said she meant at the time (unclear specifics and patient would not disclose). Patient agreed to medication changes at check writer salesperson's discretion. Asked for her conservator/guardian to be called; asked for her fialejandro Swann to be called. Formulation/clinical reasoning: Seems that on current medication regimen, patient was stable until living situation dynamics changed with peer she felt close to moved out; it appears that since then patient has struggled with staff and peer relationships. Patient unable to share details but gives consent for team to gather collateral. At this time will continue current medication regimen as collaterals gathered; will get Depakote level. Patient carries bipolar diagnosis however she feels unable to discuss her psychiatric history and so it is not clear if she has actual discrete manic episodes. Hospital course: 02/26 Patient reports feeling a little depressed but feeling a little better than the other day. Says SI lingers but going away; HI also waning. Patient again asked about changing group homes and was calm and appreciative of teams help with this process. Patient in good behavioral and impulse control. -Depakote level WNL; will continue to observe patient and assess stability before making medication changes -social work able to talk with patient's guardian who has a plan to help her change group homes; when patient later this she was very pleased Plan: CV Q 15 minute checks Continue current home medication regimen for now Gather collateral Patient educated on: diagnosis and medication risk/benefits Informed Consent: understands and further education needed Reason for continued inpatient stay Substantial Risk for: rapid decompensation Time Spent With Patient Time: Total time managing care of this patient today ____ minutes.
[2025-02-26 19:52] VITALS: BP 146/93; PULSE 111; TEMP 37.3; O2SAT 96
[2025-02-26] MEDS: cloZAPine 25 MG TABLET 50 MG PO (21:02)
[2025-02-26] MEDS: Desmopressin Acetate 0.2 MG TABLET 0.3 MG PO (21:03)
[2025-02-26] MEDS: Loratadine 10 MG TABLET PO (21:03)
[2025-02-26] MEDS: traZODone HCL 50 MG TABLET PO (21:04)
[2025-02-26] MEDS: Prazosin HCL 1 MG CAPSULE PO (21:04)
[2025-02-27 08:00] VITALS: BP 141/63; PULSE 95; TEMP 36.1; O2SAT 96
[2025-02-27] MEDS: Divalproex Sodium 500 MG TABLET.DR PO ×2 (08:41→15:20)
[2025-02-27] MEDS: clonazePAM 0.5 MG TABLET PO ×3 (08:41→20:59)
[2025-02-27] MEDS: Docusate Sodium 100 MG CAPSULE PO ×2 (08:41→20:59)
[2025-02-27] MEDS: cloZAPine 100 MG TABLET PO ×2 (08:41→20:59)
[2025-02-27] MEDS: Fluticasone Propionate Nasal 16 GM SPRAY 2 SPRAY NOSTRIL-B (08:41)
[2025-02-27] MEDS: OLANZapine 5 MG TABLET PO ×3 (08:41→21:00)
--- NOTE | 2025-02-27 09:55 | P.PNPSI_ITS ---
Subjective Subjective Date of Service: 02/27/25 Reason For Visit: Decompensated, HI Interim History: met with patient; discussed with team getting very upset that she does not have clear answer about going to shared living... slams hand on table several times demanding answers, however, soon apologizes for outburst saying she's just upset and hates group homes. Agrees to increasing depakote and starting clonidine Mental Status Exam Mental Status Exam Narrative: Pt is alert and oriented; behavior can become but emotionally reactive and easily agitated; cooperative, apologetic; patient is not in distress; dressed in hospital attire unkempt, obese; mood is described as upset/depressed and affect congruent; eye contact appropriate; Speech is normal rate, volume and prosody and not pressured; intermittent psychomotor agitation present; thought process is goal directed, but distracted; perseverative on living situation; Thought content is on living situation, feeling wronged by staff at [facility]; no delusional content expressed; intermittent passive SI; intermittent passive HI. Denies AVH; Patients insight and judgment impaired Diagnostics Vital Signs (24Hr): Vital Signs - 24 hr 02/26/25 19:52 02/27/25 08:00 Temperature 99.1 F 96.9 F Pulse Rate 111 H 95 Blood Pressure 146/93 H 141/63 H Pulse Oximetry 96 96 Oxygen Delivery Method Room Air Room Air BMI result Body Mass Index 51.2 Labs 02/23/25 18:55 02/25/25 08:00 Labs: Laboratory Results - last 48 hr 02/26/25 08:07 Valproic Acid 60.4 Medications Medications Current Medications Acetaminophen (Acetaminophen 325 Mg Tablet) 650 mg PO Q6H PRN PRN Reason: Headache/Pain, Scale 1-10 Al Hydroxide/Mg Hydroxide (Magnesium Hydrox/Alum Hydrox 30 Ml Oral.Susp) 30 ml PO Q6H PRN PRN Reason: Heartburn/Nausea Clonazepam (Clonazepam 0.5 Mg Tablet) 0.5 mg PO TID [facility] Last Admin: 02/27/25 08:41 Dose: 0.5 mg Clozapine (Clozapine 100 Mg Tablet) 100 mg PO BID [facility] Last Admin: 02/27/25 08:41 Dose: 100 mg Clozapine (Clozapine 25 Mg Tablet) 50 mg PO BEDTIME [facility] Last Admin: 02/26/25 21:02 Dose: 50 mg Desmopressin Acetate (Desmopressin Acetate 0.2 Mg Tablet) 0.3 mg PO BEDTIME [facility] Last Admin: 02/26/25 21:03 Dose: 0.3 mg Dicyclomine HCl (Dicyclomine Hcl 10 Mg Capsule) 10 mg PO TID PRN PRN Reason: Abdominal Discomfort Divalproex Sodium (Divalproex Sodium 500 Mg Tablet.Dr) 500 mg PO TID [facility] Last Admin: 02/27/25 08:41 Dose: 500 mg Docusate Sodium (Docusate Sodium 100 Mg Capsule) 100 mg PO BID [facility] Last Admin: 02/27/25 08:41 Dose: 100 mg Ergocalciferol (Ergocalciferol (Vitamin D2) 1,250 Mcg Capsule) 1,250 mcg PO WE [facility] Last Admin: 02/24/25 20:34 Dose: 1,250 mcg Fluticasone Propionate (Fluticasone Propionate Nasal 16 Gm [place]) 2 spray NOSTRIL-B BID [facility] Last Admin: 02/27/25 08:41 Dose: 2 spray Hydroxyzine HCl (Hydroxyzine Hcl 25 Mg Tablet) 25 mg PO Q6H PRN PRN Reason: mild anxiety Loratadine (Loratadine 10 Mg Tablet) 10 mg PO BEDTIME [facility] Last Admin: 02/26/25 21:03 Dose: 10 mg Magnesium Hydroxide (Milk Of Magnesia 30 Ml Oral.Susp) 30 ml PO DAILY PRN PRN Reason: Constipation Last Admin: 02/24/25 20:39 Dose: 30 ml Nicotine (Nicotine 21 Mg Patch.Td24) 21 mg TRANSDERMA DAILY PRN PRN Reason: smoking cessation Nicotine Polacrilex (Nicotine Polacrilex 2 Mg Gum) 4 mg BUCCAL Q2H PRN PRN Reason: Nicotine Cravings Olanzapine (Olanzapine 5 Mg Tablet) 5 mg PO Q6H PRN PRN Reason: Agitation/Anxiety Last Admin: 02/25/25 21:50 Dose: 5 mg Olanzapine (Olanzapine 5 Mg Tablet) 5 mg PO TID PRN PRN Reason: agitation Olanzapine (Olanzapine 5 Mg Tablet) 5 mg PO DAILY [facility] Last Admin: 02/27/25 08:41 Dose: 5 mg Polyethylene Glycol (Polyethylene Glycol 3350 17 Gm Powd.Pack) 17 gm PO DAILY PRN PRN Reason: Constipation Prazosin HCl (Prazosin Hcl 1 Mg Capsule) 1 mg PO BEDTIME [facility]; Protocol Last Admin: 02/26/25 21:04 Dose: 1 mg Psyllium Hydrophilic Mucilloid (Psyllium Seed 3.7 Gm Packet) 3.7 gm PO DAILY [facility] Last Admin: 02/27/25 08:42 Dose: Not Given Trazodone HCl (Trazodone Hcl 50 Mg Tablet) 50 mg PO BEDTIME PRN PRN Reason: Sleep Last Admin: 02/26/25 21:04 Dose: 50 mg Trazodone HCl (Trazodone Hcl 50 Mg Tablet) 50 mg PO BEDTIME MRX1 PRN PRN Reason: Insomnia Allergies Allergies Allergy/AdvReac Type Severity Reaction Status Date / Time No Known Allergies Allergy Verified 02/23/25 18:20 Assessment & Plan Assessment & Plan (1) Bipolar disorder: Status: Acute Code(s): F31.9 - Bipolar disorder, unspecified (2) Developmental delay, moderate: Status: Acute Code(s): R62.50 - Unspecified lack of expected normal physiological development in childhood (3) PTSD (post-traumatic stress disorder): Status: Acute Code(s): F43.10 - Post-traumatic stress disorder, unspecified (4) Autism spectrum disorder: Status: Acute Code(s): F84.0 - Autistic disorder (5) Excoriation (skin-picking) disorder: Status: Acute Code(s): F42.4 - Excoriation (skin-picking) disorder Plan Patient is a 25-year-old female with ASD, developmental delay, PTSD, carrying a diagnosis of bipolar depression, living in a [place] [facility] who presents for mood dysregulation with SI and HI in the face of [facility] frustration. Patient emotionally reactive and easily agitated during discussion, though trying to keep herself in control and apologetic. Patient says that things were good... Peaceful at the [place] until her housemate and friend Chelsea moved out a couple of months ago. She says [place] really helped me out...I miss her. Patient quickly got upset, saying she wants to get out of the [place] [facility] and go back to shared living... And grew quite frustrated that junior copywriter could not immediately answer whether or not this was possible. She was able to calmed down some and say that she is very unhappy at the [facility], she feels that the staff were rude, not helpful, are punitive and says that they take her phone away as punishment; she also feels that other clients are rude and problematic though she would not give any examples. Throughout the interview patient would go back to again asking if she can move back to shared living struggling to accept that it will take time figure this out. Patient said she does not know the names of her medications and can not tell if they are working. Patient said that she did get suicidal and wanted to and did make a small laceration on her left forearm; now however she just wants to move out of the [place] [facility] into a different living situation. Patient had made some verbally aggressive comments towards peers which she said she meant at the time (unclear specifics and patient would not disclose). Patient agreed to medication changes at junior copywriter's discretion. Asked for her conservator/guardian to be called; asked for her fiance Shree to be called. Formulation/clinical reasoning: Seems that on current medication regimen, patient was stable until living situation dynamics changed with peer she felt close to moved out; it appears that since then patient has struggled with staff and peer relationships. Patient unable to share details but gives consent for team to gather collateral. At this time will continue current medication regimen as collaterals gathered; will get Depakote level. Patient carries bipolar diagnosis however she feels unable to discuss her psychiatric history and so it is not clear if she has actual discrete manic episodes. Hospital course: 02/26 Patient reports feeling a little depressed but feeling a little better than the other day. Says SI lingers but going away; HI also waning. Patient again asked about changing group homes and was calm and appreciative of teams help with this process. Patient in good behavioral and impulse control. -Depakote level WNL; will continue to observe patient and assess stability before making medication changes -social work able to talk with patient's guardian who has a plan to help her change group homes; when patient later this she was very pleased 02/27 getting very upset that she does not have clear answer about going to shared living... slams hand on table several times demanding answers, however, soon apologizes for outburst saying she's just upset and hates group homes. Agrees to increasing depakote and starting clonidine Plan: CV Q 15 minute checks Changing bedtime depakote dose to ER and 1000mg qhs adding clonidine 0.1mg bid 0900,1300 Continue current home medication regimen for now Gather collateral Patient educated on: diagnosis, medication risk/benefits and therapeutic strategies Informed Consent: understands and further education needed Reason for continued inpatient stay Substantial Risk for: rapid decompensation Time Spent With Patient Time: Total time managing care of this patient today ____ minutes.
[2025-02-27] MEDS: cloNIDine HCL 0.1 MG TABLET PO (11:55)
[2025-02-27 20:00] VITALS: BP 127/83; PULSE 93; RESP 16; TEMP 36.6; O2SAT 99
[2025-02-27] MEDS: Divalproex Sodium ER 500 MG TAB.ER.24H 1000 MG PO (20:58)
[2025-02-27] MEDS: cloZAPine 25 MG TABLET 50 MG PO (20:58)
[2025-02-27] MEDS: hydrOXYzine HCL 25 MG TABLET PO (20:58)
[2025-02-27 20:59] VITALS: BP 127/83
[2025-02-27] MEDS: Loratadine 10 MG TABLET PO (20:59)
[2025-02-27] MEDS: Prazosin HCL 1 MG CAPSULE PO (20:59)
[2025-02-27] MEDS: traZODone HCL 50 MG TABLET PO (20:59)
[2025-02-27] MEDS: Acetaminophen 325 MG TABLET 650 MG PO (20:59)
[2025-02-27] MEDS: Desmopressin Acetate 0.2 MG TABLET 0.3 MG PO (21:00)
[2025-02-28 08:00] VITALS: BP 127/67; PULSE 89; TEMP 36.8; O2SAT 94
[2025-02-28] MEDS: clonazePAM 0.5 MG TABLET PO ×3 (08:21→20:41)
[2025-02-28] MEDS: Divalproex Sodium 500 MG TABLET.DR PO ×2 (08:21→14:00)
[2025-02-28] MEDS: Docusate Sodium 100 MG CAPSULE PO ×2 (08:21→20:42)
[2025-02-28] MEDS: cloNIDine HCL 0.1 MG TABLET PO ×2 (08:22→14:00)
[2025-02-28] MEDS: OLANZapine 5 MG TABLET PO (08:22)
[2025-02-28] MEDS: cloZAPine 100 MG TABLET PO ×2 (08:22→20:42)
[2025-02-28] MEDS: Fluticasone Propionate Nasal 16 GM SPRAY 2 SPRAY NOSTRIL-B ×2 (08:36→20:41)
--- NOTE | 2025-02-28 08:45 | P.PNPSI_ITS ---
Subjective Subjective Date of Service: 02/28/25 Reason For Visit: Decompensated, HI Interim History: Met with patient; discussed with team Patient remains very focused on whether not she got into shared living facility, waiting for va underwriter to get on the unit and then asking to be seen as soon as possible. Patient however accepted that there is no answer yet and even was proud of herself for not having an outburst this time, handling the fact that she will have to wait longer for definitive answer. Discussed medication increases and patient said she is tolerating them well. Slept well last night. Mental Status Exam Mental Status Exam Narrative: Pt is alert and oriented; behavior mostly calm and cooperative; can become but emotionally reactive and easily agitated but redirects herself and is apologetic; patient is not in distress; dressed in casual attire, adequate hygiene; obese; mood is described as same and affect congruent, downcast; eye contact appropriate; Speech is normal rate, volume and prosody and not pressured; intermittent psychomotor agitation present; thought process is goal directed, but perseverative on living situation; Thought content is on living situation and worried about having to go to a long-term; no delusional content expressed; no SI; no HI; Denies AVH; Patients insight and judgment impaired but improved Diagnostics Vital Signs (24Hr): Vital Signs - 24 hr 02/27/25 20:00 02/27/25 20:59 02/28/25 08:00 Temperature 97.9 F 98.3 F Pulse Rate 93 89 Respiratory Rate 16 Blood Pressure 127/83 127/83 127/67 Pulse Oximetry 99 94 Oxygen Delivery Method Room Air Room Air BMI result Body Mass Index 51.2 Labs 02/23/25 18:55 02/25/25 08:00 Medications Medications Current Medications Acetaminophen (Acetaminophen 325 Mg Tablet) 650 mg PO Q6H PRN PRN Reason: Headache/Pain, Scale 1-10 Last Admin: 02/27/25 20:59 Dose: 650 mg Al Hydroxide/Mg Hydroxide (Magnesium Hydrox/Alum Hydrox 30 Ml Oral.Susp) 30 ml PO Q6H PRN PRN Reason: Heartburn/Nausea Clonazepam (Clonazepam 0.5 Mg Tablet) 0.5 mg PO TID [facility] Last Admin: 02/28/25 08:21 Dose: 0.5 mg Clonidine HCl (Clonidine Hcl 0.1 Mg Tablet) 0.1 mg PO BID@0900,1300 [facility]; Protocol Last Admin: 02/28/25 08:22 Dose: 0.1 mg Clozapine (Clozapine 100 Mg Tablet) 100 mg PO BID [facility] Last Admin: 02/28/25 08:22 Dose: 100 mg Clozapine (Clozapine 25 Mg Tablet) 50 mg PO BEDTIME [facility] Last Admin: 02/27/25 20:58 Dose: 50 mg Desmopressin Acetate (Desmopressin Acetate 0.2 Mg Tablet) 0.3 mg PO BEDTIME [facility] Last Admin: 02/27/25 21:00 Dose: 0.3 mg Dicyclomine HCl (Dicyclomine Hcl 10 Mg Capsule) 10 mg PO TID PRN PRN Reason: Abdominal Discomfort Divalproex Sodium (Divalproex Sodium 500 Mg Tablet.Dr) 500 mg PO BID@0900,1300 [facility] Last Admin: 02/28/25 08:21 Dose: 500 mg Divalproex Sodium (Divalproex Sodium Er 500 Mg Tab.Er.24h) 1,000 mg PO BEDTIME [facility] Last Admin: 02/27/25 20:58 Dose: 1,000 mg Docusate Sodium (Docusate Sodium 100 Mg Capsule) 100 mg PO BID [facility] Last Admin: 02/28/25 08:21 Dose: 100 mg Ergocalciferol (Ergocalciferol (Vitamin D2) 1,250 Mcg Capsule) 1,250 mcg PO WE [facility] Last Admin: 02/24/25 20:34 Dose: 1,250 mcg Fluticasone Propionate (Fluticasone Propionate Nasal 16 Gm [place]) 2 spray NOSTRIL-B BID [facility] Last Admin: 02/28/25 08:36 Dose: 2 spray Hydroxyzine HCl (Hydroxyzine Hcl 25 Mg Tablet) 25 mg PO Q6H PRN PRN Reason: mild anxiety Last Admin: 02/27/25 20:58 Dose: 25 mg Loratadine (Loratadine 10 Mg Tablet) 10 mg PO BEDTIME [facility] Last Admin: 02/27/25 20:59 Dose: 10 mg Magnesium Hydroxide (Milk Of Magnesia 30 Ml Oral.Susp) 30 ml PO DAILY PRN PRN Reason: Constipation Last Admin: 02/24/25 20:39 Dose: 30 ml Nicotine (Nicotine 21 Mg Patch.Td24) 21 mg TRANSDERMA DAILY PRN PRN Reason: smoking cessation Nicotine Polacrilex (Nicotine Polacrilex 2 Mg Gum) 4 mg BUCCAL Q2H PRN PRN Reason: Nicotine Cravings Olanzapine (Olanzapine 5 Mg Tablet) 5 mg PO TID PRN PRN Reason: agitation Last Admin: 02/27/25 21:00 Dose: 5 mg Olanzapine (Olanzapine 5 Mg Tablet) 5 mg PO DAILY [facility] Last Admin: 02/28/25 08:22 Dose: 5 mg Polyethylene Glycol (Polyethylene Glycol 3350 17 Gm Powd.Pack) 17 gm PO DAILY PRN PRN Reason: Constipation Prazosin HCl (Prazosin Hcl 1 Mg Capsule) 1 mg PO BEDTIME [facility]; Protocol Last Admin: 02/27/25 20:59 Dose: 1 mg Psyllium Hydrophilic Mucilloid (Psyllium Seed 3.7 Gm Packet) 3.7 gm PO DAILY [facility] Last Admin: 02/28/25 08:23 Dose: Not Given Trazodone HCl (Trazodone Hcl 50 Mg Tablet) 50 mg PO BEDTIME MRX1 PRN PRN Reason: Insomnia Last Admin: 02/27/25 20:59 Dose: 50 mg Allergies Allergies Allergy/AdvReac Type Severity Reaction Status Date / Time No Known Allergies Allergy Verified 02/23/25 18:20 Assessment & Plan Assessment & Plan (1) Bipolar disorder: Status: Acute Code(s): F31.9 - Bipolar disorder, unspecified (2) Developmental delay, moderate: Status: Acute Code(s): R62.50 - Unspecified lack of expected normal physiological development in childhood (3) PTSD (post-traumatic stress disorder): Status: Acute Code(s): F43.10 - Post-traumatic stress disorder, unspecified (4) Autism spectrum disorder: Status: Acute Code(s): F84.0 - Autistic disorder (5) Excoriation (skin-picking) disorder: Status: Acute Code(s): F42.4 - Excoriation (skin-picking) disorder Plan Patient is a 25-year-old female with ASD, developmental delay, PTSD, carrying a diagnosis of bipolar depression, living in a long-term who presents for mood dysregulation with SI and HI in the face of long-term frustration. Patient emotionally reactive and easily agitated during discussion, though trying to keep herself in control and apologetic. Patient says that things were good... Peaceful at the long-term until her housemate and friend [place] moved out a couple of months ago. She says [place] really helped me out...I miss her. Patient quickly got upset, saying she wants to get out of the long-term and go back to shared living... And grew quite frustrated that va underwriter could not immediately answer whether or not this was possible. She was able to calmed down some and say that she is very unhappy at the long-term, she feels that the staff were rude, not helpful, are punitive and says that they take her phone away as punishment; she also feels that other clients are rude and problematic though she would not give any examples. Throughout the interview patient would go back to again asking if she can move back to shared living struggling to accept that it will take time figure this out. Patient said she does not know the names of her medications and can not tell if they are working. Patient said that she did get suicidal and wanted to and did make a small laceration on her left forearm; now however she just wants to move out of the long-term into a different living situation. Patient had made some verbally aggressive comments towards peers which she said she meant at the time (unclear specifics and patient would not disclose). Patient agreed to medication changes at va underwriter's discretion. Asked for her conservator/guardian to be called; asked for her fialejandro Swann to be called. Formulation/clinical reasoning: Seems that on current medication regimen, patient was stable until living situation dynamics changed with peer she felt close to moved out; it appears that since then patient has struggled with staff and peer relationships. Patient unable to share details but gives consent for team to gather collateral. At this time will continue current medication regimen as collaterals gathered; will get Depakote level. Patient carries bipolar diagnosis however she feels unable to discuss her psychiatric history and so it is not clear if she has actual discrete manic episodes. Hospital course: 02/26 Patient reports feeling a little depressed but feeling a little better than the other day. Says SI lingers but going away; HI also waning. Patient again asked about changing group homes and was calm and appreciative of teams help with this process. Patient in good behavioral and impulse control. -Depakote level WNL; will continue to observe patient and assess stability before making medication changes -social work able to talk with patient's guardian who has a plan to help her change group homes; when patient later this she was very pleased 02/27 getting very upset that she does not have clear answer about going to shared living... slams hand on table several times demanding answers, however, soon apologizes for outburst saying she's just upset and hates group homes. Agrees to increasing depakote and starting clonidine 02/28 in better behavioral control; tolerating increased Depakote dose; blood pressures WNL with added clonidine -patient is on Clozaril and Depakote; wonder if she actually needs Zyprexa 5 mg daily dose which could perhaps be a p.r.n. instead -wonder how patient might benefit from Adderall or maybe guanfacine -also consider metformin given patient's obesity and on medications that can cause metabolic syndrome Plan: CV Q 15 minute checks Changing bedtime depakote dose to ER and 1000mg qhs Continue clonidine 0.1mg bid 0900,1300 Continue current home medication regimen for now Gather collateral Patient educated on: diagnosis, medication risk/benefits and therapeutic strategies Informed Consent: understands Reason for continued inpatient stay Substantial Risk for: rapid decompensation Time Spent With Patient Time: Total time managing care of this patient today ____ minutes.
[2025-02-28 20:00] VITALS: BP 118/70; PULSE 89; TEMP 36.9; O2SAT 96
[2025-02-28] MEDS: Desmopressin Acetate 0.2 MG TABLET 0.3 MG PO (20:41)
[2025-02-28 20:42] VITALS: BP 118/70
[2025-02-28] MEDS: Prazosin HCL 1 MG CAPSULE PO (20:42)
[2025-02-28] MEDS: Divalproex Sodium ER 500 MG TAB.ER.24H 1000 MG PO (20:42)
[2025-02-28] MEDS: cloZAPine 25 MG TABLET 50 MG PO (20:42)
[2025-02-28] MEDS: Loratadine 10 MG TABLET PO (20:42)
[2025-03-01 08:00] VITALS: BP 130/79; PULSE 73; RESP 16; TEMP 36.3; O2SAT 96
[2025-03-01] MEDS: clonazePAM 0.5 MG TABLET PO ×3 (08:51→20:42)
[2025-03-01] MEDS: cloZAPine 100 MG TABLET PO ×2 (08:51→20:43)
[2025-03-01] MEDS: Divalproex Sodium 500 MG TABLET.DR PO ×2 (08:51→13:24)
[2025-03-01] MEDS: OLANZapine 5 MG TABLET PO (08:51)
[2025-03-01] MEDS: cloNIDine HCL 0.1 MG TABLET PO ×2 (08:52→13:24)
[2025-03-01] MEDS: Fluticasone Propionate Nasal 16 GM SPRAY 2 SPRAY NOSTRIL-B ×2 (08:54→20:45)
[2025-03-01] MEDS: Docusate Sodium 100 MG CAPSULE PO ×2 (08:57→21:05)
--- NOTE | 2025-03-01 09:34 | P.PNPSI_ITS ---
Subjective Subjective Date of Service: 03/01/25 Reason For Visit: Decompensated, HI Interim History: met with pt; discussed with team pt got emotional learning she cannot dc straight to a shared living; she had a momentary outburst but quickly got herself back into control...apologized and said she is amenable to plan. Mental Status Exam Mental Status Exam Narrative: Pt is alert and oriented; behavior mostly calm and cooperative; can become but emotionally reactive and easily agitated but redirects herself , gets herself under control and is apologetic; patient is not in distress; dressed in casual attire, adequate hygiene; obese; mood is described as same and affect congruent, downcast; eye contact appropriate; Speech is normal rate, volume and prosody and not pressured; intermittent psychomotor agitation present; thought process is goal directed, but perseverative on living situation; Thought content is on living situation and worried about having to go to a [place] [facility] [place]; no delusional content expressed; no SI; no HI; Denies AVH; Patients insight and judgment adequate and at baseline. Diagnostics Vital Signs (24Hr): Vital Signs - 24 hr 02/28/25 20:00 02/28/25 20:42 03/01/25 08:00 Temperature 98.4 F 97.4 F Pulse Rate 89 73 Respiratory Rate 16 Blood Pressure 118/70 118/70 130/79 Pulse Oximetry 96 96 Oxygen Delivery Method Room Air BMI result Body Mass Index 51.2 Labs 02/23/25 18:55 02/25/25 08:00 Medications Medications Current Medications Acetaminophen (Acetaminophen 325 Mg Tablet) 650 mg PO Q6H PRN PRN Reason: Headache/Pain, Scale 1-10 Last Admin: 02/27/25 20:59 Dose: 650 mg Al Hydroxide/Mg Hydroxide (Magnesium Hydrox/Alum Hydrox 30 Ml Oral.Susp) 30 ml PO Q6H PRN PRN Reason: Heartburn/Nausea Clonazepam (Clonazepam 0.5 Mg Tablet) 0.5 mg PO TID [facility] Last Admin: 03/01/25 08:51 Dose: 0.5 mg Clonidine HCl (Clonidine Hcl 0.1 Mg Tablet) 0.1 mg PO BID@0900,1300 [facility]; Protocol Last Admin: 03/01/25 08:52 Dose: 0.1 mg Clozapine (Clozapine 100 Mg Tablet) 100 mg PO BID [facility] Last Admin: 03/01/25 08:51 Dose: 100 mg Clozapine (Clozapine 25 Mg Tablet) 50 mg PO BEDTIME [facility] Last Admin: 02/28/25 20:42 Dose: 50 mg Desmopressin Acetate (Desmopressin Acetate 0.2 Mg Tablet) 0.3 mg PO BEDTIME [facility] Last Admin: 02/28/25 20:41 Dose: 0.3 mg Dicyclomine HCl (Dicyclomine Hcl 10 Mg Capsule) 10 mg PO TID PRN PRN Reason: Abdominal Discomfort Divalproex Sodium (Divalproex Sodium 500 Mg Tablet.Dr) 500 mg PO BID@0900,1300 [facility] Last Admin: 03/01/25 08:51 Dose: 500 mg Divalproex Sodium (Divalproex Sodium Er 500 Mg Tab.Er.24h) 1,000 mg PO BEDTIME [facility] Last Admin: 02/28/25 20:42 Dose: 1,000 mg Docusate Sodium (Docusate Sodium 100 Mg Capsule) 100 mg PO BID [facility] Last Admin: 03/01/25 08:57 Dose: 100 mg Ergocalciferol (Ergocalciferol (Vitamin D2) 1,250 Mcg Capsule) 1,250 mcg PO WE [facility] Last Admin: 02/24/25 20:34 Dose: 1,250 mcg Fluticasone Propionate (Fluticasone Propionate Nasal 16 Gm [place]) 2 spray NOSTRIL-B BID [facility] Last Admin: 03/01/25 08:54 Dose: 2 spray Hydroxyzine HCl (Hydroxyzine Hcl 25 Mg Tablet) 25 mg PO Q6H PRN PRN Reason: mild anxiety Last Admin: 02/27/25 20:58 Dose: 25 mg Loratadine (Loratadine 10 Mg Tablet) 10 mg PO BEDTIME [facility] Last Admin: 02/28/25 20:42 Dose: 10 mg Magnesium Hydroxide (Milk Of Magnesia 30 Ml Oral.Susp) 30 ml PO DAILY PRN PRN Reason: Constipation Last Admin: 02/24/25 20:39 Dose: 30 ml Nicotine (Nicotine 21 Mg Patch.Td24) 21 mg TRANSDERMA DAILY PRN PRN Reason: smoking cessation Nicotine Polacrilex (Nicotine Polacrilex 2 Mg Gum) 4 mg BUCCAL Q2H PRN PRN Reason: Nicotine Cravings Olanzapine (Olanzapine 5 Mg Tablet) 5 mg PO TID PRN PRN Reason: agitation Last Admin: 02/27/25 21:00 Dose: 5 mg Olanzapine (Olanzapine 5 Mg Tablet) 5 mg PO DAILY MARY Last Admin: 03/01/25 08:51 Dose: 5 mg Polyethylene Glycol (Polyethylene Glycol 3350 17 Gm Powd.Pack) 17 gm PO DAILY PRN PRN Reason: Constipation Prazosin HCl (Prazosin Hcl 1 Mg Capsule) 1 mg PO BEDTIME [facility]ARY; Protocol Last Admin: 02/28/25 20:42 Dose: 1 mg Psyllium Hydrophilic Mucilloid (Psyllium Seed 3.7 Gm Packet) 3.7 gm PO DAILY MARY Last Admin: 03/01/25 08:55 Dose: Not Given Trazodone HCl (Trazodone Hcl 50 Mg Tablet) 50 mg PO BEDTIME MRX1 PRN PRN Reason: Insomnia Last Admin: 02/27/25 20:59 Dose: 50 mg Allergies Allergies Allergy/AdvReac Type Severity Reaction Status Date / Time No Known Allergies Allergy Verified 02/23/25 18:20 Assessment & Plan Assessment & Plan (1) Bipolar disorder: Status: Acute Code(s): F31.9 - Bipolar disorder, unspecified (2) Developmental delay, moderate: Status: Acute Code(s): R62.50 - Unspecified lack of expected normal physiological development in childhood (3) PTSD (post-traumatic stress disorder): Status: Acute Code(s): F43.10 - Post-traumatic stress disorder, unspecified (4) Autism spectrum disorder: Status: Acute Code(s): F84.0 - Autistic disorder (5) Excoriation (skin-picking) disorder: Status: Acute Code(s): F42.4 - Excoriation (skin-picking) disorder Plan Patient is a 25-year-old female with ASD, developmental delay, PTSD, carrying a diagnosis of bipolar depression, living [place] [facility] [place] who presents for mood dysregulation with SI and HI in the face of [place] [facility] frustration. Patient emotionally reactive and easily agitated during discussion, though trying to keep herself in control and apologetic. Patient says that things were good... Peaceful at the [place] [facility] until her housemate and friend Chelsea moved out a couple of months ago. She says [place] really helped me out...I miss her. Patient quickly got upset, saying she wants to get out of the [place] [facility] [place] and go back to shared living... And grew quite frustrated that physician underwriter could not immediately answer whether or not this was possible. She was able to calmed down some and say that she is very unhappy at the [place] [facility], she feels that the staff were rude, not helpful, are punitive and says that they take her phone away as punishment; she also feels that other clients are rude and problematic though she would not give any examples. Throughout the interview patient would go back to again asking if she can move back to shared living struggling to accept that it will take time figure this out. Patient said she does not know the names of her medications and can not tell if they are working. Patient said that she did get suicidal and wanted to and did make a small laceration on her left forearm; now however she just wants to move out of the [place] [facility] [place] into a different living situation. Patient had made some verbally aggressive comments towards peers which she said she meant at the time (unclear specifics and patient would not disclose). Patient agreed to medication changes at physician underwriter's discretion. Asked for her conservator/guardian to be called; asked for her fialejandro Swann to be called. Formulation/clinical reasoning: Seems that on current medication regimen, patient was stable until living situation dynamics changed with peer she felt close to moved out; it appears that since then patient has struggled with staff and peer relationships. Patient unable to share details but gives consent for team to gather collateral. At this time will continue current medication regimen as collaterals gathered; will get Depakote level. Patient carries bipolar diagnosis however she feels unable to discuss her psychiatric history and so it is not clear if she has actual discrete manic episodes. Hospital course: 02/26 Patient reports feeling a little depressed but feeling a little better than the other day. Says SI lingers but going away; HI also waning. Patient again asked about changing group homes and was calm and appreciative of teams help with this process. Patient in good behavioral and impulse control. -Depakote level WNL; will continue to observe patient and assess stability before making medication changes -social work able to talk with patient's guardian who has a plan to help her change group homes; when patient later this she was very pleased 02/27 getting very upset that she does not have clear answer about going to shared living... slams hand on table several times demanding answers, however, soon apologizes for outburst saying she's just upset and hates group homes. Agrees to increasing depakote and starting clonidine 02/28 in better behavioral control; tolerating increased Depakote dose; blood pressures WNL with added clonidine 03/01 pt got emotional learning she cannot dc straight to a shared living; she had a momentary outburst but quickly got herself back into control...apologized and said she is amenable to plan. considering med changes regarding following; will reach out to outpt provider -patient is on Clozaril and Depakote; wonder if she actually needs Zyprexa 5 mg daily dose which could perhaps be a p.r.n. instead -wonder how patient might benefit from Adderall or maybe guanfacine -also consider metformin given patient's obesity and on medications that can cause metabolic syndrome Plan: CV Q 15 minute checks Changing bedtime depakote dose to ER and 1000mg qhs Continue clonidine 0.1mg bid 0900,1300 Continue current home medication regimen for now Gather collateral Patient educated on: diagnosis, medication risk/benefits and therapeutic strategies Informed Consent: understands Reason for continued inpatient stay Substantial Risk for: stable for discharge Time Spent With Patient Time: Total time managing care of this patient today ____ minutes.
[2025-03-01 13:24] VITALS: BP 127/82
[2025-03-01 19:42] VITALS: BP 126/83; PULSE 97; TEMP 36.6; O2SAT 99
[2025-03-01] MEDS: Desmopressin Acetate 0.2 MG TABLET 0.3 MG PO (20:40)
[2025-03-01] MEDS: Divalproex Sodium ER 500 MG TAB.ER.24H 1000 MG PO (20:41)
[2025-03-01] MEDS: cloZAPine 25 MG TABLET 50 MG PO (20:42)
[2025-03-01] MEDS: Loratadine 10 MG TABLET PO (20:42)
[2025-03-01] MEDS: Prazosin HCL 1 MG CAPSULE PO (20:43)
[2025-03-01] MEDS: hydrOXYzine HCL 25 MG TABLET PO (20:43)
[2025-03-01] MEDS: traZODone HCL 50 MG TABLET PO (20:44)
[2025-03-02 08:00] VITALS: BP 136/63; PULSE 84; TEMP 36.4; O2SAT 96
[2025-03-02 08:38] LABS: Neut%MD 59.8 %; Neutrophils Absolute Auto 4.6 x10*3/uL (2.0-8.3); WBCANC 7.8 X10*3/uL
[2025-03-02 08:45] LABS: Ammonia 25 umol/L (13-55)
[2025-03-02 08:51] LABS: Valproate 67.9 mcg/mL (50.0-100.0)
[2025-03-02] MEDS: cloZAPine 100 MG TABLET PO ×2 (08:52→21:01)
[2025-03-02] MEDS: Fluticasone Propionate Nasal 16 GM SPRAY 2 SPRAY NOSTRIL-B (08:52)
[2025-03-02] MEDS: cloNIDine HCL 0.1 MG TABLET PO ×2 (08:52→13:59)
[2025-03-02] MEDS: Docusate Sodium 100 MG CAPSULE PO ×2 (08:53→21:01)
[2025-03-02] MEDS: Divalproex Sodium 500 MG TABLET.DR PO ×2 (08:53→13:59)
[2025-03-02] MEDS: clonazePAM 0.5 MG TABLET PO ×3 (08:53→21:00)
[2025-03-02] MEDS: OLANZapine 5 MG TABLET PO ×2 (08:53→10:00)
[2025-03-02 08:59] LABS: Alanine Aminotransferase 29 U/L (0-31); Albumin Level 4.3 g/dL (3.5-5.0); Alkaline Phosphatase 69 U/L (39-117); Aspartate Amino Transferase 32 U/L (5-31); Bilirubin Direct < 0.2 mg/dL (0.0-0.5); Bilirubin Total 0.2 mg/dL (0.0-1.0)
--- NOTE | 2025-03-02 09:46 | P.PNPSI_ITS ---
Subjective Subjective Date of Service: 03/02/25 Reason For Visit: Decompensated, HI Interim History: Met with patient; discussed with team Patient says that she is amenable with disposition plan. Talk through her feelings about it some of them tearful. Discussed medication regimen and she agrees to starting Intuniv to see if it can help with impulse control; also agreed to metformin to help with weight gain associated with medication regimen, reviewing risks/side effects. Talked about Zyprexa and she agrees she might not need it scheduled at daytime and can take a p.r.n.; agrees to lowering it to 2.5 mg to see how it goes. Mental Status Exam Mental Status Exam Narrative: Pt is alert and oriented; behavior mostly calm and cooperative; can become but emotionally reactive and easily agitated but redirects herself , gets herself under control and is apologetic; patient is not in distress; dressed in casual attire, adequate hygiene; obese; mood is described as same and affect congruent, downcast; eye contact appropriate; Speech is normal rate, volume and prosody and not pressured; intermittent psychomotor agitation present; thought process is goal directed, but perseverative on living situation; Thought content is on living situation and worried about having to go to a half-way; no delusional content expressed; no SI; no HI; Denies AVH; Patients insight and judgment adequate and at baseline. Diagnostics Vital Signs (24Hr): Vital Signs - 24 hr 03/01/25 13:24 03/01/25 19:42 03/02/25 08:00 Temperature 97.8 F 97.6 F Pulse Rate 97 84 Blood Pressure 127/82 126/83 136/63 Pulse Oximetry 99 96 Oxygen Delivery Method Room Air Room Air BMI result Body Mass Index 51.2 Labs 02/23/25 18:55 02/25/25 08:00 Labs: Laboratory Results - last 48 hr 03/02/25 08:29 Absolute Neuts (auto) 4.6 Total Bilirubin 0.2 Direct Bilirubin < 0.2 AST 32 H ALT 29 Alkaline Phosphatase 69 Ammonia 25 Total Protein 8.0 Albumin 4.3 Valproic Acid 67.9 Medications Medications Current Medications Acetaminophen (Acetaminophen 325 Mg Tablet) 650 mg PO Q6H PRN PRN Reason: Headache/Pain, Scale 1-10 Last Admin: 02/27/25 20:59 Dose: 650 mg Al Hydroxide/Mg Hydroxide (Magnesium Hydrox/Alum Hydrox 30 Ml Oral.Susp) 30 ml PO Q6H PRN PRN Reason: Heartburn/Nausea Clonazepam (Clonazepam 0.5 Mg Tablet) 0.5 mg PO TID [facility] Last Admin: 03/02/25 08:53 Dose: 0.5 mg Clonidine HCl (Clonidine Hcl 0.1 Mg Tablet) 0.1 mg PO BID@0900,1300 [facility]; Protocol Last Admin: 03/02/25 08:52 Dose: 0.1 mg Clozapine (Clozapine 100 Mg Tablet) 100 mg PO BID [facility] Last Admin: 03/02/25 08:52 Dose: 100 mg Clozapine (Clozapine 25 Mg Tablet) 50 mg PO BEDTIME [facility] Last Admin: 03/01/25 20:42 Dose: 50 mg Desmopressin Acetate (Desmopressin Acetate 0.2 Mg Tablet) 0.3 mg PO BEDTIME [facility] Last Admin: 03/01/25 20:40 Dose: 0.3 mg Dicyclomine HCl (Dicyclomine Hcl 10 Mg Capsule) 10 mg PO TID PRN PRN Reason: Abdominal Discomfort Divalproex Sodium (Divalproex Sodium 500 Mg Tablet.Dr) 500 mg PO BID@0900,1300 [facility] Last Admin: 03/02/25 08:53 Dose: 500 mg Divalproex Sodium (Divalproex Sodium Er 500 Mg Tab.Er.24h) 1,000 mg PO BEDTIME [facility] Last Admin: 03/01/25 20:41 Dose: 1,000 mg Docusate Sodium (Docusate Sodium 100 Mg Capsule) 100 mg PO BID [facility] Last Admin: 03/02/25 08:53 Dose: 100 mg Ergocalciferol (Ergocalciferol (Vitamin D2) 1,250 Mcg Capsule) 1,250 mcg PO WE [facility] Last Admin: 02/24/25 20:34 Dose: 1,250 mcg Fluticasone Propionate (Fluticasone Propionate Nasal 16 Gm [place]) 2 spray NOSTRIL-B BID [facility] Last Admin: 03/02/25 08:52 Dose: 2 spray Hydroxyzine HCl (Hydroxyzine Hcl 25 Mg Tablet) 25 mg PO Q6H PRN PRN Reason: mild anxiety Last Admin: 03/01/25 20:43 Dose: 25 mg Loratadine (Loratadine 10 Mg Tablet) 10 mg PO BEDTIME [facility] Last Admin: 03/01/25 20:42 Dose: 10 mg Magnesium Hydroxide (Milk Of Magnesia 30 Ml Oral.Susp) 30 ml PO DAILY PRN PRN Reason: Constipation Last Admin: 02/24/25 20:39 Dose: 30 ml Nicotine (Nicotine 21 Mg Patch.Td24) 21 mg TRANSDERMA DAILY PRN PRN Reason: smoking cessation Nicotine Polacrilex (Nicotine Polacrilex 2 Mg Gum) 4 mg BUCCAL Q2H PRN PRN Reason: Nicotine Cravings Olanzapine (Olanzapine 5 Mg Tablet) 5 mg PO TID PRN PRN Reason: agitation Last Admin: 02/27/25 21:00 Dose: 5 mg Olanzapine (Olanzapine 5 Mg Tablet) 5 mg PO DAILY MARY Last Admin: 03/02/25 08:53 Dose: 5 mg Polyethylene Glycol (Polyethylene Glycol 3350 17 Gm Powd.Pack) 17 gm PO DAILY PRN PRN Reason: Constipation Prazosin HCl (Prazosin Hcl 1 Mg Capsule) 1 mg PO BEDTIME [facility]; Protocol Last Admin: 03/01/25 20:43 Dose: 1 mg Psyllium Hydrophilic Mucilloid (Psyllium Seed 3.7 Gm Packet) 3.7 gm PO DAILY [facility]ARY Last Admin: 03/02/25 08:58 Dose: Not Given Trazodone HCl (Trazodone Hcl 50 Mg Tablet) 50 mg PO BEDTIME MRX1 PRN PRN Reason: Insomnia Last Admin: 03/01/25 20:44 Dose: 50 mg Allergies Allergies Allergy/AdvReac Type Severity Reaction Status Date / Time No Known Allergies Allergy Verified 02/23/25 18:20 Assessment & Plan Assessment & Plan (1) Bipolar disorder: Status: Acute Code(s): F31.9 - Bipolar disorder, unspecified (2) Developmental delay, moderate: Status: Acute Code(s): R62.50 - Unspecified lack of expected normal physiological development in childhood (3) PTSD (post-traumatic stress disorder): Status: Acute Code(s): F43.10 - Post-traumatic stress disorder, unspecified (4) Autism spectrum disorder: Status: Acute Code(s): F84.0 - Autistic disorder (5) Excoriation (skin-picking) disorder: Status: Acute Code(s): F42.4 - Excoriation (skin-picking) disorder Plan Patient is a 25-year-old female with ASD, developmental delay, PTSD, carrying a diagnosis of bipolar depression, living in a half-way who presents for mood dysregulation with SI and HI in the face of half-way frustration. Patient emotionally reactive and easily agitated during discussion, though trying to keep herself in control and apologetic. Patient says that things were good... Peaceful at the half-way until her housemate and friend Chelsea moved out a couple of months ago. She says [place] really helped me out...I miss her. Patient quickly got upset, saying she wants to get out of the half-way and go back to shared living... And grew quite frustrated that designer writer could not immediately answer whether or not this was possible. She was able to calmed down some and say that she is very unhappy at the half-way, she feels that the staff were rude, not helpful, are punitive and says that they take her phone away as punishment; she also feels that other clients are rude and problematic though she would not give any examples. Throughout the interview patient would go back to again asking if she can move back to shared living struggling to accept that it will take time figure this out. Patient said she does not know the names of her medications and can not tell if they are working. Patient said that she did get suicidal and wanted to and did make a small laceration on her left forearm; now however she just wants to move out of the half-way into a different living situation. Patient had made some verbally aggressive comments towards peers which she said she meant at the time (unclear specifics and patient would not disclose). Patient agreed to medication changes at designer writer's discretion. Asked for her conservator/guardian to be called; asked for her fiance Shree to be called. Formulation/clinical reasoning: Seems that on current medication regimen, patient was stable until living situation dynamics changed with peer she felt close to moved out; it appears that since then patient has struggled with staff and peer relationships. Patient unable to share details but gives consent for team to gather collateral. At this time will continue current medication regimen as collaterals gathered; will get Depakote level. Patient carries bipolar diagnosis however she feels unable to discuss her psychiatric history and so it is not clear if she has actual discrete manic episodes. Hospital course: 02/26 Patient reports feeling a little depressed but feeling a little better than the other day. Says SI lingers but going away; HI also waning. Patient again asked about changing group homes and was calm and appreciative of teams help with this process. Patient in good behavioral and impulse control. -Depakote level WNL; will continue to observe patient and assess stability before making medication changes -social work able to talk with patient's guardian who has a plan to help her change group homes; when patient later this she was very pleased 02/27 getting very upset that she does not have clear answer about going to shared living... slams hand on table several times demanding answers, however, soon apologizes for outburst saying she's just upset and hates group homes. Agrees to increasing depakote and starting clonidine 02/28 in better behavioral control; tolerating increased Depakote dose; blood pressures WNL with added clonidine 03/01 pt got emotional learning she cannot dc straight to a shared living; she had a momentary outburst but quickly got herself back into control...apologized and said she is amenable to plan. considering med changes regarding following; will reach out to outpt provider -patient is on Clozaril and Depakote; wonder if she actually needs Zyprexa 5 mg daily dose which could perhaps be a p.r.n. instead -wonder how patient might benefit from Adderall or maybe guanfacine -also consider metformin given patient's obesity and on medications that can cause metabolic syndrome 03/02 Patient says that she is amenable with disposition plan. Talk through her feelings about it some of them tearful. Discussed medication regimen and she agrees to starting Intuniv to see if it can help with impulse control; also agreed to metformin to help with weight gain associated with medication regimen, reviewing risks/side effects. Talked about Zyprexa and she agrees she might not need it scheduled at daytime and can take a p.r.n.; agrees to lowering it to 2.5 mg to see how it goes. -Depakote level and associated labs WNL (recently changed dosing) Plan: CV Q 15 minute checks Started Intuniv 1 mg daily Lower daytime Zyprexa to 2.5 mg daily; would like to see if she can be okay without it and just use PRNs Started metformin ER 500 mg q.h.s. to help mitigate weight gain associated with medication regimen Changing bedtime depakote dose to ER and 1000mg qhs Continue clonidine 0.1mg bid 0900,1300 Continue current home medication regimen for now Gather collateral Patient educated on: diagnosis, medication risk/benefits and therapeutic strategies Informed Consent: understands Reason for continued inpatient stay Substantial Risk for: stable for discharge Time Spent With Patient Time: Total time managing care of this patient today ____ minutes.
[2025-03-02] MEDS: hydrOXYzine HCL 25 MG TABLET PO (10:00)
[2025-03-02] MEDS: guanFACINE HCl ER 1 MG TAB.ER.24H PO (10:00)
[2025-03-02 13:59] VITALS: BP 124/70
[2025-03-02] MEDS: metFORMIN HCl ER 500 MG TAB.ER.24H PO (17:41)
[2025-03-02 19:45] VITALS: BP 122/73; PULSE 88; TEMP 37.1; O2SAT 99
[2025-03-02] MEDS: Loratadine 10 MG TABLET PO (21:00)
[2025-03-02] MEDS: Prazosin HCL 1 MG CAPSULE PO (21:00)
[2025-03-02] MEDS: Desmopressin Acetate 0.2 MG TABLET 0.3 MG PO (21:00)
[2025-03-02] MEDS: cloZAPine 25 MG TABLET 50 MG PO (21:01)
[2025-03-02] MEDS: Divalproex Sodium ER 500 MG TAB.ER.24H 1000 MG PO (21:01)
[2025-03-03 07:45] VITALS: BP 128/63; RESP 89; TEMP 36.4; O2SAT 96
[2025-03-03] MEDS: Fluticasone Propionate Nasal 16 GM SPRAY 2 SPRAY NOSTRIL-B (08:35)
[2025-03-03 08:36] VITALS: BP 128/63
[2025-03-03] MEDS: clonazePAM 0.5 MG TABLET PO ×3 (08:36→20:26)
[2025-03-03] MEDS: Docusate Sodium 100 MG CAPSULE PO ×2 (08:36→20:28)
[2025-03-03] MEDS: cloZAPine 100 MG TABLET PO ×2 (08:36→20:26)
[2025-03-03] MEDS: cloNIDine HCL 0.1 MG TABLET PO ×2 (08:36→13:09)
[2025-03-03] MEDS: OLANZapine 2.5 MG TABLET PO (08:36)
[2025-03-03] MEDS: guanFACINE HCl ER 1 MG TAB.ER.24H PO (08:36)
[2025-03-03] MEDS: Divalproex Sodium 500 MG TABLET.DR PO ×2 (08:36→13:10)
--- NOTE | 2025-03-03 10:36 | HO.PSYCHPN ---
Subjective Subjective Date of Service: 03/03/25 Reason For Visit: Decompensated, HI Subjective Notes: Conditional Voluntary Healthcare Proxy: No Guardianship: Yes Medical Problems Affecting Mental Status: No Interim History: Patient says that she is amenable with disposition plan. Talk through her feelings about it some of them tearful. Fraustrated that she is not going to shared housing and also not being able to seen her boyfriend when she wants. Notes that her boyfriend will kill himself if they break up but she does not intend to end their relationship. She is taking her meds as prescribed and guess they are helpful. Reports anxiety and depression symtoms which are worsening. Denies SI/HI/AH/VH. Started Intuniv and meformin yesterday. Medication Compliance: Yes Side effects from medications: No Attending Groups: No Review of Systems Acute medical concerns: No Review of Systems Review of Systems Yes all other systems are reviewed and are negative Mental Status Exam Mental Status Exam Narrative: Appearance: Casually dressed, adequate hygiene, obese Behavior: Calm and cooperative throughout the interview. Eye contact is appropriate, and there are no signs of psychomotor agitation or retardation Speech: Normal volume and prosody Thought process Goal-directed but perseverative on living situation Thought content: On living situation and worried about having to go to a usp Mood: i'm miserable Affect:Flat, mood-congruent SI:denies HI:denies VH/AH:none Delusions: None Insight/judgment: Fair insight and judgment Memory/cog: Alert, oriented x 4. grossly intact to conversational testing Diagnostics Vital Signs (24Hr): Vital Signs - 24 hr 03/02/25 13:59 03/02/25 19:45 03/03/25 07:45 Temperature 98.7 F 97.5 F Pulse Rate 88 Respiratory Rate 89 H Blood Pressure 124/70 122/73 128/63 Pulse Oximetry 99 96 Oxygen Delivery Method Room Air Room Air 03/03/25 08:36 Temperature Pulse Rate Respiratory Rate Blood Pressure 128/63 Pulse Oximetry Oxygen Delivery Method BMI result Body Mass Index 51.2 Labs 02/23/25 18:55 02/25/25 08:00 Labs: Laboratory Results - last 48 hr 03/02/25 08:29 Absolute Neuts (auto) 4.6 Total Bilirubin 0.2 Direct Bilirubin < 0.2 AST 32 H ALT 29 Alkaline Phosphatase 69 Ammonia 25 Total Protein 8.0 Albumin 4.3 Valproic Acid 67.9 Medications Medications Current Medications Acetaminophen (Acetaminophen 325 Mg Tablet) 650 mg PO Q6H PRN PRN Reason: Headache/Pain, Scale 1-10 Last Admin: 02/27/25 20:59 Dose: 650 mg Al Hydroxide/Mg Hydroxide (Magnesium Hydrox/Alum Hydrox 30 Ml Oral.Susp) 30 ml PO Q6H PRN PRN Reason: Heartburn/Nausea Clonazepam (Clonazepam 0.5 Mg Tablet) 0.5 mg PO TID [facility] Last Admin: 03/03/25 08:36 Dose: 0.5 mg Clonidine HCl (Clonidine Hcl 0.1 Mg Tablet) 0.1 mg PO BID@0900,1300 [facility]; Protocol Last Admin: 03/03/25 08:36 Dose: 0.1 mg Clozapine (Clozapine 100 Mg Tablet) 100 mg PO BID [facility] Last Admin: 03/03/25 08:36 Dose: 100 mg Clozapine (Clozapine 25 Mg Tablet) 50 mg PO BEDTIME [facility] Last Admin: 03/02/25 21:01 Dose: 50 mg Desmopressin Acetate (Desmopressin Acetate 0.2 Mg Tablet) 0.3 mg PO BEDTIME [facility] Last Admin: 03/02/25 21:00 Dose: 0.3 mg Dicyclomine HCl (Dicyclomine Hcl 10 Mg Capsule) 10 mg PO TID PRN PRN Reason: Abdominal Discomfort Divalproex Sodium (Divalproex Sodium 500 Mg Tablet.Dr) 500 mg PO BID@0900,1300 [facility] Last Admin: 03/03/25 08:36 Dose: 500 mg Divalproex Sodium (Divalproex Sodium Er 500 Mg Tab.Er.24h) 1,000 mg PO BEDTIME [facility] Last Admin: 03/02/25 21:01 Dose: 1,000 mg Docusate Sodium (Docusate Sodium 100 Mg Capsule) 100 mg PO BID [facility] Last Admin: 03/03/25 08:36 Dose: 100 mg Ergocalciferol (Ergocalciferol (Vitamin D2) 1,250 Mcg Capsule) 1,250 mcg PO WE [facility] Last Admin: 02/24/25 20:34 Dose: 1,250 mcg Fluticasone Propionate (Fluticasone Propionate Nasal 16 Gm [place]) 2 spray NOSTRIL-B BID [facility] Last Admin: 03/03/25 08:35 Dose: 2 spray Guanfacine HCl (Guanfacine Hcl Er 1 Mg Tab.Er.24h) 1 mg PO DAILY [facility] Last Admin: 03/03/25 08:36 Dose: 1 mg Hydroxyzine HCl (Hydroxyzine Hcl 25 Mg Tablet) 25 mg PO Q6H PRN PRN Reason: mild anxiety Last Admin: 03/02/25 10:00 Dose: 25 mg Loratadine (Loratadine 10 Mg Tablet) 10 mg PO BEDTIME [facility] Last Admin: 03/02/25 21:00 Dose: 10 mg Magnesium Hydroxide (Milk Of Magnesia 30 Ml Oral.Susp) 30 ml PO DAILY PRN PRN Reason: Constipation Last Admin: 02/24/25 20:39 Dose: 30 ml Metformin HCl (Metformin Hcl Er 500 Mg Tab.Er.24h) 500 mg PO DAILY@1700 [facility] Last Admin: 03/02/25 17:41 Dose: 500 mg Nicotine (Nicotine 21 Mg Patch.Td24) 21 mg TRANSDERMA DAILY PRN PRN Reason: smoking cessation Nicotine Polacrilex (Nicotine Polacrilex 2 Mg Gum) 4 mg BUCCAL Q2H PRN PRN Reason: Nicotine Cravings Olanzapine (Olanzapine 5 Mg Tablet) 5 mg PO TID PRN PRN Reason: agitation Last Admin: 03/02/25 10:00 Dose: 5 mg Olanzapine (Olanzapine 2.5 Mg Tablet) 2.5 mg PO DAILY [facility] Last Admin: 03/03/25 08:36 Dose: 2.5 mg Polyethylene Glycol (Polyethylene Glycol 3350 17 Gm Powd.Pack) 17 gm PO DAILY PRN PRN Reason: Constipation Prazosin HCl (Prazosin Hcl 1 Mg Capsule) 1 mg PO BEDTIME [facility]; Protocol Last Admin: 03/02/25 21:00 Dose: 1 mg Psyllium Hydrophilic Mucilloid (Psyllium Seed 3.7 Gm Packet) 3.7 gm PO DAILY [facility] Last Admin: 03/03/25 08:40 Dose: Not Given Trazodone HCl (Trazodone Hcl 50 Mg Tablet) 50 mg PO BEDTIME MRX1 PRN PRN Reason: Insomnia Last Admin: 03/01/25 20:44 Dose: 50 mg Allergies Allergies Allergy/AdvReac Type Severity Reaction Status Date / Time No Known Allergies Allergy Verified 02/23/25 18:20 Assessment & Plan Assessment & Plan (1) Bipolar disorder: Status: Acute Code(s): F31.9 - Bipolar disorder, unspecified (2) Developmental delay, moderate: Status: Acute Code(s): R62.50 - Unspecified lack of expected normal physiological development in childhood (3) PTSD (post-traumatic stress disorder): Status: Acute Code(s): F43.10 - Post-traumatic stress disorder, unspecified (4) Autism spectrum disorder: Status: Acute Code(s): F84.0 - Autistic disorder (5) Excoriation (skin-picking) disorder: Status: Acute Code(s): F42.4 - Excoriation (skin-picking) disorder Plan Patient is a 25-year-old female with ASD, developmental delay, PTSD, carrying a diagnosis of bipolar depression, living in a [facility]p who presents for mood dysregulation with SI and HI in the face of usp frustration. Patient emotionally reactive and easily agitated during discussion, though trying to keep herself in control and apologetic. Patient says that things were good... Peaceful at the usp until her housemate and friend Chelsea moved out a couple of months ago. She says Chelsea really helped me out...I miss her. Patient quickly got upset, saying she wants to get out of the usp and go back to shared living... And grew quite frustrated that engineering writer could not immediately answer whether or not this was possible. She was able to calmed down some and say that she is very unhappy at the usp, she feels that the staff were rude, not helpful, are punitive and says that they take her phone away as punishment; she also feels that other clients are rude and problematic though she would not give any examples. Throughout the interview patient would go back to again asking if she can move back to shared living struggling to accept that it will take time figure this out. Patient said she does not know the names of her medications and can not tell if they are working. Patient said that she did get suicidal and wanted to and did make a small laceration on her left forearm; now however she just wants to move out of the usp into a different living situation. Patient had made some verbally aggressive comments towards peers which she said she meant at the time (unclear specifics and patient would not disclose). Patient agreed to medication changes at engineering writer's discretion. Asked for her conservator/guardian to be called; asked for her dell Swann to be called. Formulation/clinical reasoning: Seems that on current medication regimen, patient was stable until living situation dynamics changed with peer she felt close to moved out; it appears that since then patient has struggled with staff and peer relationships. Patient unable to share details but gives consent for team to gather collateral. At this time will continue current medication regimen as collaterals gathered; will get Depakote level. Patient carries bipolar diagnosis however she feels unable to discuss her psychiatric history and so it is not clear if she has actual discrete manic episodes. Hospital course: 02/26 Patient reports feeling a little depressed but feeling a little better than the other day. Says SI lingers but going away; HI also waning. Patient again asked about changing group homes and was calm and appreciative of teams help with this process. Patient in good behavioral and impulse control. -Depakote level WNL; will continue to observe patient and assess stability before making medication changes -social work able to talk with patient's guardian who has a plan to help her change group homes; when patient later this she was very pleased 02/27 getting very upset that she does not have clear answer about going to shared living... slams hand on table several times demanding answers, however, soon apologizes for outburst saying she's just upset and hates group homes. Agrees to increasing depakote and starting clonidine 02/28 in better behavioral control; tolerating increased Depakote dose; blood pressures WNL with added clonidine 03/01 pt got emotional learning she cannot dc straight to a shared living; she had a momentary outburst but quickly got herself back into control...apologized and said she is amenable to plan. considering med changes regarding following; will reach out to outpt provider -patient is on Clozaril and Depakote; wonder if she actually needs Zyprexa 5 mg daily dose which could perhaps be a p.r.n. instead -wonder how patient might benefit from Adderall or maybe guanfacine -also consider metformin given patient's obesity and on medications that can cause metabolic syndrome 03/02 Patient says that she is amenable with disposition plan. Talk through her feelings about it some of them tearful. Discussed medication regimen and she agrees to starting Intuniv to see if it can help with impulse control; also agreed to metformin to help with weight gain associated with medication regimen, reviewing risks/side effects. Talked about Zyprexa and she agrees she might not need it scheduled at daytime and can take a p.r.n.; agrees to lowering it to 2.5 mg to see how it goes. -Depakote level and associated labs WNL (recently changed dosing) 03/03: Patient says that she is amenable with disposition plan. Talk through her feelings about it some of them tearful. Fraustrated that she is not going to shared housing and also not being able to seen her boyfriend when she wants. Notes that her boyfriend will kill himself if they break up but she does not intend to end their relationship. She is taking her meds as prescribed and guess they are helpful. Reports anxiety and depression symtoms which are worsening. Denies SI/HI/AH/VH. Started Intuniv and metformin yesterday. Continue current tx regime. Plan: CV Q 15 minute checks Started Intuniv 1 mg daily Lower daytime Zyprexa to 2.5 mg daily; would like to see if she can be okay without it and just use PRNs Started metformin ER 500 mg q.h.s. to help mitigate weight gain associated with medication regimen Changing bedtime depakote dose to ER and 1000mg qhs Continue clonidine 0.1mg bid 0900,1300 Continue current home medication regimen for now Gather collateral Patient educated on: therapeutic strategies Reason for continued inpatient stay Substantial Risk for: rapid decompensation Time Spent With Patient Time: Total time managing care of this patient today ____ minutes.
[2025-03-03 13:09] VITALS: BP 128/82
[2025-03-03] MEDS: metFORMIN HCl ER 500 MG TAB.ER.24H PO (17:29)
[2025-03-03 20:00] VITALS: BP 130/82; PULSE 92; RESP 16; TEMP 36.9; O2SAT 97
[2025-03-03] MEDS: cloZAPine 25 MG TABLET 50 MG PO (20:25)
[2025-03-03] MEDS: Divalproex Sodium ER 500 MG TAB.ER.24H 1000 MG PO (20:26)
[2025-03-03] MEDS: Loratadine 10 MG TABLET PO (20:26)
[2025-03-03] MEDS: Desmopressin Acetate 0.2 MG TABLET 0.3 MG PO (20:27)
[2025-03-03] MEDS: Prazosin HCL 1 MG CAPSULE PO (20:28)
[2025-03-03] MEDS: Ergocalciferol (Vitamin D2) 1,250 MCG CAPSULE 1250 MCG PO (20:39)
[2025-03-04 07:00] VITALS: BMI 51.8
[2025-03-04 08:00] VITALS: BP 127/67; PULSE 90; RESP 16; TEMP 36.7; O2SAT 96
[2025-03-04] MEDS: cloZAPine 100 MG TABLET PO ×2 (08:26→20:47)
[2025-03-04] MEDS: cloNIDine HCL 0.1 MG TABLET PO ×2 (08:26→14:24)
[2025-03-04] MEDS: Docusate Sodium 100 MG CAPSULE PO ×2 (08:26→20:48)
[2025-03-04] MEDS: guanFACINE HCl ER 1 MG TAB.ER.24H PO (08:26)
[2025-03-04] MEDS: Divalproex Sodium 500 MG TABLET.DR PO ×2 (08:26→14:24)
[2025-03-04] MEDS: clonazePAM 0.5 MG TABLET PO ×3 (08:26→20:47)
[2025-03-04 08:31] LABS: Creatinine Clr Calc Pharmacy 195.5; Estimated Glomerular Filt Rate > 60
[2025-03-04] MEDS: OLANZapine 2.5 MG TABLET PO (08:56)
--- NOTE | 2025-03-04 12:36 | HO.PSYCHPN ---
Subjective Subjective Date of Service: 03/04/25 Reason For Visit: Decompensated, HI Subjective Notes: Conditional Voluntary Healthcare Proxy: No Guardianship: Yes Medical Problems Affecting Mental Status: No Interim History: Patient feels better today. She admits to taking her medications as prescribed which she believes are helpful. She has not been attending groups because groups don't help. Still concerned about her housing situation. She currently denies anxiety or depression. She denies SI/HI/AH/VH at this time. Medication Compliance: Yes Side effects from medications: No Attending Groups: No Review of Systems Acute medical concerns: No Mental Status Exam Mental Status Exam Narrative: Appearance: Casually dressed, adequate hygiene, obese Behavior: Calm and cooperative throughout the interview. Eye contact is appropriate, and there are no signs of psychomotor agitation or retardation Speech: Normal volume and prosody Thought process Goal-directed but perseverative on living situation Thought content: On living situation and worried about having to go to a care home Mood: good Affect: Blunted, mood-congruent SI:denies HI:denies VH/AH:none Delusions: None Insight/judgment: Fair insight and judgment Memory/cog: Alert, oriented x 4. grossly intact to conversational testing Diagnostics Vital Signs (24Hr): Vital Signs - 24 hr 03/03/25 13:09 03/03/25 20:00 03/04/25 08:00 Temperature 98.5 F 98.1 F Pulse Rate 92 90 Respiratory Rate 16 16 Blood Pressure 128/82 130/82 127/67 Pulse Oximetry 97 96 Oxygen Delivery Method Room Air BMI result Body Mass Index 51.2 Labs 02/23/25 18:55 03/04/25 08:02 Labs: Laboratory Results - last 48 hr 03/04/25 08:02 Creatinine 0.62 Estim Creat Clear Calc 195.5 Estimated GFR > 60 Medications Medications Current Medications Acetaminophen (Acetaminophen 325 Mg Tablet) 650 mg PO Q6H PRN PRN Reason: Headache/Pain, Scale 1-10 Last Admin: 02/27/25 20:59 Dose: 650 mg Al Hydroxide/Mg Hydroxide (Magnesium Hydrox/Alum Hydrox 30 Ml Oral.Susp) 30 ml PO Q6H PRN PRN Reason: Heartburn/Nausea Clonazepam (Clonazepam 0.5 Mg Tablet) 0.5 mg PO TID MARY Last Admin: 03/04/25 08:26 Dose: 0.5 mg Clonidine HCl (Clonidine Hcl 0.1 Mg Tablet) 0.1 mg PO BID@0900,1300 [facility]; Protocol Last Admin: 03/04/25 08:26 Dose: 0.1 mg Clozapine (Clozapine 100 Mg Tablet) 100 mg PO BID [facility] Last Admin: 03/04/25 08:26 Dose: 100 mg Clozapine (Clozapine 25 Mg Tablet) 50 mg PO BEDTIME [facility] Last Admin: 03/03/25 20:25 Dose: 50 mg Desmopressin Acetate (Desmopressin Acetate 0.2 Mg Tablet) 0.3 mg PO BEDTIME [facility] Last Admin: 03/03/25 20:27 Dose: 0.3 mg Dicyclomine HCl (Dicyclomine Hcl 10 Mg Capsule) 10 mg PO TID PRN PRN Reason: Abdominal Discomfort Divalproex Sodium (Divalproex Sodium 500 Mg Tablet.Dr) 500 mg PO BID@0900,1300 [facility] Last Admin: 03/04/25 08:26 Dose: 500 mg Divalproex Sodium (Divalproex Sodium Er 500 Mg Tab.Er.24h) 1,000 mg PO BEDTIME [facility] Last Admin: 03/03/25 20:26 Dose: 1,000 mg Docusate Sodium (Docusate Sodium 100 Mg Capsule) 100 mg PO BID [facility] Last Admin: 03/04/25 08:26 Dose: 100 mg Ergocalciferol (Ergocalciferol (Vitamin D2) 1,250 Mcg Capsule) 1,250 mcg PO WE [facility] Last Admin: 03/03/25 20:39 Dose: 1,250 mcg Fluticasone Propionate (Fluticasone Propionate Nasal 16 Gm [place]) 2 spray NOSTRIL-B BID [facility] Last Admin: 03/04/25 08:54 Dose: Not Given Guanfacine HCl (Guanfacine Hcl Er 1 Mg Tab.Er.24h) 1 mg PO DAILY [facility] Last Admin: 03/04/25 08:26 Dose: 1 mg Hydroxyzine HCl (Hydroxyzine Hcl 25 Mg Tablet) 25 mg PO Q6H PRN PRN Reason: mild anxiety Last Admin: 03/02/25 10:00 Dose: 25 mg Loratadine (Loratadine 10 Mg Tablet) 10 mg PO BEDTIME [facility] Last Admin: 03/03/25 20:26 Dose: 10 mg Magnesium Hydroxide (Milk Of Magnesia 30 Ml Oral.Susp) 30 ml PO DAILY PRN PRN Reason: Constipation Last Admin: 02/24/25 20:39 Dose: 30 ml Metformin HCl (Metformin Hcl Er 500 Mg Tab.Er.24h) 500 mg PO DAILY@1700 [facility] Last Admin: 03/03/25 17:29 Dose: 500 mg Nicotine (Nicotine 21 Mg Patch.Td24) 21 mg TRANSDERMA DAILY PRN PRN Reason: smoking cessation Nicotine Polacrilex (Nicotine Polacrilex 2 Mg Gum) 4 mg BUCCAL Q2H PRN PRN Reason: Nicotine Cravings Olanzapine (Olanzapine 5 Mg Tablet) 5 mg PO TID PRN PRN Reason: agitation Last Admin: 03/02/25 10:00 Dose: 5 mg Olanzapine (Olanzapine 2.5 Mg Tablet) 2.5 mg PO DAILY [facility]ARY Last Admin: 03/04/25 08:56 Dose: 2.5 mg Polyethylene Glycol (Polyethylene Glycol 3350 17 Gm Powd.Pack) 17 gm PO DAILY PRN PRN Reason: Constipation Prazosin HCl (Prazosin Hcl 1 Mg Capsule) 1 mg PO BEDTIME [facility]; Protocol Last Admin: 03/03/25 20:28 Dose: 1 mg Psyllium Hydrophilic Mucilloid (Psyllium Seed 3.7 Gm Packet) 3.7 gm PO DAILY [facility] Last Admin: 03/04/25 08:56 Dose: Not Given Trazodone HCl (Trazodone Hcl 50 Mg Tablet) 50 mg PO BEDTIME MRX1 PRN PRN Reason: Insomnia Last Admin: 03/01/25 20:44 Dose: 50 mg Allergies Allergies Allergy/AdvReac Type Severity Reaction Status Date / Time No Known Allergies Allergy Verified 02/23/25 18:20 Assessment & Plan Assessment & Plan (1) Bipolar disorder: Status: Acute Code(s): F31.9 - Bipolar disorder, unspecified (2) Developmental delay, moderate: Status: Acute Code(s): R62.50 - Unspecified lack of expected normal physiological development in childhood (3) PTSD (post-traumatic stress disorder): Status: Acute Code(s): F43.10 - Post-traumatic stress disorder, unspecified (4) Autism spectrum disorder: Status: Acute Code(s): F84.0 - Autistic disorder (5) Excoriation (skin-picking) disorder: Status: Acute Code(s): F42.4 - Excoriation (skin-picking) disorder Plan Patient is a 25-year-old female with ASD, developmental delay, PTSD, carrying a diagnosis of bipolar depression, living in a care home who presents for mood dysregulation with SI and HI in the face of care home frustration. Patient emotionally reactive and easily agitated during discussion, though trying to keep herself in control and apologetic. Patient says that things were good... Peaceful at the care home until her housemate and friend Chelsea moved out a couple of months ago. She says Chelsea really helped me out...I miss her. Patient quickly got upset, saying she wants to get out of the care home and go back to shared living... And grew quite frustrated that technical document writer could not immediately answer whether or not this was possible. She was able to calmed down some and say that she is very unhappy at the care home, she feels that the staff were rude, not helpful, are punitive and says that they take her phone away as punishment; she also feels that other clients are rude and problematic though she would not give any examples. Throughout the interview patient would go back to again asking if she can move back to shared living struggling to accept that it will take time figure this out. Patient said she does not know the names of her medications and can not tell if they are working. Patient said that she did get suicidal and wanted to and did make a small laceration on her left forearm; now however she just wants to move out of the care home into a different living situation. Patient had made some verbally aggressive comments towards peers which she said she meant at the time (unclear specifics and patient would not disclose). Patient agreed to medication changes at technical document writer's discretion. Asked for her conservator/guardian to be called; asked for her fialejandro Swann to be called. Formulation/clinical reasoning: Seems that on current medication regimen, patient was stable until living situation dynamics changed with peer she felt close to moved out; it appears that since then patient has struggled with staff and peer relationships. Patient unable to share details but gives consent for team to gather collateral. At this time will continue current medication regimen as collaterals gathered; will get Depakote level. Patient carries bipolar diagnosis however she feels unable to discuss her psychiatric history and so it is not clear if she has actual discrete manic episodes. Hospital course: 6/13 Patient reports feeling a little depressed but feeling a little better than the other day. Says SI lingers but going away; HI also waning. Patient again asked about changing group homes and was calm and appreciative of teams help with this process. Patient in good behavioral and impulse control. -Depakote level WNL; will continue to observe patient and assess stability before making medication changes -social work able to talk with patient's guardian who has a plan to help her change group homes; when patient later this she was very pleased 02/27 getting very upset that she does not have clear answer about going to shared living... slams hand on table several times demanding answers, however, soon apologizes for outburst saying she's just upset and hates group homes. Agrees to increasing depakote and starting clonidine 02/28 in better behavioral control; tolerating increased Depakote dose; blood pressures WNL with added clonidine 03/01 pt got emotional learning she cannot dc straight to a shared living; she had a momentary outburst but quickly got herself back into control...apologized and said she is amenable to plan. considering med changes regarding following; will reach out to outpt provider -patient is on Clozaril and Depakote; wonder if she actually needs Zyprexa 5 mg daily dose which could perhaps be a p.r.n. instead -wonder how patient might benefit from Adderall or maybe guanfacine -also consider metformin given patient's obesity and on medications that can cause metabolic syndrome 03/02 Patient says that she is amenable with disposition plan. Talk through her feelings about it some of them tearful. Discussed medication regimen and she agrees to starting Intuniv to see if it can help with impulse control; also agreed to metformin to help with weight gain associated with medication regimen, reviewing risks/side effects. Talked about Zyprexa and she agrees she might not need it scheduled at daytime and can take a p.r.n.; agrees to lowering it to 2.5 mg to see how it goes. -Depakote level and associated labs WNL (recently changed dosing) 03/03: Patient says that she is amenable with disposition plan. Talk through her feelings about it some of them tearful. Fraustrated that she is not going to shared housing and also not being able to seen her boyfriend when she wants. Notes that her boyfriend will kill himself if they break up but she does not intend to end their relationship. She is taking her meds as prescribed and guess they are helpful. Reports anxiety and depression symtoms which are worsening. Denies SI/HI/AH/VH. Started Intuniv and metformin yesterday. Continue current tx regime. 03/04: Patient feels better today. She admits to taking her medications as prescribed which she believes are helpful. She has not been attending groups because groups don't help. Still concerned about her housing situation. She currently denies anxiety or depression. She denies SI/HI/AH/VH at this time. Plan: CV Q 15 minute checks Started Intuniv 1 mg daily Lower daytime Zyprexa to 2.5 mg daily; would like to see if she can be okay without it and just use PRNs Started metformin ER 500 mg q.h.s. to help mitigate weight gain associated with medication regimen Changing bedtime depakote dose to ER and 1000mg qhs Continue clonidine 0.1mg bid 0900,1300 Continue current home medication regimen for now Gather collateral Patient educated on: therapeutic strategies Reason for continued inpatient stay Substantial Risk for: rapid decompensation Time Spent With Patient Time: Total time managing care of this patient today ____ minutes.
[2025-03-04 14:24] VITALS: BP 132/80
[2025-03-04] MEDS: metFORMIN HCl ER 500 MG TAB.ER.24H PO (17:09)
--- NOTE | 2025-03-04 19:32 | PC.NURSE ---
Ana Lilia was complaining of having trouble catching breath She is pink, breathing in visibly unlabored, vitals are HR 104 Sat 97%. She denies any anxiety or pain. Adriana Tinoco RADIOLOGY ADMINISTRATOR paged and updated. No orders taken.
[2025-03-04 20:00] VITALS: BP 123/70; PULSE 92; RESP 16; TEMP 36.4; O2SAT 98
[2025-03-04] MEDS: cloZAPine 25 MG TABLET 50 MG PO (20:45)
[2025-03-04] MEDS: Desmopressin Acetate 0.2 MG TABLET 0.3 MG PO (20:46)
[2025-03-04] MEDS: Loratadine 10 MG TABLET PO (20:47)
[2025-03-04] MEDS: Divalproex Sodium ER 500 MG TAB.ER.24H 1000 MG PO (20:47)
[2025-03-04] MEDS: Prazosin HCL 1 MG CAPSULE PO (20:48)
[2025-03-05 07:52] VITALS: BP 134/85; PULSE 86; RESP 16; TEMP 36.2; O2SAT 96
[2025-03-05] MEDS: Docusate Sodium 100 MG CAPSULE PO ×2 (08:27→20:19)
[2025-03-05] MEDS: cloNIDine HCL 0.1 MG TABLET PO ×2 (08:27→12:27)
[2025-03-05] MEDS: Divalproex Sodium 500 MG TABLET.DR PO ×2 (08:27→12:27)
[2025-03-05] MEDS: cloZAPine 100 MG TABLET PO ×2 (08:28→20:19)
[2025-03-05] MEDS: OLANZapine 2.5 MG TABLET PO (08:28)
[2025-03-05] MEDS: guanFACINE HCl ER 1 MG TAB.ER.24H PO (08:28)
[2025-03-05] MEDS: clonazePAM 0.5 MG TABLET PO ×3 (08:28→20:19)
[2025-03-05] MEDS: Fluticasone Propionate Nasal 16 GM SPRAY 2 SPRAY NOSTRIL-B ×2 (08:30→20:21)
[2025-03-05 12:27] VITALS: BP 137/85
--- NOTE | 2025-03-05 17:18 | P.PNPSI_ITS ---
Subjective Subjective Date of Service: 03/05/25 Reason For Visit: Decompensated, HI Subjective Notes: Conditional Voluntary Guardianship: Yes Medical Problems Affecting Mental Status: No Interim History: Medical record and nursing notes reviewed; case discussed during rounds with team, and met with patient for supportive therapy/psychoeducation, as well as medication management. Inherited patient today, attempted to meet with patient right at lunchtime. She is pleasant enough to go with me to the group room to talk. However not able to sit still, she walked into the room and walking around out to the regan why we are talking. Denies any safety concerns. Appear to be irritable anxious. She does not want to be back to the [facility].She does not do not disclose further details and walk away from this proivder.. She wants to go to [facility] with the PIGMENT WEIGHER. . Her goal for today is working on to be positive. She has been refused the nasal spray. Staff also reports she has has been alleviate more agitated or irritable lately. Medication Compliance: Intermittent Side effects from medications: No Attending Groups: Intermittent Review of Systems Acute medical concerns: No Medical Review of Systems: unchanged Review of Systems Review of Systems Constitutional: Denies fatigue and Denies fever(s) Cardiovascular: Denies chest pain and Denies dyspnea Respiratory: Denies dyspnea Gastrointestinal: Denies abdominal pain Psychiatric: denies suicidal ideation Endocrine: Denies fatigue Yes all other systems are reviewed and are negative Mental Status Exam Mental Status Exam Narrative: Appearance: Casually dressed, adequate hygiene, obese Behavior: irrible but mostly cooperative throughout the interview. Eye contact is appropriate, and there are no signs of psychomotor agitation or retardation Speech: Normal volume and prosody Thought process Goal-directed but perseverative on living situation Thought content: On living situation and worried about having to go to a [facility] Mood: good Affect: Blunted, mood-congruent SI:denies HI:denies VH/AH:none Delusions: None Insight/judgment: Fair insight and judgment Memory/cog: Alert, oriented x 4. grossly intact to conversational testing Diagnostics Vital Signs (24Hr): Vital Signs - 24 hr 03/04/25 20:00 03/05/25 07:52 03/05/25 12:27 Temperature 97.5 F 97.2 F Pulse Rate 92 86 Respiratory Rate 16 16 Blood Pressure 123/70 134/85 137/85 Pulse Oximetry 98 96 Oxygen Delivery Method Room Air BMI result Body Mass Index 51.8 Labs 02/23/25 18:55 03/04/25 08:02 Labs: Laboratory Results - last 48 hr 03/04/25 08:02 Creatinine 0.62 Estim Creat Clear Calc 195.5 Estimated GFR > 60 Medications Medications Current Medications Acetaminophen (Acetaminophen 325 Mg Tablet) 650 mg PO Q6H PRN PRN Reason: Headache/Pain, Scale 1-10 Last Admin: 02/27/25 20:59 Dose: 650 mg Al Hydroxide/Mg Hydroxide (Magnesium Hydrox/Alum Hydrox 30 Ml Oral.Susp) 30 ml PO Q6H PRN PRN Reason: Heartburn/Nausea Clonazepam (Clonazepam 0.5 Mg Tablet) 0.5 mg PO TID REPLACED BY [facility] Last Admin: 03/05/25 14:41 Dose: 0.5 mg Clonidine HCl (Clonidine Hcl 0.1 Mg Tablet) 0.1 mg PO BID@0900,1300 REPLACED BY [facility]; Protocol Last Admin: 03/05/25 12:27 Dose: 0.1 mg Clozapine (Clozapine 100 Mg Tablet) 100 mg PO BID REPLACED BY [facility] Last Admin: 03/05/25 08:28 Dose: 100 mg Clozapine (Clozapine 25 Mg Tablet) 50 mg PO BEDTIME REPLACED BY [facility] Last Admin: 03/04/25 20:45 Dose: 50 mg Desmopressin Acetate (Desmopressin Acetate 0.2 Mg Tablet) 0.3 mg PO BEDTIME REPLACED BY [facility] Last Admin: 03/04/25 20:46 Dose: 0.3 mg Dicyclomine HCl (Dicyclomine Hcl 10 Mg Capsule) 10 mg PO TID PRN PRN Reason: Abdominal Discomfort Divalproex Sodium (Divalproex Sodium 500 Mg Tablet.Dr) 500 mg PO BID@0900,1300 REPLACED BY [facility] Last Admin: 03/05/25 12:27 Dose: 500 mg Divalproex Sodium (Divalproex Sodium Er 500 Mg Tab.Er.24h) 1,000 mg PO BEDTIME REPLACED BY [facility] Last Admin: 03/04/25 20:47 Dose: 1,000 mg Docusate Sodium (Docusate Sodium 100 Mg Capsule) 100 mg PO BID REPLACED BY [facility] Last Admin: 03/05/25 08:27 Dose: 100 mg Ergocalciferol (Ergocalciferol (Vitamin D2) 1,250 Mcg Capsule) 1,250 mcg PO WE REPLACED BY [facility] Last Admin: 03/03/25 20:39 Dose: 1,250 mcg Fluticasone Propionate (Fluticasone Propionate Nasal 16 Gm [place]) 2 spray NOSTRIL-B BID REPLACED BY [facility] Last Admin: 03/05/25 08:30 Dose: 2 spray Guanfacine HCl (Guanfacine Hcl Er 1 Mg Tab.Er.24h) 1 mg PO DAILY REPLACED BY [facility] Last Admin: 03/05/25 08:28 Dose: 1 mg Hydroxyzine HCl (Hydroxyzine Hcl 25 Mg Tablet) 25 mg PO Q6H PRN PRN Reason: mild anxiety Last Admin: 03/02/25 10:00 Dose: 25 mg Loratadine (Loratadine 10 Mg Tablet) 10 mg PO BEDTIME REPLACED BY [facility] Last Admin: 03/04/25 20:47 Dose: 10 mg Magnesium Hydroxide (Milk Of Magnesia 30 Ml Oral.Susp) 30 ml PO DAILY PRN PRN Reason: Constipation Last Admin: 02/24/25 20:39 Dose: 30 ml Metformin HCl (Metformin Hcl Er 500 Mg Tab.Er.24h) 500 mg PO DAILY@1700 REPLACED BY [facility] Last Admin: 03/04/25 17:09 Dose: 500 mg Nicotine (Nicotine 21 Mg Patch.Td24) 21 mg TRANSDERMA DAILY PRN PRN Reason: smoking cessation Nicotine Polacrilex (Nicotine Polacrilex 2 Mg Gum) 4 mg BUCCAL Q2H PRN PRN Reason: Nicotine Cravings Olanzapine (Olanzapine 5 Mg Tablet) 5 mg PO TID PRN PRN Reason: agitation Last Admin: 03/02/25 10:00 Dose: 5 mg Olanzapine (Olanzapine 2.5 Mg Tablet) 2.5 mg PO DAILY REPLACED BY [facility] Last Admin: 03/05/25 08:28 Dose: 2.5 mg Polyethylene Glycol (Polyethylene Glycol 3350 17 Gm Powd.Pack) 17 gm PO DAILY PRN PRN Reason: Constipation Prazosin HCl (Prazosin Hcl 1 Mg Capsule) 1 mg PO BEDTIME REPLACED BY [facility]; Protocol Last Admin: 03/04/25 20:48 Dose: 1 mg Psyllium Hydrophilic Mucilloid (Psyllium Seed 3.7 Gm Packet) 3.7 gm PO DAILY REPLACED BY [facility] Last Admin: 03/05/25 09:03 Dose: Not Given Trazodone HCl (Trazodone Hcl 50 Mg Tablet) 50 mg PO BEDTIME MRX1 PRN PRN Reason: Insomnia Last Admin: 06/16/25 20:44 Dose: 50 mg Allergies Allergies Allergy/AdvReac Type Severity Reaction Status Date / Time No Known Allergies Allergy Verified 02/23/25 18:20 Assessment & Plan Assessment & Plan (1) Bipolar disorder: Status: Acute Code(s): F31.9 - Bipolar disorder, unspecified (2) Developmental delay, moderate: Status: Acute Code(s): R62.50 - Unspecified lack of expected normal physiological development in childhood (3) PTSD (post-traumatic stress disorder): Status: Acute Code(s): F43.10 - Post-traumatic stress disorder, unspecified (4) Autism spectrum disorder: Status: Acute Code(s): F84.0 - Autistic disorder (5) Excoriation (skin-picking) disorder: Status: Acute Code(s): F42.4 - Excoriation (skin-picking) disorder Plan Patient is a 25-year-old female with ASD, developmental delay, PTSD, carrying a diagnosis of bipolar depression, living in a [facility] who presents for mood dysregulation with SI and HI in the face of [facility] frustration. Patient emotionally reactive and easily agitated during discussion, though trying to keep herself in control and apologetic. Patient says that things were good... Peaceful at the [facility] until her housemate and friend Chelsea moved out a couple of months ago. She says Chelsea really helped me out...I miss her. Patient quickly got upset, saying she wants to get out of the [facility] and go back to shared living... And grew quite frustrated that machine sign writer could not immediately answer whether or not this was possible. She was able to calmed down some and say that she is very unhappy at the [facility], she feels that the staff were rude, not helpful, are punitive and says that they take her phone away as punishment; she also feels that other clients are rude and problematic though she would not give any examples. Throughout the interview patient would go back to again asking if she can move back to shared living struggling to accept that it will take time figure this out. Patient said she does not know the names of her medications and can not tell if they are working. Patient said that she did get suicidal and wanted to and did make a small laceration on her left forearm; now however she just wants to move out of the [facility] into a different living situation. Patient had made some verbally aggressive comments towards peers which she said she meant at the time (unclear specifics and patient would not disclose). Patient agreed to medication changes at machine sign writer's discretion. Asked for her conservator/guardian to be called; asked for her [employer] to be called. Formulation/clinical reasoning: Seems that on current medication regimen, patient was stable until living situation dynamics changed with peer she felt close to moved out; it appears that since then patient has struggled with staff and peer relationships. Patient unable to share details but gives consent for team to gather collateral. At this time will continue current medication regimen as collaterals gathered; will get Depakote level. Patient carries bipolar diagnosis however she feels unable to discuss her psychiatric history and so it is not clear if she has actual discrete manic episodes. Hospital course: 02/26 Patient reports feeling a little depressed but feeling a little better than the other day. Says SI lingers but going away; HI also waning. Patient again asked about changing group homes and was calm and appreciative of teams help with this process. Patient in good behavioral and impulse control. -Depakote level WNL; will continue to observe patient and assess stability before making medication changes -social work able to talk with patient's guardian who has a plan to help her change group homes; when patient later this she was very pleased 02/27 getting very upset that she does not have clear answer about going to shared living... slams hand on table several times demanding answers, however, soon apologizes for outburst saying she's just upset and hates group homes. Agrees to increasing depakote and starting clonidine 02/28 in better behavioral control; tolerating increased Depakote dose; blood pressures WNL with added clonidine 03/01 pt got emotional learning she cannot dc straight to a shared living; she had a momentary outburst but quickly got herself back into control...apologized and said she is amenable to plan. considering med changes regarding following; will reach out to outpt provider -patient is on Clozaril and Depakote; wonder if she actually needs Zyprexa 5 mg daily dose which could perhaps be a p.r.n. instead -wonder how patient might benefit from Adderall or maybe guanfacine -also consider metformin given patient's obesity and on medications that can cause metabolic syndrome 03/02 Patient says that she is amenable with disposition plan. Talk through her feelings about it some of them tearful. Discussed medication regimen and she agrees to starting Intuniv to see if it can help with impulse control; also agreed to metformin to help with weight gain associated with medication regimen, reviewing risks/side effects. Talked about Zyprexa and she agrees she might not need it scheduled at daytime and can take a p.r.n.; agrees to lowering it to 2.5 mg to see how it goes. -Depakote level and associated labs WNL (recently changed dosing) 03/03: Patient says that she is amenable with disposition plan. Talk through her feelings about it some of them tearful. Fraustrated that she is not going to shared housing and also not being able to seen her boyfriend when she wants. Notes that her boyfriend will kill himself if they break up but she does not intend to end their relationship. She is taking her meds as prescribed and guess they are helpful. Reports anxiety and depression symtoms which are worsening. Denies SI/HI/AH/VH. Started Intuniv and metformin yesterday. Continue current tx regime. 03/04: Patient feels better today. She admits to taking her medications as prescribed which she believes are helpful. She has not been attending groups because groups don't help. Still concerned about her housing situation. She currently denies anxiety or depression. She denies SI/HI/AH/VH at this time. 03/05/25: She appropriately frustrated with different providers seeing her in the past couple of days. She appeared to be more as irritable, restless, but mostly cooperative. Goal-directed that we will work on be positive even though she does not want to go back to the [facility]. Deny any safety concerns. Continue with current medications. Monitor for ANC as she is on Clozaril. Monitor for signs and symptoms of hypo or hyperglycemic due to newly prescribed on metformin for weight control Plan: CV Q 15 minute checks Started Intuniv 1 mg daily Lower daytime Zyprexa to 2.5 mg daily; would like to see if she can be okay without it and just use PRNs Started metformin ER 500 mg q.h.s. to help mitigate weight gain associated with medication regimen Changing bedtime depakote dose to ER and 1000mg qhs. Current dose is 1500 a day. VPA level was 67.9 on 03/02. Continue clonidine 0.1mg bid 0900,1300 Continue current home medication regimen for now Gather collateral Patient educated on: therapeutic strategies Informed Consent: further education needed Reason for continued inpatient stay Substantial Risk for: med/psych decompensation Time Spent With Patient Time: Total time managing care of this patient today ____ minutes.
[2025-03-05] MEDS: metFORMIN HCl ER 500 MG TAB.ER.24H PO (17:59)
[2025-03-05 20:00] VITALS: BP 133/91; PULSE 111; TEMP 36.3; O2SAT 97
[2025-03-05] MEDS: cloZAPine 25 MG TABLET 50 MG PO (20:18)
[2025-03-05 20:19] VITALS: BP 131/91
[2025-03-05] MEDS: Prazosin HCL 1 MG CAPSULE PO (20:19)
[2025-03-05] MEDS: Divalproex Sodium ER 500 MG TAB.ER.24H 1000 MG PO (20:19)
[2025-03-05] MEDS: Loratadine 10 MG TABLET PO (20:19)
[2025-03-05] MEDS: Desmopressin Acetate 0.2 MG TABLET 0.3 MG PO (20:19)
--- NOTE | 2025-03-06 05:49 | P.PNPSI_ITS ---
Subjective Subjective Date of Service: 03/06/25 Reason For Visit: Decompensated, HI Subjective Notes: Conditional Voluntary Interim History: Pt seen,discussed with team Very anxious, upset about not knowing about her next placement with irritability and agitation. Very concerned about being homeless. Reviewed what we know of her plan which seemed to help Team working on CCS along with guardian Pt uncomfortable with the unknown which we discussed. Medication Compliance: Yes Side effects from medications: No Attending Groups: Intermittent Review of Systems Acute medical concerns: No Review of Systems Review of Systems Yes all other systems are reviewed and are negative Mental Status Exam Mental Status Exam Patient Appearance: Appropriate Patient Orientation: Person, Place, Time and Situation Level of Consciousness: Alert Patient Behavior: Talkative, Suspicious, Anxious, Fearful and Good Eye Contact Mood Description: Anxious and Labile Affect Description: Anxious and Labile Patient Cognition Impaired: No Ability to Follow Directions: Good Speech Pattern: Spontaneous Speech Memory Description: Episodic Impaired Hallucinations: None Delusions: Not Present Perceptual Disturbances: Depersonalization and Derealization Thought Process: Rumination Thought Content: positive for Circumstantial and positive for Perseveration Depressive Symptoms: Increased Anxiety and Increased Irritability Judgement: Good Diagnostics Vital Signs (24Hr): Vital Signs - 24 hr 03/05/25 07:52 03/05/25 12:27 03/05/25 20:00 Temperature 97.2 F 97.4 F Pulse Rate 86 111 H Respiratory Rate 16 Blood Pressure 134/85 137/85 133/91 H Pulse Oximetry 96 97 Oxygen Delivery Method Room Air 03/05/25 20:19 Temperature Pulse Rate Respiratory Rate Blood Pressure 131/91 H Pulse Oximetry Oxygen Delivery Method BMI result Body Mass Index 51.8 Labs 02/23/25 18:55 03/04/25 08:02 Labs: Laboratory Results - last 48 hr 03/04/25 08:02 Creatinine 0.62 Estim Creat Clear Calc 195.5 Estimated GFR > 60 Medications Medications Current Medications Acetaminophen (Acetaminophen 325 Mg Tablet) 650 mg PO Q6H PRN PRN Reason: Headache/Pain, Scale 1-10 Last Admin: 02/27/25 20:59 Dose: 650 mg Al Hydroxide/Mg Hydroxide (Magnesium Hydrox/Alum Hydrox 30 Ml Oral.Susp) 30 ml PO Q6H PRN PRN Reason: Heartburn/Nausea Clonazepam (Clonazepam 0.5 Mg Tablet) 0.5 mg PO TID MARY Last Admin: 03/05/25 20:19 Dose: 0.5 mg Clonidine HCl (Clonidine Hcl 0.1 Mg Tablet) 0.1 mg PO BID@0900,1300 COUNTS INCLUDE 234 BEDS AT THE [facility]; Protocol Last Admin: 03/05/25 12:27 Dose: 0.1 mg Clozapine (Clozapine 100 Mg Tablet) 100 mg PO BID COUNTS INCLUDE 234 BEDS AT THE [facility] Last Admin: 03/05/25 20:19 Dose: 100 mg Clozapine (Clozapine 25 Mg Tablet) 50 mg PO BEDTIME COUNTS INCLUDE 234 BEDS AT THE [facility] Last Admin: 03/05/25 20:18 Dose: 50 mg Desmopressin Acetate (Desmopressin Acetate 0.2 Mg Tablet) 0.3 mg PO BEDTIME COUNTS INCLUDE 234 BEDS AT THE [facility] Last Admin: 03/05/25 20:19 Dose: 0.3 mg Dicyclomine HCl (Dicyclomine Hcl 10 Mg Capsule) 10 mg PO TID PRN PRN Reason: Abdominal Discomfort Divalproex Sodium (Divalproex Sodium 500 Mg Tablet.Dr) 500 mg PO BID@0900,1300 COUNTS INCLUDE 234 BEDS AT THE [facility] Last Admin: 03/05/25 12:27 Dose: 500 mg Divalproex Sodium (Divalproex Sodium Er 500 Mg Tab.Er.24h) 1,000 mg PO BEDTIME COUNTS INCLUDE 234 BEDS AT THE [facility] Last Admin: 03/05/25 20:19 Dose: 1,000 mg Docusate Sodium (Docusate Sodium 100 Mg Capsule) 100 mg PO BID COUNTS INCLUDE 234 BEDS AT THE [facility] Last Admin: 03/05/25 20:19 Dose: 100 mg Ergocalciferol (Ergocalciferol (Vitamin D2) 1,250 Mcg Capsule) 1,250 mcg PO WE COUNTS INCLUDE 234 BEDS AT THE [facility] Last Admin: 03/03/25 20:39 Dose: 1,250 mcg Fluticasone Propionate (Fluticasone Propionate Nasal 16 Gm [place]) 2 spray NOSTRIL-B BID COUNTS INCLUDE 234 BEDS AT THE [facility] Last Admin: 03/05/25 20:21 Dose: 2 spray Guanfacine HCl (Guanfacine Hcl Er 1 Mg Tab.Er.24h) 1 mg PO DAILY COUNTS INCLUDE 234 BEDS AT THE [facility] Last Admin: 03/05/25 08:28 Dose: 1 mg Hydroxyzine HCl (Hydroxyzine Hcl 25 Mg Tablet) 25 mg PO Q6H PRN PRN Reason: mild anxiety Last Admin: 03/02/25 10:00 Dose: 25 mg Loratadine (Loratadine 10 Mg Tablet) 10 mg PO BEDTIME COUNTS INCLUDE 234 BEDS AT THE [facility] Last Admin: 03/05/25 20:19 Dose: 10 mg Magnesium Hydroxide (Milk Of Magnesia 30 Ml Oral.Susp) 30 ml PO DAILY PRN PRN Reason: Constipation Last Admin: 02/24/25 20:39 Dose: 30 ml Metformin HCl (Metformin Hcl Er 500 Mg Tab.Er.24h) 500 mg PO DAILY@1700 MARY Last Admin: 03/05/25 17:59 Dose: 500 mg Nicotine (Nicotine 21 Mg Patch.Td24) 21 mg TRANSDERMA DAILY PRN PRN Reason: smoking cessation Nicotine Polacrilex (Nicotine Polacrilex 2 Mg Gum) 4 mg BUCCAL Q2H PRN PRN Reason: Nicotine Cravings Olanzapine (Olanzapine 5 Mg Tablet) 5 mg PO TID PRN PRN Reason: agitation Last Admin: 03/02/25 10:00 Dose: 5 mg Olanzapine (Olanzapine 2.5 Mg Tablet) 2.5 mg PO DAILY MAYR Last Admin: 03/05/25 08:28 Dose: 2.5 mg Polyethylene Glycol (Polyethylene Glycol 3350 17 Gm Powd.Pack) 17 gm PO DAILY PRN PRN Reason: Constipation Prazosin HCl (Prazosin Hcl 1 Mg Capsule) 1 mg PO BEDTIME MARY; Protocol Last Admin: 03/05/25 20:19 Dose: 1 mg Psyllium Hydrophilic Mucilloid (Psyllium Seed 3.7 Gm Packet) 3.7 gm PO DAILY MARY Last Admin: 03/05/25 09:03 Dose: Not Given Trazodone HCl (Trazodone Hcl 50 Mg Tablet) 50 mg PO BEDTIME MRX1 PRN PRN Reason: Insomnia Last Admin: 03/01/25 20:44 Dose: 50 mg Allergies Allergies Allergy/AdvReac Type Severity Reaction Status Date / Time No Known Allergies Allergy Verified 02/23/25 18:20 Assessment & Plan Assessment & Plan (1) Bipolar disorder: Status: Acute Code(s): F31.9 - Bipolar disorder, unspecified (2) Developmental delay, moderate: Status: Acute Code(s): R62.50 - Unspecified lack of expected normal physiological development in childhood (3) PTSD (post-traumatic stress disorder): Status: Acute Code(s): F43.10 - Post-traumatic stress disorder, unspecified (4) Autism spectrum disorder: Status: Acute Code(s): F84.0 - Autistic disorder (5) Excoriation (skin-picking) disorder: Status: Acute Code(s): F42.4 - Excoriation (skin-picking) disorder Plan Patient is a 25-year-old female with ASD, developmental delay, PTSD, carrying a diagnosis of bipolar depression, living in a intermediate who presents for mood dysregulation with SI and HI in the face of intermediate frustration. Patient emotionally reactive and easily agitated during discussion, though trying to keep herself in control and apologetic. Patient says that things were good... Peaceful at the intermediate until her housemate and friend Chelsea moved out a couple of months ago. She says Chelsea really helped me out...I miss her. Patient quickly got upset, saying she wants to get out of the intermediate and go back to shared living... And grew quite frustrated that teletypewriter operator could not immediately answer whether or not this was possible. She was able to calmed down some and say that she is very unhappy at the intermediate, she feels that the staff were rude, not helpful, are punitive and says that they take her phone away as punishment; she also feels that other clients are rude and problematic though she would not give any examples. Throughout the interview patient would go back to again asking if she can move back to shared living struggling to accept that it will take time figure this out. Patient said she does not know the names of her medications and can not tell if they are working. Patient said that she did get suicidal and wanted to and did make a small laceration on her left forearm; now however she just wants to move out of the intermediate into a different living situation. Patient had made some verbally aggressive comments towards peers which she said she meant at the time (unclear specifics and patient would not disclose). Patient agreed to medication changes at teletypewriter operator's discretion. Asked for her conservator/guardian to be called; asked for her fiance Shree to be called. Formulation/clinical reasoning: Seems that on current medication regimen, patient was stable until living situation dynamics changed with peer she felt close to moved out; it appears that since then patient has struggled with staff and peer relationships. Patient unable to share details but gives consent for team to gather collateral. At this time will continue current medication regimen as collaterals gathered; will get Depakote level. Patient carries bipolar diagnosis however she feels unable to discuss her psychiatric history and so it is not clear if she has actual discrete manic episodes. Hospital course: 02/26 Patient reports feeling a little depressed but feeling a little better than the other day. Says SI lingers but going away; HI also waning. Patient again asked about changing group homes and was calm and appreciative of teams help with this process. Patient in good behavioral and impulse control. -Depakote level WNL; will continue to observe patient and assess stability before making medication changes -social work able to talk with patient's guardian who has a plan to help her change group homes; when patient later this she was very pleased 02/27 getting very upset that she does not have clear answer about going to shared living... slams hand on table several times demanding answers, however, soon apologizes for outburst saying she's just upset and hates group homes. Agrees to increasing depakote and starting clonidine 02/28 in better behavioral control; tolerating increased Depakote dose; blood pressures WNL with added clonidine 03/01 pt got emotional learning she cannot dc straight to a shared living; she had a momentary outburst but quickly got herself back into control...apologized and said she is amenable to plan. considering med changes regarding following; will reach out to outpt provider -patient is on Clozaril and Depakote; wonder if she actually needs Zyprexa 5 mg daily dose which could perhaps be a p.r.n. instead -wonder how patient might benefit from Adderall or maybe guanfacine -also consider metformin given patient's obesity and on medications that can cause metabolic syndrome 03/02 Patient says that she is amenable with disposition plan. Talk through her feelings about it some of them tearful. Discussed medication regimen and she agrees to starting Intuniv to see if it can help with impulse control; also agreed to metformin to help with weight gain associated with medication regimen, reviewing risks/side effects. Talked about Zyprexa and she agrees she might not need it scheduled at daytime and can take a p.r.n.; agrees to lowering it to 2.5 mg to see how it goes. -Depakote level and associated labs WNL (recently changed dosing) 03/03: Patient says that she is amenable with disposition plan. Talk through her feelings about it some of them tearful. Fraustrated that she is not going to shared housing and also not being able to seen her boyfriend when she wants. Notes that her boyfriend will kill himself if they break up but she does not intend to end their relationship. She is taking her meds as prescribed and guess they are helpful. Reports anxiety and depression symtoms which are worsening. Denies SI/HI/AH/VH. Started Intuniv and metformin yesterday. Continue current tx regime. 03/04: Patient feels better today. She admits to taking her medications as prescribed which she believes are helpful. She has not been attending groups because groups don't help. Still concerned about her housing situation. She currently denies anxiety or depression. She denies SI/HI/AH/VH at this time. 03/05/25: She appropriately frustrated with different providers seeing her in the past couple of days. She appeared to be more as irritable, restless, but mostly cooperative. Goal-directed that we will work on be positive even though she does not want to go back to the intermediate. Deny any safety concerns. Continue with current medications. Monitor for ANC as she is on Clozaril. Monitor for signs and symptoms of hypo or hyperglycemic due to newly prescribed on metformin for weight control 03/06: continue tx Plan: CV Q 15 minute checks Started Intuniv 1 mg daily Lower daytime Zyprexa to 2.5 mg daily; would like to see if she can be okay without it and just use PRNs Started metformin ER 500 mg q.h.s. to help mitigate weight gain associated with medication regimen Changing bedtime depakote dose to ER and 1000mg qhs. Current dose is 1500 a day. VPA level was 67.9 on 03/02. Continue clonidine 0.1mg bid 0900,1300 Continue current home medication regimen for now Gather collateral Reason for continued inpatient stay Substantial Risk for: rapid decompensation Time Spent With Patient Time: Total time managing care of this patient today ____ minutes.
[2025-03-06 08:00] VITALS: BP 134/64; PULSE 91; RESP 18; TEMP 36.2; O2SAT 95
[2025-03-06] MEDS: Divalproex Sodium 500 MG TABLET.DR PO ×2 (08:54→12:33)
[2025-03-06] MEDS: guanFACINE HCl ER 1 MG TAB.ER.24H PO (08:54)
[2025-03-06] MEDS: cloZAPine 100 MG TABLET PO ×2 (08:55→20:01)
[2025-03-06] MEDS: cloNIDine HCL 0.1 MG TABLET PO ×2 (08:55→12:33)
[2025-03-06] MEDS: OLANZapine 2.5 MG TABLET PO (08:55)
[2025-03-06] MEDS: Docusate Sodium 100 MG CAPSULE PO ×2 (08:55→20:01)
[2025-03-06] MEDS: clonazePAM 0.5 MG TABLET PO ×3 (08:55→20:01)
[2025-03-06] MEDS: hydrOXYzine HCL 25 MG TABLET PO (10:48)
[2025-03-06] MEDS: OLANZapine 5 MG TABLET PO (10:48)
[2025-03-06 12:33] VITALS: BP 143/90
[2025-03-06] MEDS: metFORMIN HCl ER 500 MG TAB.ER.24H PO (16:52)
[2025-03-06 20:00] VITALS: BP 127/78; PULSE 88; RESP 18; TEMP 36.5; O2SAT 97
[2025-03-06] MEDS: Prazosin HCL 1 MG CAPSULE PO (20:00)
[2025-03-06] MEDS: Desmopressin Acetate 0.2 MG TABLET 0.3 MG PO (20:00)
[2025-03-06] MEDS: cloZAPine 25 MG TABLET 50 MG PO (20:00)
[2025-03-06] MEDS: Divalproex Sodium ER 500 MG TAB.ER.24H 1000 MG PO (20:00)
[2025-03-06] MEDS: Loratadine 10 MG TABLET PO (20:01)
[2025-03-06] MEDS: Fluticasone Propionate Nasal 16 GM SPRAY 2 SPRAY NOSTRIL-B (20:04)
--- NOTE | 2025-03-06 20:06 | PC.NURSE ---
Patient reported back pain, but when this typewriter aligner enquired as to level and character of pain, patient became angry and stated Nevermind, it doesn't matter, tylenol doesn't work anyway!
--- NOTE | 2025-03-07 05:30 | P.PNPSI_ITS ---
Subjective Subjective Date of Service: 03/07/25 Reason For Visit: Decompensated, HI Subjective Notes: Conditional Voluntary Interim History: Continues with anxiety about placement. Reviewed again what we know and what roles team has in attempting to assist her Hoping for discharge on Sat to a respite Again, difficulty with the unknown. Medication Compliance: Yes Side effects from medications: No Attending Groups: Intermittent Review of Systems Acute medical concerns: No Review of Systems Review of Systems Yes all other systems are reviewed and are negative Mental Status Exam Mental Status Exam Patient Appearance: Appropriate Patient Orientation: Person, Place, Time and Situation Level of Consciousness: Alert Patient Behavior: Talkative, Suspicious, Anxious, Fearful and Good Eye Contact Mood Description: Anxious and Labile Affect Description: Anxious and Labile Patient Cognition Impaired: No Ability to Follow Directions: Good Speech Pattern: Spontaneous Speech Memory Description: Episodic Impaired Hallucinations: None Delusions: Not Present Perceptual Disturbances: Depersonalization and Derealization Thought Process: Rumination Thought Content: positive for Circumstantial and positive for Perseveration Depressive Symptoms: Increased Anxiety and Increased Irritability Judgement: Good Diagnostics Vital Signs (24Hr): Vital Signs - 24 hr 03/06/25 08:00 03/06/25 12:33 03/06/25 20:00 Temperature 97.2 F Pulse Rate 91 Respiratory Rate 18 Blood Pressure 134/64 143/90 H 127/78 Pulse Oximetry 95 Oxygen Delivery Method Room Air 03/06/25 20:00 Temperature 97.7 F Pulse Rate 88 Respiratory Rate 18 Blood Pressure 127/78 Pulse Oximetry 97 Oxygen Delivery Method Room Air BMI result Body Mass Index 51.8 Labs 02/23/25 18:55 03/04/25 08:02 Medications Medications Current Medications Acetaminophen (Acetaminophen 325 Mg Tablet) 650 mg PO Q6H PRN PRN Reason: Headache/Pain, Scale 1-10 Last Admin: 02/27/25 20:59 Dose: 650 mg Al Hydroxide/Mg Hydroxide (Magnesium Hydrox/Alum Hydrox 30 Ml Oral.Susp) 30 ml PO Q6H PRN PRN Reason: Heartburn/Nausea Clonazepam (Clonazepam 0.5 Mg Tablet) 0.5 mg PO TID MARY Last Admin: 03/06/25 20:01 Dose: 0.5 mg Clonidine HCl (Clonidine Hcl 0.1 Mg Tablet) 0.1 mg PO BID@0900,1300 MARY; Protocol Last Admin: 03/06/25 12:33 Dose: 0.1 mg Clozapine (Clozapine 100 Mg Tablet) 100 mg PO BID [facility] Last Admin: 03/06/25 20:01 Dose: 100 mg Clozapine (Clozapine 25 Mg Tablet) 50 mg PO BEDTIME [facility] Last Admin: 03/06/25 20:00 Dose: 50 mg Desmopressin Acetate (Desmopressin Acetate 0.2 Mg Tablet) 0.3 mg PO BEDTIME [facility] Last Admin: 03/06/25 20:00 Dose: 0.3 mg Dicyclomine HCl (Dicyclomine Hcl 10 Mg Capsule) 10 mg PO TID PRN PRN Reason: Abdominal Discomfort Divalproex Sodium (Divalproex Sodium 500 Mg Tablet.Dr) 500 mg PO BID@0900,1300 [facility] Last Admin: 03/06/25 12:33 Dose: 500 mg Divalproex Sodium (Divalproex Sodium Er 500 Mg Tab.Er.24h) 1,000 mg PO BEDTIME [facility] Last Admin: 03/06/25 20:00 Dose: 1,000 mg Docusate Sodium (Docusate Sodium 100 Mg Capsule) 100 mg PO BID [facility] Last Admin: 03/06/25 20:01 Dose: 100 mg Ergocalciferol (Ergocalciferol (Vitamin D2) 1,250 Mcg Capsule) 1,250 mcg PO [facility] Last Admin: 03/03/25 20:39 Dose: 1,250 mcg Fluticasone Propionate (Fluticasone Propionate Nasal 16 Gm Tenino) 2 spray NOSTRIL-B BID [facility] Last Admin: 03/06/25 20:04 Dose: 2 spray Guanfacine HCl (Guanfacine Hcl Er 1 Mg Tab.Er.24h) 1 mg PO DAILY [facility] Last Admin: 03/06/25 08:54 Dose: 1 mg Hydroxyzine HCl (Hydroxyzine Hcl 25 Mg Tablet) 25 mg PO Q6H PRN PRN Reason: mild anxiety Last Admin: 03/06/25 10:48 Dose: 25 mg Loratadine (Loratadine 10 Mg Tablet) 10 mg PO BEDTIME [facility] Last Admin: 03/06/25 20:01 Dose: 10 mg Magnesium Hydroxide (Milk Of Magnesia 30 Ml Oral.Susp) 30 ml PO DAILY PRN PRN Reason: Constipation Last Admin: 02/24/25 20:39 Dose: 30 ml Metformin HCl (Metformin Hcl Er 500 Mg Tab.Er.24h) 500 mg PO DAILY@1700 [facility] Last Admin: 03/06/25 16:52 Dose: 500 mg Nicotine (Nicotine 21 Mg Patch.Td24) 21 mg TRANSDERMA DAILY PRN PRN Reason: smoking cessation Nicotine Polacrilex (Nicotine Polacrilex 2 Mg Gum) 4 mg BUCCAL Q2H PRN PRN Reason: Nicotine Cravings Olanzapine (Olanzapine 5 Mg Tablet) 5 mg PO TID PRN PRN Reason: agitation Last Admin: 03/06/25 10:48 Dose: 5 mg Olanzapine (Olanzapine 2.5 Mg Tablet) 2.5 mg PO DAILY [facility] Last Admin: 03/06/25 08:55 Dose: 2.5 mg Polyethylene Glycol (Polyethylene Glycol 3350 17 Gm Powd.Pack) 17 gm PO DAILY PRN PRN Reason: Constipation Prazosin HCl (Prazosin Hcl 1 Mg Capsule) 1 mg PO BEDTIME [facility]; Protocol Last Admin: 03/06/25 20:00 Dose: 1 mg Psyllium Hydrophilic Mucilloid (Psyllium Seed 3.7 Gm Packet) 3.7 gm PO DAILY [facility] Last Admin: 03/06/25 08:56 Dose: Not Given Trazodone HCl (Trazodone Hcl 50 Mg Tablet) 50 mg PO BEDTIME MRX1 PRN PRN Reason: Insomnia Last Admin: 03/01/25 20:44 Dose: 50 mg Allergies Allergies Allergy/AdvReac Type Severity Reaction Status Date / Time No Known Allergies Allergy Verified 02/23/25 18:20 Assessment & Plan Assessment & Plan (1) Bipolar disorder: Status: Acute Code(s): F31.9 - Bipolar disorder, unspecified (2) Developmental delay, moderate: Status: Acute Code(s): R62.50 - Unspecified lack of expected normal physiological development in childhood (3) PTSD (post-traumatic stress disorder): Status: Acute Code(s): F43.10 - Post-traumatic stress disorder, unspecified (4) Autism spectrum disorder: Status: Acute Code(s): F84.0 - Autistic disorder (5) Excoriation (skin-picking) disorder: Status: Acute Code(s): F42.4 - Excoriation (skin-picking) disorder Plan Patient is a 25-year-old female with ASD, developmental delay, PTSD, carrying a diagnosis of bipolar depression, living in a [place] [facility] who presents for mood dysregulation with SI and HI in the face of [place] [facility] frustration. Patient emotionally reactive and easily agitated during discussion, though trying to keep herself in control and apologetic. Patient says that things were good... Peaceful at the [place] [facility] until her housemate and friend Chelsea moved out a couple of months ago. She says Chelsea really helped me out...I miss her. Patient quickly got upset, saying she wants to get out of the [place] [facility] and go back to shared living... And grew quite frustrated that life insurance underwriter could not immediately answer whether or not this was possible. She was able to calmed down some and say that she is very unhappy at the [place] [facility], she feels that the staff were rude, not helpful, are punitive and says that they take her phone away as punishment; she also feels that other clients are rude and problematic though she would not give any examples. Throughout the interview patient would go back to again asking if she can move back to shared living struggling to accept that it will take time figure this out. Patient said she does not know the names of her medications and can not tell if they are working. Patient said that she did get suicidal and wanted to and did make a small laceration on her left forearm; now however she just wants to move out of the [place] [facility] into a different living situation. Patient had made some verbally aggressive comments towards peers which she said she meant at the time (unclear specifics and patient would not disclose). Patient agreed to medication changes at life insurance underwriter's discretion. Asked for her conservator/guardian to be called; asked for her fiance Shree to be called. Formulation/clinical reasoning: Seems that on current medication regimen, patient was stable until living situation dynamics changed with peer she felt close to moved out; it appears that since then patient has struggled with staff and peer relationships. Patient unable to share details but gives consent for team to gather collateral. At this time will continue current medication regimen as collaterals gathered; will get Depakote level. Patient carries bipolar diagnosis however she feels unable to discuss her psychiatric history and so it is not clear if she has actual discrete manic episodes. Hospital course: 02/26 Patient reports feeling a little depressed but feeling a little better than the other day. Says SI lingers but going away; HI also waning. Patient again asked about changing group homes and was calm and appreciative of teams help with this process. Patient in good behavioral and impulse control. -Depakote level WNL; will continue to observe patient and assess stability before making medication changes -social work able to talk with patient's guardian who has a plan to help her change group homes; when patient later this she was very pleased 02/27 getting very upset that she does not have clear answer about going to shared living... slams hand on table several times demanding answers, however, soon apologizes for outburst saying she's just upset and hates group homes. Agrees to increasing depakote and starting clonidine 02/28 in better behavioral control; tolerating increased Depakote dose; blood pressures WNL with added clonidine 03/01 pt got emotional learning she cannot dc straight to a shared living; she had a momentary outburst but quickly got herself back into control...apologized and said she is amenable to plan. considering med changes regarding following; will reach out to outpt provider -patient is on Clozaril and Depakote; wonder if she actually needs Zyprexa 5 mg daily dose which could perhaps be a p.r.n. instead -wonder how patient might benefit from Adderall or maybe guanfacine -also consider metformin given patient's obesity and on medications that can cause metabolic syndrome 03/02 Patient says that she is amenable with disposition plan. Talk through her feelings about it some of them tearful. Discussed medication regimen and she agrees to starting Intuniv to see if it can help with impulse control; also agreed to metformin to help with weight gain associated with medication regimen, reviewing risks/side effects. Talked about Zyprexa and she agrees she might not need it scheduled at daytime and can take a p.r.n.; agrees to lowering it to 2.5 mg to see how it goes. -Depakote level and associated labs WNL (recently changed dosing) 03/03: Patient says that she is amenable with disposition plan. Talk through her feelings about it some of them tearful. Fraustrated that she is not going to shared housing and also not being able to seen her boyfriend when she wants. Notes that her boyfriend will kill himself if they break up but she does not intend to end their relationship. She is taking her meds as prescribed and guess they are helpful. Reports anxiety and depression symtoms which are worsening. Denies SI/HI/AH/VH. Started Intuniv and metformin yesterday. Continue current tx regime. 03/04: Patient feels better today. She admits to taking her medications as prescribed which she believes are helpful. She has not been attending groups because groups don't help. Still concerned about her housing situation. She currently denies anxiety or depression. She denies SI/HI/AH/VH at this time. 03/05/25: She appropriately frustrated with different providers seeing her in the past couple of days. She appeared to be more as irritable, restless, but mostly cooperative. Goal-directed that we will work on be positive even though she does not want to go back to the [place] [facility]. Deny any safety concerns. Continue with current medications. Monitor for ANC as she is on Clozaril. Monitor for signs and symptoms of hypo or hyperglycemic due to newly prescribed on metformin for weight control 03/07 Continue tx Support through transition Plan: CV Q 15 minute checks Started Intuniv 1 mg daily Lower daytime Zyprexa to 2.5 mg daily; would like to see if she can be okay without it and just use PRNs Started metformin ER 500 mg q.h.s. to help mitigate weight gain associated with medication regimen Changing bedtime depakote dose to ER and 1000mg qhs. Current dose is 1500 a day. VPA level was 67.9 on 03/02. Continue clonidine 0.1mg bid 0900,1300 Continue current home medication regimen for now Gather collateral Reason for continued inpatient stay Substantial Risk for: rapid decompensation Time Spent With Patient Time: Total time managing care of this patient today ____ minutes.
[2025-03-07 07:55] VITALS: BP 111/64; PULSE 95; RESP 18; TEMP 36.3; O2SAT 95
[2025-03-07 09:11] VITALS: BP 111/64
[2025-03-07] MEDS: cloNIDine HCL 0.1 MG TABLET PO ×2 (09:11→12:45)
[2025-03-07] MEDS: cloZAPine 100 MG TABLET PO ×2 (09:11→21:06)
[2025-03-07] MEDS: OLANZapine 2.5 MG TABLET PO (09:11)
[2025-03-07] MEDS: Docusate Sodium 100 MG CAPSULE PO ×2 (09:11→20:59)
[2025-03-07] MEDS: Divalproex Sodium 500 MG TABLET.DR PO ×2 (09:12→12:45)
[2025-03-07] MEDS: guanFACINE HCl ER 1 MG TAB.ER.24H PO (09:12)
[2025-03-07] MEDS: clonazePAM 0.5 MG TABLET PO ×3 (09:12→21:04)
[2025-03-07] MEDS: Fluticasone Propionate Nasal 16 GM SPRAY 2 SPRAY NOSTRIL-B (09:13)
[2025-03-07 12:45] VITALS: BP 136/82
[2025-03-07] MEDS: metFORMIN HCl ER 500 MG TAB.ER.24H PO (17:09)
[2025-03-07 19:44] VITALS: BP 132/74; PULSE 95; RESP 16; TEMP 37.1; O2SAT 96
[2025-03-07 20:59] VITALS: BP 132/71
[2025-03-07] MEDS: Prazosin HCL 1 MG CAPSULE PO (20:59)
[2025-03-07] MEDS: Desmopressin Acetate 0.2 MG TABLET 0.3 MG PO (21:00)
[2025-03-07] MEDS: Loratadine 10 MG TABLET PO (21:02)
[2025-03-07] MEDS: Divalproex Sodium ER 500 MG TAB.ER.24H 1000 MG PO (21:04)
[2025-03-07] MEDS: cloZAPine 25 MG TABLET 50 MG PO (21:06)
[2025-03-08 07:55] VITALS: BP 139/77; PULSE 101; RESP 20; TEMP 36.9; O2SAT 95
[2025-03-08] MEDS: clonazePAM 0.5 MG TABLET PO ×3 (08:24→22:05)
[2025-03-08] MEDS: guanFACINE HCl ER 1 MG TAB.ER.24H PO (08:24)
[2025-03-08] MEDS: Docusate Sodium 100 MG CAPSULE PO ×2 (08:24→22:05)
[2025-03-08] MEDS: Divalproex Sodium 500 MG TABLET.DR PO ×2 (08:25→12:48)
[2025-03-08] MEDS: OLANZapine 2.5 MG TABLET PO (08:26)
[2025-03-08] MEDS: cloZAPine 100 MG TABLET PO ×2 (08:26→22:07)
[2025-03-08] MEDS: cloNIDine HCL 0.1 MG TABLET PO ×2 (08:26→12:49)
[2025-03-08 12:49] VITALS: BP 148/73
--- NOTE | 2025-03-08 13:17 | P.PNPSI_ITS ---
Subjective Subjective Date of Service: 03/08/25 Reason For Visit: Decompensated, HI Interim History: Active on unit, social with peers. attending groups. Pt reports she is in a good mood today ; pt stated, I'm looking forward to going to respite. I feel like my meds are helpful and I haven't been crying as much . denies SI/HI/VH/AH. Continue current tx plan. Medication Compliance: Yes Side effects from medications: No Attending Groups: Yes Mental Status Exam Mental Status Exam Patient Appearance: Appropriate Patient Orientation: Person, Place, Time and Situation Level of Consciousness: Awake and Alert Patient Behavior: Appropriate, Cooperative and Good Eye Contact Mood Description: Calm Affect Description: Calm Ability to Follow Directions: Good Speech Pattern: Clear Memory Description: Intact Hallucinations: None Delusions: Not Present Thought Process: Intact Thought Content: positive for Intact Diagnostics Vital Signs (24Hr): Vital Signs - 24 hr 03/07/25 19:44 03/07/25 20:59 03/08/25 07:55 Temperature 98.7 F 98.4 F Pulse Rate 95 101 H Respiratory Rate 16 20 Blood Pressure 132/74 132/71 139/77 Pulse Oximetry 96 95 Oxygen Delivery Method Room Air Room Air 03/08/25 12:49 Temperature Pulse Rate Respiratory Rate Blood Pressure 148/73 H Pulse Oximetry Oxygen Delivery Method BMI result Body Mass Index 51.8 Labs 02/23/25 18:55 03/04/25 08:02 Medications Medications Current Medications Acetaminophen (Acetaminophen 325 Mg Tablet) 650 mg PO Q6H PRN PRN Reason: Headache/Pain, Scale 1-10 Last Admin: 02/27/25 20:59 Dose: 650 mg Al Hydroxide/Mg Hydroxide (Magnesium Hydrox/Alum Hydrox 30 Ml Oral.Susp) 30 ml PO Q6H PRN PRN Reason: Heartburn/Nausea Clonazepam (Clonazepam 0.5 Mg Tablet) 0.5 mg PO TID [facility] Last Admin: 03/08/25 08:24 Dose: 0.5 mg Clonidine HCl (Clonidine Hcl 0.1 Mg Tablet) 0.1 mg PO BID@0900,1300 [facility]; Protocol Last Admin: 03/08/25 12:49 Dose: 0.1 mg Clozapine (Clozapine 100 Mg Tablet) 100 mg PO BID [facility] Last Admin: 03/08/25 08:26 Dose: 100 mg Clozapine (Clozapine 25 Mg Tablet) 50 mg PO BEDTIME [facility] Last Admin: 03/07/25 21:06 Dose: 50 mg Desmopressin Acetate (Desmopressin Acetate 0.2 Mg Tablet) 0.3 mg PO BEDTIME [facility] Last Admin: 03/07/25 21:00 Dose: 0.3 mg Dicyclomine HCl (Dicyclomine Hcl 10 Mg Capsule) 10 mg PO TID PRN PRN Reason: Abdominal Discomfort Divalproex Sodium (Divalproex Sodium 500 Mg Tablet.Dr) 500 mg PO BID@0900,1300 [facility] Last Admin: 03/08/25 12:48 Dose: 500 mg Divalproex Sodium (Divalproex Sodium Er 500 Mg Tab.Er.24h) 1,000 mg PO BEDTIME [facility] Last Admin: 03/07/25 21:04 Dose: 1,000 mg Docusate Sodium (Docusate Sodium 100 Mg Capsule) 100 mg PO BID [facility] Last Admin: 03/08/25 08:24 Dose: 100 mg Ergocalciferol (Ergocalciferol (Vitamin D2) 1,250 Mcg Capsule) 1,250 mcg PO WE [facility] Last Admin: 03/03/25 20:39 Dose: 1,250 mcg Fluticasone Propionate (Fluticasone Propionate Nasal 16 Gm [place]) 2 spray NOSTRIL-B BID [facility] Last Admin: 03/08/25 08:27 Dose: Not Given Guanfacine HCl (Guanfacine Hcl Er 1 Mg Tab.Er.24h) 1 mg PO DAILY [facility] Last Admin: 03/08/25 08:24 Dose: 1 mg Hydroxyzine HCl (Hydroxyzine Hcl 25 Mg Tablet) 25 mg PO Q6H PRN PRN Reason: mild anxiety Last Admin: 03/06/25 10:48 Dose: 25 mg Loratadine (Loratadine 10 Mg Tablet) 10 mg PO BEDTIME [facility] Last Admin: 03/07/25 21:02 Dose: 10 mg Magnesium Hydroxide (Milk Of Magnesia 30 Ml Oral.Susp) 30 ml PO DAILY PRN PRN Reason: Constipation Last Admin: 02/24/25 20:39 Dose: 30 ml Metformin HCl (Metformin Hcl Er 500 Mg Tab.Er.24h) 500 mg PO DAILY@1700 [facility] Last Admin: 03/07/25 17:09 Dose: 500 mg Nicotine (Nicotine 21 Mg Patch.Td24) 21 mg TRANSDERMA DAILY PRN PRN Reason: smoking cessation Nicotine Polacrilex (Nicotine Polacrilex 2 Mg Gum) 4 mg BUCCAL Q2H PRN PRN Reason: Nicotine Cravings Olanzapine (Olanzapine 5 Mg Tablet) 5 mg PO TID PRN PRN Reason: agitation Last Admin: 03/06/25 10:48 Dose: 5 mg Olanzapine (Olanzapine 2.5 Mg Tablet) 2.5 mg PO DAILY [facility] Last Admin: 03/08/25 08:26 Dose: 2.5 mg Polyethylene Glycol (Polyethylene Glycol 3350 17 Gm Powd.Pack) 17 gm PO DAILY PRN PRN Reason: Constipation Prazosin HCl (Prazosin Hcl 1 Mg Capsule) 1 mg PO BEDTIME [facility]; Protocol Last Admin: 03/07/25 20:59 Dose: 1 mg Psyllium Hydrophilic Mucilloid (Psyllium Seed 3.7 Gm Packet) 3.7 gm PO DAILY [facility] Last Admin: 03/08/25 08:27 Dose: Not Given Trazodone HCl (Trazodone Hcl 50 Mg Tablet) 50 mg PO BEDTIME [facility]X1 PRN PRN Reason: Insomnia Last Admin: 03/01/25 20:44 Dose: 50 mg Allergies Allergies Allergy/AdvReac Type Severity Reaction Status Date / Time No Known Allergies Allergy Verified 02/23/25 18:20 Assessment & Plan Assessment & Plan (1) Bipolar disorder: Status: Acute Code(s): F31.9 - Bipolar disorder, unspecified (2) Developmental delay, moderate: Status: Acute Code(s): R62.50 - Unspecified lack of expected normal physiological development in childhood (3) PTSD (post-traumatic stress disorder): Status: Acute Code(s): F43.10 - Post-traumatic stress disorder, unspecified (4) Autism spectrum disorder: Status: Acute Code(s): F84.0 - Autistic disorder (5) Excoriation (skin-picking) disorder: Status: Acute Code(s): F42.4 - Excoriation (skin-picking) disorder Plan Patient is a 25-year-old female with ASD, developmental delay, PTSD, carrying a diagnosis of bipolar depression, living in a retirement who presents for mood dysregulation with SI and HI in the face of retirement frustration. Patient emotionally reactive and easily agitated during discussion, though trying to keep herself in control and apologetic. Patient says that things were good... Peaceful at the retirement until her housemate and friend Chelsea moved out a couple of months ago. She says Chelsea really helped me out...I miss her. Patient quickly got upset, saying she wants to get out of the retirement and go back to shared living... And grew quite frustrated that financial writer could not immediately answer whether or not this was possible. She was able to calmed down some and say that she is very unhappy at the retirement, she feels that the staff were rude, not helpful, are punitive and says that they take her phone away as punishment; she also feels that other clients are rude and problematic though she would not give any examples. Throughout the interview patient would go back to again asking if she can move back to shared living struggling to accept that it will take time figure this out. Patient said she does not know the names of her medications and can not tell if they are working. Patient said that she did get suicidal and wanted to and did make a small laceration on her left forearm; now however she just wants to move out of the retirement into a different living situation. Patient had made some verbally aggressive comments towards peers which she said she meant at the time (unclear specifics and patient would not disclose). Patient agreed to medication changes at financial writer's discretion. Asked for her conservator/guardian to be called; asked for her fialejandro Swann to be called. Formulation/clinical reasoning: Seems that on current medication regimen, patient was stable until living situation dynamics changed with peer she felt close to moved out; it appears that since then patient has struggled with staff and peer relationships. Patient unable to share details but gives consent for team to gather collateral. At this time will continue current medication regimen as collaterals gathered; will get Depakote level. Patient carries bipolar diagnosis however she feels unable to discuss her psychiatric history and so it is not clear if she has actual discrete manic episodes. Hospital course: 02/26 Patient reports feeling a little depressed but feeling a little better than the other day. Says SI lingers but going away; HI also waning. Patient again asked about changing group homes and was calm and appreciative of teams help with this process. Patient in good behavioral and impulse control. -Depakote level WNL; will continue to observe patient and assess stability before making medication changes -social work able to talk with patient's guardian who has a plan to help her change group homes; when patient later this she was very pleased 02/27 getting very upset that she does not have clear answer about going to shared living... slams hand on table several times demanding answers, however, soon apologizes for outburst saying she's just upset and hates group homes. Agrees to increasing depakote and starting clonidine 02/28 in better behavioral control; tolerating increased Depakote dose; blood pressures WNL with added clonidine 03/01 pt got emotional learning she cannot dc straight to a shared living; she had a momentary outburst but quickly got herself back into control...apologized and said she is amenable to plan. considering med changes regarding following; will reach out to outpt provider -patient is on Clozaril and Depakote; wonder if she actually needs Zyprexa 5 mg daily dose which could perhaps be a p.r.n. instead -wonder how patient might benefit from Adderall or maybe guanfacine -also consider metformin given patient's obesity and on medications that can cause metabolic syndrome 03/02 Patient says that she is amenable with disposition plan. Talk through her feelings about it some of them tearful. Discussed medication regimen and she agrees to starting Intuniv to see if it can help with impulse control; also agreed to metformin to help with weight gain associated with medication regimen, reviewing risks/side effects. Talked about Zyprexa and she agrees she might not need it scheduled at daytime and can take a p.r.n.; agrees to lowering it to 2.5 mg to see how it goes. -Depakote level and associated labs WNL (recently changed dosing) 03/03: Patient says that she is amenable with disposition plan. Talk through her feelings about it some of them tearful. Fraustrated that she is not going to shared housing and also not being able to seen her boyfriend when she wants. Notes that her boyfriend will kill himself if they break up but she does not intend to end their relationship. She is taking her meds as prescribed and guess they are helpful. Reports anxiety and depression symtoms which are worsening. Denies SI/HI/AH/VH. Started Intuniv and metformin yesterday. Continue current tx regime. 03/04: Patient feels better today. She admits to taking her medications as prescribed which she believes are helpful. She has not been attending groups because groups don't help. Still concerned about her housing situation. She currently denies anxiety or depression. She denies SI/HI/AH/VH at this time. 03/05/25: She appropriately frustrated with different providers seeing her in the past couple of days. She appeared to be more as irritable, restless, but mostly cooperative. Goal-directed that we will work on be positive even though she does not want to go back to the retirement. Deny any safety concerns. Continue with current medications. Monitor for ANC as she is on Clozaril. Monitor for signs and symptoms of hypo or hyperglycemic due to newly prescribed on metformin for weight control 03/07 Continue tx Support through transition 03/08: continue current tx plan. Plan: CV Q 15 minute checks Started Intuniv 1 mg daily Lower daytime Zyprexa to 2.5 mg daily; would like to see if she can be okay without it and just use PRNs Started metformin ER 500 mg q.h.s. to help mitigate weight gain associated with medication regimen Changing bedtime depakote dose to ER and 1000mg qhs. Current dose is 1500 a day. VPA level was 67.9 on 03/02. Continue clonidine 0.1mg bid 0900,1300 Continue current home medication regimen for now Gather collateral Patient educated on: diagnosis and medication risk/benefits Reason for continued inpatient stay Substantial Risk for: med/psych decompensation Time Spent With Patient Time: Total time managing care of this patient today _20___ minutes.
[2025-03-08 13:52] LABS: Ammonia 36 umol/L (13-55)
[2025-03-08 13:59] LABS: Valproate 58.2 mcg/mL (50.0-100.0)
[2025-03-08 14:01] LABS: Alanine Aminotransferase 37 U/L (0-31); Albumin Level 4.2 g/dL (3.5-5.0); Alkaline Phosphatase 70 U/L (39-117); Aspartate Amino Transferase 33 U/L (5-31); Bilirubin Direct < 0.2 mg/dL (0.0-0.5); Bilirubin Total 0.1 mg/dL (0.0-1.0); Total Protein 7.6 g/dL (6.5-8.0)
[2025-03-08] MEDS: metFORMIN HCl ER 500 MG TAB.ER.24H PO (17:56)
[2025-03-08 20:00] VITALS: BP 135/77; PULSE 96; RESP 16; TEMP 37.7
[2025-03-08] MEDS: cloZAPine 25 MG TABLET 50 MG PO (22:04)
[2025-03-08] MEDS: Desmopressin Acetate 0.2 MG TABLET 0.3 MG PO (22:05)
[2025-03-08] MEDS: Loratadine 10 MG TABLET PO (22:05)
[2025-03-08 22:06] VITALS: BP 120/76
[2025-03-08] MEDS: Divalproex Sodium ER 500 MG TAB.ER.24H 1000 MG PO (22:06)
[2025-03-08] MEDS: Prazosin HCL 1 MG CAPSULE PO (22:06)
[2025-03-09 07:53] VITALS: BP 133/72; PULSE 106; TEMP 37.3; O2SAT 93
[2025-03-09] MEDS: Divalproex Sodium 500 MG TABLET.DR PO ×2 (08:43→12:48)
[2025-03-09] MEDS: cloNIDine HCL 0.1 MG TABLET PO ×2 (08:43→12:47)
[2025-03-09] MEDS: Docusate Sodium 100 MG CAPSULE PO ×2 (08:43→20:47)
[2025-03-09] MEDS: cloZAPine 100 MG TABLET PO ×2 (08:43→20:47)
[2025-03-09] MEDS: clonazePAM 0.5 MG TABLET PO ×3 (08:43→20:48)
[2025-03-09] MEDS: OLANZapine 2.5 MG TABLET PO (08:43)
[2025-03-09] MEDS: guanFACINE HCl ER 1 MG TAB.ER.24H PO (08:43)
[2025-03-09 08:59] LABS: Neut%MD 68.4 %; Neutrophils Absolute Auto 7.3 x10*3/uL (2.0-8.3); WBCANC 10.6 X10*3/uL
--- NOTE | 2025-03-09 10:58 | HO.PSYCHPN ---
Subjective Subjective Date of Service: 03/09/25 Reason For Visit: Decompensated, HI Subjective Notes: Conditional Voluntary Interim History: Active on unit, social with peers. attending groups. Pt reports feeling good ; pt stated, I'm still waiting for a respite bed . Pt reports she showered and did laundry to keep busy. denies SI/HI/VH/AH. Continue current tx plan. Medication Compliance: Yes Side effects from medications: No Attending Groups: Yes Mental Status Exam Mental Status Exam Patient Appearance: Appropriate Patient Orientation: Person, Place, Time and Situation Level of Consciousness: Awake and Alert Patient Behavior: Appropriate, Cooperative and Good Eye Contact Mood Description: Calm Affect Description: Calm Ability to Follow Directions: Good Speech Pattern: Clear Memory Description: Intact Hallucinations: None Delusions: Not Present Thought Process: Intact Thought Content: positive for Intact Diagnostics Vital Signs (24Hr): Vital Signs - 24 hr 03/08/25 12:49 03/08/25 20:00 03/08/25 22:06 Temperature 99.9 F Pulse Rate 96 Respiratory Rate 16 Blood Pressure 148/73 H 135/77 120/76 Pulse Oximetry Oxygen Delivery Method Room Air 03/09/25 07:53 Temperature 99.1 F Pulse Rate 106 H Respiratory Rate Blood Pressure 133/72 Pulse Oximetry 93 Oxygen Delivery Method Room Air BMI result Body Mass Index 51.8 Labs 02/23/25 18:55 03/04/25 08:02 Labs: Laboratory Results - last 48 hr 03/08/25 03/09/25 13:36 08:39 Absolute Neuts (auto) 7.3 Total Bilirubin 0.1 Direct Bilirubin < 0.2 AST 33 H ALT 37 H Alkaline Phosphatase 70 Ammonia 36 Total Protein 7.6 Albumin 4.2 Valproic Acid 58.2 Medications Medications Current Medications Acetaminophen (Acetaminophen 325 Mg Tablet) 650 mg PO Q6H PRN PRN Reason: Headache/Pain, Scale 1-10 Last Admin: 02/27/25 20:59 Dose: 650 mg Al Hydroxide/Mg Hydroxide (Magnesium Hydrox/Alum Hydrox 30 Ml Oral.Susp) 30 ml PO Q6H PRN PRN Reason: Heartburn/Nausea Clonazepam (Clonazepam 0.5 Mg Tablet) 0.5 mg PO TID MARY Last Admin: 03/09/25 08:43 Dose: 0.5 mg Clonidine HCl (Clonidine Hcl 0.1 Mg Tablet) 0.1 mg PO BID@0900,1300 [facility]; Protocol Last Admin: 03/09/25 08:43 Dose: 0.1 mg Clozapine (Clozapine 100 Mg Tablet) 100 mg PO BID [facility] Last Admin: 03/09/25 08:43 Dose: 100 mg Clozapine (Clozapine 25 Mg Tablet) 50 mg PO BEDTIME [facility] Last Admin: 03/08/25 22:04 Dose: 50 mg Desmopressin Acetate (Desmopressin Acetate 0.2 Mg Tablet) 0.3 mg PO BEDTIME [facility] Last Admin: 03/08/25 22:05 Dose: 0.3 mg Dicyclomine HCl (Dicyclomine Hcl 10 Mg Capsule) 10 mg PO TID PRN PRN Reason: Abdominal Discomfort Divalproex Sodium (Divalproex Sodium 500 Mg Tablet.Dr) 500 mg PO BID@0900,1300 [facility] Last Admin: 03/09/25 08:43 Dose: 500 mg Divalproex Sodium (Divalproex Sodium Er 500 Mg Tab.Er.24h) 1,000 mg PO BEDTIME [facility] Last Admin: 03/08/25 22:06 Dose: 1,000 mg Docusate Sodium (Docusate Sodium 100 Mg Capsule) 100 mg PO BID [facility] Last Admin: 03/09/25 08:43 Dose: 100 mg Ergocalciferol (Ergocalciferol (Vitamin D2) 1,250 Mcg Capsule) 1,250 mcg PO WE [facility] Last Admin: 03/03/25 20:39 Dose: 1,250 mcg Fluticasone Propionate (Fluticasone Propionate Nasal 16 Gm [place]) 2 spray NOSTRIL-B BID [facility] Last Admin: 03/09/25 08:44 Dose: Not Given Guanfacine HCl (Guanfacine Hcl Er 1 Mg Tab.Er.24h) 1 mg PO DAILY [facility] Last Admin: 03/09/25 08:43 Dose: 1 mg Hydroxyzine HCl (Hydroxyzine Hcl 25 Mg Tablet) 25 mg PO Q6H PRN PRN Reason: mild anxiety Last Admin: 03/06/25 10:48 Dose: 25 mg Loratadine (Loratadine 10 Mg Tablet) 10 mg PO BEDTIME [facility] Last Admin: 03/08/25 22:05 Dose: 10 mg Magnesium Hydroxide (Milk Of Magnesia 30 Ml Oral.Susp) 30 ml PO DAILY PRN PRN Reason: Constipation Last Admin: 02/24/25 20:39 Dose: 30 ml Metformin HCl (Metformin Hcl Er 500 Mg Tab.Er.24h) 500 mg PO DAILY@1700 MARY Last Admin: 03/08/25 17:56 Dose: 500 mg Nicotine (Nicotine 21 Mg Patch.Td24) 21 mg TRANSDERMA DAILY PRN PRN Reason: smoking cessation Nicotine Polacrilex (Nicotine Polacrilex 2 Mg Gum) 4 mg BUCCAL Q2H PRN PRN Reason: Nicotine Cravings Olanzapine (Olanzapine 5 Mg Tablet) 5 mg PO TID PRN PRN Reason: agitation Last Admin: 03/06/25 10:48 Dose: 5 mg Olanzapine (Olanzapine 2.5 Mg Tablet) 2.5 mg PO DAILY [facility] Last Admin: 03/09/25 08:43 Dose: 2.5 mg Polyethylene Glycol (Polyethylene Glycol 3350 17 Gm Powd.Pack) 17 gm PO DAILY PRN PRN Reason: Constipation Prazosin HCl (Prazosin Hcl 1 Mg Capsule) 1 mg PO BEDTIME [facility]; Protocol Last Admin: 03/08/25 22:06 Dose: 1 mg Psyllium Hydrophilic Mucilloid (Psyllium Seed 3.7 Gm Packet) 3.7 gm PO DAILY MARY Last Admin: 03/09/25 08:44 Dose: Not Given Trazodone HCl (Trazodone Hcl 50 Mg Tablet) 50 mg PO BEDTIME MRX1 PRN PRN Reason: Insomnia Last Admin: 03/01/25 20:44 Dose: 50 mg Allergies Allergies Allergy/AdvReac Type Severity Reaction Status Date / Time No Known Allergies Allergy Verified 02/23/25 18:20 Assessment & Plan Assessment & Plan (1) Bipolar disorder: Status: Acute Code(s): F31.9 - Bipolar disorder, unspecified (2) Developmental delay, moderate: Status: Acute Code(s): R62.50 - Unspecified lack of expected normal physiological development in childhood (3) PTSD (post-traumatic stress disorder): Status: Acute Code(s): F43.10 - Post-traumatic stress disorder, unspecified (4) Autism spectrum disorder: Status: Acute Code(s): F84.0 - Autistic disorder (5) Excoriation (skin-picking) disorder: Status: Acute Code(s): F42.4 - Excoriation (skin-picking) disorder Plan Patient is a 25-year-old female with ASD, developmental delay, PTSD, carrying a diagnosis of bipolar depression, living in a senior care who presents for mood dysregulation with SI and HI in the face of senior care frustration. Patient emotionally reactive and easily agitated during discussion, though trying to keep herself in control and apologetic. Patient says that things were good... Peaceful at the senior care until her housemate and friend Chelsea moved out a couple of months ago. She says Chelsea really helped me out...I miss her. Patient quickly got upset, saying she wants to get out of the senior care and go back to shared living... And grew quite frustrated that consumer loan underwriter could not immediately answer whether or not this was possible. She was able to calmed down some and say that she is very unhappy at the senior care, she feels that the staff were rude, not helpful, are punitive and says that they take her phone away as punishment; she also feels that other clients are rude and problematic though she would not give any examples. Throughout the interview patient would go back to again asking if she can move back to shared living struggling to accept that it will take time figure this out. Patient said she does not know the names of her medications and can not tell if they are working. Patient said that she did get suicidal and wanted to and did make a small laceration on her left forearm; now however she just wants to move out of the senior care into a different living situation. Patient had made some verbally aggressive comments towards peers which she said she meant at the time (unclear specifics and patient would not disclose). Patient agreed to medication changes at consumer loan underwriter's discretion. Asked for her conservator/guardian to be called; asked for her fiance Shree to be called. Formulation/clinical reasoning: Seems that on current medication regimen, patient was stable until living situation dynamics changed with peer she felt close to moved out; it appears that since then patient has struggled with staff and peer relationships. Patient unable to share details but gives consent for team to gather collateral. At this time will continue current medication regimen as collaterals gathered; will get Depakote level. Patient carries bipolar diagnosis however she feels unable to discuss her psychiatric history and so it is not clear if she has actual discrete manic episodes. Hospital course: 02/26 Patient reports feeling a little depressed but feeling a little better than the other day. Says SI lingers but going away; HI also waning. Patient again asked about changing group homes and was calm and appreciative of teams help with this process. Patient in good behavioral and impulse control. -Depakote level WNL; will continue to observe patient and assess stability before making medication changes -social work able to talk with patient's guardian who has a plan to help her change group homes; when patient later this she was very pleased 02/27 getting very upset that she does not have clear answer about going to shared living... slams hand on table several times demanding answers, however, soon apologizes for outburst saying she's just upset and hates group homes. Agrees to increasing depakote and starting clonidine 02/28 in better behavioral control; tolerating increased Depakote dose; blood pressures WNL with added clonidine 03/01 pt got emotional learning she cannot dc straight to a shared living; she had a momentary outburst but quickly got herself back into control...apologized and said she is amenable to plan. considering med changes regarding following; will reach out to outpt provider -patient is on Clozaril and Depakote; wonder if she actually needs Zyprexa 5 mg daily dose which could perhaps be a p.r.n. instead -wonder how patient might benefit from Adderall or maybe guanfacine -also consider metformin given patient's obesity and on medications that can cause metabolic syndrome 03/02 Patient says that she is amenable with disposition plan. Talk through her feelings about it some of them tearful. Discussed medication regimen and she agrees to starting Intuniv to see if it can help with impulse control; also agreed to metformin to help with weight gain associated with medication regimen, reviewing risks/side effects. Talked about Zyprexa and she agrees she might not need it scheduled at daytime and can take a p.r.n.; agrees to lowering it to 2.5 mg to see how it goes. -Depakote level and associated labs WNL (recently changed dosing) 03/03: Patient says that she is amenable with disposition plan. Talk through her feelings about it some of them tearful. Fraustrated that she is not going to shared housing and also not being able to seen her boyfriend when she wants. Notes that her boyfriend will kill himself if they break up but she does not intend to end their relationship. She is taking her meds as prescribed and guess they are helpful. Reports anxiety and depression symtoms which are worsening. Denies SI/HI/AH/VH. Started Intuniv and metformin yesterday. Continue current tx regime. 03/04: Patient feels better today. She admits to taking her medications as prescribed which she believes are helpful. She has not been attending groups because groups don't help. Still concerned about her housing situation. She currently denies anxiety or depression. She denies SI/HI/AH/VH at this time. 03/05/25: She appropriately frustrated with different providers seeing her in the past couple of days. She appeared to be more as irritable, restless, but mostly cooperative. Goal-directed that we will work on be positive even though she does not want to go back to the senior care. Deny any safety concerns. Continue with current medications. Monitor for ANC as she is on Clozaril. Monitor for signs and symptoms of hypo or hyperglycemic due to newly prescribed on metformin for weight control 03/07 Continue tx Support through transition 03/08: continue current tx plan. 03/09: Active on unit, social with peers. attending groups. Pt reports feeling good ; pt stated, I'm still waiting for a respite bed . Pt reports she showered and did laundry to keep busy. denies SI/HI/VH/AH. Continue current tx plan. Plan: CV Q 15 minute checks Started Intuniv 1 mg daily Lower daytime Zyprexa to 2.5 mg daily; would like to see if she can be okay without it and just use PRNs Started metformin ER 500 mg q.h.s. to help mitigate weight gain associated with medication regimen Changing bedtime depakote dose to ER and 1000mg qhs. Current dose is 1500 a day. VPA level was 67.9 on 03/02. Continue clonidine 0.1mg bid 0900,1300 Continue current home medication regimen for now Gather collateral Patient educated on: diagnosis and medication risk/benefits Reason for continued inpatient stay Substantial Risk for: med/psych decompensation Time Spent With Patient Time: Total time managing care of this patient today _20___ minutes.
[2025-03-09 12:47] VITALS: BP 133/94
[2025-03-09] MEDS: Acetaminophen 325 MG TABLET 650 MG PO (14:37)
[2025-03-09] MEDS: metFORMIN HCl ER 500 MG TAB.ER.24H PO (17:22)
[2025-03-09 20:00] VITALS: BP 156/78; PULSE 109; RESP 16; TEMP 36.4; O2SAT 96
[2025-03-09] MEDS: Fluticasone Propionate Nasal 16 GM SPRAY 2 SPRAY NOSTRIL-B (20:46)
[2025-03-09] MEDS: cloZAPine 25 MG TABLET 50 MG PO (20:46)
[2025-03-09 20:47] VITALS: BP 156/78
[2025-03-09] MEDS: Loratadine 10 MG TABLET PO (20:47)
[2025-03-09] MEDS: Prazosin HCL 1 MG CAPSULE PO (20:47)
[2025-03-09] MEDS: Divalproex Sodium ER 500 MG TAB.ER.24H 1000 MG PO (20:47)
[2025-03-09] MEDS: Desmopressin Acetate 0.2 MG TABLET 0.3 MG PO (20:48)
[2025-03-10 07:56] VITALS: BP 95/60; PULSE 98; RESP 16; TEMP 36.2; O2SAT 94
[2025-03-10] MEDS: guanFACINE HCl ER 1 MG TAB.ER.24H PO (08:39)
[2025-03-10] MEDS: cloZAPine 100 MG TABLET PO ×2 (08:39→20:50)
[2025-03-10] MEDS: clonazePAM 0.5 MG TABLET PO ×3 (08:39→20:55)
[2025-03-10] MEDS: Divalproex Sodium 500 MG TABLET.DR PO ×2 (08:39→12:59)
[2025-03-10] MEDS: Docusate Sodium 100 MG CAPSULE PO ×2 (08:39→20:54)
[2025-03-10] MEDS: hydrOXYzine HCL 25 MG TABLET PO ×2 (08:40→15:16)
[2025-03-10] MEDS: OLANZapine 2.5 MG TABLET PO (08:40)
[2025-03-10] MEDS: Fluticasone Propionate Nasal 16 GM SPRAY 2 SPRAY NOSTRIL-B ×2 (08:42→20:56)
[2025-03-10] MEDS: OLANZapine 5 MG TABLET PO (11:06)
--- NOTE | 2025-03-10 12:28 | HO.PSYCHPN ---
Subjective Subjective Date of Service: 03/10/25 Reason For Visit: Decompensated, HI Subjective Notes: Conditional Voluntary Medical Problems Affecting Mental Status: No Interim History: Patient notes that she is feeling ?good today. She is anxious because she wants to be discharged to respite today. She denies depression. She denies SI/HI/AH/VH at this time. Medication Compliance: Yes Side effects from medications: No Attending Groups: Intermittent Review of Systems Acute medical concerns: No Review of Systems Review of Systems Yes all other systems are reviewed and are negative Mental Status Exam Mental Status Exam Narrative: Appearance: Casually dressed, adequate hygiene Behavior: Calm and cooperative throughout the interview. Eye contact is appropriate, and there are no signs of psychomotor agitation or retardation Speech: Normal volume and prosody Thought process: logical and goal-directed Thought content: Future oriented no self-harming thoughts Mood: Good Affect: Constricted SI:denies HI:denies VH/AH:none Delusions: None Insight/judgment: Fair insight and judgment Memory/cog: Alert, oriented x 4. grossly intact to conversational testing Diagnostics Vital Signs (24Hr): Vital Signs - 24 hr 03/09/25 12:47 03/09/25 20:00 03/09/25 20:47 Temperature 97.5 F Pulse Rate 109 H Respiratory Rate 16 Blood Pressure 133/94 H 156/78 H 156/78 H Pulse Oximetry 96 Oxygen Delivery Method Room Air 03/10/25 07:56 Temperature 97.1 F Pulse Rate 98 Respiratory Rate 16 Blood Pressure 95/60 Pulse Oximetry 94 Oxygen Delivery Method BMI result Body Mass Index 51.8 Labs 02/23/25 18:55 03/04/25 08:02 Labs: Laboratory Results - last 48 hr 03/08/25 03/09/25 13:36 08:39 Absolute Neuts (auto) 7.3 Total Bilirubin 0.1 Direct Bilirubin < 0.2 AST 33 H ALT 37 H Alkaline Phosphatase 70 Ammonia 36 Total Protein 7.6 Albumin 4.2 Valproic Acid 58.2 Medications Medications Current Medications Acetaminophen (Acetaminophen 325 Mg Tablet) 650 mg PO Q6H PRN PRN Reason: Headache/Pain, Scale 1-10 Last Admin: 03/09/25 14:37 Dose: 650 mg Al Hydroxide/Mg Hydroxide (Magnesium Hydrox/Alum Hydrox 30 Ml Oral.Susp) 30 ml PO Q6H PRN PRN Reason: Heartburn/Nausea Clonazepam (Clonazepam 0.5 Mg Tablet) 0.5 mg PO TID [facility] Last Admin: 03/10/25 08:39 Dose: 0.5 mg Clonidine HCl (Clonidine Hcl 0.1 Mg Tablet) 0.1 mg PO BID@0900,1300 [facility]; Protocol Last Admin: 03/10/25 08:43 Dose: Not Given Clozapine (Clozapine 100 Mg Tablet) 100 mg PO BID [facility] Last Admin: 03/10/25 08:39 Dose: 100 mg Clozapine (Clozapine 25 Mg Tablet) 50 mg PO BEDTIME [facility] Last Admin: 03/09/25 20:46 Dose: 50 mg Desmopressin Acetate (Desmopressin Acetate 0.2 Mg Tablet) 0.3 mg PO BEDTIME [facility] Last Admin: 03/09/25 20:48 Dose: 0.3 mg Dicyclomine HCl (Dicyclomine Hcl 10 Mg Capsule) 10 mg PO TID PRN PRN Reason: Abdominal Discomfort Divalproex Sodium (Divalproex Sodium 500 Mg Tablet.Dr) 500 mg PO BID@0900,1300 [facility] Last Admin: 03/10/25 08:39 Dose: 500 mg Divalproex Sodium (Divalproex Sodium Er 500 Mg Tab.Er.24h) 1,000 mg PO BEDTIME [facility] Last Admin: 03/09/25 20:47 Dose: 1,000 mg Docusate Sodium (Docusate Sodium 100 Mg Capsule) 100 mg PO BID [facility] Last Admin: 03/10/25 08:39 Dose: 100 mg Ergocalciferol (Ergocalciferol (Vitamin D2) 1,250 Mcg Capsule) 1,250 mcg PO WE [facility] Last Admin: 03/03/25 20:39 Dose: 1,250 mcg Fluticasone Propionate (Fluticasone Propionate Nasal 16 Gm Godfrey) 2 spray NOSTRIL-B BID [facility] Last Admin: 03/10/25 08:42 Dose: 2 spray Guanfacine HCl (Guanfacine Hcl Er 1 Mg Tab.Er.24h) 1 mg PO DAILY [facility] Last Admin: 03/10/25 08:39 Dose: 1 mg Hydroxyzine HCl (Hydroxyzine Hcl 25 Mg Tablet) 25 mg PO Q6H PRN PRN Reason: mild anxiety Last Admin: 03/10/25 08:40 Dose: 25 mg Loratadine (Loratadine 10 Mg Tablet) 10 mg PO BEDTIME [facility] Last Admin: 03/09/25 20:47 Dose: 10 mg Magnesium Hydroxide (Milk Of Magnesia 30 Ml Oral.Susp) 30 ml PO DAILY PRN PRN Reason: Constipation Last Admin: 02/24/25 20:39 Dose: 30 ml Metformin HCl (Metformin Hcl Er 500 Mg Tab.Er.24h) 500 mg PO DAILY@1700 [facility] Last Admin: 03/09/25 17:22 Dose: 500 mg Nicotine (Nicotine 21 Mg Patch.Td24) 21 mg TRANSDERMA DAILY PRN PRN Reason: smoking cessation Nicotine Polacrilex (Nicotine Polacrilex 2 Mg Gum) 4 mg BUCCAL Q2H PRN PRN Reason: Nicotine Cravings Olanzapine (Olanzapine 5 Mg Tablet) 5 mg PO TID PRN PRN Reason: agitation Last Admin: 03/10/25 11:06 Dose: 5 mg Olanzapine (Olanzapine 2.5 Mg Tablet) 2.5 mg PO DAILY [facility] Last Admin: 03/10/25 08:40 Dose: 2.5 mg Polyethylene Glycol (Polyethylene Glycol 3350 17 Gm Powd.Pack) 17 gm PO DAILY PRN PRN Reason: Constipation Prazosin HCl (Prazosin Hcl 1 Mg Capsule) 1 mg PO BEDTIME [facility]; Protocol Last Admin: 03/09/25 20:47 Dose: 1 mg Psyllium Hydrophilic Mucilloid (Psyllium Seed 3.7 Gm Packet) 3.7 gm PO DAILY [facility] Last Admin: 03/10/25 10:50 Dose: Not Given Trazodone HCl (Trazodone Hcl 50 Mg Tablet) 50 mg PO BEDTIME [facility] PRN PRN Reason: Insomnia Last Admin: 03/01/25 20:44 Dose: 50 mg Allergies Allergies Allergy/AdvReac Type Severity Reaction Status Date / Time No Known Allergies Allergy Verified 02/23/25 18:20 Assessment & Plan Assessment & Plan (1) Bipolar disorder: Status: Acute Code(s): F31.9 - Bipolar disorder, unspecified (2) Developmental delay, moderate: Status: Acute Code(s): R62.50 - Unspecified lack of expected normal physiological development in childhood (3) PTSD (post-traumatic stress disorder): Status: Acute Code(s): F43.10 - Post-traumatic stress disorder, unspecified (4) Autism spectrum disorder: Status: Acute Code(s): F84.0 - Autistic disorder (5) Excoriation (skin-picking) disorder: Status: Acute Code(s): F42.4 - Excoriation (skin-picking) disorder Plan Patient is a 25-year-old female with ASD, developmental delay, PTSD, carrying a diagnosis of bipolar depression, living [place] a jail who presents for mood dysregulation with SI and HI in the face of jail frustration. Patient emotionally reactive and easily agitated during discussion, though trying to keep herself in control and apologetic. Patient says that things were good... Peaceful at the jail until her housemate and friend Chelsea moved out a couple of months ago. She says Chelsea really helped me out...I miss her. Patient quickly got upset, saying she wants to get out of the jail and go back to shared living... And grew quite frustrated that mortgage loan underwriter could not immediately answer whether or not this was possible. She was able to calmed down some and say that she is very unhappy at the jail, she feels that the staff were rude, not helpful, are punitive and says that they take her phone away as punishment; she also feels that other clients are rude and problematic though she would not give any examples. Throughout the interview patient would go back to again asking if she can move back to shared living struggling to accept that it will take time figure this out. Patient said she does not know the names of her medications and can not tell if they are working. Patient said that she did get suicidal and wanted to and did make a small laceration on her left forearm; now however she just wants to move out of the jail into a different living situation. Patient had made some verbally aggressive comments towards peers which she said she meant at the time (unclear specifics and patient would not disclose). Patient agreed to medication changes at mortgage loan underwriter's discretion. Asked for her conservator/guardian to be called; asked for her fiance Shree to be called. Formulation/clinical reasoning: Seems that on current medication regimen, patient was stable until living situation dynamics changed with peer she felt close to moved out; it appears that since then patient has struggled with staff and peer relationships. Patient unable to share details but gives consent for team to gather collateral. At this time will continue current medication regimen as collaterals gathered; will get Depakote level. Patient carries bipolar diagnosis however she feels unable to discuss her psychiatric history and so it is not clear if she has actual discrete manic episodes. Hospital course: 02/26 Patient reports feeling a little depressed but feeling a little better than the other day. Says SI lingers but going away; HI also waning. Patient again asked about changing group homes and was calm and appreciative of teams help with this process. Patient in good behavioral and impulse control. -Depakote level WNL; will continue to observe patient and assess stability before making medication changes -social work able to talk with patient's guardian who has a plan to help her change group homes; when patient later this she was very pleased 02/27 getting very upset that she does not have clear answer about going to shared living... slams hand on table several times demanding answers, however, soon apologizes for outburst saying she's just upset and hates group homes. Agrees to increasing depakote and starting clonidine 02/28 in better behavioral control; tolerating increased Depakote dose; blood pressures WNL with added clonidine 03/01 pt got emotional learning she cannot dc straight to a shared living; she had a momentary outburst but quickly got herself back into control...apologized and said she is amenable to plan. considering med changes regarding following; will reach out to outpt provider -patient is on Clozaril and Depakote; wonder if she actually needs Zyprexa 5 mg daily dose which could perhaps be a p.r.n. instead -wonder how patient might benefit from Adderall or maybe guanfacine -also consider metformin given patient's obesity and on medications that can cause metabolic syndrome 03/02 Patient says that she is amenable with disposition plan. Talk through her feelings about it some of them tearful. Discussed medication regimen and she agrees to starting Intuniv to see if it can help with impulse control; also agreed to metformin to help with weight gain associated with medication regimen, reviewing risks/side effects. Talked about Zyprexa and she agrees she might not need it scheduled at daytime and can take a p.r.n.; agrees to lowering it to 2.5 mg to see how it goes. -Depakote level and associated labs WNL (recently changed dosing) 03/03: Patient says that she is amenable with disposition plan. Talk through her feelings about it some of them tearful. Fraustrated that she is not going to shared housing and also not being able to seen her boyfriend when she wants. Notes that her boyfriend will kill himself if they break up but she does not intend to end their relationship. She is taking her meds as prescribed and guess they are helpful. Reports anxiety and depression symtoms which are worsening. Denies SI/HI/AH/VH. Started Intuniv and metformin yesterday. Continue current tx regime. 03/04: Patient feels better today. She admits to taking her medications as prescribed which she believes are helpful. She has not been attending groups because groups don't help. Still concerned about her housing situation. She currently denies anxiety or depression. She denies SI/HI/AH/VH at this time. 03/05/25: She appropriately frustrated with different providers seeing her in the past couple of days. She appeared to be more as irritable, restless, but mostly cooperative. Goal-directed that we will work on be positive even though she does not want to go back to the jail. Deny any safety concerns. Continue with current medications. Monitor for ANC as she is on Clozaril. Monitor for signs and symptoms of hypo or hyperglycemic due to newly prescribed on metformin for weight control 03/07 Continue tx Support through transition 03/08: continue current tx plan. 03/09: Active on unit, social with peers. attending groups. Pt reports feeling good ; pt stated, I'm still waiting for a respite bed . Pt reports she showered and did laundry to keep busy. denies SI/HI/VH/AH. Continue current tx plan. 03/10: Patient notes that she is feeling ?good today. She is anxious because she wants to be discharged to respite today. She denies depression. She denies SI/HI/AH/VH at this time. Discharge is pending confirmation for a respite bed. Continue current treatment regimen. Plan: CV Q 15 minute checks Started Intuniv 1 mg daily Lower daytime Zyprexa to 2.5 mg daily; would like to see if she can be okay without it and just use PRNs Started metformin ER 500 mg q.h.s. to help mitigate weight gain associated with medication regimen Changing bedtime depakote dose to ER and 1000mg qhs. Current dose is 1500 a day. VPA level was 67.9 on 03/02. Continue clonidine 0.1mg bid 0900,1300 Continue current home medication regimen for now Gather collateral Patient educated on: therapeutic strategies Reason for continued inpatient stay Substantial Risk for: rapid decompensation Time Spent With Patient Time: Total time managing care of this patient today ____ minutes.
[2025-03-10 13:03] VITALS: BP 110/74
[2025-03-10] MEDS: cloNIDine HCL 0.1 MG TABLET PO (13:03)
[2025-03-10] MEDS: Acetaminophen 325 MG TABLET 650 MG PO (14:55)
[2025-03-10] MEDS: metFORMIN HCl ER 500 MG TAB.ER.24H PO (18:00)
[2025-03-10 20:00] VITALS: BP 151/76; PULSE 112; TEMP 37.4; O2SAT 95
[2025-03-10] MEDS: cloZAPine 25 MG TABLET 50 MG PO (20:51)
[2025-03-10] MEDS: Divalproex Sodium ER 500 MG TAB.ER.24H 1000 MG PO (20:51)
[2025-03-10] MEDS: Desmopressin Acetate 0.2 MG TABLET 0.3 MG PO (20:52)
[2025-03-10] MEDS: Prazosin HCL 1 MG CAPSULE PO (20:53)
[2025-03-10] MEDS: Loratadine 10 MG TABLET PO (20:55)
[2025-03-10] MEDS: Ergocalciferol (Vitamin D2) 1,250 MCG CAPSULE 1250 MCG PO (21:23)
[2025-03-11 07:00] VITALS: BMI 52.3
[2025-03-11 08:00] VITALS: BP 116/66; PULSE 92; RESP 16; TEMP 36.9; O2SAT 96
[2025-03-11] MEDS: guanFACINE HCl ER 1 MG TAB.ER.24H PO (08:44)
[2025-03-11] MEDS: Fluticasone Propionate Nasal 16 GM SPRAY 2 SPRAY NOSTRIL-B ×2 (08:44→21:23)
[2025-03-11] MEDS: cloZAPine 100 MG TABLET PO ×2 (08:45→21:24)
[2025-03-11] MEDS: OLANZapine 2.5 MG TABLET PO (08:46)
[2025-03-11] MEDS: Docusate Sodium 100 MG CAPSULE PO ×2 (08:46→21:24)
[2025-03-11] MEDS: Divalproex Sodium 500 MG TABLET.DR PO ×2 (08:46→13:26)
[2025-03-11] MEDS: clonazePAM 0.5 MG TABLET PO ×3 (08:46→21:24)
[2025-03-11] MEDS: cloNIDine HCL 0.1 MG TABLET PO ×2 (08:46→13:26)
[2025-03-11 09:06] LABS: Creatinine Clr Calc Pharmacy 179.4; Estimated Glomerular Filt Rate > 60
--- NOTE | 2025-03-11 09:59 | P.PNPSI_ITS ---
Subjective Subjective Date of Service: 03/11/25 Reason For Visit: Decompensated, HI Subjective Notes: Conditional Voluntary Interim History: Patient states that she is ?feeling good. She is looking forward to be discharged back to the intermediate on Saturday. She currently denies anxiety, depression, SI, HI, AH, VH. Medication Compliance: Yes Side effects from medications: No Attending Groups: Intermittent Review of Systems Acute medical concerns: No Mental Status Exam Mental Status Exam Narrative: Appearance: Casually dressed, adequate hygiene Behavior: Calm and cooperative throughout the interview. Eye contact is appropriate, and there are no signs of psychomotor agitation or retardation Speech: Normal volume and prosody Thought process: logical and goal-directed Thought content: Future oriented no self-harming thoughts Mood: Feeling good Affect: Constricted SI:denies HI:denies VH/AH:none Delusions: None Insight/judgment: Fair insight and judgment Memory/cog: Alert, oriented x 4. grossly intact to conversational testing Diagnostics Vital Signs (24Hr): Vital Signs - 24 hr 03/10/25 13:03 03/10/25 20:00 Temperature 99.3 F Pulse Rate 112 H Blood Pressure 110/74 151/76 H Pulse Oximetry 95 Oxygen Delivery Method Room Air BMI result Body Mass Index 51.8 Labs 02/23/25 18:55 03/11/25 08:40 Labs: Laboratory Results - last 48 hr 03/11/25 08:40 Creatinine 0.68 Estim Creat Clear Calc 179.4 Estimated GFR > 60 Medications Medications Current Medications Acetaminophen (Acetaminophen 325 Mg Tablet) 650 mg PO Q6H PRN PRN Reason: Headache/Pain, Scale 1-10 Last Admin: 03/10/25 14:55 Dose: 650 mg Al Hydroxide/Mg Hydroxide (Magnesium Hydrox/Alum Hydrox 30 Ml Oral.Susp) 30 ml PO Q6H PRN PRN Reason: Heartburn/Nausea Clonazepam (Clonazepam 0.5 Mg Tablet) 0.5 mg PO TID [facility] Stop: 03/15/25 23:59 Clonidine HCl (Clonidine Hcl 0.1 Mg Tablet) 0.1 mg PO BID@0900,1300 [facility]; Protocol Last Admin: 03/11/25 08:46 Dose: 0.1 mg Clozapine (Clozapine 100 Mg Tablet) 100 mg PO BID [facility] Last Admin: 03/11/25 08:45 Dose: 100 mg Clozapine (Clozapine 25 Mg Tablet) 50 mg PO BEDTIME [facility] Last Admin: 03/10/25 20:51 Dose: 50 mg Desmopressin Acetate (Desmopressin Acetate 0.2 Mg Tablet) 0.3 mg PO BEDTIME [facility] Last Admin: 03/10/25 20:52 Dose: 0.3 mg Dicyclomine HCl (Dicyclomine Hcl 10 Mg Capsule) 10 mg PO TID PRN PRN Reason: Abdominal Discomfort Divalproex Sodium (Divalproex Sodium 500 Mg Tablet.Dr) 500 mg PO BID@0900,1300 [facility] Last Admin: 03/11/25 08:46 Dose: 500 mg Divalproex Sodium (Divalproex Sodium Er 500 Mg Tab.Er.24h) 1,000 mg PO BEDTIME [facility] Last Admin: 03/10/25 20:51 Dose: 1,000 mg Docusate Sodium (Docusate Sodium 100 Mg Capsule) 100 mg PO BID [facility] Last Admin: 03/11/25 08:46 Dose: 100 mg Ergocalciferol (Ergocalciferol (Vitamin D2) 1,250 Mcg Capsule) 1,250 mcg PO WE [facility] Last Admin: 03/10/25 21:23 Dose: 1,250 mcg Fluticasone Propionate (Fluticasone Propionate Nasal 16 Gm [place]) 2 spray NOSTRIL-B BID [facility] Last Admin: 03/11/25 08:44 Dose: 2 spray Guanfacine HCl (Guanfacine Hcl Er 1 Mg Tab.Er.24h) 1 mg PO DAILY [facility] Last Admin: 03/11/25 08:44 Dose: 1 mg Hydroxyzine HCl (Hydroxyzine Hcl 25 Mg Tablet) 25 mg PO Q6H PRN PRN Reason: mild anxiety Last Admin: 03/10/25 15:16 Dose: 25 mg Loratadine (Loratadine 10 Mg Tablet) 10 mg PO BEDTIME [facility] Last Admin: 03/10/25 20:55 Dose: 10 mg Magnesium Hydroxide (Milk Of Magnesia 30 Ml Oral.Susp) 30 ml PO DAILY PRN PRN Reason: Constipation Last Admin: 02/24/25 20:39 Dose: 30 ml Metformin HCl (Metformin Hcl Er 500 Mg Tab.Er.24h) 500 mg PO DAILY@1700 [facility] Last Admin: 03/10/25 18:00 Dose: 500 mg Nicotine (Nicotine 21 Mg Patch.Td24) 21 mg TRANSDERMA DAILY PRN PRN Reason: smoking cessation Nicotine Polacrilex (Nicotine Polacrilex 2 Mg Gum) 4 mg BUCCAL Q2H PRN PRN Reason: Nicotine Cravings Olanzapine (Olanzapine 5 Mg Tablet) 5 mg PO TID PRN PRN Reason: agitation Last Admin: 03/10/25 11:06 Dose: 5 mg Olanzapine (Olanzapine 2.5 Mg Tablet) 2.5 mg PO DAILY [facility] Last Admin: 03/11/25 08:46 Dose: 2.5 mg Polyethylene Glycol (Polyethylene Glycol 3350 17 Gm Powd.Pack) 17 gm PO DAILY PRN PRN Reason: Constipation Prazosin HCl (Prazosin Hcl 1 Mg Capsule) 1 mg PO BEDTIME [facility]; Protocol Last Admin: 03/10/25 20:53 Dose: 1 mg Psyllium Hydrophilic Mucilloid (Psyllium Seed 3.7 Gm Packet) 3.7 gm PO DAILY [facility] Last Admin: 03/11/25 08:54 Dose: Not Given Trazodone HCl (Trazodone Hcl 50 Mg Tablet) 50 mg PO BEDTIME MRX1 PRN PRN Reason: Insomnia Last Admin: 03/01/25 20:44 Dose: 50 mg Allergies Allergies Allergy/AdvReac Type Severity Reaction Status Date / Time No Known Allergies Allergy Verified 02/23/25 18:20 Assessment & Plan Assessment & Plan (1) Bipolar disorder: Status: Acute Code(s): F31.9 - Bipolar disorder, unspecified (2) Developmental delay, moderate: Status: Acute Code(s): R62.50 - Unspecified lack of expected normal physiological development in childhood (3) PTSD (post-traumatic stress disorder): Status: Acute Code(s): F43.10 - Post-traumatic stress disorder, unspecified (4) Autism spectrum disorder: Status: Acute Code(s): F84.0 - Autistic disorder (5) Excoriation (skin-picking) disorder: Status: Acute Code(s): F42.4 - Excoriation (skin-picking) disorder Plan Patient is a 25-year-old female with ASD, developmental delay, PTSD, carrying a diagnosis of bipolar depression, living in a intermediate who presents for mood dysregulation with SI and HI in the face of intermediate frustration. Patient emotionally reactive and easily agitated during discussion, though trying to keep herself in control and apologetic. Patient says that things were good... Peaceful at the intermediate until her housemate and friend Chelsea moved out a couple of months ago. She says Chelsea really helped me out...I miss her. Patient quickly got upset, saying she wants to get out of the intermediate and go back to shared living... And grew quite frustrated that story writer could not immediately answer whether or not this was possible. She was able to calmed down some and say that she is very unhappy at the intermediate, she feels that the staff were rude, not helpful, are punitive and says that they take her phone away as punishment; she also feels that other clients are rude and problematic though she would not give any examples. Throughout the interview patient would go back to again asking if she can move back to shared living struggling to accept that it will take time figure this out. Patient said she does not know the names of her medications and can not tell if they are working. Patient said that she did get suicidal and wanted to and did make a small laceration on her left forearm; now however she just wants to move out of the intermediate into a different living situation. Patient had made some verbally aggressive comments towards peers which she said she meant at the time (unclear specifics and patient would not disclose). Patient agreed to medication changes at story writer's discretion. Asked for her conservator/guardian to be called; asked for her fialejandro Swann to be called. Formulation/clinical reasoning: Seems that on current medication regimen, patient was stable until living situation dynamics changed with peer she felt close to moved out; it appears that since then patient has struggled with staff and peer relationships. Patient unable to share details but gives consent for team to gather collateral. At this time will continue current medication regimen as collaterals gathered; will get Depakote level. Patient carries bipolar diagnosis however she feels unable to discuss her psychiatric history and so it is not clear if she has actual discrete manic episodes. Hospital course: 02/26 Patient reports feeling a little depressed but feeling a little better than the other day. Says SI lingers but going away; HI also waning. Patient again asked about changing group homes and was calm and appreciative of teams help with this process. Patient in good behavioral and impulse control. -Depakote level WNL; will continue to observe patient and assess stability before making medication changes -social work able to talk with patient's guardian who has a plan to help her change group homes; when patient later this she was very pleased 02/27 getting very upset that she does not have clear answer about going to shared living... slams hand on table several times demanding answers, however, soon apologizes for outburst saying she's just upset and hates group homes. Agrees to increasing depakote and starting clonidine 02/28 in better behavioral control; tolerating increased Depakote dose; blood pressures WNL with added clonidine 03/01 pt got emotional learning she cannot dc straight to a shared living; she had a momentary outburst but quickly got herself back into control...apologized and said she is amenable to plan. considering med changes regarding following; will reach out to outpt provider -patient is on Clozaril and Depakote; wonder if she actually needs Zyprexa 5 mg daily dose which could perhaps be a p.r.n. instead -wonder how patient might benefit from Adderall or maybe guanfacine -also consider metformin given patient's obesity and on medications that can cause metabolic syndrome 03/02 Patient says that she is amenable with disposition plan. Talk through her feelings about it some of them tearful. Discussed medication regimen and she agrees to starting Intuniv to see if it can help with impulse control; also agreed to metformin to help with weight gain associated with medication regimen, reviewing risks/side effects. Talked about Zyprexa and she agrees she might not need it scheduled at daytime and can take a p.r.n.; agrees to lowering it to 2.5 mg to see how it goes. -Depakote level and associated labs WNL (recently changed dosing) 03/03: Patient says that she is amenable with disposition plan. Talk through her feelings about it some of them tearful. Fraustrated that she is not going to shared housing and also not being able to seen her boyfriend when she wants. Notes that her boyfriend will kill himself if they break up but she does not intend to end their relationship. She is taking her meds as prescribed and guess they are helpful. Reports anxiety and depression symtoms which are worsening. Denies SI/HI/AH/VH. Started Intuniv and metformin yesterday. Continue current tx regime. 03/04: Patient feels better today. She admits to taking her medications as prescribed which she believes are helpful. She has not been attending groups because groups don't help. Still concerned about her housing situation. She currently denies anxiety or depression. She denies SI/HI/AH/VH at this time. 03/05/25: She appropriately frustrated with different providers seeing her in the past couple of days. She appeared to be more as irritable, restless, but mostly cooperative. Goal-directed that we will work on be positive even though she does not want to go back to the intermediate. Deny any safety concerns. Continue with current medications. Monitor for ANC as she is on Clozaril. Monitor for signs and symptoms of hypo or hyperglycemic due to newly prescribed on metformin for weight control 03/07 Continue tx Support through transition 03/08: continue current tx plan. 03/09: Active on unit, social with peers. attending groups. Pt reports feeling good ; pt stated, I'm still waiting for a respite bed . Pt reports she showered and did laundry to keep busy. denies SI/HI/VH/AH. Continue current tx plan. 03/10: Patient notes that she is feeling ?good today. She is anxious because she wants to be discharged to respite today. She denies depression. She denies SI/HI/AH/VH at this time. Discharge is pending confirmation for a respite bed. Continue current treatment regimen. 03/11: Patient states that she is ?feeling good. She is looking forward to be discharged back to the intermediate on Saturday. She currently denies anxiety, depression, SI, HI, AH, VH. Continue current treatment regimen. Plan: CV Q 15 minute checks Started Intuniv 1 mg daily Lower daytime Zyprexa to 2.5 mg daily; would like to see if she can be okay without it and just use PRNs Started metformin ER 500 mg q.h.s. to help mitigate weight gain associated with medication regimen Changing bedtime depakote dose to ER and 1000mg qhs. Current dose is 1500 a day. VPA level was 67.9 on 03/02. Continue clonidine 0.1mg bid 0900,1300 Continue current home medication regimen for now Gather collateral Patient educated on: therapeutic strategies Reason for continued inpatient stay Substantial Risk for: rapid decompensation Time Spent With Patient Time: Total time managing care of this patient today ____ minutes.
[2025-03-11 13:26] VITALS: BP 122/74
[2025-03-11] MEDS: metFORMIN HCl ER 500 MG TAB.ER.24H PO (17:36)
[2025-03-11 20:00] VITALS: BP 145/86; PULSE 107; TEMP 36.1; O2SAT 98
[2025-03-11] MEDS: cloZAPine 25 MG TABLET 50 MG PO (21:23)
[2025-03-11] MEDS: Divalproex Sodium ER 500 MG TAB.ER.24H 1000 MG PO (21:23)
[2025-03-11 21:24] VITALS: BP 145/86
[2025-03-11] MEDS: Prazosin HCL 1 MG CAPSULE PO (21:24)
[2025-03-11] MEDS: Loratadine 10 MG TABLET PO (21:24)
[2025-03-11] MEDS: Desmopressin Acetate 0.2 MG TABLET 0.3 MG PO (21:24)
[2025-03-12 07:51] VITALS: BP 130/80; PULSE 93; RESP 16; TEMP 36.3; O2SAT 98
[2025-03-12] MEDS: OLANZapine 2.5 MG TABLET PO (08:32)
[2025-03-12] MEDS: cloZAPine 100 MG TABLET PO ×2 (08:32→20:37)
[2025-03-12] MEDS: Divalproex Sodium 500 MG TABLET.DR PO ×2 (08:32→14:08)
[2025-03-12] MEDS: Docusate Sodium 100 MG CAPSULE PO ×2 (08:32→20:38)
[2025-03-12] MEDS: Fluticasone Propionate Nasal 16 GM SPRAY 2 SPRAY NOSTRIL-B (08:32)
[2025-03-12] MEDS: cloNIDine HCL 0.1 MG TABLET PO ×2 (08:32→14:08)
[2025-03-12] MEDS: guanFACINE HCl ER 1 MG TAB.ER.24H PO (08:32)
[2025-03-12] MEDS: clonazePAM 0.5 MG TABLET PO ×3 (08:32→20:39)
--- NOTE | 2025-03-12 10:52 | P.PNPSI_ITS ---
Subjective Subjective Date of Service: 03/12/25 Reason For Visit: Decompensated, HI Subjective Notes: Conditional Voluntary Guardianship: Yes Medical Problems Affecting Mental Status: No Interim History: Denies SI,HI,AH,VH Plans DC on 03/15 to return to her custodial. No questions/issues/concerns today she reports. Medication Compliance: Yes Side effects from medications: No Attending Groups: Yes Review of Systems Acute medical concerns: No Review of Systems Review of Systems Denies Mental Status Exam Mental Status Exam Patient Appearance: Appropriate Patient Orientation: Person, Place, Time and Situation Level of Consciousness: Alert Patient Behavior: Talkative and Cooperative Mood Description: Apprehensive Affect Description: Apprehensive Patient Cognition Impaired: No Ability to Follow Directions: Good Speech Pattern: Spontaneous Speech Hallucinations: None Delusions: Not Present Thought Process: Distracted Thought Content: positive for Perseveration Depressive Symptoms: Increased Anxiety Judgement: Fair Diagnostics Vital Signs (24Hr): Vital Signs - 24 hr 03/11/25 13:26 03/11/25 20:00 03/11/25 21:24 Temperature 97.0 F Pulse Rate 107 H Respiratory Rate Blood Pressure 122/74 145/86 H 145/86 H Pulse Oximetry 98 Oxygen Delivery Method Room Air 03/12/25 07:51 Temperature 97.3 F Pulse Rate 93 Respiratory Rate 16 Blood Pressure 130/80 Pulse Oximetry 98 Oxygen Delivery Method BMI result Body Mass Index 52.3 Labs 02/23/25 18:55 03/11/25 08:40 Labs: Laboratory Results - last 48 hr 03/11/25 08:40 Creatinine 0.68 Estim Creat Clear Calc 179.4 Estimated GFR > 60 Medications Medications Current Medications Acetaminophen (Acetaminophen 325 Mg Tablet) 650 mg PO Q6H PRN PRN Reason: Headache/Pain, Scale 1-10 Last Admin: 03/10/25 14:55 Dose: 650 mg Al Hydroxide/Mg Hydroxide (Magnesium Hydrox/Alum Hydrox 30 Ml Oral.Susp) 30 ml PO Q6H PRN PRN Reason: Heartburn/Nausea Clonazepam (Clonazepam 0.5 Mg Tablet) 0.5 mg PO TID MARY Stop: 03/15/25 23:59 Last Admin: 03/12/25 08:32 Dose: 0.5 mg Clonidine HCl (Clonidine Hcl 0.1 Mg Tablet) 0.1 mg PO BID@0900,1300 MARY; Protocol Last Admin: 03/12/25 08:32 Dose: 0.1 mg Clozapine (Clozapine 100 Mg Tablet) 100 mg PO BID [facility] Last Admin: 03/12/25 08:32 Dose: 100 mg Clozapine (Clozapine 25 Mg Tablet) 50 mg PO BEDTIME [facility] Last Admin: 03/11/25 21:23 Dose: 50 mg Desmopressin Acetate (Desmopressin Acetate 0.2 Mg Tablet) 0.3 mg PO BEDTIME [facility] Last Admin: 03/11/25 21:24 Dose: 0.3 mg Dicyclomine HCl (Dicyclomine Hcl 10 Mg Capsule) 10 mg PO TID PRN PRN Reason: Abdominal Discomfort Divalproex Sodium (Divalproex Sodium 500 Mg Tablet.Dr) 500 mg PO BID@0900,1300 [facility] Last Admin: 03/12/25 08:32 Dose: 500 mg Divalproex Sodium (Divalproex Sodium Er 500 Mg Tab.Er.24h) 1,000 mg PO BEDTIME [facility] Last Admin: 03/11/25 21:23 Dose: 1,000 mg Docusate Sodium (Docusate Sodium 100 Mg Capsule) 100 mg PO BID [facility] Last Admin: 03/12/25 08:32 Dose: 100 mg Ergocalciferol (Ergocalciferol (Vitamin D2) 1,250 Mcg Capsule) 1,250 mcg PO WE [facility] Last Admin: 03/10/25 21:23 Dose: 1,250 mcg Fluticasone Propionate (Fluticasone Propionate Nasal 16 Gm [place]) 2 spray NOSTRIL-B BID [facility] Last Admin: 03/12/25 08:32 Dose: 2 spray Guanfacine HCl (Guanfacine Hcl Er 1 Mg Tab.Er.24h) 1 mg PO DAILY [facility] Last Admin: 03/12/25 08:32 Dose: 1 mg Hydroxyzine HCl (Hydroxyzine Hcl 25 Mg Tablet) 25 mg PO Q6H PRN PRN Reason: mild anxiety Last Admin: 03/10/25 15:16 Dose: 25 mg Loratadine (Loratadine 10 Mg Tablet) 10 mg PO BEDTIME [facility] Last Admin: 03/11/25 21:24 Dose: 10 mg Magnesium Hydroxide (Milk Of Magnesia 30 Ml Oral.Susp) 30 ml PO DAILY PRN PRN Reason: Constipation Last Admin: 02/24/25 20:39 Dose: 30 ml Metformin HCl (Metformin Hcl Er 500 Mg Tab.Er.24h) 500 mg PO DAILY@1700 [facility] Last Admin: 03/11/25 17:36 Dose: 500 mg Nicotine (Nicotine 21 Mg Patch.Td24) 21 mg TRANSDERMA DAILY PRN PRN Reason: smoking cessation Nicotine Polacrilex (Nicotine Polacrilex 2 Mg Gum) 4 mg BUCCAL Q2H PRN PRN Reason: Nicotine Cravings Olanzapine (Olanzapine 5 Mg Tablet) 5 mg PO TID PRN PRN Reason: agitation Last Admin: 03/10/25 11:06 Dose: 5 mg Olanzapine (Olanzapine 2.5 Mg Tablet) 2.5 mg PO DAILY [facility] Last Admin: 03/12/25 08:32 Dose: 2.5 mg Polyethylene Glycol (Polyethylene Glycol 3350 17 Gm Powd.Pack) 17 gm PO DAILY PRN PRN Reason: Constipation Prazosin HCl (Prazosin Hcl 1 Mg Capsule) 1 mg PO BEDTIME [facility]; Protocol Last Admin: 03/11/25 21:24 Dose: 1 mg Psyllium Hydrophilic Mucilloid (Psyllium Seed 3.7 Gm Packet) 3.7 gm PO DAILY [facility] Last Admin: 03/12/25 08:59 Dose: Not Given Trazodone HCl (Trazodone Hcl 50 Mg Tablet) 50 mg PO BEDTIME MRX1 PRN PRN Reason: Insomnia Last Admin: 03/01/25 20:44 Dose: 50 mg Allergies Allergies Allergy/AdvReac Type Severity Reaction Status Date / Time No Known Allergies Allergy Verified 02/23/25 18:20 Assessment & Plan Assessment & Plan (1) Bipolar disorder: Status: Acute Code(s): F31.9 - Bipolar disorder, unspecified (2) Developmental delay, moderate: Status: Acute Code(s): R62.50 - Unspecified lack of expected normal physiological development in childhood (3) PTSD (post-traumatic stress disorder): Status: Acute Code(s): F43.10 - Post-traumatic stress disorder, unspecified (4) Autism spectrum disorder: Status: Acute Code(s): F84.0 - Autistic disorder (5) Excoriation (skin-picking) disorder: Status: Acute Code(s): F42.4 - Excoriation (skin-picking) disorder Plan Patient is a 25-year-old female with ASD, developmental delay, PTSD, carrying a diagnosis of bipolar depression, living in a custodial who presents for mood dysregulation with SI and HI in the face of custodial frustration. Patient emotionally reactive and easily agitated during discussion, though trying to keep herself in control and apologetic. Patient says that things were good... Peaceful at the custodial until her housemate and friend Chelsea moved out a couple of months ago. She says Chelsea really helped me out...I miss her. Patient quickly got upset, saying she wants to get out of the custodial and go back to shared living... And grew quite frustrated that advertising copywriter could not immediately answer whether or not this was possible. She was able to calmed down some and say that she is very unhappy at the custodial, she feels that the staff were rude, not helpful, are punitive and says that they take her phone away as punishment; she also feels that other clients are rude and problematic though she would not give any examples. Throughout the interview patient would go back to again asking if she can move back to shared living struggling to accept that it will take time figure this out. Patient said she does not know the names of her medications and can not tell if they are working. Patient said that she did get suicidal and wanted to and did make a small laceration on her left forearm; now however she just wants to move out of the custodial into a different living situation. Patient had made some verbally aggressive comments towards peers which she said she meant at the time (unclear specifics and patient would not disclose). Patient agreed to medication changes at advertising copywriter's discretion. Asked for her conservator/guardian to be called; asked for her fialejandro Swann to be called. Formulation/clinical reasoning: Seems that on current medication regimen, patient was stable until living situation dynamics changed with peer she felt close to moved out; it appears that since then patient has struggled with staff and peer relationships. Patient unable to share details but gives consent for team to gather collateral. At this time will continue current medication regimen as collaterals gathered; will get Depakote level. Patient carries bipolar diagnosis however she feels unable to discuss her psychiatric history and so it is not clear if she has actual discrete manic episodes. Hospital course: 02/26 Patient reports feeling a little depressed but feeling a little better than the other day. Says SI lingers but going away; HI also waning. Patient again asked about changing group homes and was calm and appreciative of teams help with this process. Patient in good behavioral and impulse control. -Depakote level WNL; will continue to observe patient and assess stability before making medication changes -social work able to talk with patient's guardian who has a plan to help her change group homes; when patient later this she was very pleased 02/27 getting very upset that she does not have clear answer about going to shared living... slams hand on table several times demanding answers, however, soon apologizes for outburst saying she's just upset and hates group homes. Agrees to increasing depakote and starting clonidine 02/28 in better behavioral control; tolerating increased Depakote dose; blood pressures WNL with added clonidine 03/01 pt got emotional learning she cannot dc straight to a shared living; she had a momentary outburst but quickly got herself back into control...apologized and said she is amenable to plan. considering med changes regarding following; will reach out to outpt provider -patient is on Clozaril and Depakote; wonder if she actually needs Zyprexa 5 mg daily dose which could perhaps be a p.r.n. instead -wonder how patient might benefit from Adderall or maybe guanfacine -also consider metformin given patient's obesity and on medications that can cause metabolic syndrome 03/02 Patient says that she is amenable with disposition plan. Talk through her feelings about it some of them tearful. Discussed medication regimen and she agrees to starting Intuniv to see if it can help with impulse control; also agreed to metformin to help with weight gain associated with medication regimen, reviewing risks/side effects. Talked about Zyprexa and she agrees she might not need it scheduled at daytime and can take a p.r.n.; agrees to lowering it to 2.5 mg to see how it goes. -Depakote level and associated labs WNL (recently changed dosing) 03/03: Patient says that she is amenable with disposition plan. Talk through her feelings about it some of them tearful. Fraustrated that she is not going to shared housing and also not being able to seen her boyfriend when she wants. Notes that her boyfriend will kill himself if they break up but she does not intend to end their relationship. She is taking her meds as prescribed and guess they are helpful. Reports anxiety and depression symtoms which are worsening. Denies SI/HI/AH/VH. Started Intuniv and metformin yesterday. Continue current tx regime. 03/04: Patient feels better today. She admits to taking her medications as prescribed which she believes are helpful. She has not been attending groups because groups don't help. Still concerned about her housing situation. She currently denies anxiety or depression. She denies SI/HI/AH/VH at this time. 03/05/25: She appropriately frustrated with different providers seeing her in the past couple of days. She appeared to be more as irritable, restless, but mostly cooperative. Goal-directed that we will work on be positive even though she does not want to go back to the custodial. Deny any safety concerns. Continue with current medications. Monitor for ANC as she is on Clozaril. Monitor for signs and symptoms of hypo or hyperglycemic due to newly prescribed on metformin for weight control 03/07 Continue tx Support through transition 03/08: continue current tx plan. 03/09: Active on unit, social with peers. attending groups. Pt reports feeling good ; pt stated, I'm still waiting for a respite bed . Pt reports she showered and did laundry to keep busy. denies SI/HI/VH/AH. Continue current tx plan. 03/10: Patient notes that she is feeling ?good today. She is anxious because she wants to be discharged to respite today. She denies depression. She denies SI/HI/AH/VH at this time. Discharge is pending confirmation for a respite bed. Continue current treatment regimen. 03/11: Patient states that she is ?feeling good. She is looking forward to be discharged back to the custodial on Saturday. She currently denies anxiety, depression, SI, HI, AH, VH. Continue current treatment regimen. 03/12: Continue tx Plan: CV Q 15 minute checks Started Intuniv 1 mg daily Lower daytime Zyprexa to 2.5 mg daily; would like to see if she can be okay without it and just use PRNs Started metformin ER 500 mg q.h.s. to help mitigate weight gain associated with medication regimen Changing bedtime depakote dose to ER and 1000mg qhs. Current dose is 1500 a day. VPA level was 67.9 on 03/02. Continue clonidine 0.1mg bid 0900,1300 Continue current home medication regimen for now Gather collateral Reason for continued inpatient stay Substantial Risk for: rapid decompensation Time Spent With Patient Time: Total time managing care of this patient today ____ minutes.
[2025-03-12 14:08] VITALS: BP 128/80
[2025-03-12] MEDS: metFORMIN HCl ER 500 MG TAB.ER.24H PO (17:27)
[2025-03-12 19:39] VITALS: PULSE 86; TEMP 36.9; O2SAT 99
[2025-03-12] MEDS: Desmopressin Acetate 0.2 MG TABLET 0.3 MG PO (20:35)
[2025-03-12] MEDS: Divalproex Sodium ER 500 MG TAB.ER.24H 1000 MG PO (20:36)
[2025-03-12] MEDS: cloZAPine 25 MG TABLET 50 MG PO (20:36)
[2025-03-12] MEDS: Loratadine 10 MG TABLET PO (20:37)
[2025-03-12] MEDS: Prazosin HCL 1 MG CAPSULE PO (20:38)
[2025-03-13 08:00] VITALS: BP 137/76; PULSE 84; TEMP 36.5; O2SAT 98
[2025-03-13] MEDS: Fluticasone Propionate Nasal 16 GM SPRAY 2 SPRAY NOSTRIL-B ×2 (08:56→21:12)
[2025-03-13] MEDS: guanFACINE HCl ER 1 MG TAB.ER.24H PO (08:57)
[2025-03-13] MEDS: cloZAPine 100 MG TABLET PO ×2 (08:57→21:11)
[2025-03-13] MEDS: cloNIDine HCL 0.1 MG TABLET PO ×2 (08:57→12:28)
[2025-03-13] MEDS: Divalproex Sodium 500 MG TABLET.DR PO ×2 (08:57→12:28)
[2025-03-13] MEDS: Docusate Sodium 100 MG CAPSULE PO ×2 (08:57→21:12)
[2025-03-13] MEDS: clonazePAM 0.5 MG TABLET PO ×3 (08:57→21:11)
[2025-03-13] MEDS: OLANZapine 2.5 MG TABLET PO (08:57)
[2025-03-13 12:28] VITALS: BP 146/90
--- NOTE | 2025-03-13 17:18 | P.PNPSI_ITS ---
Subjective Subjective Date of Service: 03/13/25 Reason For Visit: Decompensated, HI Interim History: Denies SI,HI,AH,VH Plans DC on 03/15 to return to her detention. No questions/issues/concerns today she reports. Review of Systems Review of Systems Denies Yes all other systems are reviewed and are negative Constitutional: Denies fatigue and Denies fever(s) Cardiovascular: Denies chest pain and Denies dyspnea Respiratory: Denies cough and Denies dyspnea Gastrointestinal: Denies abdominal pain, Denies nausea and Denies vomiting Endocrine: Denies fatigue Mental Status Exam Mental Status Exam Narrative: Appearance: Casually dressed, adequate hygiene Behavior: Calm and cooperative throughout the interview. Eye contact is appropriate, and there are no signs of psychomotor agitation or retardation Speech: Normal volume and prosody Thought process: logical and goal-directed Thought content: Future oriented no self-harming thoughts Mood: Feeling good Affect: Constricted SI:denies HI:denies VH/AH:none Delusions: None Insight/judgment: Fair insight and judgment Memory/cog: Alert, oriented x 4. grossly intact to conversational testing Patient Appearance: Appropriate Patient Orientation: Person, Place, Time and Situation Level of Consciousness: Alert Patient Behavior: Talkative and Cooperative Mood Description: Apprehensive Affect Description: Apprehensive Patient Cognition Impaired: No Ability to Follow Directions: Good Speech Pattern: Spontaneous Speech Memory Description: Intact Diagnostics Vital Signs (24Hr): Vital Signs - 24 hr 03/12/25 19:39 03/13/25 08:00 03/13/25 12:28 Temperature 98.5 F 97.7 F Pulse Rate 86 84 Blood Pressure 137/76 146/90 H Pulse Oximetry 99 98 Oxygen Delivery Method Room Air Room Air BMI result Body Mass Index 52.3 Labs 02/23/25 18:55 03/11/25 08:40 Medications Medications Current Medications Acetaminophen (Acetaminophen 325 Mg Tablet) 650 mg PO Q6H PRN PRN Reason: Headache/Pain, Scale 1-10 Last Admin: 03/10/25 14:55 Dose: 650 mg Al Hydroxide/Mg Hydroxide (Magnesium Hydrox/Alum Hydrox 30 Ml Oral.Susp) 30 ml PO Q6H PRN PRN Reason: Heartburn/Nausea Clonazepam (Clonazepam 0.5 Mg Tablet) 0.5 mg PO TID MARY Stop: 03/15/25 23:59 Last Admin: 03/13/25 15:01 Dose: 0.5 mg Clonidine HCl (Clonidine Hcl 0.1 Mg Tablet) 0.1 mg PO BID@0900,1300 [facility]; Protocol Last Admin: 03/13/25 12:28 Dose: 0.1 mg Clozapine (Clozapine 100 Mg Tablet) 100 mg PO BID [facility] Last Admin: 03/13/25 08:57 Dose: 100 mg Clozapine (Clozapine 25 Mg Tablet) 50 mg PO BEDTIME [facility] Last Admin: 03/12/25 20:36 Dose: 50 mg Desmopressin Acetate (Desmopressin Acetate 0.2 Mg Tablet) 0.3 mg PO BEDTIME [facility] Last Admin: 03/12/25 20:35 Dose: 0.3 mg Dicyclomine HCl (Dicyclomine Hcl 10 Mg Capsule) 10 mg PO TID PRN PRN Reason: Abdominal Discomfort Divalproex Sodium (Divalproex Sodium 500 Mg Tablet.Dr) 500 mg PO BID@0900,1300 [facility] Last Admin: 03/13/25 12:28 Dose: 500 mg Divalproex Sodium (Divalproex Sodium Er 500 Mg Tab.Er.24h) 1,000 mg PO BEDTIME [facility] Last Admin: 03/12/25 20:36 Dose: 1,000 mg Docusate Sodium (Docusate Sodium 100 Mg Capsule) 100 mg PO BID [facility] Last Admin: 03/13/25 08:57 Dose: 100 mg Ergocalciferol (Ergocalciferol (Vitamin D2) 1,250 Mcg Capsule) 1,250 mcg PO WE [facility] Last Admin: 03/10/25 21:23 Dose: 1,250 mcg Fluticasone Propionate (Fluticasone Propionate Nasal 16 Gm Fackler) 2 spray NOSTRIL-B BID [facility] Last Admin: 03/13/25 08:56 Dose: 2 spray Guanfacine HCl (Guanfacine Hcl Er 1 Mg Tab.Er.24h) 1 mg PO DAILY [facility] Last Admin: 03/13/25 08:57 Dose: 1 mg Hydroxyzine HCl (Hydroxyzine Hcl 25 Mg Tablet) 25 mg PO Q6H PRN PRN Reason: mild anxiety Last Admin: 03/10/25 15:16 Dose: 25 mg Loratadine (Loratadine 10 Mg Tablet) 10 mg PO BEDTIME [facility] Last Admin: 03/12/25 20:37 Dose: 10 mg Magnesium Hydroxide (Milk Of Magnesia 30 Ml Oral.Susp) 30 ml PO DAILY PRN PRN Reason: Constipation Last Admin: 02/24/25 20:39 Dose: 30 ml Metformin HCl (Metformin Hcl Er 500 Mg Tab.Er.24h) 500 mg PO DAILY@1700 MARY Last Admin: 03/12/25 17:27 Dose: 500 mg Nicotine (Nicotine 21 Mg Patch.Td24) 21 mg TRANSDERMA DAILY PRN PRN Reason: smoking cessation Nicotine Polacrilex (Nicotine Polacrilex 2 Mg Gum) 4 mg BUCCAL Q2H PRN PRN Reason: Nicotine Cravings Olanzapine (Olanzapine 5 Mg Tablet) 5 mg PO TID PRN PRN Reason: agitation Last Admin: 03/10/25 11:06 Dose: 5 mg Olanzapine (Olanzapine 2.5 Mg Tablet) 2.5 mg PO DAILY MARY Last Admin: 03/13/25 08:57 Dose: 2.5 mg Polyethylene Glycol (Polyethylene Glycol 3350 17 Gm Powd.Pack) 17 gm PO DAILY PRN PRN Reason: Constipation Prazosin HCl (Prazosin Hcl 1 Mg Capsule) 1 mg PO BEDTIME MARY; Protocol Last Admin: 03/12/25 20:38 Dose: 1 mg Psyllium Hydrophilic Mucilloid (Psyllium Seed 3.7 Gm Packet) 3.7 gm PO DAILY MARY Last Admin: 03/13/25 08:59 Dose: Not Given Trazodone HCl (Trazodone Hcl 50 Mg Tablet) 50 mg PO BEDTIME MRX1 PRN PRN Reason: Insomnia Last Admin: 03/01/25 20:44 Dose: 50 mg Allergies Allergies Allergy/AdvReac Type Severity Reaction Status Date / Time No Known Allergies Allergy Verified 02/23/25 18:20 Assessment & Plan Assessment & Plan (1) Bipolar disorder: Status: Acute Code(s): F31.9 - Bipolar disorder, unspecified (2) Developmental delay, moderate: Status: Acute Code(s): R62.50 - Unspecified lack of expected normal physiological development in childhood (3) PTSD (post-traumatic stress disorder): Status: Acute Code(s): F43.10 - Post-traumatic stress disorder, unspecified (4) Autism spectrum disorder: Status: Acute Code(s): F84.0 - Autistic disorder (5) Excoriation (skin-picking) disorder: Status: Acute Code(s): F42.4 - Excoriation (skin-picking) disorder Plan Patient is a 25-year-old female with ASD, developmental delay, PTSD, carrying a diagnosis of bipolar depression, living in a detention who presents for mood dysregulation with SI and HI in the face of detention frustration. Patient emotionally reactive and easily agitated during discussion, though trying to keep herself in control and apologetic. Patient says that things were good... Peaceful at the detention until her housemate and friend Chelsea moved out a couple of months ago. She says Chelsea really helped me out...I miss her. Patient quickly got upset, saying she wants to get out of the detention and go back to shared living... And grew quite frustrated that justowriter operator could not immediately answer whether or not this was possible. She was able to calmed down some and say that she is very unhappy at the detention, she feels that the staff were rude, not helpful, are punitive and says that they take her phone away as punishment; she also feels that other clients are rude and problematic though she would not give any examples. Throughout the interview patient would go back to again asking if she can move back to shared living struggling to accept that it will take time figure this out. Patient said she does not know the names of her medications and can not tell if they are working. Patient said that she did get suicidal and wanted to and did make a small laceration on her left forearm; now however she just wants to move out of the detention into a different living situation. Patient had made some verbally aggressive comments towards peers which she said she meant at the time (unclear specifics and patient would not disclose). Patient agreed to medication changes at justowriter operator's discretion. Asked for her conservator/guardian to be called; asked for her fialejandro Swann to be called. Formulation/clinical reasoning: Seems that on current medication regimen, patient was stable until living situation dynamics changed with peer she felt close to moved out; it appears that since then patient has struggled with staff and peer relationships. Patient unable to share details but gives consent for team to gather collateral. At this time will continue current medication regimen as collaterals gathered; will get Depakote level. Patient carries bipolar diagnosis however she feels unable to discuss her psychiatric history and so it is not clear if she has actual discrete manic episodes. Hospital course: 02/26 Patient reports feeling a little depressed but feeling a little better than the other day. Says SI lingers but going away; HI also waning. Patient again asked about changing group homes and was calm and appreciative of teams help with this process. Patient in good behavioral and impulse control. -Depakote level WNL; will continue to observe patient and assess stability before making medication changes -social work able to talk with patient's guardian who has a plan to help her change group homes; when patient later this she was very pleased 02/27 getting very upset that she does not have clear answer about going to shared living... slams hand on table several times demanding answers, however, soon apologizes for outburst saying she's just upset and hates group homes. Agrees to increasing depakote and starting clonidine 02/28 in better behavioral control; tolerating increased Depakote dose; blood pressures WNL with added clonidine 03/01 pt got emotional learning she cannot dc straight to a shared living; she had a momentary outburst but quickly got herself back into control...apologized and said she is amenable to plan. considering med changes regarding following; will reach out to outpt provider -patient is on Clozaril and Depakote; wonder if she actually needs Zyprexa 5 mg daily dose which could perhaps be a p.r.n. instead -wonder how patient might benefit from Adderall or maybe guanfacine -also consider metformin given patient's obesity and on medications that can cause metabolic syndrome 03/02 Patient says that she is amenable with disposition plan. Talk through her feelings about it some of them tearful. Discussed medication regimen and she agrees to starting Intuniv to see if it can help with impulse control; also agreed to metformin to help with weight gain associated with medication regimen, reviewing risks/side effects. Talked about Zyprexa and she agrees she might not need it scheduled at daytime and can take a p.r.n.; agrees to lowering it to 2.5 mg to see how it goes. -Depakote level and associated labs WNL (recently changed dosing) 03/03: Patient says that she is amenable with disposition plan. Talk through her feelings about it some of them tearful. Fraustrated that she is not going to shared housing and also not being able to seen her boyfriend when she wants. Notes that her boyfriend will kill himself if they break up but she does not intend to end their relationship. She is taking her meds as prescribed and guess they are helpful. Reports anxiety and depression symtoms which are worsening. Denies SI/HI/AH/VH. Started Intuniv and metformin yesterday. Continue current tx regime. 03/04: Patient feels better today. She admits to taking her medications as prescribed which she believes are helpful. She has not been attending groups because groups don't help. Still concerned about her housing situation. She currently denies anxiety or depression. She denies SI/HI/AH/VH at this time. 03/05/25: She appropriately frustrated with different providers seeing her in the past couple of days. She appeared to be more as irritable, restless, but mostly cooperative. Goal-directed that we will work on be positive even though she does not want to go back to the detention. Deny any safety concerns. Continue with current medications. Monitor for ANC as she is on Clozaril. Monitor for signs and symptoms of hypo or hyperglycemic due to newly prescribed on metformin for weight control 03/07 Continue tx Support through transition 03/08: continue current tx plan. 03/09: Active on unit, social with peers. attending groups. Pt reports feeling good ; pt stated, I'm still waiting for a respite bed . Pt reports she showered and did laundry to keep busy. denies SI/HI/VH/AH. Continue current tx plan. 03/10: Patient notes that she is feeling ?good today. She is anxious because she wants to be discharged to respite today. She denies depression. She denies SI/HI/AH/VH at this time. Discharge is pending confirmation for a respite bed. Continue current treatment regimen. 03/11: Patient states that she is ?feeling good. She is looking forward to be discharged back to the detention on Saturday. She currently denies anxiety, depression, SI, HI, AH, VH. Continue current treatment regimen. 03/12: Continue tx 03/13: Continue current management and treatment plan. Plan: CV Q 15 minute checks Started Intuniv 1 mg daily Lower daytime Zyprexa to 2.5 mg daily; would like to see if she can be okay without it and just use PRNs Started metformin ER 500 mg q.h.s. to help mitigate weight gain associated with medication regimen Changing bedtime depakote dose to ER and 1000mg qhs. Current dose is 1500 a day. VPA level was 67.9 on 03/02. Continue clonidine 0.1mg bid 0900,1300 Continue current home medication regimen for now Gather collateral Reason for continued inpatient stay Substantial Risk for: inability to function and rapid decompensation Time Spent With Patient Time: Total time managing care of this patient today ____ minutes.
[2025-03-13] MEDS: metFORMIN HCl ER 500 MG TAB.ER.24H PO (17:25)
[2025-03-13] MEDS: OLANZapine 5 MG TABLET PO (17:29)
[2025-03-13] MEDS: hydrOXYzine HCL 25 MG TABLET PO (17:29)
[2025-03-13 19:33] VITALS: BP 126/76; PULSE 108; TEMP 36.7; O2SAT 98
[2025-03-13] MEDS: cloZAPine 25 MG TABLET 50 MG PO (21:10)
[2025-03-13] MEDS: Desmopressin Acetate 0.2 MG TABLET 0.3 MG PO (21:11)
[2025-03-13] MEDS: Divalproex Sodium ER 500 MG TAB.ER.24H 1000 MG PO (21:11)
[2025-03-13] MEDS: Prazosin HCL 1 MG CAPSULE PO (21:11)
[2025-03-13] MEDS: Loratadine 10 MG TABLET PO (21:14)
[2025-03-14 08:00] VITALS: BP 125/60; PULSE 80; TEMP 36.4; O2SAT 98
[2025-03-14] MEDS: Fluticasone Propionate Nasal 16 GM SPRAY 2 SPRAY NOSTRIL-B (08:42)
[2025-03-14] MEDS: Divalproex Sodium 500 MG TABLET.DR PO ×2 (08:43→13:00)
[2025-03-14] MEDS: Docusate Sodium 100 MG CAPSULE PO ×2 (08:43→21:44)
[2025-03-14] MEDS: OLANZapine 2.5 MG TABLET PO (08:43)
[2025-03-14] MEDS: guanFACINE HCl ER 1 MG TAB.ER.24H PO (08:43)
[2025-03-14] MEDS: cloNIDine HCL 0.1 MG TABLET PO ×2 (08:43→13:00)
[2025-03-14] MEDS: cloZAPine 100 MG TABLET PO ×2 (08:43→21:42)
[2025-03-14] MEDS: clonazePAM 0.5 MG TABLET PO ×3 (08:43→21:45)
--- NOTE | 2025-03-14 09:34 | P.PNPSI_ITS ---
Subjective Subjective Date of Service: 03/14/25 Reason For Visit: Decompensated, HI Interim History: Patient remains stable and feels ready for DC on 03/15 to return to her [facility]. improved Denies SI,HI,AH,VH. No questions/issues/concerns today. Review of Systems Review of Systems Denies Yes all other systems are reviewed and are negative Constitutional: Denies fatigue and Denies fever(s) Cardiovascular: Denies chest pain and Denies dyspnea Respiratory: Denies cough and Denies dyspnea Gastrointestinal: Denies abdominal pain, Denies nausea and Denies vomiting Endocrine: Denies fatigue Mental Status Exam Mental Status Exam Narrative: Appearance: Casually dressed, adequate hygiene Behavior: Calm and cooperative throughout the interview. Eye contact is appropriate, and there are no signs of psychomotor agitation or retardation Speech: Normal volume and prosody Thought process: logical and goal-directed Thought content: Future oriented no self-harming thoughts Mood: Feeling good Affect: Constricted SI:denies HI:denies VH/AH:none Delusions: None Insight/judgment: Fair insight and judgment Memory/cog: Alert, oriented x 4. grossly intact to conversational testing Patient Appearance: Appropriate Patient Orientation: Person, Place, Time and Situation Level of Consciousness: Alert Patient Behavior: Talkative and Cooperative Mood Description: Apprehensive Affect Description: Apprehensive Patient Cognition Impaired: No Ability to Follow Directions: Good Speech Pattern: Spontaneous Speech Memory Description: Intact Diagnostics Vital Signs (24Hr): Vital Signs - 24 hr 03/13/25 12:28 03/13/25 19:33 03/14/25 08:00 Temperature 98.1 F 97.5 F Pulse Rate 108 H 80 Blood Pressure 146/90 H 126/76 125/60 Pulse Oximetry 98 98 Oxygen Delivery Method Room Air Room Air BMI result Body Mass Index 52.3 Labs 02/23/25 18:55 03/11/25 08:40 Medications Medications Current Medications Acetaminophen (Acetaminophen 325 Mg Tablet) 650 mg PO Q6H PRN PRN Reason: Headache/Pain, Scale 1-10 Last Admin: 03/10/25 14:55 Dose: 650 mg Al Hydroxide/Mg Hydroxide (Magnesium Hydrox/Alum Hydrox 30 Ml Oral.Susp) 30 ml PO Q6H PRN PRN Reason: Heartburn/Nausea Clonazepam (Clonazepam 0.5 Mg Tablet) 0.5 mg PO TID MARY Stop: 03/15/25 23:59 Last Admin: 03/14/25 08:43 Dose: 0.5 mg Clonidine HCl (Clonidine Hcl 0.1 Mg Tablet) 0.1 mg PO BID@0900,1300 [facility]; Protocol Last Admin: 03/14/25 08:43 Dose: 0.1 mg Clozapine (Clozapine 100 Mg Tablet) 100 mg PO BID [facility] Last Admin: 03/14/25 08:43 Dose: 100 mg Clozapine (Clozapine 25 Mg Tablet) 50 mg PO BEDTIME [facility] Last Admin: 03/13/25 21:10 Dose: 50 mg Desmopressin Acetate (Desmopressin Acetate 0.2 Mg Tablet) 0.3 mg PO BEDTIME [facility] Last Admin: 03/13/25 21:11 Dose: 0.3 mg Dicyclomine HCl (Dicyclomine Hcl 10 Mg Capsule) 10 mg PO TID PRN PRN Reason: Abdominal Discomfort Divalproex Sodium (Divalproex Sodium 500 Mg Tablet.Dr) 500 mg PO BID@0900,1300 [facility] Last Admin: 03/14/25 08:43 Dose: 500 mg Divalproex Sodium (Divalproex Sodium Er 500 Mg Tab.Er.24h) 1,000 mg PO BEDTIME [facility] Last Admin: 03/13/25 21:11 Dose: 1,000 mg Docusate Sodium (Docusate Sodium 100 Mg Capsule) 100 mg PO BID [facility] Last Admin: 03/14/25 08:43 Dose: 100 mg Ergocalciferol (Ergocalciferol (Vitamin D2) 1,250 Mcg Capsule) 1,250 mcg PO WE [facility] Last Admin: 03/10/25 21:23 Dose: 1,250 mcg Fluticasone Propionate (Fluticasone Propionate Nasal 16 Gm [place]) 2 spray NOSTRIL-B BID [facility] Last Admin: 03/14/25 08:42 Dose: 2 spray Guanfacine HCl (Guanfacine Hcl Er 1 Mg Tab.Er.24h) 1 mg PO DAILY [facility] Last Admin: 03/14/25 08:43 Dose: 1 mg Hydroxyzine HCl (Hydroxyzine Hcl 25 Mg Tablet) 25 mg PO Q6H PRN PRN Reason: mild anxiety Last Admin: 03/13/25 17:29 Dose: 25 mg Loratadine (Loratadine 10 Mg Tablet) 10 mg PO BEDTIME [facility] Last Admin: 03/13/25 21:14 Dose: 10 mg Magnesium Hydroxide (Milk Of Magnesia 30 Ml Oral.Susp) 30 ml PO DAILY PRN PRN Reason: Constipation Last Admin: 02/24/25 20:39 Dose: 30 ml Metformin HCl (Metformin Hcl Er 500 Mg Tab.Er.24h) 500 mg PO DAILY@1700 MARY Last Admin: 03/13/25 17:25 Dose: 500 mg Nicotine (Nicotine 21 Mg Patch.Td24) 21 mg TRANSDERMA DAILY PRN PRN Reason: smoking cessation Nicotine Polacrilex (Nicotine Polacrilex 2 Mg Gum) 4 mg BUCCAL Q2H PRN PRN Reason: Nicotine Cravings Olanzapine (Olanzapine 5 Mg Tablet) 5 mg PO TID PRN PRN Reason: agitation Last Admin: 03/13/25 17:29 Dose: 5 mg Olanzapine (Olanzapine 2.5 Mg Tablet) 2.5 mg PO DAILY MARY Last Admin: 03/14/25 08:43 Dose: 2.5 mg Polyethylene Glycol (Polyethylene Glycol 3350 17 Gm Powd.Pack) 17 gm PO DAILY PRN PRN Reason: Constipation Prazosin HCl (Prazosin Hcl 1 Mg Capsule) 1 mg PO BEDTIME MARY; Protocol Last Admin: 03/13/25 21:11 Dose: 1 mg Psyllium Hydrophilic Mucilloid (Psyllium Seed 3.7 Gm Packet) 3.7 gm PO DAILY MARY Last Admin: 03/14/25 08:56 Dose: Not Given Trazodone HCl (Trazodone Hcl 50 Mg Tablet) 50 mg PO BEDTIME MRX1 PRN PRN Reason: Insomnia Last Admin: 03/01/25 20:44 Dose: 50 mg Allergies Allergies Allergy/AdvReac Type Severity Reaction Status Date / Time No Known Allergies Allergy Verified 02/23/25 18:20 Assessment & Plan Assessment & Plan (1) Bipolar disorder: Status: Acute Code(s): F31.9 - Bipolar disorder, unspecified (2) Developmental delay, moderate: Status: Acute Code(s): R62.50 - Unspecified lack of expected normal physiological development in childhood (3) PTSD (post-traumatic stress disorder): Status: Acute Code(s): F43.10 - Post-traumatic stress disorder, unspecified (4) Autism spectrum disorder: Status: Acute Code(s): F84.0 - Autistic disorder (5) Excoriation (skin-picking) disorder: Status: Acute Code(s): F42.4 - Excoriation (skin-picking) disorder Plan Patient is a 25-year-old female with ASD, developmental delay, PTSD, carrying a diagnosis of bipolar depression, living in a [facility] who presents for mood dysregulation with SI and HI in the face of mcc frustration. Patient emotionally reactive and easily agitated during discussion, though trying to keep herself in control and apologetic. Patient says that things were good... Peaceful at the mcc until her housemate and friend Chelsea moved out a couple of months ago. She says Chelsea really helped me out...I miss her. Patient quickly got upset, saying she wants to get out of the mcc and go back to shared living... And grew quite frustrated that chief writer could not immediately answer whether or not this was possible. She was able to calmed down some and say that she is very unhappy at the mcc, she feels that the staff were rude, not helpful, are punitive and says that they take her phone away as punishment; she also feels that other clients are rude and problematic though she would not give any examples. Throughout the interview patient would go back to again asking if she can move back to shared living struggling to accept that it will take time figure this out. Patient said she does not know the names of her medications and can not tell if they are working. Patient said that she did get suicidal and wanted to and did make a small laceration on her left forearm; now however she just wants to move out of the mcc into a different living situation. Patient had made some verbally aggressive comments towards peers which she said she meant at the time (unclear specifics and patient would not disclose). Patient agreed to medication changes at chief writer's discretion. Asked for her conservator/guardian to be called; asked for her fiance Shree to be called. Formulation/clinical reasoning: Seems that on current medication regimen, patient was stable until living situation dynamics changed with peer she felt close to moved out; it appears that since then patient has struggled with staff and peer relationships. Patient unable to share details but gives consent for team to gather collateral. At this time will continue current medication regimen as collaterals gathered; will get Depakote level. Patient carries bipolar diagnosis however she feels unable to discuss her psychiatric history and so it is not clear if she has actual discrete manic episodes. Hospital course: 02/26 Patient reports feeling a little depressed but feeling a little better than the other day. Says SI lingers but going away; HI also waning. Patient again asked about changing group homes and was calm and appreciative of teams help with this process. Patient in good behavioral and impulse control. -Depakote level WNL; will continue to observe patient and assess stability before making medication changes -social work able to talk with patient's guardian who has a plan to help her change group homes; when patient later this she was very pleased 02/27 getting very upset that she does not have clear answer about going to shared living... slams hand on table several times demanding answers, however, soon apologizes for outburst saying she's just upset and hates group homes. Agrees to increasing depakote and starting clonidine 02/28 in better behavioral control; tolerating increased Depakote dose; blood pressures WNL with added clonidine 03/01 pt got emotional learning she cannot dc straight to a shared living; she had a momentary outburst but quickly got herself back into control...apologized and said she is amenable to plan. considering med changes regarding following; will reach out to outpt provider -patient is on Clozaril and Depakote; wonder if she actually needs Zyprexa 5 mg daily dose which could perhaps be a p.r.n. instead -wonder how patient might benefit from Adderall or maybe guanfacine -also consider metformin given patient's obesity and on medications that can cause metabolic syndrome 03/02 Patient says that she is amenable with disposition plan. Talk through her feelings about it some of them tearful. Discussed medication regimen and she agrees to starting Intuniv to see if it can help with impulse control; also agreed to metformin to help with weight gain associated with medication regimen, reviewing risks/side effects. Talked about Zyprexa and she agrees she might not need it scheduled at daytime and can take a p.r.n.; agrees to lowering it to 2.5 mg to see how it goes. -Depakote level and associated labs WNL (recently changed dosing) 03/03: Patient says that she is amenable with disposition plan. Talk through her feelings about it some of them tearful. Fraustrated that she is not going to shared housing and also not being able to seen her boyfriend when she wants. Notes that her boyfriend will kill himself if they break up but she does not intend to end their relationship. She is taking her meds as prescribed and guess they are helpful. Reports anxiety and depression symtoms which are worsening. Denies SI/HI/AH/VH. Started Intuniv and metformin yesterday. Continue current tx regime. 03/04: Patient feels better today. She admits to taking her medications as prescribed which she believes are helpful. She has not been attending groups because groups don't help. Still concerned about her housing situation. She currently denies anxiety or depression. She denies SI/HI/AH/VH at this time. 03/05/25: She appropriately frustrated with different providers seeing her in the past couple of days. She appeared to be more as irritable, restless, but mostly cooperative. Goal-directed that we will work on be positive even though she does not want to go back to the mcc. Deny any safety concerns. Continue with current medications. Monitor for ANC as she is on Clozaril. Monitor for signs and symptoms of hypo or hyperglycemic due to newly prescribed on metformin for weight control 03/07 Continue tx Support through transition 03/08: continue current tx plan. 03/09: Active on unit, social with peers. attending groups. Pt reports feeling good ; pt stated, I'm still waiting for a respite bed . Pt reports she showered and did laundry to keep busy. denies SI/HI/VH/AH. Continue current tx plan. 03/10: Patient notes that she is feeling ?good today. She is anxious because she wants to be discharged to respite today. She denies depression. She denies SI/HI/AH/VH at this time. Discharge is pending confirmation for a respite bed. Continue current treatment regimen. 03/11: Patient states that she is ?feeling good. She is looking forward to be discharged back to the [facility]cc on Saturday. She currently denies anxiety, depression, SI, HI, AH, VH. Continue current treatment regimen. 03/12: Continue tx 03/13: Continue current management and treatment plan. 03/14: DC tomorrow. Plan: CV Q 15 minute checks Started Intuniv 1 mg daily Lower daytime Zyprexa to 2.5 mg daily; would like to see if she can be okay without it and just use PRNs Started metformin ER 500 mg q.h.s. to help mitigate weight gain associated with medication regimen Changing bedtime depakote dose to ER and 1000mg qhs. Current dose is 1500 a day. VPA level was 67.9 on 03/02. Continue clonidine 0.1mg bid 0900,1300 Continue current home medication regimen for now Gather collateral Reason for continued inpatient stay Substantial Risk for: harm to self, inability to function and rapid decompensation Time Spent With Patient Time: Total time managing care of this patient today ____ minutes.
[2025-03-14 13:00] VITALS: BP 143/80
[2025-03-14] MEDS: metFORMIN HCl ER 500 MG TAB.ER.24H PO (17:19)
[2025-03-14 20:00] VITALS: BP 154/70; PULSE 105; TEMP 37.1; O2SAT 95
[2025-03-14] MEDS: Loratadine 10 MG TABLET PO (21:41)
[2025-03-14] MEDS: cloZAPine 25 MG TABLET 50 MG PO (21:41)
[2025-03-14] MEDS: traZODone HCL 50 MG TABLET PO (21:41)
[2025-03-14] MEDS: Prazosin HCL 1 MG CAPSULE PO (21:42)
[2025-03-14] MEDS: Divalproex Sodium ER 500 MG TAB.ER.24H 1000 MG PO (21:43)
[2025-03-14] MEDS: Desmopressin Acetate 0.2 MG TABLET 0.3 MG PO (21:43)
[2025-03-15 08:00] VITALS: BP 130/78; PULSE 85; RESP 15; TEMP 36.3; O2SAT 96
[2025-03-15 08:31] LABS: Valproate 66.3 mcg/mL (50.0-100.0)
[2025-03-15 08:40] VITALS: BP 130/78
[2025-03-15] MEDS: cloNIDine HCL 0.1 MG TABLET PO (08:40)
[2025-03-15] MEDS: Fluticasone Propionate Nasal 16 GM SPRAY 2 SPRAY NOSTRIL-B (08:40)
[2025-03-15] MEDS: guanFACINE HCl ER 1 MG TAB.ER.24H PO (08:40)
[2025-03-15] MEDS: Docusate Sodium 100 MG CAPSULE PO (08:40)
[2025-03-15] MEDS: Divalproex Sodium 500 MG TABLET.DR PO (08:40)
[2025-03-15] MEDS: cloZAPine 100 MG TABLET PO (08:40)
[2025-03-15] MEDS: OLANZapine 2.5 MG TABLET PO (08:40)
[2025-03-15] MEDS: clonazePAM 0.5 MG TABLET PO (08:41)
--- NOTE | 2025-03-15 12:32 | PM.PSYDC ---
DS: Providers Provider Date of admission: 02/24/25 13:57 Primary care physician: Stella Gómez MD DS: Diagnosis Discharge Diagnosis (1) Bipolar disorder: Status: Acute (2) Developmental delay, moderate: Status: Acute (3) PTSD (post-traumatic stress disorder): Status: Acute (4) Autism spectrum disorder: Status: Acute (5) Excoriation (skin-picking) disorder: Status: Acute DS: Medications Discharge Medications Home Medications: Home Medications ?Medication ?Instructions ?Recorded ?Confirmed acetaminophen 500 mg tablet 500 mg PO Q6H PRN Fever/Pain 01/27/25 02/24/25 benzoyl peroxide 10 % topical 1 appl topical BID 01/27/25 02/24/25 cleanser diphenhydramine 25 1 tab PO BEDTIME PRN Sleep 01/27/25 02/24/25 mg-acetaminophen 500 mg tablet (Tylenol PM Extra Strength) Previous Rx's ?Medication ?Instructions ?Recorded clonazepam 0.5 mg tablet 0.5 mg PO TID #90 tabs 03/15/25 clonidine HCl 0.1 mg tablet 0.1 mg PO BID@0900,1300 #30 tabs 03/15/25 clozapine 100 mg tablet 100 mg PO BID #14 tabs 03/15/25 clozapine 50 mg tablet 50 mg PO BEDTIME #7 tabs 03/15/25 desmopressin 0.1 mg tablet 0.3 mg (3 x 0.1 mg) PO BEDTIME #30 03/15/25 tabs dicyclomine 10 mg capsule 10 mg PO TID PRN Abdominal 03/15/25 Discomfort #90 caps divalproex 500 mg tablet,delayed 500 mg PO BID@0900,1300 #60 tabs 03/15/25 release divalproex 500 mg tablet,extended 1,000 mg (2 x 500 mg) PO BEDTIME 03/15/25 release 24 hr #60 tabs docusate sodium 100 mg tablet 100 mg PO BID #60 tabs 03/15/25 ergocalciferol (vitamin D2) 1,250 1,250 mcg PO WE #4 caps 03/15/25 mcg (50,000 unit) capsule fluticasone propionate 50 2 spray intranasal BID #1 inhaler 03/15/25 mcg/actuation nasal spray,suspension guanfacine 1 mg tablet,extended 1 mg PO DAILY #30 tabs 03/15/25 release 24 hr hydroxyzine HCl 25 mg tablet 25 mg PO Q6H PRN mild anxiety #120 03/15/25 tabs linaclotide 145 mcg capsule 145 mcg PO DAILY #30 caps 03/15/25 (Linzess) loratadine 10 mg tablet 10 mg PO BEDTIME #30 tabs 03/15/25 metformin 500 mg tablet,extended 500 mg PO DAILY@1700 #30 tabs 03/15/25 release 24 hr olanzapine 2.5 mg tablet 2.5 mg PO DAILY #30 tabs 03/15/25 olanzapine 5 mg tablet 5 mg PO TID PRN agitation #90 tabs 03/15/25 polyethylene glycol 3350 17 17 g PO DAILY PRN Constipation #30 03/15/25 gram/dose oral powder packets prazosin 1 mg capsule 1 mg PO BEDTIME #30 caps 03/15/25 psyllium husk 0.4 gram capsule 0.4 g PO DAILY #30 caps 03/15/25 trazodone 50 mg tablet 50 mg PO BEDTIME MRX1 PRN Insomnia 03/15/25 #60 tabs Data Data Completed and Pending Completed studies during hospitalization [Text1]: 03/08/25 03/09/25 03/11/25 13:36 08:39 08:40 Absolute Neuts (auto) 7.3 Creatinine 0.68 Estim Creat Clear Calc 179.4 Estimated GFR > 60 Total Bilirubin 0.1 Direct Bilirubin < 0.2 AST 33 H ALT 37 H Alkaline Phosphatase 70 Ammonia 36 Total Protein 7.6 Albumin 4.2 Valproic Acid 58.2 03/15/25 07:48 Absolute Neuts (auto) Creatinine Estim Creat Clear Calc Estimated GFR Total Bilirubin Direct Bilirubin AST ALT Alkaline Phosphatase Ammonia Total Protein Albumin Valproic Acid 66.3 DS: Summary Time Spent with Patient Time attestation: Total time managing care of this patient today ____ minutes. Discharge Plan Discharge Anticipated Discharge Date/Time: 03/15/25 12:00 Patient Disposition: Xfer Other Discharge Diagnosis: Developmental Delay PTSD Autism Spectrum Disorder Bipolar Disorder Excoriation Disorder Referrals: [facility] Anger Management Program [Other] - 1 Week Referral Note: GOAL: Make clients aware of the consequences of their aggression and impulsive behavior, inspire change. Encourage participants to challenge their beliefs and defense mechanism that contributes to violence and/or aggressive behavior. Practice stress management. PURPOSE: To educate the participant on how to better understand what led to their aggressive behavior, the consequences of violence and anger, cues and how alcohol/ drugs can contribute to violence. [facility]- Coping with Anger [Other] - 1 Week Referral Note: Please call to inquire about location and times for Anger management classes [facility]- Psychiatry with Dr. Jonas Frederick [Other] - 03/22/25 10:20 am [facility]- Therapy with Helene [Other] - 03/17/25 9:15 am Stella Gómez MD [Primary Care Provider, Internal Medicine] - 1 Week Discharge Medications: New clonidine HCl 0.1 mg Tablet 0.1 mg PO BID@0900,1300 Qty: 30 0RF Protocol: Hold for SBP< HOLD for SBP < : 90 divalproex 500 mg Tablet,Delayed Release (Dr/Ec) 500 mg PO BID@0900,1300 Qty: 60 0RF divalproex 500 mg Tablet Extended Release 24 Hr 1,000 mg PO BEDTIME Qty: 60 0RF guanfacine 1 mg Tablet Extended Release 24 Hr 1 mg PO DAILY Qty: 30 0RF trazodone 50 mg Tablet 50 mg PO BEDTIME MRX1 PRN (Reason: Insomnia) Qty: 60 0RF olanzapine 5 mg Tablet 5 mg PO TID PRN (Reason: agitation) Qty: 90 0RF olanzapine 2.5 mg Tablet 2.5 mg PO DAILY Qty: 30 0RF metformin 500 mg Tablet Extended Release 24 Hr 500 mg PO DAILY@1700 Qty: 30 0RF hydroxyzine HCl 25 mg Tablet 25 mg PO Q6H PRN (Reason: mild anxiety) Qty: 120 0RF Continued benzoyl peroxide 10 % Cleanser 1 appl TOPICAL BID acetaminophen 500 mg Tablet 500 mg PO Q6H PRN (Reason: Fever/Pain) diphenhydramine-acetaminophen [Tylenol PM Extra Strength] 25-500 mg Tablet 1 tab PO BEDTIME PRN (Reason: Sleep) clozapine 100 mg Tablet 100 mg PO BID Qty: 14 0RF prazosin 1 mg capsule 1 mg PO BEDTIME Qty: 30 0RF clonazepam 0.5 mg Tablet 0.5 mg PO TID Qty: 90 0RF ergocalciferol (vitamin D2) 1,250 mcg (50,000 unit) capsule 1,250 mcg PO WE Qty: 4 0RF Rx Instructions: on saturday polyethylene glycol 3350 17 gram/dose Powder 17 g PO DAILY PRN (Reason: Constipation) Qty: 30 0RF fluticasone propionate 50 mcg/actuation [place],Suspension 2 spray INTRANASAL BID Qty: 1 0RF dicyclomine 10 mg Capsule 10 mg PO TID PRN (Reason: Abdominal Discomfort) Qty: 90 0RF docusate sodium 100 mg Tablet 100 mg PO BID Qty: 60 0RF loratadine 10 mg Tablet 10 mg PO BEDTIME Qty: 30 0RF desmopressin 0.1 mg tablet 0.3 mg PO BEDTIME Qty: 30 0RF clozapine 50 mg Tablet 50 mg PO BEDTIME Qty: 7 0RF Linzess 145 mcg capsule 145 mcg PO DAILY Qty: 30 0RF psyllium husk 0.4 gram Capsule 0.4 g PO DAILY Qty: 30 0RF Discontinued divalproex 500 mg tablet,delayed release (DR/EC) 500 mg PO TID trazodone 50 mg Tablet 50 mg PO BEDTIME PRN (Reason: Sleep) olanzapine 5 mg Tablet 5 mg PO Q6H PRN (Reason: Agitation/Anxiety) olanzapine 5 mg Tablet 5 mg PO DAILY Discharge Orders: Discharge Order (Routine); Ordered 03/15/25 Ordered By: Jaylin Collado Diet: Advance to usual diet Activity on Discharge: As tolerated Stand Alone Forms: Patient Portal Discharge page, Community Support Print Language: [place] Care Plan Goals: Mood and Behavioral Stabilization Health Concerns: Mood and Behavioral Stabilization Plan of Treatment: Attend scheduled appointments Take medications as directed Call/Return as needed Assessment: Denies SI,HI,AH, VH No sx of acute shahzad or psychosis Agrees with discharge plan Discharge Date/Time: 03/15/25 11:15
== END 2025-03-15 11:15 | disposition other institution (70) | DRG 885 ==
LOC: HO.ED 02-24 08:29 → HO.PM5 02-24 14:47
PROVIDERS: Clinical Nurse Specialist Psychiatric/Mental Health, Adult; Emergency Medicine Emergency Medical Services; Physician Assistant Medical; Registered Nurse; Admitting Provider Psychiatry & Neurology Psychiatry; Emergency Provider Emergency Medicine Emergency Medical Services; PCP Student in an Organized Health Care Education/Training Program; Visit Provider Psychiatry & Neurology Psychiatry
DX: F31.9 Bipolar disorder, unspecified (principal); R45.851 Suicidal ideations; R45.850 Homicidal ideations; F84.0 Autistic disorder; R62.50 Unspecified lack of expected normal physiological development in childhood; F43.10 Post-traumatic stress disorder, unspecified; F42.4 Excoriation (skin-picking) disorder; Z87.891 Personal history of nicotine dependence; Z79.84 Long term (current) use of oral hypoglycemic drugs; Z79.899 Other long term (current) drug therapy
CPT/HCPCS: 36415; 80053; 80061; 80076; 80143; 80164; 80179; 80307; 81001; 82140; 82565; 83036; 83735; 84702; 85025; 85048; 93005; 99285; S9485

== ENCOUNTER → 2025-02-24 10:48 | Outpatient (BNV) | payer MEDICARE, MEDICAID, SELFPAY | PROVIDERS: Emergency Provider Emergency Medicine Emergency Medical Services; PCP Student in an Organized Health Care Education/Training Program; Visit Provider Internal Medicine Cardiovascular Disease | DX: Z13.6 Encounter for screening for cardiovascular disorders (principal) | CPT/HCPCS: 93010 ==

== ENCOUNTER → 2025-02-24 13:57 | Outpatient (BNV) | payer MEDICARE, MEDICAID, SELFPAY | PROVIDERS: Admitting Provider Psychiatry & Neurology Psychiatry; Emergency Provider Emergency Medicine Emergency Medical Services; PCP Student in an Organized Health Care Education/Training Program; Visit Provider Psychiatry & Neurology Psychiatry | DX: F31.4 Bipolar disorder, current episode depressed, severe, without psychotic features (principal); F43.11 Post-traumatic stress disorder, acute; F84.0 Autistic disorder; R62.50 Unspecified lack of expected normal physiological development in childhood; F42.4 Excoriation (skin-picking) disorder | CPT/HCPCS: 90792; 99232 ==

== ENCOUNTER 2025-04-15 18:00 | Emergency (ER) | payer MEDICARE, MEDICAID, SELFPAY ==
[2025-04-15 18:06] VITALS: BP 118/72; PULSE 118; O2SAT 97
[2025-04-15 18:11] VITALS: BP 122/69; PULSE 112; RESP 18; TEMP 37; O2SAT 98; BMI 50.2
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
--- NOTE | 2025-04-15 18:30 | ED.PSYCH ---
HPI - Psych General Chief Complaint: Psychiatric Symptoms Stated Complaint: Si threats at grp home Time Seen by Provider: 04/15/25 18:30 Source: patient and EMS Mode of arrival: EMS Limitations: no limitations History of Present Illness ED Provider: PRISCILLA CHAVEZ PA-C HPI Narrative: 25 year old female with pmhx significant for developmental delay, autism, PTSD, bipolar disorder, and depression presents to the ED today via EMS from shelter due to SI statements. Patient tells me that she does not like the place she is currently living. She states that she does not get along with most of the individuals and anything I do is never good enough . She reports getting into a verbal dispute with shelter staff today over her chores. She reports recent suicidal ideation with plan to open a previous scar on her right lower leg with tweezers and bleed out . Reports previous SI attempts. She also endorses HI towards staff and other individuals at the facility with plan to stab them and slipped their throats. States I have been thinking about this for weeks . She reports taking her home meds as prescribed however feels as though these are not working for her anymore. Denies AH/VH/TH. Denies illicit substance use. Denies EtOH consumption. Denies any physical complaints at present. Related Data Home Medications ?Medication ?Instructions ?Recorded ?Confirmed acetaminophen 500 mg tablet 500 mg PO Q6H PRN Fever/Pain 01/27/25 02/24/25 benzoyl peroxide 10 % topical 1 appl topical BID 01/27/25 02/24/25 cleanser diphenhydramine 25 1 tab PO BEDTIME PRN Sleep 01/27/25 02/24/25 mg-acetaminophen 500 mg tablet (Tylenol PM Extra Strength) Previous Rx's ?Medication ?Instructions ?Recorded clonazepam 0.5 mg tablet 0.5 mg PO TID #90 tabs 03/15/25 clonidine HCl 0.1 mg tablet 0.1 mg PO BID@0900,1300 #30 tabs 03/15/25 clozapine 100 mg tablet 100 mg PO BID #14 tabs 03/15/25 clozapine 50 mg tablet 50 mg PO BEDTIME #7 tabs 03/15/25 desmopressin 0.1 mg tablet 0.3 mg (3 x 0.1 mg) PO BEDTIME #30 03/15/25 tabs dicyclomine 10 mg capsule 10 mg PO TID PRN Abdominal 03/15/25 Discomfort #90 caps divalproex 500 mg tablet,delayed 500 mg PO BID@0900,1300 #60 tabs 03/15/25 release divalproex 500 mg tablet,extended 1,000 mg (2 x 500 mg) PO BEDTIME 03/15/25 release 24 hr #60 tabs docusate sodium 100 mg tablet 100 mg PO BID #60 tabs 03/15/25 ergocalciferol (vitamin D2) 1,250 1,250 mcg PO WE #4 caps 03/15/25 mcg (50,000 unit) capsule fluticasone propionate 50 2 spray intranasal BID #1 inhaler 03/15/25 mcg/actuation nasal spray,suspension guanfacine 1 mg tablet,extended 1 mg PO DAILY #30 tabs 03/15/25 release 24 hr hydroxyzine HCl 25 mg tablet 25 mg PO Q6H PRN mild anxiety #120 03/15/25 tabs linaclotide 145 mcg capsule 145 mcg PO DAILY #30 caps 03/15/25 (Linzess) loratadine 10 mg tablet 10 mg PO BEDTIME #30 tabs 03/15/25 metformin 500 mg tablet,extended 500 mg PO DAILY@1700 #30 tabs 03/15/25 release 24 hr olanzapine 2.5 mg tablet 2.5 mg PO DAILY #30 tabs 03/15/25 olanzapine 5 mg tablet 5 mg PO TID PRN agitation #90 tabs 03/15/25 polyethylene glycol 3350 17 17 g PO DAILY PRN Constipation #30 03/15/25 gram/dose oral powder packets prazosin 1 mg capsule 1 mg PO BEDTIME #30 caps 03/15/25 psyllium husk 0.4 gram capsule 0.4 g PO DAILY #30 caps 03/15/25 trazodone 50 mg tablet 50 mg PO BEDTIME MRX1 PRN Insomnia 03/15/25 #60 tabs Allergies Allergy/AdvReac Type Severity Reaction Status Date / Time No Known Allergies Allergy Verified 04/15/25 18:17 Review of Systems Review of Systems: Yes all other systems are reviewed and are negative PMFSH Past Medical History Attestation statement: The following information was validated with the patient. Source: old records reviewed and nursing notes reviewed Medical History Developmental delay, moderate PTSD (post-traumatic stress disorder) Excoriation (skin-picking) disorder Bipolar disorder Autism spectrum disorder Social History Social History Household Members: Other Housing: Other Housing Other:: [facility] Do you presently have visiting nurse or other home services: No Unable to assess alcohol history related to: Unknown Alcohol intake: former Patient Tobacco Use Status: Former Tobacco user Smoked in Last 30 Days: No Use of substances other than those prescribed or required for medical reasons: No Advance Directives: No Advance Directives Information Provided: Yes Do you have a plan to hurt others: No Plan service: No Sexual orientation: Straight/Heterosexual Physical Exam Vital Signs: Vital Signs: Last Vital Signs Temp 98.4 F 04/16/25 06:30 Pulse 78 04/16/25 06:30 Resp 18 04/16/25 06:30 BP 140/94 H 04/16/25 06:30 Pulse Ox 96 04/16/25 06:30 O2 Del Method Room Air 04/16/25 06:30 BMI result Body Mass Index 50.2 tachycardic General: NAD Skin: Warm, dry, intact. No rashes or lesions. Head: Normocephalic, atraumatic. EENT: Hearing is intact b/l. Conjunctiva clear. Sclera is anicteric. PERRLA. EOM intact. Moist mucous membranes.? Cardiac: Chest wall symmetric. RRR Lungs: Normal respiratory effort without accessory muscle use. CTA bilaterally Abdomen: Soft, non-tender, non-distended. No rebound tenderness or guarding. Positive BS x4. Back: No midline spinous or paraspinal tenderness. No step off deformity. Ext: Upper and lower extremities atraumatic, without tenderness, deformity, swelling or erythema. healed vertical scar noted to right young. Neuro: AOx3. Normal speech. CN 2-12 grossly intact. Ambulating with steady gait. Psych: intermittently tearful, flat affect. Course Course Course Narrative: 1955 -- CBC without leukocytosis or left shift. No anemia. H&H stable. Chemistry without acute electrolyte abnormality requiring intervention. Random glucose 121. Liver function WNL. Urine without infection. Urine negative. Urine toxicology undetectable. Acetaminophen and salicylates undetectable. > at this time, patient is medically cleared for care team evaluation. Placed in physician observation. Reevaluation(s) Reevaluation #1: Time: 06:18 Date: 04/16/25 Provider: Keyshawn Young MD Patient in physician observation for psychiatric evaluation.? No acute events reported overnight. Patient has been in the emergency department for approximally 12 hours No current complaints. VS stable. Patient was evaluated by CARE team. Care team felt that the patient does not need inpatient care at this time with a plan to keep the patient overnight for potential discharged today.. Will continue to monitor. Reevaluation #2: Time: 10:24 Date: 04/16/25 Provider: Allison Harrison CNP End physician observation time, shelter staff here to lease picker patient from the emergency department, plan for [facility] outpatient follow-up within the next 3 days. Given return precautions. Medical Decision Making Medical Decision Making MDM Narrative: 25 year old female with pmhx significant for developmental delay, autism, PTSD, bipolar disorder, and depression presents to the ED today via EMS from shelter due to SI statements. Differential diagnosis includes anemia, electrolyte abnormality, mood disorder, anxiety, depression, SI, polysubstance abuse Presentation not consistent with acute organic causes to include delirium, dementia or drug induced disorders (acute ingestions or withdrawal; no evidence of toxidrome).? Given the H&P, I suspect this patient is suicidal/homicidal and will require observation. Will consult care team to evaluate the patient. Will also obtain labs for medical clearance. Plan: labs, EKG, ASA/APAP levels, ETOH level, UDS, care team consultation, reassessment Differential Diagnosis Differential Diagnoses: The differential diagnosis associated with the presentation includes as above. Admission/Observation Consideration of admission/observation: Escalation of care including admission/observation considered Lab Data [facility] Lab Attestation statement: I reviewed the patient's lab results. as above. 04/15/25 19:06 04/15/25 19:07 Labs: Lab Results 04/15/25 04/15/25 04/15/25 Range/Units 19:03 19:06 19:07 WBC 10.2 (4.8-10.8) X10*3/uL RBC 4.82 (4.20-5.50) X10*6/uL Hgb 13.5 (12.0-16.0) g/dl Hct 39.1 (37.0-47.0) % MCV 81.1 (80.0-98.0) fL MCH 28.0 (27.0-33.0) pg MCHC 34.5 (31.0-35.0) g/dl RDW 13.8 (11.0-16.0) % Plt Count 290 (160-400) X10*3/uL MPV 9.1 L (9.4-12.3) fL Immature Gran % (Auto) 0.4 (0.0-0.4) % Neut % (Auto) 59.1 (45-73) % Lymph % (Auto) 34.4 (20-40) % [place] % (Auto) 5.9 (2-11) % Eos % (Auto) 0.0 (0-4) % Baso % (Auto) 0.2 (0-2) % Lymph # (Auto) 3.5 (1.2-4.9) X10*3/uL [place] # (Auto) 0.6 (0.1-1.2) X10*3/uL Eos # (Auto) 0.0 (0.0-0.4) X10*3/uL Baso # (Auto) 0.0 (0.0-0.2) X10*3/uL Abs Immat Gran (auto) 0.04 H (0.00-0.03) X10*3/uL Absolute Neuts (auto) 6.0 (2.0-8.3) x10*3/uL Absolute Nucleated RBC 0.000 (0.0-0.012) X10*3/uL Nucleated RBC % (auto) 0.0 (0.0-0.2) /100WBC Sodium 139 (135-145) mmol/L Potassium 4.0 (3.3-5.1) mmol/L Chloride 101 (96-108) mmol/L Carbon Dioxide 24 (22-29) mmol/L Anion Gap 18 (12-20) BUN 8 L (9-16) mg/dL Creatinine 0.83 (0.5-1.4) mg/dL Estim Creat Clear Calc 144.2 Estimated GFR > 60 Random Glucose 121 H (60-115) mg/dL Calcium 8.7 D (8.4-10.2) mg/dL Total Bilirubin 0.2 (0.0-1.0) mg/dL AST 31 (5-31) U/L ALT 28 (0-31) U/L Alkaline Phosphatase 82 (39-117) U/L Total Protein 8.0 (6.5-8.0) g/dL Albumin 4.3 (3.5-5.0) g/dL Urine Color Yellow Urine Appearance Clear Urine pH 6.0 (5.0-9.0) Ur Specific [place] 1.015 (1.005-1.025) Urine Protein Negative (Neg-Trace) mg/dL Urine Glucose (UA) Negative (Negative) mg/dL Urine Ketones Trace (Negative) mg/dL Urine Blood Negative (Negative) Urine Nitrite Negative (Negative) Ur Leukocyte Esterase Negative (Negative) Urine Test NEGATIVE (NEGATIVE) Salicylates < 5.0 L (15-30) mg/dL Urine Opiates Screen Not Detected (Not Detect) Ur Buprenorphine Scrn Not Detected (Not Detect) ng/mL Ur Oxycodone Screen Not Detected (Not Detect) ng/mL Urine Methadone Screen Not Detected (Not Detect) ng/mL Urine Fentanyl Screen Not Detected (Not Detect) Acetaminophen < 3 (<30) mcg/mL Ur Barbiturates Screen Not Detected (Not Detect) Ur Phencyclidine Scrn Not Detected (Not Detect) Ur Amphetamines Screen Not Detected (Not Detect) U Benzodiazepines Scrn Not Detected (Not Detect) Urine Cocaine Screen Not Detected (Not Detect) U Marijuana (THC) Screen Not Detected (Not Detect) Independent Historian Clinical information obtained from an independent historian. History obtained from or confirmed by: EMS External Record Review External record reviewed: Inpatient record Chronic Conditions Patient?s care impacted by: Other (PTSD, depression, bipolar disorder) Social Determinants Patient?s care significantly limited by Social Determinants of Health including: Other Social Determinant of Health Critical Care Time Critical Care Time Critical Care Time: No Discharge Plan Discharge Clinical Impression: Suicidal ideation, Homicidal ideation, Depression Patient Disposition: Home, Self-Care Additional Instructions: You are being discharged back to her shelter, [facility] will follow-up with 3 days You were seen in our Emergency Department today for treatment of a behavioral health issue. It is important after your visit that you follow up with either your behavioral health provider or a primary care doctor within 7 days.? If you have trouble finding a therapist you can reach out to [address] [phone] The National Suicide and Crisis Lifeline can be reached 7 days a week 24 hours a day.? Call 988 to speak with someone.? Return for any worsening symptoms or concerns such as thoughts of self harm or harm to others. Please call 911 if you feel your mental health is worsening.? Prescriptions: No Action benzoyl peroxide 10 % Cleanser 1 appl TOPICAL BID acetaminophen 500 mg Tablet 500 mg PO Q6H PRN (Reason: Fever/Pain) diphenhydramine-acetaminophen [Tylenol PM Extra Strength] 25-500 mg Tablet 1 tab PO BEDTIME PRN (Reason: Sleep) clonidine HCl 0.1 mg Tablet 0.1 mg PO BID@0900,1300 Qty: 30 0RF Protocol: Hold for SBP< HOLD for SBP < : 90 divalproex 500 mg Tablet,Delayed Release (Dr/Ec) 500 mg PO BID@0900,1300 Qty: 60 0RF divalproex 500 mg Tablet Extended Release 24 Hr 1,000 mg PO BEDTIME Qty: 60 0RF guanfacine 1 mg Tablet Extended Release 24 Hr 1 mg PO DAILY Qty: 30 0RF trazodone 50 mg Tablet 50 mg PO BEDTIME MRX1 PRN (Reason: Insomnia) Qty: 60 0RF olanzapine 5 mg Tablet 5 mg PO TID PRN (Reason: agitation) Qty: 90 0RF olanzapine 2.5 mg Tablet 2.5 mg PO DAILY Qty: 30 0RF metformin 500 mg Tablet Extended Release 24 Hr 500 mg PO DAILY@1700 Qty: 30 0RF clozapine 100 mg Tablet 100 mg PO BID Qty: 14 0RF prazosin 1 mg capsule 1 mg PO BEDTIME Qty: 30 0RF clonazepam 0.5 mg Tablet 0.5 mg PO TID Qty: 90 0RF ergocalciferol (vitamin D2) 1,250 mcg (50,000 unit) capsule 1,250 mcg PO WE Qty: 4 0RF Rx Instructions: on saturday polyethylene glycol 3350 17 gram/dose Powder 17 g PO DAILY PRN (Reason: Constipation) Qty: 30 0RF fluticasone propionate 50 mcg/actuation [place],Suspension 2 spray INTRANASAL BID Qty: 1 0RF dicyclomine 10 mg Capsule 10 mg PO TID PRN (Reason: Abdominal Discomfort) Qty: 90 0RF docusate sodium 100 mg Tablet 100 mg PO BID Qty: 60 0RF loratadine 10 mg Tablet 10 mg PO BEDTIME Qty: 30 0RF desmopressin 0.1 mg tablet 0.3 mg PO BEDTIME Qty: 30 0RF clozapine 50 mg Tablet 50 mg PO BEDTIME Qty: 7 0RF Linzess 145 mcg capsule 145 mcg PO DAILY Qty: 30 0RF psyllium husk 0.4 gram Capsule 0.4 g PO DAILY Qty: 30 0RF hydroxyzine HCl 25 mg Tablet 25 mg PO Q6H PRN (Reason: mild anxiety) Qty: 120 0RF Interventions: [place]-Suicide Risk Severity Scale Last Done: 04/15/25 18:20 Print Language: Mauritian
--- NOTE | 2025-04-15 18:30 | MHC.EDTECH ---
Belongings itemized and stored in locker 3. $153 counted with security. Patient confirmed and agreed with total. Antonio locked in locker at patients request
--- NOTE | 2025-04-15 19:06 | PC.NURSE ---
Assumed care of patient at 1845, patient appears to be resting in bed, respirations even and unlabored, no apparent distress is noted. Continue plan of care for CARE team kisha
[2025-04-15 19:17] LABS: MANUAL DIFF FLAG NO
[2025-04-15 19:20] LABS: Hematocrit 39.1 % (37.0-47.0); Hemoglobin 13.5 g/dl (12.0-16.0); Imm Gran Abs Auto 0.04 X10*3/uL (0.00-0.03); Imm Gran Pct Auto 0.4 % (0.0-0.4); Lymphocytes Absolute Auto 3.5 X10*3/uL (1.2-4.9); Mean Corpuscular HGB Conc 34.5 g/dl (31.0-35.0); Mean Corpuscular Hemoglobin 28.0 pg (27.0-33.0); Mean Corpuscular Volume 81.1 fL (80.0-98.0); NRBC Abs Auto 0.000 X10*3/uL (0.0-0.012); NRBC Pct Auto 0.0 /100WBC (0.0-0.2); Platelet Count 290 X10*3/uL (160-400); Red Blood Count 4.82 X10*6/uL (4.20-5.50); White Blood Count 10.2 X10*3/uL (4.8-10.8)
[2025-04-15 19:21] LABS: Appearance Urine Clear; Glucose Urine UA Negative (Negative); PH 6.0 (5.0-9.0); Specific Gravity - Urine 1.015 (1.005-1.025)
[2025-04-15 19:22] LABS: UPreg QC Valid YES
[2025-04-15 19:32] LABS: Cannabinoid Screen Urine Not Detected (Not Detect)
[2025-04-15 19:47] LABS: Alanine Aminotransferase 28 U/L (0-31); Albumin Level 4.3 g/dL (3.5-5.0); Alkaline Phosphatase 82 U/L (39-117); Anion Gap 18 (12-20); Aspartate Amino Transferase 31 U/L (5-31); Blood Urea Nitrogen 8 mg/dL (9-16); Calcium 8.7 mg/dL (8.4-10.2); Carbon Dioxide 24 mmol/L (22-29); Chloride 101 mmol/L (96-108); Creatinine Clr Calc Pharmacy 144.2; Estimated Glomerular Filt Rate > 60; Potassium 4.0 mmol/L (3.3-5.1); Sodium 139 mmol/L (135-145); Total Protein 8.0 g/dL (6.5-8.0)
[2025-04-15 19:52] LABS: Acetaminophen LAB < 3 mcg/mL (<30); Salicylate < 5.0 mg/dL (15-30)
--- NOTE | 2025-04-15 23:54 | PC.NURSE ---
pt sleeping at this time.
[2025-04-16 06:30] VITALS: BP 140/94; PULSE 78; RESP 18; TEMP 36.9; O2SAT 96
--- NOTE | 2025-04-16 06:46 | PC.NURSE ---
notified Dr. Vences of . no knew orders
--- NOTE | 2025-04-16 07:02 | PC.NURSE ---
Addendum entered by Emily Trujillo RN 04/16/25 07:05: Patient is a 25 year old female with pmhx significant for developmental delay, autism, PTSD, bipolar disorder, and depression presents to the ED today via EMS from [facility] due to SI statements. Patient tells me that she does not like the place she is currently living. She states that she does not get along with most of the individuals and anything I do is never good enough . She reports getting into a verbal dispute with [facility] staff today over her chores. Pending disposition. Original Note: Medical History Developmental delay, moderate PTSD (post-traumatic stress disorder) Excoriation (skin-picking) disorder Bipolar disorder Autism spectrum disorder
[2025-04-16 10:30] VITALS: BP 140/94; PULSE 78; RESP 18; TEMP 36.9; O2SAT 96
== END 2025-04-16 10:31 | disposition home or self-care (01) ==
PROVIDERS: Emergency Provider Emergency Medicine
DX: F33.1 Major depressive disorder, recurrent, moderate (principal); R45.851 Suicidal ideations; R45.850 Homicidal ideations; Z51.81 Encounter for therapeutic drug level monitoring; Z79.899 Other long term (current) drug therapy
CPT/HCPCS: 36415; 80053; 80143; 80179; 80307; 81003; 81025; 85025; 99285; S9485

== ENCOUNTER 2025-05-12 17:04 | Emergency (ER) | payer MEDICARE, MEDICAID, SELFPAY ==
--- NOTE | 2025-05-12 17:40 | ED_ITS ---
HPI - General Adult General Chief complaint: Psychiatric Symptoms Stated complaint: SI WITH PLAN Time Seen by Provider: 05/12/25 17:14 Source: patient Mode of arrival: ambulatory Limitations: no limitations History of Present Illness ED Provider: Dr. Gusman HPI narrative: This is a 25-year-old female presenting to ER today for suicidal ideation. Patient has history of PTSD, autism disorder, bipolar disorder. Patient resides at a retirement. Patient endorses SI by cutting herself in her throat. Patient has attempted to cut her right elbow as well. Patient also stated that she wanted to kill her staff as well. Patient stated that she does not feel heard. She wanted someone to talk to. However the staff did not want to talk to her. Patient is feels the world is against her. I patient stated that she was looking forward to her fiancee's birthday however does not want to go as she feels that she is a burden. Related Data Home Medications ?Medication ?Instructions ?Recorded ?Confirmed acetaminophen 500 mg tablet 500 mg PO Q6H PRN Fever/Pa in 01/27/25 05/12/25 clonazepam 0.5 mg tablet 1 mg PO BID 05/12/25 5 clozapine 50 mg tablet 50 mg PO BID 05/12/25 lorazepam 1 mg PO DAILY PRN Agitation 05/12/25 05/12/25 Previous Rx's ?Medication ?Instructions ?Recorded clonidine HCl 0.1 mg tablet 0.1 mg PO BID@0900,1300 #3 0 tabs 03/15/25 clozapine 100 mg tablet 100 mg PO BID #14 tabs 03/15 desmopressin 0.1 mg tablet 0.3 mg (3 x 0.1 mg) PO BEDT PERRY #30 03/15/25 tabs divalproex 500 mg tablet,delayed 500 mg PO BID@0900,13 00 #60 tabs 03/15/25 release divalproex 500 mg tablet,extended 1,000 mg (2 x 500 mg ) PO BEDTIME 03/15/25 release 24 hr #60 tabs docusate sodium 100 mg tablet 100 mg PO BID #60 tabs 0 03/15/25 ergocalciferol (vitamin D2) 1,250 1,250 mcg PO WE #4 c aps 03/15/25 mcg (50,000 unit) capsule fluticasone propionate 50 2 spray intranasal BID #1 in haler 03/15/25 mcg/actuation nasal spray,suspension guanfacine 1 mg tablet,extended 1 mg PO DAILY #30 tabs 03/15/25 release 24 hr linaclotide 145 mcg capsule 145 mcg PO DAILY #30 caps 03/15/25 (Linzess) loratadine 10 mg tablet 10 mg PO BEDTIME #30 tabs metformin 500 mg tablet,extended 500 mg PO DAILY@1700 #30 tabs 03/15/25 release 24 hr olanzapine 2.5 mg tablet 2.5 mg PO DAILY #30 tabs olanzapine 5 mg tablet 5 mg PO TID PRN agitation #9 0 tabs 03/15/25 psyllium husk 0.4 gram capsule 0.4 g PO DAILY #30 caps 03/15/25 trazodone 50 mg tablet 50 mg PO BEDTIME MRX1 PRN In somnia 03/15/25 #60 tabs Allergies Allergy/AdvReac Type Severity Reaction Status Date / Time No Known Allergies Allergy Verified 05/12/25 17:50 Review of Systems 2 Review of Systems: Pertinent review of systems as mentioned in HPI. All other system otherwise negative. [facility] Past Medical History [facility] Narrative: Medical history as mentioned in HPI Medical History Developmental delay, moderate PTSD (post-traumatic stress disorder) Excoriation (skin-picking) disorder Bipolar disorder Autism spectrum disorder Social History Social History Household Members: Other Housing: Other Housing Other:: [facility] retirement Do you presently have visiting nurse or other home services: No Unable to assess alcohol history related to: Unknown Alcohol intake: former Patient Tobacco Use Status: Former Tobacco user Smoked in Last 30 Days: No Use of substances other than those prescribed or required for medical reasons: No Advance Directives: No Advance Directives Information Provided: Yes Do you have a plan to hurt others: Vague service: No Sexual orientation: Straight/Heterosexual Physical Exam ED Exam Exam: General: Pleasant, no distress, interacting appropriately Head: Normacephalic, atraumatic ENT: oral mucosa moist, neck supple, no tracheal deviation Respiratory: Does not appear to be in respiratory distress Skin: Warm and dry Psychiatric: Endorses SI and homicidal ideation. Vital Signs: Vital Signs - 24 hr 05/12/25 17:41 05/12/25 20:27 05/13/25 03:56 Temperature 98.5 F 98.1 F Pulse Rate 98 76 Respiratory Rate 18 16 16 Blood Pressure 136/75 126/69 Pulse Oximetry 97 98 Oxygen Delivery Method Room Air Room Air 05/13/25 09:34 05/13/25 09:40 05/13/25 12:51 Temperature 98.0 F 97.7 F Pulse Rate 106 H 105 H Respiratory Rate 20 16 Blood Pressure 138/85 138/85 149/89 H Pulse Oximetry 97 98 Oxygen Delivery Method Room Air Room Air BMI result Body Mass Index 38.3 Course Course Course Narrative: Time: 12:56 Date: 05/13/25 Provider: Jen Mckenna MD Patient in physician observation for psychiatric evaluation.? No acute events reported overnight. No current complaints. VS stable.?Will continue to monitor. Accepted to [facility]. Transferred in stable condition. Medications Administered Generic Name Dose Route Start Last Admin Trade Name Mahinq PRN Reason Stop Dose Admin Clonazepam 1 mg 05/13/25 09:00 05/13/25 09:34 Clonazepam 1 Mg Tablet PO 1 mg BID MARY Administration Clonidine HCl 0.1 mg 05/13/25 09:00 05/13/25 12:48 Clonidine Hcl 0.1 Mg Tablet PO 0.1 mg BID@0900,1300 MARY Administration Protocol Divalproex Sodium 500 mg 05/13/25 09:00 05/13/25 12:48 Divalproex Sodium 500 Mg Tablet.Dr PO 500 mg BID@0900,1300 MARY Administration Docusate Sodium 100 mg 05/13/25 09:00 05/13/25 10:11 Docusate Sodium 100 Mg Capsule PO 100 mg BID MARY Administration Guanfacine HCl 1 mg 05/13/25 09:00 05/13/25 10:12 Guanfacine Hcl Er 1 Mg Tab.Er.24h PO 1 mg DAILY MARY Administration Olanzapine 2.5 mg 05/13/25 09:00 05/13/25 10:11 Olanzapine 2.5 Mg Tablet PO 2.5 mg DAILY MARY Administration Psyllium Hydrophilic Mucilloid 3.7 gm 05/13/25 09:00 05/13/25 10:11 Psyllium Seed 3.7 Gm Packet PO 3.7 gm DAILY MARY Administration Medical Decision Making Medical Decision Making [facility] Narrative: 25-year-old female presented hospital today for suicide ideation and homicidal ideation. She wants to cut her throat and also stab her staff with a knife. Patient stated that she is frustrated that no one is listening to her. She feels like a burden to the world. We will plan to consult crisis at this time no medical concerns for the patient. Patient is medically clear. Patient injury to the right elbow does not appear to be significant. No laceration repair is indicated at this time full range of motion of her right elbow. No concern for fracture. Lab work will be ordered per protocol. Crisis has evaluated patient. They will plan to evaluate patient again in the morning. Patient will be signed out to oncoming provider. Differential Diagnosis Differential Diagnoses: The differential diagnosis associated with the presentation includes Suicide ideation, homicidal ideation, borderline personality disorder, hallucinations Lab Data [facility] Lab Attestation statement: I reviewed the patient's lab results. 05/12/25 18:34 05/12/25 18:34 Labs: Lab Results 05/12/25 05/12/25 05/13/25 Range/Units 18:01 18:34 12:31 WBC 8.7 (4.8-10.8) X10*3/uL RBC 4.68 (4.20-5.50) X10*6/uL Hgb 13.0 (12.0-16.0) g/dl Hct 39.3 (37.0-47.0) % MCV 84.0 (80.0-98.0) fL MCH 27.8 (27.0-33.0) pg MCHC 33.1 (31.0-35.0) g/dl RDW 14.3 (11.0-16.0) % Plt Count 242 (160-400) X10*3/uL MPV 9.0 L (9.4-12.3) fL Immature Gran % (Auto) 0.5 H (0.0-0.4) % Neut % (Auto) 53.0 (45-73) % Lymph % (Auto) 40.1 H (20-40) % [place] % (Auto) 6.3 (2-11) % Eos % (Auto) 0.0 (0-4) % Baso % (Auto) 0.1 (0-2) % Lymph # (Auto) 3.5 (1.2-4.9) X10*3/uL [place] # (Auto) 0.6 (0.1-1.2) X10*3/uL Eos # (Auto) 0.0 (0.0-0.4) X10*3/uL Baso # (Auto) 0.0 (0.0-0.2) X10*3/uL Abs Immat Gran (auto) 0.04 H (0.00-0.03) X10*3/uL Absolute Neuts (auto) 4.6 (2.0-8.3) x10*3/uL Absolute Nucleated RBC 0.000 (0.0-0.012) X10*3/uL Nucleated RBC % (auto) 0.0 (0.0-0.2) /100WBC Sodium 138 (135-145) mmol/L Potassium 3.8 (3.3-5.1) mmol/L Chloride 102 (96-108) mmol/L Carbon Dioxide 24 (22-29) mmol/L Anion Gap 16 (12-20) BUN 12 (9-16) mg/dL Creatinine 0.81 (0.5-1.4) mg/dL Estim Creat Clear Calc 126.1 Estimated GFR > 60 Random Glucose 126 H (60-115) mg/dL Calcium 8.7 (8.4-10.2) mg/dL Total Bilirubin 0.1 (0.0-1.0) mg/dL AST 34 H (5-31) U/L ALT 31 (0-31) U/L Alkaline Phosphatase 71 (39-117) U/L Total Protein 7.5 (6.5-8.0) g/dL Albumin 4.1 (3.5-5.0) g/dL Urine Color Yellow Urine Appearance Clear Urine pH 6.0 (5.0-9.0) Ur Specific [place] >= 1.030 H (1.005-1.025) Urine Protein Negative (Neg-Trace) mg/dL Urine Glucose (UA) Negative (Negative) mg/dL Urine Ketones 15 (Negative) mg/dL Urine Blood Moderate (2+) H (Negative) Urine Nitrite Negative (Negative) Ur Leukocyte Esterase Negative (Negative) Urine RBC 6-10 H (0-2) /HPF Urine WBC 0-5 (0-5) /HPF Ur Squamous Epith Cells 3-5 (0-2) /HPF Urine Bacteria None Seen (None Seen) Hyaline Casts 0-2 (0-2) /LPF Urine Test NEGATIVE (NEGATIVE) Urine Opiates Screen Not Detected (Not Detect) Ur Buprenorphine Scrn Not Detected (Not Detect) ng/mL Ur Oxycodone Screen Not Detected (Not Detect) ng/mL Urine Methadone Screen Not Detected (Not Detect) ng/mL Urine Fentanyl Screen Not Detected (Not Detect) Ur Barbiturates Screen Not Detected (Not Detect) Ur Phencyclidine Scrn Not Detected (Not Detect) Ur Amphetamines Screen Not Detected (Not Detect) U Benzodiazepines Scrn Not Detected (Not Detect) Urine Cocaine Screen Not Detected (Not Detect) U Marijuana (THC) Screen Not Detected (Not Detect) Ethyl Alcohol < 10 mg/dL COVID-19 (CHE) Negative (Negative) Discharge Plan Discharge Clinical Impression: Suicidal ideation, Homicidal ideation Patient Disposition: Xfer Psychiatric Hosp Transfer Details: TO [facility], [address] [place] [address], [id number] Prescriptions: No Action acetaminophen 500 mg Tablet 500 mg PO Q6H PRN (Reason: Fever/Pain) clonidine HCl 0.1 mg Tablet 0.1 mg PO BID@0900,1300 Qty: 30 0RF Protocol: Hold for SBP< HOLD for SBP < : 90 divalproex 500 mg Tablet,Delayed Release (Dr/Ec) 500 mg PO BID@0900,1300 Qty: 60 0RF divalproex 500 mg Tablet Extended Release 24 Hr 1,000 mg PO BEDTIME Qty: 60 0RF guanfacine 1 mg Tablet Extended Release 24 Hr 1 mg PO DAILY Qty: 30 0RF trazodone 50 mg Tablet 50 mg PO BEDTIME MRX1 PRN (Reason: Insomnia) Qty: 60 0RF olanzapine 5 mg Tablet 5 mg PO TID PRN (Reason: agitation) Qty: 90 0RF olanzapine 2.5 mg Tablet 2.5 mg PO DAILY Qty: 30 0RF metformin 500 mg Tablet Extended Release 24 Hr 500 mg PO DAILY@1700 Qty: 30 0RF clozapine 100 mg Tablet 100 mg PO BID Qty: 14 0RF ergocalciferol (vitamin D2) 1,250 mcg (50,000 unit) capsule 1,250 mcg PO WE Qty: 4 0RF Rx Instructions: on saturday fluticasone propionate 50 mcg/actuation [place],Suspension 2 spray INTRANASAL BID Qty: 1 0RF docusate sodium 100 mg Tablet 100 mg PO BID Qty: 60 0RF loratadine 10 mg Tablet 10 mg PO BEDTIME Qty: 30 0RF desmopressin 0.1 mg tablet 0.3 mg PO BEDTIME Qty: 30 0RF Linzess 145 mcg capsule 145 mcg PO DAILY Qty: 30 0RF psyllium husk 0.4 gram Capsule 0.4 g PO DAILY Qty: 30 0RF clonazepam 0.5 mg tablet 1 mg PO BID clozapine 50 mg tablet 50 mg PO BID lorazepam 1 mg PO DAILY PRN (Reason: Agitation) Interventions: Sierra-Suicide Risk Severity Scale Last Done: 05/12/25 17:57 Print Language: Romanian
[2025-05-12 17:41] VITALS: BP 120/92; BP 136/75; PULSE 100; PULSE 98; RESP 18; TEMP 36.9; O2SAT 94; O2SAT 97; BMI 38.3
[2025-05-12 18:09] LABS: Appearance Urine Clear; Glucose Urine UA Negative (Negative); PH 6.0 (5.0-9.0); Specific Gravity - Urine >= 1.030 (1.005-1.025); UMIC TRIGGER UACC YES
[2025-05-12 18:11] LABS: UPreg QC Valid YES
[2025-05-12 18:18] LABS: Cannabinoid Screen Urine Not Detected (Not Detect)
[2025-05-12 18:32] LABS: UACC Culture Trigger YES
[2025-05-12 18:39] LABS: MANUAL DIFF FLAG NO
[2025-05-12 18:43] LABS: Hematocrit 39.3 % (37.0-47.0); Hemoglobin 13.0 g/dl (12.0-16.0); Imm Gran Abs Auto 0.04 X10*3/uL (0.00-0.03); Imm Gran Pct Auto 0.5 % (0.0-0.4); Lymphocytes Absolute Auto 3.5 X10*3/uL (1.2-4.9); Mean Corpuscular HGB Conc 33.1 g/dl (31.0-35.0); Mean Corpuscular Hemoglobin 27.8 pg (27.0-33.0); Mean Corpuscular Volume 84.0 fL (80.0-98.0); NRBC Abs Auto 0.000 X10*3/uL (0.0-0.012); NRBC Pct Auto 0.0 /100WBC (0.0-0.2); Platelet Count 242 X10*3/uL (160-400); Red Blood Count 4.68 X10*6/uL (4.20-5.50); White Blood Count 8.7 X10*3/uL (4.8-10.8)
--- NOTE | 2025-05-12 18:50 | PC.NURSE ---
Pts worker Marleni can be reached [phone]
[2025-05-12 19:04] LABS: Alanine Aminotransferase 31 U/L (0-31); Albumin Level 4.1 g/dL (3.5-5.0); Alkaline Phosphatase 71 U/L (39-117); Anion Gap 16 (12-20); Aspartate Amino Transferase 34 U/L (5-31); Blood Urea Nitrogen 12 mg/dL (9-16); Calcium 8.7 mg/dL (8.4-10.2); Carbon Dioxide 24 mmol/L (22-29); Chloride 102 mmol/L (96-108); Creatinine Clr Calc Pharmacy 126.1; Estimated Glomerular Filt Rate > 60; Potassium 3.8 mmol/L (3.3-5.1); Sodium 138 mmol/L (135-145); Total Protein 7.5 g/dL (6.5-8.0)
--- OUTSIDE RECORDS SUMMARY | 2025-05-12 19:19 | XMS_ITS | Clinical Summary ---
Author Organization [place] [address] [address] [facility] Building Address [place] [address] Phone Care Team Providers Care Control Clerk Auditing Name Role Phone Stella Gómez MD Primary Care Provider Allergies Active Allergy Reactions Criticality Noted Date Comments Pollen Extracts Stuffy Nose Low 09/19/2024 Medications cloZAPine (CLOZARIL) 50 mg tablet Take 0.5 tablets (25 mg total) by mouth at bedtime. With 100mg bedtime dose Active OLANZapine (ZyPREXA) 2.5 mg tablet Take 2 tablets (5 mg total) by mouth 2 (two) times a day if needed (aggitation/anxi ety). Active acetaminophen (TYLENOL) 500 mg tablet Take 1 tablet (500 mg total) by mouth every 6 (six) hours if needed for mild pain or moderate pain (as needed for mild to moderate pain). 30 tablet 2 5 Active psyllium (Fiber, psyllium husk,) 0.4 gram capsule Take 1 capsule (400 mg total) by mouth 1 (one) time each day. 30 capsule 5 5 Active desmopressin (DDAVP) 0.1 mg tablet Take 3 tablets (0.3 mg total) by mouth at bedtime. 90 tablet 11 5 026 Active desmopressin (DDAVP) 0.2 mg tablet Take 1 tablet (0.2 mg total) by mouth at bedtime. 90 each 1 5 025 Active cloZAPine (CLOZARIL) 100 mg tablet Take 1 tablet (100 mg total) by mouth 2 (two) times a day. 60 tablet 1 5 Active dicyclomine (BENTYL) 10 mg capsule Take 1 capsule (10 mg total) by mouth 4 (four) times a day if needed (Abdominal pain). 90 capsule 1 5 Active divalproex (DEPAKOTE) [address] tablet Take 1 tablet (500 mg total) by mouth 3 (three) times a day. Do not crush, chew, or split. 30 tablet 1 5 Active prazosin (MINIPRESS) 1 mg capsule Take 1 capsule (1 mg total) by mouth at bedtime. 30 capsule 1 5 Active sertraline (ZOLOFT) 100 mg tablet Take 2 tablets (200 mg total) by mouth 1 (one) time each day. 30 tablet 1 5 Active benzoyl peroxide (BENZAC AC) 10 % external wash Apply topically 2 (two) times a day. 226 g 12 5 026 Active linaCLOtide (Linzess) 145 mcg capsule Take 1 capsule (145 mcg total) by mouth 1 (one) time each day before breakfast. 90 capsule 1 5 Active polyethylene glycol (MIRALAX) 17 gram packet Take 17 g by mouth 1 (one) time each day if needed for constipation (as needed for constipation). 30 packet 5 5 Active metFORMIN XR (GLUCOPHAGE-XR ) 500 mg 24 hr tablet Take 1 tablet (500 mg total) by mouth 1 (one) time each day with breakfast. Do not crush, chew, or split. 90 each 1 5 026 Active docusate sodium (COLACE) 100 mg capsule Take 1 capsule (100 mg total) by mouth 2 (two) times a day if needed for constipation. for constipation 60 capsule 5 5 026 Active ergocalciferol (Vitamin D2) 1,250 mcg (50,000 unit) capsule Take 1 capsule (50,000 Units total) by mouth 1 (one) time per week. 4 capsule 5 5 026 Active loratadine (CLARITIN) 10 mg tablet Take 1 tablet (10 mg total) by mouth at bedtime. 30 tablet 5 5 Active fluticasone propionate (FLONASE) 50 mcg/actuation nasal spray Administer 1 spray into each nostril 2 (two) times a day if needed for rhinitis or allergies. Shake gently. Before first use, prime pump. After use, clean tip and replace cap. 16 g 3 5 Active fluticasone propionate (FLONASE) 50 mcg/actuation nasal spray Administer 1 spray into each nostril 2 (two) times a day. Shake gently. Before first use, prime pump. After use, clean tip and replace cap. 025 Discontin ued(Reord er) loratadine (CLARITIN) 10 mg tablet Take 1 tablet (10 mg total) by mouth at bedtime. 30 tablet 5 5 025 Discontin ued(Reord er) Vitamin D2 1,250 mcg (50,000 unit) capsule TAKE 1 CAPSULE BY MOUTH EVERY WEEK 4 capsule 1 5 025 Discontin ued(Reord er) docusate sodium (COLACE) 100 mg capsule TAKE 1 CAPSULE BY MOUTH TWICE A DAY NEEDED FOR CONSTIPATION 60 capsule 1 5 025 Discontin ued(Reord er) Active Problems Problem Noted Date Diagnosed Date Morbid obesity with body mas s index (BMI) of 40.0 to 49.9 ([facility] V24, [facility] V28) 12/28/2022 Urinary incontinence 10/12/2022 Skin lesion 09/27/2022 Autistic disorder, active 09/27/2022 Bipolar affective disorder, current episode mixed ([facility] V24, [facility] V28) 09/27/2022 Attention deficit hyperactivity disorder (ADHD) 09/27/2022 Encounters Date Type Department Care Team Description 04/23/2025 2:45 PM EDT Office Visit Obstetrics and Gynecology - [facility] [address] [place] [phone] Graciela La CNM Vaginal odor (Primary Dx) 03/24/2025 10:45 AM EDT Office Visit Internal Medicine - [place] [address] [facility] [address] [place] [address] Stella Gómez MD Hospital discharge follow-up (Primary Dx); Bipolar affective disorder, current episode mixed, current episode severity unspecified ([facility] V24, [facility] V28); History of suicidal ideation 03/17/2025 Telephone Internal Medicine [address] [phone] Stella Gómez MD 02/23/2025 2:00 PM EDT Office Visit Internal Medicine [address] [phone] Christy Layton MD Constipation, unspecified constipation type (Primary Dx); Morbid obesity with body mass index (BMI) of 40.0 to 49.9 ([facility] V24, [facility] V28) 02/22/2025 Telephone Internal Medicine [address] [phone] Stella Gómez MD 02/18/2025 [place] [facility] [address] [phone] Stella Gómez MD 02/16/2025 [place] [facility] [address] [phone] Stella Gómez MD 02/09/2025 [place] [facility] [address] [phone] Stella Gómez MD from Last 3 Months Immunizations Name Administration Dates Next Due Influenza Quadravalent, MDCK , 0.5ml, preservative free (Flucelvax) 6mo and older 08/28/2023 Tdap Tetanus diptheria acell ular pertussis (Boostrix; Adacel) 7yo and older 10/29/2024,02/07/2023 Surgical History Surgery Date Site/Laterality Comments WISDOM TOOTH EXTRACTION PROCEDURE: HISTORICAL WISDOM TEETH EXTRACTION Medical History Medical History Date Comments Bipolar disorder ([facility] V24, [facility] V28) DX:Bipolar disorder (HCC) Adhd DX:ADHD Autistic disorder DX:Autistic di sorder Obesity DX:Obesity Schizophrenia ([facility] V24, [facility] V28) Depression Anxiety Bipolar 1 disorder ([facility] V24, [facility] V28) PTSD (post-traumatic stress disorder) Social History [...] Sign Reading Time Taken Comments Blood Pressure 124/84 04/23/2025 2:54 PM EDT Pulse 119 04/23/2025 2:54 PM EDT Temperature 36.4 C (97.5 F) 03/24/2025 11:12 AM EDT Respiratory Rate 22 04/23/2025 2:54 PM EDT Oxygen Saturation 97% 03/24/2025 11:12 AM EDT Inhaled Oxygen Concentration - - Weight 142 kg (312 lb 12.8 oz) 04/23/2025 2:54 P M EDT Height 162.6 cm (5' 4 ) 03/24/2025 11:12 AM EDT Body Mass Index 53.69 03/24/2025 11:12 AM EDT Plan of Treatment Upcoming Encounters Date Type Department Care Team (Late st Contact Info) Description 06/28/2025 1:30 PM EDT Office Visit Internal Medicine - [address] [phone] Stella Gómez MD [address] [place] [address] 08/13/2025 11:20 AM EST Office Visit Gastroenterology - [address] [phone] Jeanne Frost NP [address] [place] [address] Health Maintenance Due Date Last Done Comments HPV Vaccines (1 - 3-dose series) 2014 Hepatitis B Vaccines (1 of 3 - 19+ 3-dose series) 2018 HIV Screening 10/10/2023 Medicare Annual Wellness Visit 10/10/2023 Social Influencers of Health Screening 10/10/2023 COVID-19 Vaccine (1 - 2023-2 5 season) 2024 Depression Screening 09/16/2024 Influenza Vaccine (#1) 2025 08/28/2023 Cervical Cancer Screening: Pap Smear 12/14/2025 12/14/2022, 12/14/2022 Cholesterol Screening (Lipid Panel) 10/19/2027 10/19/2022 DTaP,Tdap,and Td Vaccines (3 - Td or Tdap) 10/29/2034 10/29/2024, 02/07/2023 Hepatitis C Screening Completed 10/19/2022 Gonorrhea/Chlamydia Screening Discontinued , 12/14/2022 HIB Vaccines Aged Out No longer [...] 5 Years) and At-Risk Patients (6 to 49 Years) Aged Out No longer eligible based on patient's age to complete this topic RSV Immunization Patients Under 20 months Aged Out No longer eligible based on patient's age to complete this topic Varicella Vaccines Aged Out No longer eligible based on patient's age to complete this topic Procedures Procedure Name Priority Date/Time Associated Diagnosis Comments TRICHOMONAS VAGINALIS ANTIGEN Routine 04/23/2025 3:24 PM EDT Vaginal odor WET PREP, GENITAL Routine 04/23/2025 3:2 4 PM EDT Vaginal odor CHLAMYDIA TRACHOMATIS AND NEISSERIA GONORRHOEAE PCR Routine 04/23/2025 3:24 PM EDT Vaginal odor HM PAP SMEAR Routine 12/14/2022 HEPATITIS C SCREENING Routine 10/19/2022 LIPID PANEL Routine 10/19/2022 from Last 3 Months or Most Recently Relevant to Health Maintenance Results * Trichomonas vaginalis antigen (04/23/2025 3:24 PM EDT) Trichomonas vaginalis Negative Negative 04/23/2025 7:10 PM EDT [facility] Swab Vaginal structure / Unknown Non-blood Collection / Unknown 04/23/2025 3:24 PM EDT 04/23/2025 3:24 PM EDT Graciela La [facility] MICROBIOLOGY - GENERAL OR DERABLES Final Result Performing Organization Address [facility]/ZIP Co de Phone Number [facility] [address] [place] [address], * Chlamydia trachomatis and Neisseria gonorrhoeae molecular study (04/23/2025 3:24 PM EDT) Neisseria gonorrhoeae PCR Negative Negative LAB MOLECULAR DIAGNOSTICS METHOD 04/24/2025 8:55 AM EDT [facility] Chlamydia trachomatis PCR Negative Negative LAB MOLECULAR DIAGNOSTICS METHOD 04/24/2025 8:55 AM EDT [facility] Swab Cervix uteri structure / Unknown Non-blood Collection / Unknown 04/23/2025 3:24 PM EDT 04/23/2025 3:24 PM EDT us Graciela La [facility] MICROBIOLOGY - GENERAL OR DERABLES Final Result Performing Organization Address City/[facility]/ZIP Co de Phone Number [facility] [address] [place] [address], [place] [phone] * Wet prep, genital (04/23/2025 3:24 PM EDT) Clue Cells, Wet Prep Negative Negative 04/23/2025 7:09 PM EDT [facility] Yeast, Wet Prep Negative Negative 04/23/2025 7:09 PM EDT [facility] Trichomonas, Wet Prep Indeterminate Negative 04/23/2025 7:09 PM EDT [facility] Comment:Refer to Trichomonas antigen. Swab Vaginal structure / Unknown Non-blood Collection / Unknown 04/23/2025 3:24 PM EDT 04/23/2025 3:24 PM EDT Graciela La CNM LAB MICROBIOLOGY - GENERAL OR DERABLES Final Result [facility] [address] [place] [address], * Pap Smear (12/14/2022) Pap smear abstracted, negative Historical Provider HEALTH MAINTENANCE Final Result * Hepatitis C Screening (10/19/2022) Hepatitis C [...] Health Maintenance Insurance MEDICARE [place]ICAID - [place] Care Teams Control Clerk Auditing Relationship Specialty Start Date End Date Stella Gómez MD [address] [place] [phone] PCP - General 07/09/22
--- OUTSIDE RECORDS SUMMARY | 2025-05-12 19:19 | XMS_ITS | Encounter Summary ---
Author Organization [facility] Address [address] [place] [address] Care Team Providers Care Air Traffic Systems Technician Name Role Phone Stella Gómez MD Primary Care Provider [phone] Encounter Details Date Type Department Care Team (Late st Contact Info) Description 09/22/2024 Community Care Management [facility] [facility] [address] [place] [address] Chi Clement Social History Tobacco [...] EST Doles, As zaynab Witt RN * Are you blind or [...] PM EDT Office Visit Internal Medicine - [place] [address] [phone] Stella Gómez MD [address] [place] [address] 08/13/2025 11:20 AM EST Office Visit Gastroenterology - [address] [phone] Jeanne Frost NP [address] [place] [phone] documented as of this encounter Visit Diagnoses Not on filedocumented in this encounter Care Teams Air Traffic Systems Technician Relationship Specialty Start Date End Date Stella Gómez MD [address] [phone] PCP - General 07/09/22 documented as of this encounter
[2025-05-12 20:27] VITALS: RESP 16
--- NOTE | 2025-05-12 20:27 | PC.NURSE ---
Assumed care of patient at 1845, patient is calm and cooperative, offering no complaints to this RN, respirations even and unlabored, resting in bed. Continue plan of care for follow up in am
--- NOTE | 2025-05-13 03:18 | PC.NURSE ---
Resumed care of pt at 0300, she is currently sleeping at this time, she remains on Q15 minute checks, pending re-eval in AM
[2025-05-13 03:56] VITALS: BP 126/69; PULSE 76; RESP 16; TEMP 36.7; O2SAT 98
[2025-05-13 09:34] VITALS: BP 138/85
[2025-05-13 09:40] VITALS: BP 138/85; PULSE 106; RESP 20; TEMP 36.7; O2SAT 97
[2025-05-13] MEDS: Psyllium seed 3.7 GM PACKET PO (10:11)
[2025-05-13] MEDS: guanFACINE HCl ER 1 MG TAB.ER.24H PO (10:12)
[2025-05-13 12:51] VITALS: BP 149/89; PULSE 105; RESP 16; TEMP 36.5; O2SAT 98
[2025-05-13 13:05] VITALS: BP 149/89; PULSE 105; RESP 16; TEMP 36.5; O2SAT 98
== END 2025-05-13 13:14 ==
PROVIDERS: Emergency Provider Student in an Organized Health Care Education/Training Program
DX: R45.851 Suicidal ideations (principal); R45.850 Homicidal ideations; F43.10 Post-traumatic stress disorder, unspecified; F84.0 Autistic disorder; F31.9 Bipolar disorder, unspecified; Z79.899 Other long term (current) drug therapy
CPT/HCPCS: 36415; 80053; 80307; 81001; 81025; 85025; 87086; 87635; 99285; S9485

== ENCOUNTER 2025-06-17 17:39 | Inpatient (IN) | payer MEDICARE, MEDICAID, SELFPAY ==
[2025-06-17 17:53] VITALS: BP 154/90; PULSE 105; O2SAT 95; BMI 32.3
[2025-06-17 18:13] VITALS: BP 134/71; PULSE 123; RESP 20; TEMP 36.8; O2SAT 97
[2025-06-17 18:34] LABS: MANUAL DIFF FLAG NO
[2025-06-17 18:35] LABS: Hematocrit 37.9 % (37.0-47.0); Hemoglobin 13.1 g/dl (12.0-16.0); Imm Gran Abs Auto 0.05 X10*3/uL (0.00-0.03); Imm Gran Pct Auto 0.4 % (0.0-0.4); Lymphocytes Absolute Auto 3.0 X10*3/uL (1.2-4.9); Mean Corpuscular HGB Conc 34.6 g/dl (31.0-35.0); Mean Corpuscular Hemoglobin 28.2 pg (27.0-33.0); Mean Corpuscular Volume 81.5 fL (80.0-98.0); NRBC Abs Auto 0.000 X10*3/uL (0.0-0.012); NRBC Pct Auto 0.0 /100WBC (0.0-0.2); Platelet Count 280 X10*3/uL (160-400); Red Blood Count 4.65 X10*6/uL (4.20-5.50); White Blood Count 11.8 X10*3/uL (4.8-10.8)
[2025-06-17 18:41] LABS: Appearance Urine Clear; Glucose Urine UA Negative (Negative); PH 5.5 (5.0-9.0); Specific Gravity - Urine 1.025 (1.005-1.025); UMIC TRIGGER UACC YES
[2025-06-17 18:42] LABS: UPreg QC Valid YES
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
[2025-06-17 18:47] LABS: Cannabinoid Screen Urine Not Detected (Not Detect)
[2025-06-17 18:51] LABS: Alanine Aminotransferase 34 U/L (0-31); Albumin Level 4.2 g/dL (3.5-5.0); Alkaline Phosphatase 74 U/L (39-117); Anion Gap 15 (12-20); Aspartate Amino Transferase 39 U/L (5-31); Blood Urea Nitrogen 12 mg/dL (9-16); Calcium 9.1 mg/dL (8.4-10.2); Carbon Dioxide 25 mmol/L (22-29); Chloride 103 mmol/L (96-108); Creatinine Clr Calc Pharmacy 136.2; Estimated Glomerular Filt Rate > 60; Potassium 3.9 mmol/L (3.3-5.1); Sodium 139 mmol/L (135-145); Total Protein 7.8 g/dL (6.5-8.0)
[2025-06-17 19:27] VITALS: PULSE 105; RESP 18
--- NOTE | 2025-06-17 19:40 | ECG_ITS ---
Test Reason : MED CLEARANCE Blood Pressure : */* mmHG Vent. Rate : 96 BPM Atrial Rate : 96 BPM P-R Int : 144 ms QRS Dur : 92 ms QT Int : 350 ms P-R-T Axes : 23 0 7 degrees QTcB Int : 442 ms Normal sinus rhythm Minimal voltage criteria for LVH, may be normal variant ( R in aVL ) Borderline ECG When compared with ECG of 24-Feb-2025 10:48, No significant change was found Referred By: Shree Spencer Electronically Signed By: YEFRI BERRY
--- NOTE | 2025-06-17 19:45 | MHC.EDTECH ---
EKG delayed to CARE TEAM currently meeting with pt. will obtain once they are done assessing pt.
[2025-06-17 20:23] VITALS: PULSE 94
[2025-06-18 06:00] VITALS: BP 122/64; PULSE 86; RESP 17; TEMP 36.9; O2SAT 94
--- NOTE | 2025-06-18 07:18 | PC.NURSE ---
Assumed care of patient at 0645, patient appears to be in no apparent distress this am, resting in bed, ate breakfast. Continue plan of care for follow up this am
--- NOTE | 2025-06-18 10:05 | PHA.MEDREC ---
Pharmacy Consult ? Medication Reconciliation Pharmacy has reviewed the medication reconciliation done by nursing, also called [facility] [phone] and spoke to Pancho Musa (staff) to confirm med list. She confirmed dose of clozapine 150 mg bid (last taken on 06/16/25), depakote EC 500 mg bid @0800,1600 and 1000 mg qhs. She also confirmed olanzapine 2.5 mg in the morning and 5 mg at bedtime, ativan 1 mg daily prn, bentyl 10 mg tid prn and miralax 17 g daily prn.
[2025-06-18 16:32] VITALS: BMI 49.7
[2025-06-18 16:35] VITALS: BP 138/90; PULSE 102; RESP 18; TEMP 36.3; O2SAT 96
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
[2025-06-18 20:00] VITALS: BP 101/59; BP 122/79; PULSE 91; PULSE 95; RESP 16; TEMP 36.3; O2SAT 96
[2025-06-19 08:00] VITALS: BP 122/58; PULSE 109; RESP 17; TEMP 34; O2SAT 96
[2025-06-19 08:28] LABS: Hemoglobin A1C 133.1188 umol/L; Total Hemoglobin (HGBA1C) 3568.1894 umol/L
[2025-06-19 08:40] LABS: Alanine Aminotransferase 43 U/L (0-31); Albumin Level 4.1 g/dL (3.5-5.0); Alkaline Phosphatase 75 U/L (39-117); Anion Gap 15 (12-20); Aspartate Amino Transferase 68 U/L (5-31); Blood Urea Nitrogen 14 mg/dL (9-16); Calcium 9.2 mg/dL (8.4-10.2); Carbon Dioxide 26 mmol/L (22-29); Chloride 101 mmol/L (96-108); Cholesterol 255 mg/dL (<200); Creatinine Clr Calc Pharmacy 186.4; Estimated Glomerular Filt Rate > 60; HDL Cholesterol 44 mg/dL (>40); Potassium 4.6 mmol/L (3.3-5.1); Sodium 137 mmol/L (135-145); Total Protein 7.8 g/dL (6.5-8.0); Triglycerides 243 mg/dL (<150)
[2025-06-19 08:54] LABS: Free T4 (Free Thyroxine) 0.81 ng/dL (0.71-1.85); Thyroid Stimulating Hormone 4.52 uIU/mL (0.32-4.0)
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
[2025-06-19 09:14] VITALS: BP 122/58
[2025-06-19] MEDS: Flu Vacc TS2025-26(6mo up)/PF 0.5 ML SYRINGE IM (09:45)
[2025-06-19 12:42] VITALS: BP 129/79
[2025-06-19 19:45] VITALS: BP 140/97; PULSE 89; RESP 16; TEMP 36.8; O2SAT 96
[2025-06-20 07:43] VITALS: BP 128/75; PULSE 92; RESP 18; TEMP 36.3; O2SAT 97
[2025-06-20 12:31] VITALS: BP 131/88
--- NOTE | 2025-06-20 18:20 | P.PNPSI_ITS ---
Subjective Subjective Date of Service: 06/20/25 Reason For Visit: aggressive/agitation Subjective Notes: Conditional Voluntary Healthcare Proxy: No Guardianship: No Medical Problems Affecting Mental Status: No Interim History: Medical record and nursing notes reviewed; case discussed during rounds with team/nursing staff, and met with patient for supportive therapy/psychoeducation, as well as medication management. Slept good, no issue with appetite, visible at times in common areas, reports high in anxiety 02/23, denies depression. Patient reports that I want to come up with a safety plan so I do not have to go back here. I do not want to do this again . Patient wants to stay until past Saturday as a boyfriend will come in to do groups on Saturday here. She mentioned the name of group-club house that her boyfriend is a member but do not know how to spell it when asked, got irritable, raise her voices loudly but apologize to this provider at the end. The PRNs Ativan, no other behavior issues. Denies safety concerns. Medication Compliance: Yes Side effects from medications: No Attending Groups: Yes Review of Systems Acute medical concerns: No Medical Review of Systems: unchanged Review of Systems Review of Systems Constitutional: Denies fatigue and Denies fever(s) Cardiovascular: Denies chest pain and Denies dyspnea Respiratory: Denies dyspnea Gastrointestinal: Denies abdominal pain Psychiatric: denies suicidal ideation Endocrine: Denies fatigue Yes all other systems are reviewed and are negative Mental Status Exam Mental Status Exam Narrative: Patient is alert and oriented; behavior is cooperative, mild to moderate anxiety and irritability; patient is not in distress; dressed in casual attire with kempt hair and adequate hygiene; mood is described as anxious and affect congruent; eye contact appropriate; Speech is normal rate, volume and prosody and not pressured; no psychomotor agitation/retardation present; thought process is organized and goal directed; Thought content is WNL, pertinent to relevant topics and without any delusional content, paranoid ideation or grandiosity; denies SI/ SIB/HI. Denies AH and there is no evidence of perceptual disturbance. Patient's insight and judgment poor. Diagnostics Vital Signs (24Hr): Vital Signs - 24 hr 06/19/25 19:45 06/20/25 07:43 06/20/25 12:31 Temperature 98.2 F 97.4 F Pulse Rate 89 92 Respiratory Rate 16 18 Blood Pressure 140/97 H 128/75 131/88 Pulse Oximetry 96 97 Oxygen Delivery Method Room Air Room Air BMI result Body Mass Index 49.7 Labs 06/17/25 18:26 06/19/25 07:50 Labs: Laboratory Results - last 48 hr 06/19/25 07:50 Sodium 137 Potassium 4.6 Chloride 101 Carbon Dioxide 26 Anion Gap 15 BUN 14 Creatinine 0.66 Estim Creat Clear Calc 186.4 Estimated GFR > 60 Random Glucose 91 Estimat Average Glucose 114 Hemoglobin A1c % 5.6 Calcium 9.2 Total Bilirubin 0.2 AST 68 H ALT 43 H Alkaline Phosphatase 75 Total Protein 7.8 Albumin 4.1 Triglycerides 243 H Cholesterol 255 H LDL Cholesterol, Calc 163 H HDL Cholesterol 44 TSH 4.52 H Free T4 0.81 Medications Medications Current Medications Acetaminophen (Acetaminophen 325 Mg Tablet) 650 mg PO Q6H PRN PRN Reason: Headache/Pain, Scale 1-10 Last Admin: 06/19/25 17:01 Dose: 650 mg Al Hydroxide/Mg Hydroxide (Magnesium Hydrox/Alum Hydrox 30 Ml Oral.Susp) 30 ml PO Q6H PRN PRN Reason: Heartburn/Nausea Clonazepam (Clonazepam 1 Mg Tablet) 1 mg PO BID [facility] Last Admin: 06/20/25 08:20 Dose: 1 mg Clonidine HCl (Clonidine Hcl 0.1 Mg Tablet) 0.1 mg PO BID@0900,1300 [facility]; Protocol Last Admin: 06/20/25 12:31 Dose: 0.1 mg Clozapine (Clozapine 25 Mg Tablet) 50 mg PO BID [facility] Last Admin: 06/20/25 08:20 Dose: 50 mg Clozapine (Clozapine 100 Mg Tablet) 100 mg PO BID [facility] Last Admin: 06/20/25 08:20 Dose: 100 mg Desmopressin Acetate (Desmopressin Acetate 0.2 Mg Tablet) 0.3 mg PO BEDTIME [facility] Last Admin: 06/19/25 21:32 Dose: 0.3 mg Dicyclomine HCl (Dicyclomine Hcl 10 Mg Capsule) 10 mg PO TID PRN PRN Reason: Spasms Divalproex Sodium (Divalproex Sodium 500 Mg Tablet.Dr) 500 mg PO BID@0900,1300 [facility] Last Admin: 06/20/25 12:31 Dose: 500 mg Divalproex Sodium (Divalproex Sodium Er 500 Mg Tab.Er.24h) 1,000 mg PO BEDTIME [facility] Last Admin: 06/19/25 21:34 Dose: 1,000 mg Docusate Sodium (Docusate Sodium 100 Mg Capsule) 100 mg PO BID [facility] Last Admin: 06/20/25 08:20 Dose: 100 mg Fluticasone Propionate (Fluticasone Propionate Nasal 16 Gm [place]) 2 spray NOSTRIL-B BID [facility] Last Admin: 06/20/25 08:23 Dose: 2 spray Hydroxyzine HCl (Hydroxyzine Hcl 25 Mg Tablet) 25 mg PO Q6H PRN PRN Reason: mild anxiety Loratadine (Loratadine 10 Mg Tablet) 10 mg PO BEDTIME [facility] Last Admin: 06/19/25 21:34 Dose: 10 mg Lorazepam (Lorazepam 1 Mg Tablet) 1 mg PO DAILY PRN PRN Reason: Anxiety Last Admin: 06/20/25 15:57 Dose: 1 mg Magnesium Hydroxide (Milk Of Magnesia 30 Ml Oral.Susp) 30 ml PO DAILY PRN PRN Reason: Constipation Metformin HCl (Metformin Hcl Er 500 Mg Tab.Er.24h) 500 mg PO DAILY@1700 [facility] Last Admin: 06/20/25 17:35 Dose: 500 mg Nicotine (Nicotine 21 Mg Patch.Td24) 21 mg TRANSDERMA DAILY PRN PRN Reason: nicotine craving Nicotine Polacrilex (Nicotine Polacrilex 2 Mg Gum) 2 mg BUCCAL Q2H PRN PRN Reason: Nicotine Cravings Non-Formulary Medication (Linaclotide [Linzess]) 145 mcg PO DAILY [facility] Olanzapine (Olanzapine 2.5 Mg Tablet) 2.5 mg PO DAILY [facility] Last Admin: 06/20/25 08:20 Dose: 2.5 mg Olanzapine (Olanzapine 5 Mg Tablet) 5 mg PO BEDTIME [facility] Last Admin: 06/19/25 21:33 Dose: 5 mg Olanzapine (Olanzapine 5 Mg Tablet) 5 mg PO BID PRN PRN Reason: agitation Polyethylene Glycol (Polyethylene Glycol 3350 17 Gm Powd.Pack) 17 gm PO DAILY PRN PRN Reason: Constipation Psyllium Hydrophilic Mucilloid (Psyllium Seed 3.7 Gm Packet) 3.7 gm PO DAILY [facility] Last Admin: 06/20/25 08:34 Dose: Not Given Trazodone HCl (Trazodone Hcl 50 Mg Tablet) 50 mg PO BEDTIME MRX1 PRN PRN Reason: Insomnia Allergies Allergies Allergy/AdvReac Type Severity Reaction Status Date / Time No Known Allergies Allergy Verified 06/17/25 17:55 Assessment & Plan Assessment & Plan (1) Bipolar disorder: Status: Acute Code(s): F31.9 - Bipolar disorder, unspecified (2) PTSD (post-traumatic stress disorder): Status: Acute Code(s): F43.10 - Post-traumatic stress disorder, unspecified (3) Developmental delay, moderate: Status: Acute Code(s): R62.50 - Unspecified lack of expected normal physiological development in childhood (4) Autism spectrum disorder: Status: Acute Code(s): F84.0 - Autistic disorder Plan HPI: Patient is a 25 y.o single,Syrian speaking female with hx developmentally delayed, Bipolar, PTSD & skin picking disorder, and on the Autism spectrum who was [facility] the ED from her [facility] reporting both SI & HI. Formulation/clinical reasoning: increased anxiety, poor impulse control, aggressive toward staff at , increase SI. Given hx of developmentally delayed, Bipolar, PTSD & skin picking disorder, and on the Autism spectrum, patient would benefit in restrictive environment for own safety and the safety of others, medication adjustment and refer patient back to and OP providers. Hospital course: 06/19/25: Continue with all home meds CLozaril BID and level on 06/19/25. Monitor for ALT/ AST which slightly elevated. 06/20/25: Slept good, no issue with appetite, visible at times in common areas, reports high in anxiety 02/23, denies depression. Patient reports that I want to come up with a safety plan so I do not have to go back here. I do not want to do this again . Patient wants to stay until past Saturday as a boyfriend will come in to do groups on Saturday here. She mentioned the name of group-club house that her boyfriend is a member but do not know how to spell it when asked, got irritable, raise her voices loudly but apologize to this provider at the end. The PRNs Ativan, no other behavior issues. Denies safety concerns. Plan Patient on 15 minute checks for safety. Admitted to . CV. Work with treatment team to do collateral Patient educated on: diagnosis, medication risk/benefits and therapeutic strategies Informed Consent: understands and further education needed Reason for continued inpatient stay Substantial Risk for: med/psych decompensation Time Spent With Patient Time: Total time managing care of this patient today ____ minutes.
[2025-06-20 19:53] VITALS: BP 134/89; PULSE 108; RESP 97; TEMP 36.2; O2SAT 97
[2025-06-21 08:00] VITALS: BP 143/91; PULSE 102; RESP 16; TEMP 36.5; O2SAT 95
[2025-06-21 08:41] VITALS: BP 143/91
[2025-06-21] MEDS: Psyllium seed 3.7 GM PACKET PO (08:41)
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
[2025-06-21 20:00] VITALS: BP 146/83; PULSE 104; RESP 20; TEMP 36.4; O2SAT 98
[2025-06-22 08:00] VITALS: BP 127/93; PULSE 99; RESP 16; TEMP 36.9; O2SAT 97
[2025-06-22 08:46] VITALS: BP 127/93
[2025-06-22] MEDS: Psyllium seed 3.7 GM PACKET PO (08:46)
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
[2025-06-22 13:31] VITALS: BP 118/82
[2025-06-22 17:07] LABS: Appearance Urine Clear; Glucose Urine UA Negative (Negative); PH 8.5 (5.0-9.0); Specific Gravity - Urine 1.020 (1.005-1.025); UMIC TRIGGER UACC YES
[2025-06-22 20:00] VITALS: BP 126/71; PULSE 90; RESP 18; TEMP 36.4; O2SAT 95
[2025-06-23 08:42] VITALS: BP 141/83; PULSE 90; RESP 20; TEMP 36.3; O2SAT 99
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
[2025-06-23 14:18] VITALS: BP 119/70; PULSE 100; O2SAT 96
--- NOTE | 2025-06-23 18:01 | PM.PSYDC ---
DS: Providers Provider Date of Service: 06/24/25 Date of admission: 06/18/25 12:25 Date of discharge: 06/24/25 Primary care physician: Unknown Physician DS: Diagnosis Discharge Diagnosis (1) Bipolar disorder: Status: Acute (2) PTSD (post-traumatic stress disorder): Status: Acute (3) Developmental delay, moderate: Status: Acute (4) Autism spectrum disorder: Status: Acute DS: Medications Discharge Medications Home Medications: Home Medications ?Medication ?Instructions ?Recorded ?Confirmed acetaminophen 500 mg tablet 500 mg PO Q6H PRN Fever/Pain 01/27/25 06/17/25 clonazepam 0.5 mg tablet 1 mg PO BID 05/12/25 06/17/25 clozapine 50 mg tablet 50 mg PO BID 05/12/25 06/17/25 dicyclomine 10 mg capsule 10 mg PO TID PRN Spasms 06/18/25 06/18/25 divalproex 500 mg tablet,delayed 500 mg PO BID@0800,1600 06/18/25 06/18/25 release lorazepam 1 mg tablet 1 mg PO DAILY PRN Anxiety 06/18/25 06/18/25 olanzapine 5 mg tablet (Zyprexa) 5 mg PO BEDTIME 06/18/25 06/18/25 polyethylene glycol 3350 17 17 g PO DAILY PRN Constipation 06/18/25 06/18/25 gram/dose oral powder (Miralax) Previous Rx's ?Medication ?Instructions ?Recorded clonidine HCl 0.1 mg tablet 0.1 mg PO BID@0900,1300 #30 tabs 03/15/25 clozapine 100 mg tablet 100 mg PO BID #14 tabs 03/15/25 desmopressin 0.1 mg tablet 0.3 mg (3 x 0.1 mg) PO BEDTIME #30 03/15/25 tabs divalproex 500 mg tablet,extended 1,000 mg (2 x 500 mg) PO BEDTIME 03/15/25 release 24 hr #60 tabs docusate sodium 100 mg tablet 100 mg PO BID #60 tabs 03/15/25 fluticasone propionate 50 2 spray intranasal BID #1 inhaler 03/15/25 mcg/actuation nasal spray,suspension linaclotide 145 mcg capsule 145 mcg PO DAILY #30 caps 03/15/25 (Linzess) loratadine 10 mg tablet 10 mg PO BEDTIME #30 tabs 03/15/25 olanzapine 2.5 mg tablet 2.5 mg PO DAILY #30 tabs 03/15/25 psyllium husk 0.4 gram capsule 0.4 g PO DAILY #30 caps 03/15/25 trazodone 50 mg tablet 50 mg PO BEDTIME MRX1 PRN Insomnia 03/15/25 #60 tabs atorvastatin 10 mg tablet 10 mg PO DAILY 30 days #30 tabs 06/23/25 metformin 500 mg tablet,extended 500 mg PO DAILY@1700 #0 tabs 06/23/25 release 24 hr olanzapine 5 mg tablet 5 mg PO BID PRN agitation #0 tabs 06/23/25 Data Data Completed and Pending Completed studies during hospitalization [Text1]: 06/17/25 06/19/25 06/19/25 18:26 07:49 07:50 WBC 11.8 H RBC 4.65 Hgb 13.1 Hct 37.9 MCV 81.5 MCH 28.2 MCHC 34.6 RDW 14.6 Plt Count 280 MPV 8.8 L Immature Gran % (Auto) 0.4 Neut % (Auto) 68.1 Lymph % (Auto) 25.1 Dickens % (Auto) 5.9 Eos % (Auto) 0.2 Baso % (Auto) 0.3 Lymph # (Auto) 3.0 Dickens # (Auto) 0.7 Eos # (Auto) 0.0 Baso # (Auto) 0.0 Abs Immat Gran (auto) 0.05 H Absolute Neuts (auto) 8.0 Absolute Nucleated RBC 0.000 Nucleated RBC % (auto) 0.0 Sodium 139 137 Potassium 3.9 4.6 Chloride 103 101 Carbon Dioxide 25 26 Anion Gap 15 15 BUN 12 14 Creatinine 0.71 0.66 Estim Creat Clear Calc 136.2 186.4 Estimated GFR > 60 > 60 Random Glucose 95 91 Estimat Average Glucose 114 Hemoglobin A1c % 5.6 Calcium 9.1 9.2 Total Bilirubin 0.2 0.2 AST 39 H 68 H ALT 34 H 43 H Alkaline Phosphatase 74 75 Total Protein 7.8 7.8 Albumin 4.2 4.1 Triglycerides 243 H Cholesterol 255 H LDL Cholesterol, Calc 163 H HDL Cholesterol 44 TSH 4.52 H Free T4 0.81 Urine Color Yellow Urine Appearance Clear Urine pH 5.5 Ur Specific [place] 1.025 Urine Protein 30 (1+) H Urine Glucose (UA) Negative Urine Ketones 15 Urine Blood Negative Urine Nitrite Negative Ur Leukocyte Esterase Trace H Urine RBC 0-2 Urine WBC 0-5 Ur Squamous Epith Cells 3-5 Urine Bacteria Trace Hyaline Casts 0-2 Urine Test NEGATIVE Urine Opiates Screen Not Detected Ur Buprenorphine Scrn Not Detected Ur Oxycodone Screen Not Detected Urine Methadone Screen Not Detected Urine Fentanyl Screen Not Detected Ur Barbiturates Screen Not Detected Valproic Acid Ur Phencyclidine Scrn Not Detected Clozapine Pending Norclozapine Pending Ur Amphetamines Screen Not Detected U Benzodiazepines Scrn Not Detected Urine Cocaine Screen Not Detected U Marijuana (THC) Screen Not Detected Ethyl Alcohol 11 06/22/25 06/22/25 08:43 16:50 WBC RBC Hgb Hct MCV MCH MCHC RDW Plt Count MPV Immature Gran % (Auto) Neut % (Auto) Lymph % (Auto) Dickens % (Auto) Eos % (Auto) Baso % (Auto) Lymph # (Auto) Dickens # (Auto) Eos # (Auto) Baso # (Auto) Abs Immat Gran (auto) Absolute Neuts (auto) Absolute Nucleated RBC Nucleated RBC % (auto) Sodium Potassium Chloride Carbon Dioxide Anion Gap BUN Creatinine Estim Creat Clear Calc Estimated GFR Random Glucose Estimat Average Glucose Hemoglobin A1c % Calcium Total Bilirubin AST ALT Alkaline Phosphatase Total Protein Albumin Triglycerides Cholesterol LDL Cholesterol, Calc HDL Cholesterol TSH Free T4 Urine Color Yellow Urine Appearance Clear Urine pH 8.5 Ur Specific [place]williams 1.020 Urine Protein Negative Urine Glucose (UA) Negative Urine Ketones Trace Urine Blood Small (1+) H Urine Nitrite Negative Ur Leukocyte Esterase Trace H Urine RBC 11-20 H Urine WBC 0-5 Ur Squamous Epith Cells 0-2 Urine Bacteria None Seen Hyaline Casts 0-2 Urine Test Urine Opiates Screen Ur Buprenorphine Scrn Ur Oxycodone Screen Urine Methadone Screen Urine Fentanyl Screen Ur Barbiturates Screen Valproic Acid 67.2 Ur Phencyclidine Scrn Clozapine Pending Norclozapine Pending Ur Amphetamines Screen U Benzodiazepines Scrn Urine Cocaine Screen U Marijuana (THC) Screen Ethyl Alcohol DS: Summary Time Spent with Patient Time attestation: Total time managing care of this patient today ____ minutes. Discharge Plan Discharge Anticipated Discharge Date/Time: 06/24/25 11:30 Patient Disposition: Home, Self-Care Discharge Diagnosis: bipolar disorder Referrals: Physician,Unknown J [Primary Care Provider, Medical] - 1 Week Discharge Medications: New atorvastatin 10 mg Tablet 10 mg PO DAILY 30 Days Qty: 30 0RF olanzapine 5 mg Tablet 5 mg PO BID PRN (Reason: agitation) Qty: 0 0RF metformin 500 mg Tablet Extended Release 24 Hr 500 mg PO DAILY@1700 Qty: 0 0RF Continued acetaminophen 500 mg Tablet 500 mg PO Q6H PRN (Reason: Fever/Pain) clonidine HCl 0.1 mg Tablet 0.1 mg PO BID@0900,1300 Qty: 30 0RF Protocol: Hold for SBP< HOLD for SBP < : 90 divalproex 500 mg Tablet Extended Release 24 Hr 1,000 mg PO BEDTIME Qty: 60 0RF trazodone 50 mg Tablet 50 mg PO BEDTIME MRX1 PRN (Reason: Insomnia) Qty: 60 0RF olanzapine 2.5 mg Tablet 2.5 mg PO DAILY Qty: 30 0RF clozapine 100 mg Tablet 100 mg PO BID Qty: 14 0RF fluticasone propionate 50 mcg/actuation [place],Suspension 2 spray INTRANASAL BID Qty: 1 0RF docusate sodium 100 mg Tablet 100 mg PO BID Qty: 60 0RF loratadine 10 mg Tablet 10 mg PO BEDTIME Qty: 30 0RF desmopressin 0.1 mg tablet 0.3 mg PO BEDTIME Qty: 30 0RF Linzess 145 mcg capsule 145 mcg PO DAILY Qty: 30 0RF psyllium husk 0.4 gram Capsule 0.4 g PO DAILY Qty: 30 0RF clonazepam 0.5 mg tablet 1 mg PO BID clozapine 50 mg tablet 50 mg PO BID olanzapine [Zyprexa] 5 mg Tablet 5 mg PO BEDTIME lorazepam 1 mg Tablet 1 mg PO DAILY PRN (Reason: Anxiety) polyethylene glycol 3350 [Miralax] 17 gram/dose Powder 17 g PO DAILY PRN (Reason: Constipation) dicyclomine 10 mg Capsule 10 mg PO TID PRN (Reason: Spasms) divalproex 500 mg Tablet,Delayed Release (Dr/Ec) 500 mg PO BID@0800,1600 Discontinued metformin 500 mg Tablet Extended Release 24 Hr 500 mg PO DAILY Discharge Orders: Discharge Order (Routine); Ordered 06/24/25 Ordered By: Fredy Shore Diet: diet at snf Activity on Discharge: As tolerated Stand Alone Forms: Patient Portal Discharge page Print Language: Stateless Care Plan Goals: Maintain mood and safe behaviors Take medications as prescribed Practice coping skills Continue with outpatient providers and reach out to them as needed Health Concerns: Mood stability and behaviors Diabetes Elevated cholesterol Seasonal allergies Plan of Treatment: Follow up with your PCP, psychiatric provider and other outpatient providers regarding above concerns Take medications as prescribed Assessment: Risk assessment at time of discharge:? Patient was interviewed prior to discharge and found to be fully oriented and without any SI or HI. Patient has improved insight and judgment and wants to continue treatment. Patient is not in imminent risk of harm to self or others and has a safety plan that includes presenting to the closest ER or calling 911 if feeling unsafe.? Patient has been observed closely by nursing and unit staff throughout admission; patient has not engaged in any behaviors that suggest dangerousness to self or others and has demonstrated appropriate behaviors and impulse control
[2025-06-23 22:25] VITALS: BP 123/85; PULSE 112; RESP 18; TEMP 36.9; O2SAT 98
[2025-06-24 07:57] VITALS: BP 150/91
[2025-06-24 08:00] VITALS: BP 150/91; PULSE 120; RESP 16; TEMP 36.3; O2SAT 98
[2025-06-24 08:11] LABS: Neut%MD 54.6 %; WBCANC 8.3 X10*3/uL
[2025-06-24 08:23] LABS: Creatinine Clr Calc Pharmacy 195.2; Estimated Glomerular Filt Rate > 60
[2025-06-24 11:34] LABS: Clozapine (Clozaril) 558 mcg/L
[2025-06-25 17:23] LABS: Clozapine (Clozaril) 582 mcg/L
== END 2025-06-24 12:15 | disposition home or self-care (01) | DRG 885 ==
LOC: HO.ED 06-18 07:00 → HO.PM5 06-18 13:44
PROVIDERS: Admitting Provider Nurse Practitioner Psychiatric/Mental Health; Emergency Provider Emergency Medicine; Visit Provider Psychiatry & Neurology Psychiatry
DX: F31.9 Bipolar disorder, unspecified (principal); R45.851 Suicidal ideations; F84.0 Autistic disorder; R45.850 Homicidal ideations; Z62.812 Personal history of neglect in childhood; F43.10 Post-traumatic stress disorder, unspecified; R62.50 Unspecified lack of expected normal physiological development in childhood; Z79.51 Long term (current) use of inhaled steroids; Z79.899 Other long term (current) drug therapy
CPT/HCPCS: 36415; 80053; 80061; 80159; 80164; 80307; 81001; 81025; 82565; 83036; 84439; 84443; 85025; 85048; 90656; 93005; 99285; S9485

== ENCOUNTER → 2025-06-17 19:40 | Outpatient (BNV) | payer MEDICARE, MEDICAID, SELFPAY | PROVIDERS: Admitting Provider Nurse Practitioner Psychiatric/Mental Health; Emergency Provider Emergency Medicine; Visit Provider Internal Medicine | DX: R00.0 Tachycardia, unspecified (principal) | CPT/HCPCS: 93010 ==

== ENCOUNTER → 2025-06-18 12:25 | Outpatient (BNV) | payer MEDICARE, MEDICAID, SELFPAY | PROVIDERS: Admitting Provider Nurse Practitioner Psychiatric/Mental Health; Emergency Provider Emergency Medicine; Visit Provider Nurse Practitioner Psychiatric/Mental Health | DX: F31.9 Bipolar disorder, unspecified (principal); F43.11 Post-traumatic stress disorder, acute; R62.50 Unspecified lack of expected normal physiological development in childhood; F84.0 Autistic disorder | CPT/HCPCS: 90792; 99232 ==

== ENCOUNTER 2025-07-03 17:37 | Emergency (ER) | payer MEDICARE, MEDICAID, SELFPAY ==
--- OUTSIDE RECORDS SUMMARY | 2025-06-28 13:30 | XMS_ITS | Encounter Summary ---
Author Organization [facility] Address [address] [place] [address] Care Team Providers Care Pathology Laboratory Technologist Name Role Phone Stella Gómez MD Primary Care Provider [phone] Reason for Referral * Consultation (Routine) - Authorized Specialty Diagnoses / Procedures Referred By Rhett haines Referred To Contact Nutrition / Internal Medicine Diagnoses Morbid obesity with body mass index (BMI) of 40.0 to 49.9 (CMS/HCC V24, CMS/HCC V28) Stella Gómez MD [address] [place] [phone] Phone: tel: fax: [address] [place] [address] Phone: tel: fax: Referral ID Status Reason Start Date Expiration Date Visits Requested Visits Authorized [id number] Authorized Specialty Services Required 06/28/2026 20 20 Reason for Visit * Reason Comments Medicare Annual Wellness Visit Initial Encounter Details Date Type Department Care Team (Latest Contact Info) Description 06/28/2025 1:30 PM EDT Office Visit Internal Medicine - [address] [phone] Stella Gómez MD [address] [phone] Medicare annual wellness visit, initial (Primary Dx); Autistic disorder, active; Attention deficit hyperactivity disorder (ADHD), unspecified ADHD type; Bipolar affective disorder, current episode mixed, current episode severity unspecified ([facility] V24, [facility] V28); Morbid obesity with body mass index (BMI) of 40.0 to 49.9 ([facility] V24, [facility] V28); Routine general medical examination at a health care facility; Vitamin D deficiency; Other fatigue; Encounter for lipid screening for cardiovascular disease; Other abnormal glucose Social History Tobacco Use Types Packs/Day Years [...] on file documented as of this encounter Last Filed Vital Signs Vital Sign Reading Time Taken Comments Blood Pressure 122/86 06/28/2025 1:18 PM EDT Pulse 114 06/28/2025 1:18 PM EDT Temperature 36.9 C (98.4 F) 06/28/2025 1:18 PM EDT Respiratory Rate - - Oxygen Saturation 97% 06/28/2025 1:18 PM EDT Inhaled Oxygen Concentration - - Weight 141 kg (310 lb) 06/28/2025 1:18 PM EDT Height 162.6 cm (5' 4 ) 06/28/2025 1:18 PM EDT Body Mass Index 53.21 06/28/2025 1:18 PM EDT documented in this encounter Functional Status * Are you deaf or do you have serious difficulty hearing? Answer Date of Assessment Author No 09/19/2024 3:55 AM EST Roger Haley RN * Are you blind or do you have serious difficulty seeing, even when wearing glasses? Answer Date of Assessment Author No 09/19/2024 3:55 AM EST Roger Haley RN * Do you have serious difficulty walking or climbing stairs? Answer Date of Assessment Author No 09/19/2024 3:55 AM EST Roger Haley RN * Do you have serious difficulty dressing or bathing? Answer Date of Assessment Author No 09/19/2024 3:55 AM EST Roger Haley RN * Because of a physical, mental, [...] Entry Date Author No 09/19/2024 3:55 AM ANGEL Haley, Roger Witt RN documented in this encounter Patient Instructions * Attachments The following attachments cannot be sent through Care Everywhere. * Healthy Eating: At Home: Quick List (Emirati) * Physical Activity: Walking (Emirati) * Advance Directives (Emirati) * Advance Care Planning (Emirati) * Gas and Bloating (Emirati) documented in this encounter Ordered Prescriptions Prescription Sig Dispense Quantity Refills Last Filled Start Date End Date fluticasone propionate (FLONASE) 50 mcg/actuation nasal spray Administer 1 spray into each nostril 2 (two) times a day if needed for rhinitis or allergies. Shake gently. Before first use, prime pump. After use, clean tip and replace cap. 16 g 5 06/28/2025 dicyclomine (BENTYL) 10 mg capsule Take 1 capsule (10 mg total) by mouth 4 (four) times a day if needed (Abdominal pain). 90 capsule 3 06/28/2025 acetaminophen (TYLENOL) 500 mg tablet Take 1 tablet (500 mg total) by mouth every 6 (six) hours if needed for mild pain or moderate pain (as needed for mild to moderate pain). 90 tablet 3 06/28/2025 acetaminophen (TYLENOL) 500 mg tablet Take 1 tablet (500 mg total) by mouth every 6 (six) hours if needed for mild pain or moderate pain (as needed for mild to moderate pain). 30 tablet 2 06/28/2025 documented in this encounter Progress Notes * Stella Gómez MD - 06/28/2025 1:30 PM EDT Annual Wellness Visit Health Maintenance Due Topic Date Due ??? HPV Vaccines (1 - 3-dose series) Never done ??? Hepatitis B Vaccines (1 of 3 - 19+ 3-dose series) Never done ??? HIV Screening Never done ??? Social Influencers of Health Screening Never done ??? Medicare Annual Wellness Visit Never done ??? Depression Screening Never done ??? COVID-19 Vaccine ( season) Never done Adult vaccinations: CDC Recommendations Resources for Educating Adult Patients about Vaccines CDC * Stella Gómez MD - 06/28/2025 1:30 PM EDT Subjective Ana Lilia Montgomery is a 25 y.o. female who presents for an Initial Medicare Annual Wellness Visit. History of Present Illness The patient presents for a Medicare wellness visit and follow-up of the following complaints Weight Loss - She reports recent weight loss and plans to consult a credit rating checker. - She aims to incorporate more fruits, vegetables, and whole wheat bread into her diet, with reduced sugar intake and a cheat day once a month. Contraceptive Implant - Her contraceptive implant has ceased to function, causing menstrual bleeding. - She is considering removal and replacement with a new implant or an alternative method, excludingan intrauterine device. - She is open to using oral contraceptives temporarily. - Last employer relations representative visit: 04/23/2025. Flatulence - She has increased flatulence despite a healthy diet and adequate hydration. - Last pediatric immunologist visit: 10/2024. - She believes a follow-up is necessary. Very small burn injury burn - She applied ointment to a burn on her arm, which is healing well. Medication Refills - She requires refills for Tylenol, Bentyl, and Flonase. Diet - Plans to incorporate more fruits, vegetables, and whole wheat bread; reduced sugar intake with a cheat day once a month. Living Condition - Considering moving to a lower level care facility in [place], [place], or [place]. She received her influenza vaccine during a recent hospital stay. Current Providers List: Patient Care Team: Stella Gómez MD as PCP - General Tracy Gutierrez LPN as Department Head [employer] (Care Management) Risk Assessments Body mass index is 53.21 kg/m??. The BMI is above average. The patient received dietitian ref because they have an above normal BMI. Calculated fall risk level: low Depression Risk Score: 2 Depression Severity: None-minimal Proposed Treatment Actions: None Hearing Whisper Test: PASS Vision Screening Was a Snellen eye exam done?: No Was an eye exam done in the last year?: Yes Mini Cog Clock Drawing Test: 2 Word Recall: 2 Mini Cog Score: 4 Mini Cog Results: Negative screen for dementia STEADI Fall Risk Have you fallen in the past year? no Feels unsteady when standing orwalking? no Are you worried about falling? no Activity of Daily Living (ADLs) Instrumental Activities of Daily Living (IADLs) Do you need help with using the telephone?: No Do you need help with shopping?: No Do you need help with food preparation?: No Do you need help with housekeeping?: No Do you need help with laundry?: No Do you need help handling finances?: Yes Do you drive?: No Do you manage your own medication?: Yes, independent Health Status In general, the patient reports health as: good In general, patient reports life as: good Patient reports sleep pattern as: sleeping well PhysicalActivity Do you exercise for about 20 minutes or more three days a week?: No Nutritional Assessment Do you eat a balanced diet including daily serving of fruits, vegetables, and whole grains?: Yes, always Depression Screening (PHQ2) Over the last 2 weeks, how often have you been bothered by little interest or pleasure in doing things?: 1 Over the last 2 weeks, how often have you been bothered by feeling down, depressed, or hopeless?: 1 Depression Risk: 2 Additional Depression Screening(PHQ9) PHQ -9 Depression Risk Score: 2 Opioid Risk Tool No data recorded [facility] ([facility]) Comprehensive Medical and Social History Problem List[1] Medical History[2] Family History[3] reports that she has never smoked. She has never used smokeless tobacco. She reports that she does not drink alcohol and does not use drugs. Surgical History[4] Allergies[5] Current Medications[6] Review of Systems as per HPI Objective: Vitals: 06/28/25 1318 BP: 122/86 Pulse: (!) 114 Temp: 36.9 ??C (98.4 ??F) SpO2: 97% Weight: 141 kg (310 lb) Height: 1.626 m (64 ) Physical Exam General Appearance: well appearing and not on acute distress HEENT: Normocephalic. External ears normal. Nose normal. Mucous membranes are moist. Oropharynx is clear. Eyes: Conjunctivae normal. Respiratory: Clear to auscultation, no wheezing, rales, or rhonchi Cardiovascular: Regular rate and rhythm, no murmurs, rubs, or gallops Gastrointestinal: Soft, non-tender, no distention, no masses Back, Musculoskeletal: Normal range of motion. Normal cervical range of motion and neck supple. Skin: Warm and dry, no rash. Neurological: Alert. Assessment/Plan: Plan Health Maintenance Topic Date Due HPV Vaccines (1 - 3-dose series) Never done Hepatitis B Vaccines (1 of 3 - 19+ 3-dose series) Never done HIV Screening Never done Social Influencers of Health Screening Never done Medicare Annual Wellness Visit Never done COVID-19 Vaccine ( season) Never done Cervical Cancer Screening: Pap Smear 12/14/2025 Cholesterol Screening (Lipid Panel) 06/28/2030 DTaP,Tdap,and Td Vaccines (3 - Td or Tdap) 10/29/2034 RSV Immunization Adult Patients (1 - 1-dose 75+ series) 2074 Influenza Vaccine Completed Hepatitis C Screening Completed Depression Screening Completed HIB Vaccines Aged Out IPV Vaccines Aged Out Hepatitis A Vaccines Aged Out MMR Vaccines Aged Out Varicella Vaccines Aged Out Meningococcal ACWY Vaccine Aged Out Meningococcal B Vaccine Aged Out Pneumococcal Vaccine: Pediatrics (0 to 5 Years) and At-Risk Patients (6 to 49 Years) Aged Out RSV Immunization Patients Under 20 months Aged Out Gonorrhea/Chlamydia Screening Discontinued Assessment & Plan 1. Medicare wellness visit: - Ordered routine lab work, including vitamin D level. - Refills for Tylenol, Bentyl, and Flonase. - Referred to dietitian. - Advised MiraLAX as needed for constipation or gas. - Provided doctor's note for her program. - Advised to avoid foods that exacerbate gas. 2. Contraception management: Implant stopped working, causing bleeding. - Referred to employer relations representative for contraception options. - Considering implant removal and possibly switching to the pill. 3. Flatulence: - Reports increased gas despite healthy diet and hydration. - Advised to avoid gas-causing foods. - Use MiraLAX as needed. - Instructed to schedule gastroenterology appointment. 4. Burn on arm: - Advised to keep wound open for faster healing. 5. Seasonal allergies: - Sent prescriptions for nasal spray and medication to pharmacy. Follow-up: In 6 months. Or sooner as needed Code status: Not discussed. Has cognitive impairment. Preventative recommendationswere reviewed and discussed with the patient. During the visit we discussed:no due to patient choice. Not discussed Advanced Directives: not discussed Patient Instructions (the written plan) were given to the patient. Medicare annual wellness visit, initial (Primary) - CBC and differential; Future - Hemoglobin A1c; Future - Vitamin B12; Future - Comprehensive metabolic panel; Future - Lipid panel with reflex to direct LDL; Future - Vitamin D 25 hydroxy; Future - Thyroid stimulating hormone with reflex to free t4 and free t3; Future Autistic disorder, active Attention deficit hyperactivity disorder (ADHD), unspecified ADHD type Bipolar affective disorder, current episode mixed, current episode severity unspecified ([facility] V24, [facility] V28) Morbid obesity with body mass index (BMI) of 40.0 to 49.9 ([facility] V24, [facility] V28) - Ambulatory referral to Nutrition Services; Future Routine general medical examination at a health care facility Vitamin D deficiency - Vitamin D 25 hydroxy; Future Other fatigue - CBC and differential; Future - Vitamin B12; Future - Comprehensive metabolic panel; Future - Thyroid stimulating hormone with reflex to free t4 and free t3; Future Encounter for lipid screening for cardiovascular disease - Lipid panel with reflex to direct LDL; Future Other abnormal glucose - Hemoglobin A1c; Future Other orders - acetaminophen (TYLENOL) 500 mg tablet; Take 1 tablet (500 mg total) by mouth every 6 (six) hours if needed for mild pain or moderate pain (as needed for mild to moderate pain). Dispense: 90 tablet;Refill: 3 - dicyclomine (BENTYL) 10 mg capsule; Take 1 capsule (10 mg total) by mouth 4 (four) times a day ifneeded (Abdominal pain). Dispense: 90 capsule; Refill: 3 - fluticasone propionate (FLONASE) 50 mcg/actuation nasal spray; Administer 1 spray into each nostril 2 (two) times a day if needed for rhinitis or allergies. Shake gently. Before first use, prime pump. After use, clean tip and replace cap. Dispense: 16 g; Refill: 5 Follow up in 6 months (on 12/27/2025) for Schedule F/U. [1] Patient Active Problem List Diagnosis Skin lesion Autistic disorder, active Urinary incontinence Morbid obesity with body mass index (BMI) of 40.0 to 49.9 ([facility] V24, [facility] V28) Bipolar affective disorder, current episode mixed ([facility] V24, [facility] V28) Attention deficit hyperactivity disorder (ADHD) [2] Past Medical History: Diagnosis Date ADHD DX:ADHD Anxiety Autistic disorder DX:Autistic disorder Bipolar 1 disorder ([facility] V24, [facility] V28) Bipolar disorder ([facility] V24, [facility] V28) DX:Bipolar disorder ([facility]) Depression Obesity DX:Obesity PTSD (post-traumatic stress disorder) Schizophrenia ([facility] V24, [facility] V28) [3] No family history on file. [4] Past Surgical History: Procedure Laterality Date WISDOM TOOTH EXTRACTION PROCEDURE: HISTORICAL WISDOM TEETH EXTRACTION [5] Allergies Allergen Reactions Pollen Extracts Stuffy Nose [6] Current Outpatient Medications Medication Sig Dispense Refill acetaminophen (TYLENOL) 500 mg tablet Take 1 tablet (500 mg total) by mouth every 6 (six) hours if needed for mild pain or moderate pain (as needed for mild to moderate pain). 90 tablet 3 dicyclomine (BENTYL) 10 mg capsule Take 1 capsule (10 mg total) by mouth 4 (four) times a day if needed (Abdominal pain). 90 capsule 3 fluticasone propionate (FLONASE) 50 mcg/actuation nasal spray Administer 1 spray into each nostril 2 (two) times a day if needed for rhinitis or allergies. Shake gently. Before first use, prime pump.After use, clean tip and replace cap. 16 g 5 benzoyl peroxide (BENZAC AC) 10 % external wash Apply topically 2 (two) times a day. 226 g 12 cloZAPine (CLOZARIL) 100 mg tablet Take 1 tablet (100 mg total) by mouth 2 (two) times a day. 60 tablet 1 cloZAPine (CLOZARIL) 50 mg tablet Take 0.5 tablets (25 mg total) by mouth at bedtime. With 100mg bedtime dose desmopressin (DDAVP) 0.1 mg tablet Take 3 tablets (0.3 mg total) by mouth at bedtime. 90 tablet 11 desmopressin (DDAVP) 0.2 mg tablet Take 1 tablet (0.2 mg total) by mouth at bedtime. 90 each 1 divalproex (DEPAKOTE) [address] tablet Take 1 tablet (500 mg total) by mouth 3 (three) times a day.Do not crush, chew, or split. 30 tablet 1 docusate sodium (COLACE) 100 mg capsule Take 1 capsule (100 mg total) by mouth 2 (two) times a day if needed for constipation. for constipation 60 capsule 5 ergocalciferol (Vitamin D2) 1,250 mcg (50,000 unit) capsule Take 1 capsule (50,000 Units total) by mouth 1 (one) time per week. 4 capsule 5 linaCLOtide (Linzess) 145 mcg capsule Take 1 capsule (145 mcg total) by mouth 1 (one) time each daybefore breakfast. 90 capsule 1 loratadine (CLARITIN) 10 mg tablet Take 1 tablet (10 mg total) by mouth at bedtime. 30 tablet 5 metFORMIN XR (GLUCOPHAGE-XR) 500 mg 24 hr tablet Take 1 tablet (500 mg total) by mouth 1 (one) timeeach day with breakfast. Do not crush, chew, or split. 90 each 1 OLANZapine (ZyPREXA) 2.5 mg tablet Take 2 tablets (5 mg total) by mouth 2 (two) times a day if needed (aggitation/anxiety). polyethylene glycol (MIRALAX) 17 gram packet Take 17 g by mouth 1 (one) time each day if needed forconstipation (as needed for constipation). 30 packet 5 prazosin (MINIPRESS) 1 mg capsule Take 1 capsule (1 mg total) by mouth at bedtime. 30 capsule 1 psyllium (Fiber, psyllium husk,) 0.4 gram capsule Take 1 capsule (400 mg total) by mouth 1 (one) time each day. 30 capsule 5 sertraline (ZOLOFT) 100 mg tablet Take 2 tablets (200 mg total) by mouth 1 (one) time each day. 30 tablet 1 No current facility-administered medications for this visit. documented in this encounter Plan of Treatment Upcoming Encounters Date Type Department Care Team (Late st Contact Info) Description 08/13/2025 11:20 AM EST Office Visit Gastroenterology - [place] [address] [phone] Jeanne Frost, CARRI [address] [address] 12/30/2025 1:30 PM EDT Office Visit Internal Medicine - [place] [address] [phone] Stella Gómez MD [address] [phone] Scheduled Referrals Name Type Priority Associated Diagnoses Order Schedule Ambulatory referral to Nutrition Services Outpatient Referral Routine Morbid obesity with body mass index (BMI) of 40.0 to 49.9 (CMS/HCC V24, CMS/HCC V28) 1 Occurrences starting 06/28/2025 until 06/28/2026 documented as of this encounter Results * Thyroid stimulating hormone with reflex to free t4 and free t3 (06/28/2025 2:13 PM EDT) TSH 3.44 0.40 - 4.00 mcIU/mL LAB CHEMISTRY METHOD 06/28/2025 7:01 PM EDT [facility] Blood Venous blood specimen / Unknown Venipuncture / Unknown 06/28/2025 2:13 PM EDT 06/28/2025 2:13 PM EDT us Stella Gómez MD LAB BLOOD ORDERABLES Final Resul t [facility] [address] [place] [address], * Vitamin D 25 hydroxy (06/28/2025 2:13 PM EDT) Vit D, 25-Hydroxy 50.8 30.0 - 80.0 ng/mL LAB CHEMISTRY METHOD 06/28/2025 7:00 PM EDT [facility] Blood Venous blood specimen / Unknown Venipuncture / Unknown 06/28/2025 2:13 PM EDT 06/28/2025 2:13 PM EDT us Stella Gómez MD LAB BLOOD ORDERABLES Final Resul t [facility] [address] [place] [address], [place] [phone] * (ABNORMAL) Lipid panel with reflex to direct LDL (06/28/2025 2:13 PM EDT) Pathologist [facility] Cholesterol 184 0 - 200 mg/dL LAB CHEMISTRY METHOD 06/28/2025 7:09 PM EDT [facility] Triglycerides 206(H) 0 - 150 mg/dL LAB CHEMISTRY METHOD 06/28/2025 7:09 PM [facility] HDL 46 >=40 mg/dL LAB CHEMISTRY METHOD 06/28/2025 7:09 PM [facility] LDL Calculated 97 0 - 100 mg/dL LAB CHEMISTRY METHOD 06/28/2025 7:09 PM T [facility] Comment:Estimated LDL Calcul ated using equation: Total cholesterol - HDL cholesterol - (Triglycerides/5) VLDL Cholesterol Anshu 41.2 mg/dL LAB CHEMISTRY METHOD 06/28/2025 7:09 PM T [facility] Non HDL Chol. (LDL+VLDL) 138 <145 mg/dL LAB CHEMISTRY METHOD 06/28/2025 7:09 PM [facility] Chol/HDL Ratio 4.0 0.0 - 4.4 LAB CHEMISTRY METHOD 06/28/2025 7:09 PM T [facility] Blood Venous blood specimen / Unknown Venipuncture / Unknown 06/28/2025 2:13 PM EDT 06/28/2025 2:13 PM EDT us Stella Gómez MD LAB BLOOD ORDERABLES Final Resul t [facility] [address] [place] [address], [place] [phone] * (ABNORMAL) Comprehensive metabolic panel (06/28/2025 2:13 PM EDT) Sodium 138 133 - 145 mmol/L LAB CHEMISTRY METHOD 06/28/2025 7:09 PM [facility] Potassium 4.3 3.5 - 5.5 mmol/L LAB CHEMISTRY METHOD 06/28/2025 7:09 PM [facility] Chloride 104 96 - 110 mmol/L LAB CHEMISTRY METHOD 06/28/2025 7:09 PM [facility] CO2 26 21 - 32 mmol/L LAB CHEMISTRY METHOD 06/28/2025 7:09 PM [facility] Anion Gap 8 3 - 11 LAB CHEMISTRY METHOD 06/28/2025 7:09 PM [facility] Glucose 109(H) 70 - 100 mg/dL LAB CHEMISTRY METHOD 06/28/2025 7:09 PM [facility] BUN 9 5 - 25 mg/dL LAB CHEMISTRY METHOD 06/28/2025 7:09 PM [facility] Creatinine 0.76 0.50 - 1.10 mg/dL LAB CHEMISTRY METHOD 06/28/2025 7:09 PM [facility] eGFR 111 >=60 mL/min/1. 73m2 LAB CHEMISTRY METHOD 06/28/2025 7:09 PM [facility] Comment:Calculation based on the Chronic Kidney Disease Epidemiology Collaboration (CKD-EPI) equation refit without adjustment for race. BUN/Creatinine Ratio 11.8 LAB CHEMISTRY METHOD 06/28/2025 7:09 PM [facility] Calcium 9.1 8.5 - 10.5 mg/dL LAB CHEMISTRY METHOD 06/28/2025 7:09 PM [facility] AST (SGOT) 43(H) 10 - 42 unit/L LAB CHEMISTRY METHOD 06/28/2025 7:09 PM [facility] ALT (SGPT) 49 10 - 60 unit/L LAB CHEMISTRY METHOD 06/28/2025 7:09 PM [facility] Alkaline Phosphatase 79 42 - 121 unit/L LAB CHEMISTRY METHOD 06/28/2025 7:09 PM [facility] Total Protein 7.8 6.0 - 8.0 g/dL LAB CHEMISTRY METHOD 06/28/2025 7:09 PM [facility] Albumin 3.4 3.2 - 5.0 g/dL LAB CHEMISTRY METHOD 06/28/2025 7:09 PM [facility] Total Bilirubin 0.2 0.0 - 1.4 mg/dL LAB CHEMISTRY METHOD 06/28/2025 7:09 PM [facility] Blood Venous blood specimen / Unknown Venipuncture / Unknown 06/28/2025 2:13 PM EDT 06/28/2025 2:13 PM EDT us Stella Gómez MD LAB BLOOD ORDERABLES Final Resul t [facility] [address] [place] [address], * Vitamin B12 (06/28/2025 2:13 PM EDT) Vitamin B-12 786 250 - 900 pcg/mL LAB CHEMISTRY METHOD 06/28/2025 7:09 PM EDT [facility] Blood Venous blood specimen / Unknown Venipuncture / Unknown 06/28/2025 2:13 PM EDT 06/28/2025 2:13 PM EDT us Stella Gómez MD LAB BLOOD ORDERABLES Final Resul t Performing Organization Address [facility] Co de Phone Number [facility] [address] [place] [address], [place] [phone] * Hemoglobin A1c (06/28/2025 2:13 PM EDT) [facility] Signature Hemoglobin A1C 5.6 <6.5 % LAB CHEMISTRY METHOD 06/28/2025 9:50 PM EDT [facility] Mean Bld Glu Estim. 114 mg/dL LAB CHEMISTRY METHOD 06/28/2025 9:50 PM EDT [facility] Blood Venous blood specimen / Unknown Venipuncture / Unknown 06/28/2025 2:13 PM EDT 06/28/2025 2:13 PM EDT us Stella Gómez MD LAB BLOOD ORDERABLES Final Resul t Performing Organization Address [facility] de Phone Number [facility] [address] [place] [address], [place] [phone] documented in this encounter Visit Diagnoses Diagnosis Medicare annual wellness visit, initial- Primary Autistic disorder, active Autistic disorder, current or active state Attention deficit hyperactivity disorder (ADHD), unspecified ADHD type Bipolar affective disorder, current episode mixed, current episode severity unspecified ([facility] V24, [facility] V28) Morbid obesity with body mass index (BMI) of 40.0 to 49.9 (CMS/HCC V24, [facility] V28) Routine general medical examination at a health care facility Vitamin D deficiency Other fatigue Encounter for lipid screening for cardiovascular disease Other abnormal glucose documented in this encounter Discontinued Medications Medication Sig Discontinue Reason Start Date End Da te acetaminophen (TYLENOL) 500 mg tablet Take 1 tablet (500 mg total) by mouth every 6 (six) hours if needed for mild pain or moderate pain (as needed for mild to moderate pain). Reorder 05/18/2025 06/28/2025 dicyclomine (BENTYL) 10 mg capsule Take 1 capsule (10 mg total) by mouth 4 (four) times a day if needed (Abdominal pain). Reorder 02/01/2025 06/28/2025 fluticasone propionate (FLONASE) 50 mcg/actuation nasal spray Administer 1 spray into each nostril 2 (two) times a day if needed for rhinitis or allergies. Shake gently. Before first use, prime pump. After use, clean tip and replace cap. Reorder 05/07/2025 06/28/2025 acetaminophen (TYLENOL) 500 mg tablet Take 1 tablet (500 mg total) by mouth every 6 (six) hours if needed for mild pain or moderate pain (as needed for mild to moderate pain). Reorder 06/28/2025 06/28/2025 documented as of this encounter Additional Health Concerns Assessment Noted Time PHQ-9 Depression Total Score: 2 06/28/20 25 1:28 PM EDT documented as of this encounter Care Teams Pathology Laboratory Technologist Relationship Specialty Start Date End Date Stella Gómez MD [address] [place] [phone] PCP - General 07/09/22 documented as of this encounter
[2025-07-03 17:51] VITALS: BP 134/88; BP 140/92; PULSE 100; PULSE 118; RESP 14; TEMP 36.4; O2SAT 96; O2SAT 98; BMI 54.7
[2025-07-03 17:56] VITALS: RESP 16
--- NOTE | 2025-07-03 18:00 | ED.PSYCH ---
HPI - Psych General Chief Complaint: Psychiatric Symptoms Stated Complaint: SI,WANTS TO HARM STAFF @[facility],CALM/COOP PER EMS Time Seen by Provider: 07/03/25 17:46 Source: patient and EMS Mode of arrival: EMS Limitations: no limitations History of Present Illness ED Provider: PRISCILLA CHAVZE PA-C HPI Narrative: 25 year old female with pmhx significant for developmental delay, autism, PTSD, bipolar disorder, and depression presents to the ED today via EMS d/t concerns with shelter staff. Patient reports aggravation with shelter staff, states they are mean to me and don't help me with anything . States this is causing her to feel depressed. Reports thoughts of harming herself by cutting her wrists. She has not attempted to do so. Also endorses HI, stating that she wants to harm the shelter staff and her peers by pushing them down the stairs. She states she wants to be placed at a different shelter. Denies AH/VH/TH. Denies etoh consumption or illicit substance use. Also endorses sore throat and odynophagia x2 days. Denies fever, chills. No known sick contacts. Related Data Home Medications ?Medication ?Instructions ?Recorded ?Confirmed acetaminophen 500 mg tablet 500 mg PO Q6H PRN Fever/Pain 01/27/25 07/04/25 clonazepam 0.5 mg tablet 1 mg PO BID 05/12/25 07/04/25 clozapine 50 mg tablet 50 mg PO BID 05/12/25 07/04/25 dicyclomine 10 mg capsule 10 mg PO TID PRN Spasms 06/18/25 07/04/25 divalproex 500 mg tablet,delayed 500 mg PO BID@0800,1600 06/18/25 07/04/25 release lorazepam 1 mg tablet 1 mg PO DAILY PRN Anxiety 06/18/25 07/04/25 olanzapine 5 mg tablet (Zyprexa) 5 mg PO BEDTIME 06/18/25 07/04/25 polyethylene glycol 3350 17 17 g PO DAILY PRN Constipation 06/18/25 07/04/25 gram/dose oral powder (Miralax) Previous Rx's ?Medication ?Instructions ?Recorded clonidine HCl 0.1 mg tablet 0.1 mg PO BID@0900,1300 #30 tabs 06/30/25 clozapine 100 mg tablet 100 mg PO BID #14 tabs 03/15/25 desmopressin 0.1 mg tablet 0.3 mg (3 x 0.1 mg) PO BEDTIME #30 03/15/25 tabs divalproex 500 mg tablet,extended 1,000 mg (2 x 500 mg) PO BEDTIME 03/15/25 release 24 hr #60 tabs docusate sodium 100 mg tablet 100 mg PO BID #60 tabs 03/15/25 fluticasone propionate 50 2 spray intranasal BID #1 inhaler 03/15/25 mcg/actuation nasal spray,suspension linaclotide 145 mcg capsule 145 mcg PO DAILY #30 caps 03/15/25 (Linzess) loratadine 10 mg tablet 10 mg PO BEDTIME #30 tabs 03/15/25 olanzapine 2.5 mg tablet 2.5 mg PO DAILY #30 tabs 03/15/25 psyllium husk 0.4 gram capsule 0.4 g PO DAILY #30 caps 03/15/25 trazodone 50 mg tablet 50 mg PO BEDTIME MRX1 PRN Insomnia 03/15/25 #60 tabs metformin 500 mg tablet,extended 500 mg PO DAILY@1700 #0 tabs 06/23/25 release 24 hr olanzapine 5 mg tablet 5 mg PO BID PRN agitation #0 tabs 06/23/25 atorvastatin 10 mg tablet 10 mg PO DAILY 30 days #30 tabs 06/24/25 Allergies Allergy/AdvReac Type Severity Reaction Status Date / Time No Known Allergies Allergy Verified 07/03/25 17:55 Review of Systems Review of Systems: Yes all other systems are reviewed and are negative PMFSH Past Medical History Attestation statement: The following information was validated with the patient. Source: old records reviewed and nursing notes reviewed Medical History Developmental delay, moderate PTSD (post-traumatic stress disorder) Excoriation (skin-picking) disorder Bipolar disorder Autism spectrum disorder Social History Social History Household Members: Other Household Members Other:: [facility] Housing: House Housing Other:: [facility] Do you presently have visiting nurse or other home services: No Alcohol intake: former Patient Tobacco Use Status: Never used Tobacco Cigarette Packs Per Day: 0 Cigarettes Per Day: 0 Smoked in Last 30 Days: No e-Cigarette/Vaping Use: Former Use Second Hand Smoke Exposure: No Use of substances other than those prescribed or required for medical reasons: No Advance Directives: No Advance Directives Information Provided: No Patient : No service: No Sexual orientation: Straight/Heterosexual Physical Exam Vital Signs: Vital Signs: Last Vital Signs Temp 97.9 F 07/04/25 06:35 Pulse 90 07/04/25 06:35 Resp 16 07/04/25 06:35 BP 109/47 L 07/04/25 06:35 Pulse Ox 93 07/04/25 06:35 O2 Del Method Room Air 07/04/25 06:35 BMI result Body Mass Index 54.7 tachycardic, vitals are otherwise wnl General: Well appearing, in no acute distress. Skin: Warm, dry, intact. No rashes or lesions. Head: Normocephalic, atraumatic. EENT: Hearing is intact b/l. Conjunctiva clear. PERRLA. EOM intact. Moist mucous membranes. Posterior oropharynx erythematous, no tonsillar exudates, no peritonsillar masses, uvula midline, controlling secretions, speaking in complete sentences. Neck: Supple without LAD Cardiac: Chest wall symmetric. RRR Lungs: Normal respiratory effort without accessory muscle use. CTA bilaterally. No rales, rhonchi, or wheezes. Abdomen: Soft, non-tender, non-distended. No rebound tenderness or guarding. Positive BS x4. Back: No midline spinous or paraspinal tenderness. No step off deformity. Ext: Upper and lower extremities atraumatic, without tenderness, deformity, swelling or erythema Neuro: AOx3. Normal speech. CN 2-12 grossly intact. Ambulating with steady gait. Psych: Appropriate mood and affect. Responds appropriately to questions. Course Course Course Narrative: CBC without leukocytosis or left shift. No anemia. H&H stable. Chemistry without acute electrolyte abnormality requiring intervention. No ELYSIA. Liver function WNL. Urine toxicology negative. Valproic acid WNL. Ethanol undetectable. Negative COVID, flu, strep. > UA pending > patient placed in physician observation at this time pending UA, CARE team evaluation, and disposition. Reevaluation(s) Reevaluation #1: 8:48 AM 07/04/2025 (Dr. Arnoldo Mares): Time: 08:49 Date: 07/04/25 Provider: Arnoldo Mares, DO Patient in physician observation for psychiatric evaluation.? No acute events reported overnight. No current complaints. VS stable.? Will continue to monitor. 11:18 AM 07/04/2025 (Dr. Arnoldo Mares): Time: 11:18 Date: 07/04/25 Provider: Arnoldo Mares, DO Physician observation ended. Patient has been cleared for discharge by the CARE team. Will follow up as an outpatient. Medications Administered Generic Name Dose Route Start Last Admin Trade Name Freq PRN Reason Stop Dose Admin Atorvastatin Calcium 10 mg 07/04/25 09:00 07/04/25 09:35 Atorvastatin Calcium 10 Mg Tablet PO 10 mg DAILY MARY Administration Clonazepam 1 mg 07/04/25 09:00 07/04/25 09:35 Clonazepam 1 Mg Tablet PO 1 mg BID MARY Administration Clonidine HCl 0.1 mg 07/04/25 09:00 07/04/25 09:35 Clonidine Hcl 0.1 Mg Tablet PO 0.1 mg BID@0900,1300 MARY Administration Protocol Clozapine 50 mg 07/04/25 09:00 07/04/25 09:35 Clozapine 25 Mg Tablet PO 50 mg BID MARY Administration Clozapine 100 mg 07/04/25 09:00 07/04/25 09:35 Clozapine 100 Mg Tablet PO 100 mg BID MARY Administration Docusate Sodium 100 mg 07/04/25 09:00 07/04/25 09:35 Docusate Sodium 100 Mg Capsule PO 100 mg BID MARY Administration Fluticasone Propionate 2 spray 07/04/25 09:00 07/04/25 09:38 Fluticasone Propionate Nasal 16 Gm [place] NOSTRIL-B Not Given BID MARY Medical Decision Making Medical Decision Making MDM Narrative: 25 year old female with pmhx significant for developmental delay, autism, PTSD, bipolar disorder, and depression presents to the ED today via EMS d/t concerns with shelter staff. Differential diagnosis includes anemia, electrolyte abnormality, mood disorder, anxiety, depression, SI, polysubstance abuse, strep throat, covid Presentation not consistent with acute organic causes to include delirium, dementia or drug induced disorders (acute ingestions or withdrawal; no evidence of toxidrome).? Plan: viral/strep swabs, labs, EKG, ASA/APAP levels, ETOH level, UDS, care team consultation, reassessment Differential Diagnosis Differential Diagnoses: The differential diagnosis associated with the presentation includes as above. Admission/Observation Consideration of admission/observation: Escalation of care including admission/observation considered Lab Data MDM Lab Attestation statement: I reviewed the patient's lab results. as above. 07/03/25 18:20 07/03/25 18:20 Labs: Lab Results 07/03/25 07/03/25 07/03/25 Range/Units 17:55 18:20 18:27 WBC 10.1 (4.8-10.8) X10*3/uL RBC 4.40 (4.20-5.50) X10*6/uL Hgb 12.5 (12.0-16.0) g/dl Hct 37.3 (37.0-47.0) % MCV 84.8 (80.0-98.0) fL MCH 28.4 (27.0-33.0) pg MCHC 33.5 (31.0-35.0) g/dl RDW 14.9 (11.0-16.0) % Plt Count 271 (160-400) X10*3/uL MPV 9.3 L (9.4-12.3) fL Immature Gran % (Auto) 1.4 H (0.0-0.4) % Neut % (Auto) 59.2 (45-73) % Lymph % (Auto) 31.4 (20-40) % [place] % (Auto) 7.7 (2-11) % Eos % (Auto) 0.0 (0-4) % Baso % (Auto) 0.3 (0-2) % Lymph # (Auto) 3.2 (1.2-4.9) X10*3/uL [place] # (Auto) 0.8 (0.1-1.2) X10*3/uL Eos # (Auto) 0.0 (0.0-0.4) X10*3/uL Baso # (Auto) 0.0 (0.0-0.2) X10*3/uL Abs Immat Gran (auto) 0.14 H (0.00-0.03) X10*3/uL Absolute Neuts (auto) 6.0 (2.0-8.3) x10*3/uL Absolute Nucleated RBC 0.000 (0.0-0.012) X10*3/uL Nucleated RBC % (auto) 0.0 (0.0-0.2) /100WBC Sodium 139 (135-145) mmol/L Potassium 4.2 (3.3-5.1) mmol/L Chloride 103 (96-108) mmol/L Carbon Dioxide 25 (22-29) mmol/L Anion Gap 15 (12-20) BUN 11 (9-16) mg/dL Creatinine 0.68 (0.5-1.4) mg/dL Estim Creat Clear Calc 154.5 Estimated GFR > 60 Random Glucose 103 (60-115) mg/dL Calcium 9.2 (8.4-10.2) mg/dL Total Bilirubin 0.2 (0.0-1.0) mg/dL AST 45 H (5-31) U/L ALT 45 H (0-31) U/L Alkaline Phosphatase 72 (39-117) U/L Total Protein 7.5 (6.5-8.0) g/dL Albumin 4.1 (3.5-5.0) g/dL Urine Color Yellow Urine Appearance Turbid Urine pH 5.5 (5.0-9.0) Ur Specific [place] 1.025 (1.005-1.025) Urine Protein Negative (Neg-Trace) mg/dL Urine Glucose (UA) Negative (Negative) mg/dL Urine Ketones 15 (Negative) mg/dL Urine Blood Negative (Negative) Urine Nitrite Negative (Negative) Ur Leukocyte Esterase Negative (Negative) Urine Test NEGATIVE (NEGATIVE) Urine Opiates Screen Not Detected (Not Detect) Ur Buprenorphine Scrn Not Detected (Not Detect) ng/mL Ur Oxycodone Screen Not Detected (Not Detect) ng/mL Urine Methadone Screen Not Detected (Not Detect) ng/mL Urine Fentanyl Screen Not Detected (Not Detect) Ur Barbiturates Screen Not Detected (Not Detect) Valproic Acid 69.5 (50.0-100.0) mcg/mL Ur Phencyclidine Scrn Not Detected (Not Detect) Ur Amphetamines Screen Not Detected (Not Detect) U Benzodiazepines Scrn Not Detected (Not Detect) Urine Cocaine Screen Not Detected (Not Detect) U Marijuana (THC) Screen Not Detected (Not Detect) Ethyl Alcohol < 10 mg/dL COVID-19 (CHE) Negative (Negative) COVID-19 Clin Com See Note Influenza Type A (SIMONE) Negative (Negative) Influenza Type B (SIMONE) Negative (Negative) Influenza A & B Note See Note S. pyogenes GrpA SIMONE Negative (Negative) Independent Historian Clinical information obtained from an independent historian. History obtained from or confirmed by: EMS External Record Review External record reviewed: Inpatient record Chronic Conditions Patient?s care impacted by: Other (bipolar disorder) Social Determinants Patient?s care significantly limited by Social Determinants of Health including: Other Social Determinant of Health Critical Care Time Critical Care Time Critical Care Time: No Discharge Plan Discharge Clinical Impression: Suicidal ideation Patient Disposition: Home, Self-Care Additional Instructions: You were seen in our Emergency Department today for treatment of a behavioral health issue. It is important after your visit that you follow up with either your behavioral health provider or a primary care doctor within 7 days.? If you have trouble finding a therapist you can reach out to [address] [phone] The National Suicide and Crisis Lifeline can be reached 7 days a week 24 hours a day.? Call 988 to speak with someone.? Return for any worsening symptoms or concerns such as thoughts of self harm or harm to others. Please call 911 if you feel your mental health is worsening.? Prescriptions: No Action acetaminophen 500 mg Tablet 500 mg PO Q6H PRN (Reason: Fever/Pain) clonidine HCl 0.1 mg Tablet 0.1 mg PO BID@0900,1300 Qty: 30 0RF Protocol: Hold for SBP< HOLD for SBP < : 90 divalproex 500 mg Tablet Extended Release 24 Hr 1,000 mg PO BEDTIME Qty: 60 0RF trazodone 50 mg Tablet 50 mg PO BEDTIME MRX1 PRN (Reason: Insomnia) Qty: 60 0RF olanzapine 2.5 mg Tablet 2.5 mg PO DAILY Qty: 30 0RF clozapine 100 mg Tablet 100 mg PO BID Qty: 14 0RF fluticasone propionate 50 mcg/actuation [place],Suspension 2 spray INTRANASAL BID Qty: 1 0RF docusate sodium 100 mg Tablet 100 mg PO BID Qty: 60 0RF loratadine 10 mg Tablet 10 mg PO BEDTIME Qty: 30 0RF desmopressin 0.1 mg tablet 0.3 mg PO BEDTIME Qty: 30 0RF Linzess 145 mcg capsule 145 mcg PO DAILY Qty: 30 0RF psyllium husk 0.4 gram Capsule 0.4 g PO DAILY Qty: 30 0RF clonazepam 0.5 mg tablet 1 mg PO BID clozapine 50 mg tablet 50 mg PO BID olanzapine [Zyprexa] 5 mg Tablet 5 mg PO BEDTIME lorazepam 1 mg Tablet 1 mg PO DAILY PRN (Reason: Anxiety) polyethylene glycol 3350 [Miralax] 17 gram/dose Powder 17 g PO DAILY PRN (Reason: Constipation) dicyclomine 10 mg Capsule 10 mg PO TID PRN (Reason: Spasms) divalproex 500 mg Tablet,Delayed Release (Dr/Ec) 500 mg PO BID@0800,1600 olanzapine 5 mg Tablet 5 mg PO BID PRN (Reason: agitation) Qty: 0 0RF metformin 500 mg Tablet Extended Release 24 Hr 500 mg PO DAILY@1700 Qty: 0 0RF atorvastatin 10 mg Tablet 10 mg PO DAILY 30 Days Qty: 30 0RF Interventions: [place]-Suicide Risk Severity Scale Last Done: 07/03/25 17:57 Print Language: Pakistani
[2025-07-03 18:14] LABS: UPreg QC Valid YES
--- OUTSIDE RECORDS SUMMARY | 2025-07-03 18:22 | XMS_ITS ---
Author Organization [address] Address [address] [place] [phone] Phone Care Team Providers Care Forest Science Professor Name Role Phone Stella Gómez MD Primary Care Provider [phone] Transitional Care Management Status:Identified (Enrolling) Start date:06/24/2025 Enrollment reason:Identified using hospital discharge data Case Team Name Relationship Phone Tracy Gutierrez LPN(Responsible Staff) Circle Cutting Saw Operator Continued Care and Services Coordination
--- OUTSIDE RECORDS SUMMARY | 2025-07-03 18:22 | XMS_ITS | Encounter Summary ---
Author Organization [facility] Address [address] [place] [address] Care Team Providers Care Enroller Name Role Phone Stella Gómez MD Primary Care Provider [phone] Encounter Details Date Type Department Care Team ([facility] st Contact Info) Description 07/01/2025 Telephone Internal Medicine - [place] 175 [facility] [address] [place] [phone] Stella Gómez MD 175 [facility] [address] [place] [address] Social History Tobacco Use Types Packs/Day Years [...] Author No 09/19/2024 3:55 AM EST Doles, Roger Witt RN * Are you blind or do you have serious difficulty seeing, even when wearing glasses? Answer Date of Assessment Author No 09/19/2024 3:55 AM EST Dolcolleen, Roger Witt RN * Do you have serious difficulty walking or climbing stairs? Answer Date of Assessment Author No 09/19/2024 3:55 AM EST Doles, Roger Witt RN * Do you have serious difficulty dressing or bathing? Answer Date of Assessment Author No 09/19/2024 3:55 AM EST Doles, Roger Witt RN * Because of a physical, mental, or emotional condition, do you have serious difficulty doing errandsalone such as visiting the doctor? Answer Date of Assessment Author No 09/19/2024 3:55 AM ANGEL Haley, As zaynab Witt RN documented as of this encounter Mental Status * Because of a physical, mental, or emotional condition, do you have serious difficulty concentrating, remembering, or making decisions? (5 years old or older) Answer Entry Date Author No 09/19/2024 3:55 AM ANGEL Haley, As zaynab Witt RN documented in this encounter Progress Notes * Ramin Priest MA - 07/02/2025 9:10 AM EDT Do you recall discussing starting patient on Atorvastatin 10 mg ? If so please order for patient . Patient last seen 06/28 . Reviewed encounter. * Kiersten Marks - 07/01/2025 1:47 PM EDT Patient was ordered in patient at [facility] Atorvastatin 10mg once daily in am Please check with PCP and have order this medication As discussed at last appt 06-28-2025 documented in this encounter Plan of Treatment Upcoming Encounters Date Type Department Care Team (Late st Contact Info) Description 08/13/2025 11:20 AM EST Office Visit Gastroenterology - [address] [phone] Jeanne Frost NP [address] [address] 12/30/2025 1:30 PM EDT Office Visit Internal Medicine - [place] [address] [phone] Stella Gómez MD [address] [phone] documented as of this encounter Visit Diagnoses Not on filedocumented in this encounter Additional Health Concerns Assessment Noted Time PHQ-9 Depression Total Score: 2 06/28/20 25 1:28 PM EDT documented as of this encounter Care Teams Enroller Relationship Specialty Start Date End Date Stella Gómez MD [address] [place] [phone] PCP - General 07/09/22 documented as of this encounter
--- OUTSIDE RECORDS SUMMARY | 2025-07-03 18:22 | XMS_ITS | Encounter Summary ---
Author Organization [facility] Address [address] [place] [address] Care Team Providers Care Manager Emergency Name Role Phone Stella Gómez MD Primary Care Provider [phone] Encounter Details Date Type Department Care Team ([facility] st Contact Info) Description 06/29/2025 Results Follow-Up Internal Medicine - [place] 175 [facility] 200 [place] [phone] Stella Gómez MD 175 [facility] [address] [place] [address] Social History Tobacco Use Types [...] No 09/19/2024 3:55 AM EST Doles, As j luisey L, RN * Because of a physical, mental, [...] 11:20 AM EST Office Visit Gastroenterology - [address] [phone] Jeanne Frost NP 175 [facility] [address] [place] [address] 12/30/2025 1:30 PM EDT Office Visit Internal Medicine - [place] [address] [phone] Stella Gómez MD [address] [phone] documented as of this encounter Visit Diagnoses Not on filedocumented in this encounter Additional Health Concerns Assessment Noted Time PHQ-9 Depression Total Score: 2 06/28/20 25 1:28 PM EDT documented as of this encounter Care Teams Manager Emergency Relationship Specialty Start Date End Date Stella Gómez MD [address] [phone] PCP - General 07/09/22 documented as of this encounter
--- OUTSIDE RECORDS SUMMARY | 2025-07-03 18:22 | XMS_ITS | Clinical Summary ---
Author Organization [place] [address] [address] [facility] Building Address [address] [place], [place] [address], [place] [address] Phone Care Team Providers Care Regional Administrative Assistant Name Role Phone Stella Gómez MD Primary Care Provider [phone] Allergies Active Allergy Reactions Criticality Noted Date Comments Pollen Extracts Stuffy Nose Low 09/19/2024 Medications cloZAPine (CLOZARIL) 50 mg tablet Take 0.5 tablets (25 mg total) by mouth at bedtime. With 100mg bedtime dose Active OLANZapine (ZyPREXA) 2.5 mg tablet Take 2 tablets (5 mg total) by mouth 2 (two) times a day if needed (aggitation/anx iety). Active desmopressin (DDAVP) 0.1 mg tablet Take 3 tablets (0.3 mg total) by mouth at bedtime. 90 tablet 11 11/21/19 25 026 Active desmopressin (DDAVP) 0.2 mg tablet Take 1 tablet (0.2 mg total) by mouth at bedtime. 90 each 11/24/19 25 Active cloZAPine (CLOZARIL) 100 mg tablet Take 1 tablet (100 mg total) by mouth 2 (two) times a day. 60 tablet 02/02/20 25 Active divalproex (DEPAKOTE) [address] tablet Take 1 tablet (500 mg total) by mouth 3 (three) times a day. Do not crush, chew, or split. 30 tablet 1 02/11/20 25 Active prazosin (MINIPRESS) 1 mg capsule Take 1 capsule (1 mg total) by mouth at bedtime. 30 capsule 02/11/20 25 Active sertraline (ZOLOFT) 100 mg tablet Take 2 tablets (200 mg total) by mouth 1 (one) time each day. 30 tablet 1 02/11/20 25 Active polyethylene glycol (MIRALAX) 17 gram packet Take 17 g by mouth 1 (one) time each day if needed for constipation (as needed for constipation). 30 packet 5 02/24/20 25 Active metFORMIN XR (GLUCOPHAGE-X R) 500 mg 24 hr tablet Take 1 tablet (500 mg total) by mouth 1 (one) time each day with breakfast. Do not crush, chew, or split. 90 each 1 03/24/20 25 026 Active docusate sodium (COLACE) 100 mg capsule Take 1 capsule (100 mg total) by mouth 2 (two) times a day if needed for constipation. for constipation 60 capsule 05/07/20 25 026 Active ergocalcifero l (Vitamin D2) 1,250 mcg (50,000 unit) capsule Take 1 capsule (50,000 Units total) by mouth 1 (one) time per week. 4 capsule 5 05/07/20 25 026 Active benzoyl peroxide (BENZAC AC) 10 % external wash Apply topically 2 (two) times a day. 226 g 05/18/20 25 026 Active psyllium (Fiber, psyllium husk,) 0.4 gram capsule Take 1 capsule (400 mg total) by mouth 1 (one) time each day. 30 capsule 5 05/18/20 25 Active loratadine (CLARITIN) 10 mg tablet Take 1 tablet (10 mg total) by mouth at bedtime. 30 tablet 5 05/18/20 25 Active acetaminophen (TYLENOL) 500 mg tablet Take 1 tablet (500 mg total) by mouth every 6 (six) hours if needed for mild pain or moderate pain (as needed for mild to moderate pain). 90 tablet 3 06/28/20 25 Active dicyclomine (BENTYL) 10 mg capsule Take 1 capsule (10 mg total) by mouth 4 (four) times a day if needed (Abdominal pain). 90 capsule 3 06/28/20 25 Active fluticasone propionate (FLONASE) 50 mcg/actuation nasal spray Administer 1 spray into each nostril 2 (two) times a day if needed for rhinitis or allergies. Shake gently. Before first use, prime pump. After use, clean tip and replace cap. 16 g 5 06/28/20 Active linaCLOtide (Linzess) 145 mcg capsule Take 1 capsule (145 mcg total) by mouth 1 (one) time each day before breakfast. 90 each 3 06/30/20 25 026 Active dicyclomine (BENTYL) 10 mg capsule Take 1 capsule (10 mg total) by mouth 4 (four) times a day if needed (Abdominal pain). 90 capsule 1 02/02/20 25 025 Discontinued(R eorder) linaCLOtide (Linzess) 145 mcg capsule Take 1 capsule (145 mcg total) by mouth 1 (one) time each day before breakfast. 90 capsule 1 02/20/20 25 025 Discontinued fluticasone propionate (FLONASE) 50 mcg/actuation nasal spray Administer 1 spray into each nostril 2 (two) times a day if needed for rhinitis or allergies. Shake gently. Before first use, prime pump. After use, clean tip and replace cap. 16 g 3 05/07/20 25 025 Discontinued(R eorder) acetaminophen (TYLENOL) 500 mg tablet Take 1 tablet (500 mg total) by mouth every 6 (six) hours if needed for mild pain or moderate pain (as needed for mild to moderate pain). 30 tablet 2 05/18/20 25 025 Discontinued(R eorder) acetaminophen (TYLENOL) 500 mg tablet Take 1 tablet (500 mg total) by mouth every 6 (six) hours if needed for mild pain or moderate pain (as needed for mild to moderate pain). 30 tablet 2 06/28/20 25 025 Discontinued(R eorder) Active Problems Problem Noted Date Diagnosed Date Morbid obesity with body mas s index (BMI) of 40.0 to 49.9 ([facility] V24, [facility] V28) 12/28/2022 Urinary incontinence 10/12/2022 Skin lesion 09/27/2022 Autistic disorder, active 09/27/2022 Bipolar affective disorder, current episode mixed ([facility] V24, [facility] V28) 09/27/2022 Attention deficit hyperactivity disorder (ADHD) 09/27/2022 Encounters Date Type Department Care Team Description 07/01/2025 Telephone Internal Medicine [address] [phone] Stella Gómez MD 06/29/2025 Results Follow-Up Internal Medicine [address] [phone] Stella Gómez MD 06/28/2025 1:30 PM EDT Office Visit Internal Medicine [address] [phone] Stella Gómez MD Medicare annual wellness visit, initial (Primary Dx); Autistic disorder, active; Attention deficit hyperactivity disorder (ADHD), unspecified ADHD type; Bipolar affective disorder, current episode mixed, current episode severity unspecified (CMS/[facility] V24, CMS/[facility] V28); Morbid obesity with body mass index (BMI) of 40.0 to 49.9 (CMS/HCC V24, CMS/[facility] V28); Routine general medical examination at a health care facility; Vitamin D deficiency; Other fatigue; Encounter for lipid screening for cardiovascular disease; Other abnormal glucose 06/11/2025 Telephone Internal Medicine [address] [phone] Stella Gómez MD 05/13/2025 Telephone Internal Medicine [address] [phone] Stella Gómez MD 04/23/2025 2:45 PM EDT Office [facility] [address] [facility] [place] [phone] Graciela La CNM Vaginal odor (Primary Dx) from Last 3 Months Immunizations Immunization Administration Dates Next Due Influenza Quadravalent, MDCK , 0.5ml, preservative free (Flucelvax) 6mo and older 08/28/2023 Tdap Tetanus diptheria acell ular pertussis (Boostrix; Adacel) 7yo and older 10/29/2024,02/07/2023 Surgical History Surgery Date Site/Laterality Comments WISDOM TOOTH EXTRACTION PROCEDURE: HISTORICAL WISDOM TEETH EXTRACTION Medical History Medical History Date Comments Bipolar disorder ([facility] V24, [facility] V28) DX:Bipolar disorder ([facility]) Adhd DX:ADHD Autistic disorder DX:Autistic di sorder Obesity DX:Obesity Schizophrenia ([facility] V24, [facility] V28) Depression Anxiety Bipolar 1 disorder ([facility] V24, [facility] V28) PTSD (post-traumatic stress disorder) Social History [...] F) 06/28/2025 1:18 PM EDT Respiratory Rate 22 04/23/2025 2:54 PM EDT Oxygen Saturation 97% 06/28/2025 1:18 PM EDT Inhaled Oxygen Concentration - - Weight 141 kg (310 lb) 06/28/2025 1:18 PM EDT Height 162.6 cm (5' 4 ) 06/28/2025 1:18 PM EDT Body Mass Index 53.21 06/28/2025 1:18 PM EDT Plan of Treatment Upcoming Encounters Date Type Department Care Team (Late st Contact Info) Description 08/13/2025 11:20 AM EST Office Visit Gastroenterology - [place] [address] [phone] Jeanne Frost NP 175 [facility] [address] [place] [address] 12/30/2025 1:30 PM EDT Office Visit Internal Medicine - [place] [address] [phone] Stella Gómez MD [address] [place] [address] [address] [place] [address] Health Maintenance Due Date Last Done Comments HPV Vaccines (1 - 3-dose series) 2014 Hepatitis B Vaccines (1 of 3 - 19+ 3-dose series) 2018 HIV Screening 10/10/2023 Medicare Annual Wellness Visit 10/10/2023 Social Influencers of Health Screening 10/10/2023 COVID-19 Vaccine (1 - 2023-2 5 season) 2025 Cervical Cancer Screening: Pap Smear 12/14/2025 12/14/2022, 12/14/2022 Cholesterol Screening (Lipid Panel) 06/28/2030 06/28/2025, 10/19/2022 DTaP,Tdap,and Td Vaccines (3 - Td or Tdap) 10/29/2034 10/29/2024, 02/07/2023 RSV Immunization Adult Patients (1 - 1-dose 75+ series) 2074 Hepatitis C Screening Completed 10/19/2022 Gonorrhea/Chlamydia Screening Discontinued , 12/14/2022 Influenza Vaccine Completed 06/19/2025, 08/28/2023, 07/13/2022 Depression Screening Completed 06/28/2025 HIB Vaccines Aged Out No longer eligi [...] Procedure Name Priority Date/Time Associated Diagnosis Comments CBC WITH AUTO DIFFERENTIAL Routine 06/28/2025 2:13 PM EDT Medicare annual wellness visit, initial Other fatigue CBC AND DIFFERENTIAL Routine 06/28/2025 2:13 PM EDT Medicare annual wellness visit, initial Other fatigue HEMOGLOBIN A1C Routine 06/28/2025 2:13 PM EDT Medicare annual wellness visit, initial Other abnormal glucose VITAMIN B12 Routine 06/28/2025 2:13 PM EDT Medicare annual wellness visit, initial Other fatigue COMPREHENSIVE METABOLIC PANEL Routine 06/28/2025 2:13 PM EDT Medicare annual wellness visit, initial Other fatigue LIPID PANEL WITH REFLEX TO DIRECT LDL Routine 06/28/2025 2:13 PM EDT Medicare annual wellness visit, initial Encounter for lipid screening for cardiovascular disease VITAMIN D 25 HYDROXY Routine 06/28/2025 2:13 PM EDT Medicare annual wellness visit, initial Vitamin D deficiency THYROID STIMULATING HORMONE WITH REFLEX TO FREE T4 AND FREE T3 Routine 06/28/2025 2:13 PM EDT Medicare annual wellness visit, initial Other fatigue TRICHOMONAS VAGINALIS ANTIGEN Routine 04/23/2025 3:24 PM EDT Vaginal odor WET PREP, GENITAL Routine 04/23/2025 3:2 4 PM EDT Vaginal odor CHLAMYDIA TRACHOMATIS AND NEISSERIA GONORRHOEAE PCR Routine 04/23/2025 3:24 PM EDT Vaginal odor HM PAP SMEAR Routine 12/14/2022 HEPATITIS C SCREENING Routine 10/19/2022 from Last 3 Months or Most Recently Relevant to Health Maintenance Results * Thyroid stimulating hormone with reflex to free t4 and free t3 (06/28/2025 2:13 PM EDT) Pathologist [facility] TSH 3.44 0.40 - 4.00 mcIU/mL LAB CHEMISTRY METHOD 06/28/2025 7:01 PM EDT [facility] Blood Venous blood specimen / Unknown Venipuncture / Unknown 06/28/2025 2:13 PM EDT 06/28/2025 2:13 PM EDT us Stella Gómez MD LAB BLOOD ORDERABLES Final Resul t [facility] [address] [place] [address], [place] [phone] * (ABNORMAL) Lipid panel with reflex to direct LDL (06/28/2025 2:13 PM EDT) Pathologist [facility] Cholesterol 184 0 - 200 mg/dL LAB CHEMISTRY METHOD 06/28[facility]2025 7:[facility] Triglycerides 206(H) 0 - 150 mg/dL LAB CHEMISTRY METHOD 06/28/2025 7:09 PM [facility] HDL 46 >=40 mg/dL LAB CHEMISTRY METHOD 06/28/2025 7:09 PM [facility] LDL Calculated 97 0 - 100 mg/dL LAB CHEMISTRY METHOD 06/28/2025 7:09 PM [facility] Comment:Estimated LDL Calcul ated using equation: Total cholesterol - HDL cholesterol - (Triglycerides/5) VLDL Cholesterol Anshu 41.2 mg/dL LAB CHEMISTRY METHOD 06/28/2025 7:09 PM [facility] Non HDL Chol. (LDL+VLDL) 138 <145 mg/dL LAB CHEMISTRY METHOD 06/28/2025 7:09 PM [facility] Chol/HDL Ratio 4.0 0.0 - 4.4 LAB CHEMISTRY METHOD 06/28/2025 7:09 PM [facility] Blood Venous blood specimen / Unknown Venipuncture / Unknown 06/28/2025 2:13 PM EDT 06/28/2025 2:13 PM EDT Stella Gómez MD LAB BLOOD ORDERABLES Final Resul t [facility] [address] [place] [address], * (ABNORMAL) CBC auto differential (06/28/2025 2:13 PM EDT) WBC 10.4 4.8 - 10.8 K/mcL LAB HEMETOLOGY METHOD 06/28/2025 6:33 PM EDT [facility] RBC 4.80 3.80 - 4.80 M/mcL LAB HEMETOLOGY METHOD 06/28/2025 6:33 PM EDT [facility] Hemoglobin 13.1 11.5 - 16.0 g/dL LAB HEMETOLOGY METHOD 06/28/2025 6:33 PM EDT [facility] Hematocrit 41.3 35.0 - 47.0 % LAB HEMETOLOGY METHOD 06/28/2025 6:33 PM EDT [facility] MCV 85.7 79.0 - 98.0 FL LAB HEMETOLOGY METHOD 06/28/2025 6:33 PM EDT [facility] MCH 27.2 27.0 - 32.0 pcg LAB HEMETOLOGY METHOD 06/28/2025 6:33 PM EDT [facility] MCHC 31.7(L) 32.0 - 37.0 g/dL LAB HEMETOLOGY METHOD 06/28/2025 6:33 PM EDT [facility] RDW 15.1(H) 11.0 - 15.0 % LAB HEMETOLOGY METHOD 06/28/2025 6:33 PM EDT [facility] Platelets 281 130 - 400 K/mcL LAB HEMETOLOGY METHOD 06/28/2025 6:33 PM EDT [facility] MPV 9.6 7.0 - 11.0 FL LAB HEMETOLOGY METHOD 06/28/2025 6:33 PM EDT [facility] NRBC 0.0 <1.0 % LAB HEMETOLOGY METHOD 06/28/2025 6:33 PM T [facility] NRBC Absolute 0.00 <0.10 K/mcL LAB HEMETOLOGY METHOD 06/28/2025 6:33 PM EDT [facility] Neutrophils Relative 64.1 % LAB HEMETOLOGY METHOD 06/28/2025 6:33 PM EDT [facility] Lymphocytes Relative 29.9 % LAB HEMETOLOGY METHOD 06/28/2025 6:[facility] Monocytes Relative 5.1 % LAB HEMETOLOGY METHOD 06/28/2025 6:33 PM [facility] Eosinophils Relative 0.0 % LAB HEMETOLOGY METHOD 06/28/2025 6:33 PM T [facility] Basophils Relative 0.3 % LAB HEMETOLOGY METHOD 06/28/2025 6:33 PM [facility] Immature Granulocytes Relative 0.6 % LAB HEMETOLOGY METHOD 06/28/2025 6:33 PM [facility] Neutrophils Absolute 6.66 1.50 - 7.00 K/mcL LAB HEMETOLOGY METHOD 06/28/2025 6:33 PM EDT [facility] Lymphocytes Absolute 3.11 1.00 - 5.00 K/mcL LAB HEMETOLOGY METHOD 06/28/2025 6:33 PM EDT [facility] Monocytes Absolute 0.53 0.20 - 1.00 K/mcL LAB HEMETOLOGY METHOD 06/28/2025 6:33 PM [facility] Eosinophils Absolute 0.00 0.00 - 0.50 K/mcL LAB HEMETOLOGY METHOD 06/28/2025 6:33 PM EDT [facility] Basophils Absolute 0.03 0.00 - 0.20 K/[facility] HEMETOLOGY METHOD 06/28/2025 6:33 PM EDT [facility] Immature Granulocytes Absolute 0.06(H) 0.00 - 0.03 K/[facility] HEMETOLOGY METHOD 06/28/2025 6:33 PM EDT [facility] Blood Venous blood specimen / Unknown Venipuncture / Unknown 06/28/2025 2:13 PM EDT 06/28/2025 2:13 PM EDT us Stella Gómez MD LAB BLOOD ORDERABLES Final Resul t Performing Organization Address [facility]/ZIP Co de Phone Number [facility] [address] [place] [address], * Vitamin D 25 hydroxy (06/28/2025 2:13 PM EDT) Vit D, 25-Hydroxy 50.8 30.0 - 80.0 ng/mL LAB CHEMISTRY METHOD 06/28/2025 7:00 PM EDT [facility] Blood Venous blood specimen / Unknown Venipuncture / Unknown 06/28/2025 2:13 PM EDT 06/28/2025 2:13 PM EDT us Stella Gómez MD LAB BLOOD ORDERABLES Final Resul t Performing Organization Address City/[facility]/ZIP Co de Phone Number [facility] [address] [place] [address], [place] [phone] * Hemoglobin A1c (06/28/2025 2:13 PM EDT) Hemoglobin A1C 5.6 <6.5 % LAB CHEMISTRY METHOD 06/28/2025 9:50 PM EDT [facility] Mean Bld Glu Estim. 114 mg/dL LAB CHEMISTRY METHOD 06/28/2025 9:50 PM EDT [facility] Blood Venous blood specimen / Unknown Venipuncture / Unknown 06/28/2025 2:13 PM EDT 06/28/2025 2:13 PM EDT Stella Gómez MD LAB BLOOD ORDERABLES Final Resul t Performing Organization Address City/[facility]/ZIP Co de Phone Number [facility] [address] [place] [address], [place] [phone] * Vitamin B12 (06/28/2025 2:13 PM EDT) Pathologist [facility] Vitamin B-12 786 250 - 900 pcg/mL LAB CHEMISTRY METHOD 06/28/2025 7:09 PM EDT [facility] Blood Venous blood specimen / Unknown Venipuncture / Unknown 06/28/2025 2:13 PM EDT 06/28/2025 2:13 PM EDT Stella Gómez MD LAB BLOOD ORDERABLES Final Resul t Performing Organization Address [facility] Co de Phone Number [facility] [address] [place] [address], [place] [phone] * (ABNORMAL) Comprehensive metabolic panel (06/28/2025 2:13 PM EDT) Pathologist [facility] Sodium 138 133 - 145 mmol/L LAB CHEMISTRY METHOD 06/28/2025 7:09 PM EDT [facility] Potassium 4.3 3.5 - 5.5 mmol/L LAB CHEMISTRY METHOD 06/28/2025 7:09 PM EDT [facility] Chloride 104 96 - 110 mmol/L LAB CHEMISTRY METHOD 06/28/2025 7:09 PM EDT [facility] CO2 26 21 - 32 mmol/L LAB CHEMISTRY METHOD 06/28/2025 7:09 PM EDT [facility] Anion Gap 8 3 - 11 LAB CHEMISTRY METHOD 06/28/2025 7:09 PM [facility] Glucose 109(H) 70 - 100 mg/dL LAB CHEMISTRY METHOD 06/28/2025 7:09 PM [facility] BUN 9 5 - 25 mg/dL LAB CHEMISTRY METHOD 06/28/2025 7:09 PM [facility] Creatinine 0.76 0.50 - 1.10 mg/dL LAB CHEMISTRY METHOD 06/28/2025 7:09 PM [facility] eGFR 111 >=60 mL/min/1. 73m2 LAB CHEMISTRY METHOD 06/28/2025 7:09 PM [facility] Comment:Calculation based on the Chronic Kidney Disease Epidemiology Collaboration (CKD-EPI) equation refit without adjustment for race. BUN/Creatinine Ratio 11.8 LAB CHEMISTRY METHOD 06/28/2025 7:09 PM [facility] Calcium 9.1 8.5 - 10.5 mg/dL LAB CHEMISTRY METHOD 06/28/2025 7:09 PM [facility] AST (SGOT) 43(H) 10 - 42 unit/L LAB CHEMISTRY METHOD 06/28/2025 7:09 PM [facility] ALT (SGPT) 49 10 - 60 unit/L LAB CHEMISTRY METHOD 06/28/2025 7:09 PM [facility] Alkaline Phosphatase 79 42 - 121 unit/L LAB CHEMISTRY METHOD 06/28/2025 7:09 PM [facility] Total Protein 7.8 6.0 - 8.0 g/dL LAB CHEMISTRY METHOD 06/28/2025 7:09 PM [facility] Albumin 3.4 3.2 - 5.0 g/dL LAB CHEMISTRY METHOD 06/28/2025 7:09 PM [facility] Total Bilirubin 0.2 0.0 - 1.4 mg/dL LAB CHEMISTRY METHOD 06/28/2025 7:09 PM EDT [facility] Blood Venous blood specimen / Unknown Venipuncture / Unknown 06/28/2025 2:13 PM EDT 06/28/2025 2:13 PM EDT Stella Gómez MD LAB BLOOD ORDERABLES Final Resul t [facility] [address] [place] [address], [place] [phone] * Trichomonas vaginalis antigen (04/23/2025 3:24 PM EDT) Trichomonas vaginalis Negative Negative 04/23/2025 7:10 PM EDT [facility] Swab Vaginal structure / Unknown Non-blood Collection / Unknown 04/23/2025 3:24 PM EDT 04/23/2025 3:24 PM EDT Graciela BECERRA LAB MICROBIOLOGY - GENERAL OR DERABLES Final Result Performing Organization Address [facility]/ZIP Co de Phone Number [facility] [address] [place] [address], [place] [phone] * Chlamydia trachomatis and Neisseria gonorrhoeae molecular study (04/23/2025 3:24 PM EDT) Neisseria gonorrhoeae PCR Negative Negative LAB MOLECULAR DIAGNOSTICS METHOD 04/24/2025 8:55 AM EDT [facility] Chlamydia trachomatis PCR Negative Negative LAB MOLECULAR DIAGNOSTICS METHOD 04/24/2025 8:55 AM EDT [facility] Swab Cervix uteri structure / Unknown Non-blood Collection / Unknown 04/23/2025 3:24 PM EDT 04/23/2025 3:24 PM EDT Graciela BECERRA LAB MICROBIOLOGY - GENERAL OR DERABLES Final Result [facility] [address] [place] [address], * Wet prep, genital (04/23/2025 3:24 PM EDT) [facility] Clue Cells, Wet Prep Negative Negative 04/23/2025 7:09 PM EDT [facility] Yeast, Wet Prep Negative Negative 04/23/2025 7:09 PM EDT [facility] Trichomonas, Wet Prep Indeterminate Negative 04/23/2025 7:09 PM EDT [facility] Comment:Refer to Trichomonas antigen. Swab Vaginal structure / Unknown Non-blood Collection / Unknown 04/23/2025 3:24 PM EDT 04/23/2025 3:24 PM EDT Graciela La CNM LAB MICROBIOLOGY - GENERAL OR DERABLES Final Result [facility] [address] [place] [address], * Pap Smear (12/14/2022) Pathologist [facility] Pap smear abstracted, negative Historical Provider HEALTH MAINTENANCE Final Result * Hepatitis C Screening (10/19/2022) [facility] Hepatitis C Screening abstracted Historical Provider HEALTH MAINTENANCE Final Result from Last 3 Months or Most Recently Relevant to Health Maintenance Insurance MEDICARE MEDICAID - [place] Care Teams Regional Administrative Assistant Relationship Specialty Start Date End Date Stella Gómez MD [address] [place] [phone] PCP - General 07/09/22
--- OUTSIDE RECORDS SUMMARY | 2025-07-03 18:22 | XMS_ITS | Encounter Summary ---
Author Organization [facility] Address [address] [place] [address] Care Team Providers Care [place] Name Role Phone Stella Gómez MD Primary Care Provider [phone] Encounter Details Date Type Department Care Team (Late st Contact Info) Description 09/22/2024 Community Care Management [place] [facility] [address] [place] [phone] Chi Clement Social History Tobacco [...] No 09/19/2024 3:55 AM Roger Conley RN * Calculated C-SSRS Risk Score (Lifetime/Recent) Answer Date of Assessment Author High Risk 09/22/2024 5:37 AM Olive Yu RN * [place] Suicide Severity Rating Scale (Screener/Recent Self-Report) Question Answer Date of Assessment Author 1. Wish to be (Past 1 Month) Yes 5:37 AM Ninfa Yu RN 2. Non-Specific Active Suici lucia Thoughts (Past 1 Month) Yes 09/22/2024 5:37 AM Lisstete Yu RN 3. Active Suicidal Ideation with any Methods (Not Plan) Without Intent to Act (Past 1 Month) Yes 09/22/2024 5:37 AM Ninfa Yu RN 4. Active Suicidal Ideation with Some Intent to Act, Without Specific Plan (Past 1 Month) Yes 09/22/2024 5:37 AM Ninfa uY RN 5. Active Suicidal Ideation with Specific Plan and Intent (Past 1 Month) Yes 09/22/2024 5:37 AM Ninfa Yu RN 6. Suicidal Behavior (Lifetime) Yes 5:37 AM Ninfa Yu RN 6. Suicidal Behavior (3 Months) Yes 5:37 AM Ninfa Yu RN documented as of this encounter Mental [...] 11:20 AM EST Office Visit Gastroenterology - [place] 175 [facility] 175 [facility] [address] [place] [address] Jeanne Frost, CARRI 175 [facility] [address] [place] [address] 12/30/2025 1:30 PM EDT Office Visit Internal Medicine - [place] [address] [phone] Stella Gómez MD [address] [phone] documented as of this encounter Visit Diagnoses Not on filedocumented in this encounter Care Teams Cook [place] Relationship Specialty Start Date End Date Stella Gómez MD [address] [phone] PCP - General 07/09/22 documented as of this encounter
--- OUTSIDE RECORDS SUMMARY | 2025-07-03 18:23 | XMS_ITS | Encounter Summary ---
Author Organization [facility] Address [address] [place] [address] Care Team Providers Care Director Of Regulatory Affairs Name Role Phone Stella Gómez MD Primary Care Provider [phone] Encounter Details Date Type Department Care Team ([facility] st Contact Info) Description 06/11/2025 Telephone Internal Medicine - [place] [address] [facility] [address] [place] [address] Stella Gómez MD 175 [facility] [address] [place] [address] Social History Tobacco Use Types [...] 11:20 AM EST Office Visit Gastroenterology - [address] [phone] Jeanne Frost NP [address] [address] 12/30/2025 1:30 PM EDT Office Visit Internal Medicine - [address] [phone] Stella Gómez MD [address] [place] [phone] documented as of this encounter Visit Diagnoses Not on filedocumented in this encounter Care Teams Director Of Regulatory Affairs Relationship Specialty Start Date End Date Stella Gómez MD [address] [place] [phone] PCP - General 07/09/22 documented as of this encounter
[2025-07-03 18:25] LABS: Cannabinoid Screen Urine Not Detected (Not Detect)
[2025-07-03 18:30] LABS: MANUAL DIFF FLAG NO
[2025-07-03 18:49] LABS: Hematocrit 37.3 % (37.0-47.0); Hemoglobin 12.5 g/dl (12.0-16.0); Imm Gran Abs Auto 0.14 X10*3/uL (0.00-0.03); Imm Gran Pct Auto 1.4 % (0.0-0.4); Lymphocytes Absolute Auto 3.2 X10*3/uL (1.2-4.9); Mean Corpuscular HGB Conc 33.5 g/dl (31.0-35.0); Mean Corpuscular Hemoglobin 28.4 pg (27.0-33.0); Mean Corpuscular Volume 84.8 fL (80.0-98.0); NRBC Abs Auto 0.000 X10*3/uL (0.0-0.012); NRBC Pct Auto 0.0 /100WBC (0.0-0.2); Platelet Count 271 X10*3/uL (160-400); Red Blood Count 4.40 X10*6/uL (4.20-5.50); White Blood Count 10.1 X10*3/uL (4.8-10.8)
[2025-07-03 19:07] LABS: Alanine Aminotransferase 45 U/L (0-31); Albumin Level 4.1 g/dL (3.5-5.0); Alkaline Phosphatase 72 U/L (39-117); Anion Gap 15 (12-20); Blood Urea Nitrogen 11 mg/dL (9-16); Calcium 9.2 mg/dL (8.4-10.2); Carbon Dioxide 25 mmol/L (22-29); Chloride 103 mmol/L (96-108); Creatinine Clr Calc Pharmacy 154.5; Estimated Glomerular Filt Rate > 60; Potassium 4.2 mmol/L (3.3-5.1); Sodium 139 mmol/L (135-145); Total Protein 7.5 g/dL (6.5-8.0)
[2025-07-03 19:10] LABS: IDNOW Serial# 55D5AD1C; IDNOW Serial# 58CA691E; Strep A Nucleic Acid Negative (Negative)
[2025-07-03 19:11] LABS: Influenza B2 Negative (Negative)
[2025-07-03 19:21] LABS: IDNOW Serial# 6674DD1D
[2025-07-03 19:22] LABS: COVID-19 Test Negative (Negative)
[2025-07-03 19:29] LABS: Appearance Urine Turbid; Glucose Urine UA Negative (Negative); PH 5.5 (5.0-9.0); Specific Gravity - Urine 1.025 (1.005-1.025)
[2025-07-03 19:37] LABS: Aspartate Amino Transferase 45 U/L (5-31)
--- NOTE | 2025-07-03 20:50 | PC.NURSE ---
Assumed care of patient at 1900, patient appears to be in no apparent distress at this time, resting in her bed, respirations even and unlabored. Continue plan of care.
--- NOTE | 2025-07-04 03:33 | PC.NURSE ---
Report received and care assumed at 0245. Pt has been resting comfortably in back area with respirations even and unlabored and no distress noted.
[2025-07-04 06:35] VITALS: BP 109/47; PULSE 90; RESP 16; TEMP 36.6; O2SAT 93
--- NOTE | 2025-07-04 07:35 | PC.NURSE ---
Assumed care of patient at 0645, patient appears to be in no apparent distress at this time, resting on couch in BH 8, respirations even and unlabored. Continue plan of care for follow up
--- NOTE | 2025-07-04 08:30 | PC.NURSE ---
RE: med rec This RN completed med rec with patient discharge packet from 06/24 (here at [facility]), pt was able to verbally verify all medications were taken on 07/02
--- NOTE | 2025-07-04 09:02 | PHA.MEDREC ---
Pharmacy Consult ? Medication Reconciliation Pharmacy has reviewed the medication reconciliation done by nursing staff.
[2025-07-04 14:03] VITALS: BP 109/47; PULSE 90; RESP 16; TEMP 36.6; O2SAT 93
== END 2025-07-04 14:04 | disposition home or self-care (01) ==
PROVIDERS: Physician Assistant Medical; Emergency Provider Student in an Organized Health Care Education/Training Program
DX: F32.A Depression, unspecified (principal); R45.851 Suicidal ideations; F84.0 Autistic disorder; F43.10 Post-traumatic stress disorder, unspecified; Z79.899 Other long term (current) drug therapy
CPT/HCPCS: 36415; 80053; 80164; 80307; 81003; 81025; 85025; 87502; 87635; 87651; 99285; S9485